=== PATIENT | male | born 1940 | race Caucasian/White ===

== ENCOUNTER → 2019-10-05 11:25 | Outpatient (BNVA) | payer MEDICARE, OTHER, SELFPAY | PROVIDERS: Family Provider Nurse Practitioner; PCP Nurse Practitioner; Visit Provider Internal Medicine Cardiovascular Disease | DX: I10 Essential (primary) hypertension (principal); R07.89 Other chest pain; E78.2 Mixed hyperlipidemia; I25.118 Atherosclerotic heart disease of native coronary artery with other forms of angina pectoris; Z95.0 Presence of cardiac pacemaker; I42.9 Cardiomyopathy, unspecified | CPT/HCPCS: 80061; 80076 ==

== ENCOUNTER 2019-10-25 08:17 | Outpatient (CLI) | payer MEDICARE, OTHER, SELFPAY ==
--- NOTE | 2019-10-25 08:20 | ECG_ITS ---
NAME OF STUDY: LEXISCAN SESTAMIBI STRESS TEST INDICATION: Atypical Chest Pain PROCEDURE: At the baseline, the EKG revealed mostly a sensed, V paced rhythm with occasional supraventricular beats. The baseline blood pressure was 120/95 mm Hg with a heart rate of 111 beats/min. Lexiscan was infused over a period of 20 seconds. A total of 0.4 milligrams of Lexiscan was infused. The stress phase was continued for a total of 5 minutes. Heart rate at the end of the stress phase was 117 with a blood pressure 150/78. The EKG at the peak infusion revealed 100% A sensed V paced rhythm. Sestamibi was injected 20 seconds after the Lexiscan infusion. Blood pressure at the end of the recovery phase was 141/75 with a heart rate of 106 per minute. CONCLUSION: 1. EKG response to Lexiscan infusion is uninterpretable due to baseline pacing artifact 2. No LexiScan induced chest pain or cardiac arrhythmia 3. Normal blood pressure and heart rate response 4. Sestamibi/sestamibi perfusion scan pending; see separate report. Electronically Signed On 10-26-2019 20:05:43 CATTLE DEHORNER by Christi Chen M.D. [email or web address]
--- NOTE | 2019-10-25 08:21 | NMCV_ITS ---
NM naa perf SPECT r/s* [id number] Jordi Esposito Age: 79 Gender: M : 1940 Exam Date: 10/25/2019 09:32 Ordering Phys: Christi Chen MD ([email or web address]) Technologist: STACY Payne Exam Location: [facility] Indications: ATYPICAL CHEST PAIN STRESS TEST Please see separate stress test report in [facility] for full findings IMAGE PROTOCOL Rest/Stress 1 Lexiscan Day Radiopharmaceutical Dose (mCi) Administration Site Administered by Rest: Tc-99m 10.8 IV STACY Cervantes Sestamibi Stress:Tc-99m 32.7 IV STACY Cervantes Sestamibi Rest: 25-Oct-2019 60 Discovery 630 Stress: 25-Oct-2019 30 Discovery 630 0.4mg Lexiscan. Images obtained in supine and prone position. SPECT RESULTS Technical Quality: Excellent Raw Data Analysis: Normal Image Corrections: Patient motion artifact - motion correction applied to stress images. Summed Stress Score: 5 Summed Rest Score: 14 Summed Difference Score: 0 PERFUSION FINDINGS Moderately decreasesed uptake in the basal, mid and apical inferior wall and some apical segments.. No significant reversibility was noted in these regions. FUNCTIONAL RESULTS (calculated via Gated SPECT) Stress Image LV EF (%): 57 Stress EDV (mL):119 TID: 0.95 Stress ESV (mL):51 FUNCTIONAL FINDINGS: Segmental wall motion analysis revealed mild diffuse hypokinesia of the LV apex IMPRESSIONS 1. Myocardial region may revealing a moderate area of persistent decreases uptake in the inferior wall and apical regions, suggestive of myocardial scarring versus attenuation artifact. 2. Normal LV ejection fraction 57%. 3. LV wall motion analysis revealing mild diffuse hypokinesia of the LV apex. 4. Slightly elevated LV cavity with an end-systolic volume of 51 ml. No significant coronary ischemia, based on the above findings Dr Christi Chen MD FACC (Electronically Signed) Final Date: 25 October 2019 17:57 S
[2019-10-25 09:04] VITALS: BMI 30.4
[2019-10-25] MEDS: regadenoson 0.4 Mg/5 ml Syringe IVP (10:12)
[2019-10-25 10:26] VITALS: BP 142/78; PULSE 71
== END 2019-10-25 08:18 | disposition home or self-care (01) ==
LOC: CDL 08:18
PROVIDERS: Family Provider Nurse Practitioner; PCP Nurse Practitioner; Visit Provider Internal Medicine Cardiovascular Disease
DX: R07.89 Other chest pain (principal)
CPT/HCPCS: 78452; 93017; A9500; J2785

== ENCOUNTER → 2019-11-09 12:40 | Outpatient (BNVA) | payer MEDICARE, OTHER, SELFPAY | PROVIDERS: Family Provider Nurse Practitioner; PCP Nurse Practitioner; Visit Provider Social Worker | DX: F33.2 Major depressive disorder, recurrent severe without psychotic features (principal) | CPT/HCPCS: 90834 ==

== ENCOUNTER → 2019-12-21 15:58 | Outpatient (BNVA) | payer MEDICARE, OTHER, SELFPAY | PROVIDERS: Family Provider Nurse Practitioner; PCP Nurse Practitioner; Visit Provider Social Worker | DX: F33.2 Major depressive disorder, recurrent severe without psychotic features (principal) | CPT/HCPCS: 90834 ==

== ENCOUNTER → 2020-01-02 12:00 | Outpatient (BNVA) | payer MEDICARE, OTHER, SELFPAY | PROVIDERS: Family Provider Nurse Practitioner; PCP Nurse Practitioner; Visit Provider Internal Medicine Cardiovascular Disease | DX: E78.5 Hyperlipidemia, unspecified (principal); E78.2 Mixed hyperlipidemia | CPT/HCPCS: 80048; 80061 ==

== ENCOUNTER → 2020-01-06 17:20 | Outpatient (BNVA) | payer MEDICARE, OTHER, SELFPAY | PROVIDERS: Family Provider Nurse Practitioner; PCP Nurse Practitioner; Visit Provider Nurse Practitioner Family | DX: M79.641 Pain in right hand (principal) | CPT/HCPCS: 73130 ==

== ENCOUNTER 2020-01-20 13:59 | Emergency (ER) | payer MEDICARE, OTHER, SELFPAY ==
[2020-01-20] VITALS (7 sets, daily range): BP systolic 116–205; BP diastolic 72–99; PULSE 65–83; RESP 15–24; TEMP 37.1; O2SAT 83–100; BMI 30.3
--- NOTE | 2020-01-20 | XRR_ITS ---
PROCEDURE INFORMATION: Exam: XR Left Ankle Exam date and time: 01/20/2020 5:06 PM Age: 79 years old Clinical indication: Abnormal findings; Abnormal imaging study; Left ankle; Additional info: Post reduction TECHNIQUE: Imaging protocol: XR Left ankle. Views: 1 or 2 views. COMPARISON: CR XR ankle LT min 3V* [id number] 01/20/2020 3:14 PM FINDINGS: Bones/joints: Status post reduction of a bimalleolar fracture of the left ankle with near anatomic alignment and positioning achieved. Soft tissues: Normal. XR/XR ankle LT 2V [id number] IMPRESSION: Status post reduction of a bimalleolar fracture of the left ankle with near anatomic alignment and positioning achieved.
--- NOTE | 2020-01-20 14:21 | XRR_ITS ---
PROCEDURE INFORMATION: Exam: XR Left Ankle Exam date and time: 01/20/2020 3:32 PM Age: 79 years old Clinical indication: Pain and injury or trauma; Injury history: Twisting injury; Initial encounter; Sprain or strain; Patella or knee and lower leg and ankle; Left; Ankle and knee and lower leg; Injury date: 01/20/20 TECHNIQUE: Imaging protocol: XR Left ankle. Views: 3 or more views. COMPARISON: No relevant prior studies available. FINDINGS: Bones/joints: There is a comminuted fracture of the distal tibia. There is a transverse fracture across the base of the medial malleolus. The posterior distal tibia, the posterior malleolus, is fractured. This posterior fragment is displaced posteriorly and laterally relative to the tibia. There is dislocation at the tibiotalar joint with lateral and posterior dislocation of the talus relative to the tibial plafond. Soft tissues: Soft tissue swelling. XR/XR ankle LT min 3V* 00101 IMPRESSION: 1. Comminuted fracture of the distal tibia with fractures of the medial and posterior malleoli. 2. There is dislocation at the tibiotalar joint. The talus is dislocated posteriorly and laterally relative to the tibial plafond.
--- NOTE | 2020-01-20 14:40 | ED_ITS ---
Documented by User: SELINA Mariano 01/21/20 17:16 HPI - Extremity Injury (Lower) General: Chief Complaint: Extremity Injury, Lower Stated Complaint: ankle pain Time Seen by Provider: 01/20/20 14:32 Source: patient Mode of arrival: wheelchair Limitations: no limitations History of Present Illness: HPI Narrative: Patient is a nice 79-year-old male who presents to ED today with a complaint of a left ankle injury. Patient tells me he was walking down to a pond to release a turtle that he had found when he accidentally slipped on some mud and immediately felt his ankle twist. Patient states he has not been able to place any weight on the extremity since the fall. Patient was able to crawl back to his home to call for help. MD complaint: ankle injury Onset (ago): hour(s) Injury: Left: ankle Type of Injury: inversion Place: home Severity: severe Relieving factors: nothing Exacerbating factors: weight bearing, movement and palpation Context: fall Associated symptoms: Reports inability to bear weight Other symptoms: none Review of Systems Card: Denies: chest pain Resp: Denies: dyspnea GI: Denies: abdominal pain Musc: Reports: joint pain and joint swelling; Denies: neck pain or back pain Neuro: Denies: headache(s), numbness in extremities, weakness in extremities or sensory changes [facility] ED PFSH: Medical History (Updated 01/20/20 @ 16:20 by SELINA Mariano) Atypical chest pain Cardiomyopathy Emphysema lung Hyperlipidemia Hypertension Obstructive sleep apnea (adult) (pediatric) Pacemaker Sick sinus syndrome Surgical History History of arthroplasty of left shoulder Family History Other CAD (coronary artery disease) Cancer Social History Smoking and tobacco status: former smoker Alcohol intake: never Physical Exam Const: COMMON NORMALS: average body habitus, patient oriented x3, no limitations, healthy appearing, alert and well nourished GENERAL APPEARANCE: in distress (in pain) ORIENTATION/CONSCIOUSNESS: Yes oriented to person, Yes oriented to place and Yes oriented to time HENMT: COMMON NORMALS: normocephalic and atraumatic HEAD & SCALP: normocephalic and atraumatic Neck/C-Spine: CERVICAL SPINE: Yes cervical ROM normal and No Cervical spine tenderness Chest: COMMONS NORMALS: normal inspection of the chest and normal palpation of entire chest wall Resp: COMMON NORMALS: normal respiratory effort and clear to auscultation bilaterally AUSCULTATION: clear to auscultation bilaterally Cardio: COMMON NORMALS: regular rate and regular rhythm RATE: regular rate RHYTHM: regular rhythm Back/Pelvis: COMMON NORMALS: thoracic and lumbar spine normal to inspection, no thoracic nor lumbar tenderness and thoraco-lumbar ROM normal Extremity: GENERAL: Yes normal exam except as noted OTHER: severe tenderness, swelling, and deformity noted to distal left lower extremity mainly around the ankle consistent with fractures and possible dislocation; NV intact; ecchymosis starting Neuro: COMMON NORMALS: patient oriented x3 and no sensory deficits noted SENSORIUM/ORIENTATION: Yes alert, Yes oriented to person, Yes oriented to place and Yes oriented to time Course Consultations: Consultation #1: Dr. Fisher-will come to ED and reduce ankle and speak to patient about OR schedule Vital Signs: Vital signs: Vital Signs Temperature 98.7 F 01/20/20 14:08 Pulse Rate 65 01/20/20 18:12 Respiratory Rate 24 H 01/20/20 18:12 Blood Pressure 146/75 01/20/20 18:12 Pulse Oximetry 99 01/20/20 18:12 MDM - Extremity Injury (Lower) MDM Narrative: Medical decision making narrative: Dr. Fisher performed reduction of ankle dislocation. Dr. Patton was alongside to provide conscious sedation. Post reduction films obtained. Patient was splinted and I spoke to Dr. Fisher who will see in office next week for re-evaluation. Lab Data: Labs: Lab Results 01/20/20 01/20/20 Range/Units 14:50 14:50 WBC 13.8 H (4.0-10.0) 10^3/ uL RBC 4.26 (4.1-5.3) 10^6/u L Hgb 13.3 (11.7-16.6) g/dL Hct 40.5 L (42.0-52.0) % MCV 95.1 H (80-94) fL MCH 31.2 (28.0-34.0) pg MCHC 32.8 (30.0-36.0) g/dL RDW 13.3 (12.1-15.1) % Plt Count 189 (130-400) 10^3/c mm MPV 10.8 H (7.4-10.4) fL Neut % (Auto) 78.4 % Lymph % (Auto) 13.5 % Randolph % (Auto) 6.1 % Eos % (Auto) 1.4 % Baso % (Auto) 0.2 % Neut # (Auto) 10.8 H (1.8-7.7) 10^3/u L Lymph # (Auto) 1.9 (0.8-4.8) 10^3/u L Randolph # (Auto) 0.8 (0.2-0.9) 10^3/u L Eos # (Auto) 0.2 (0.0-0.8) 10^3/u L Baso # (Auto) 0.0 (0.0-0.1) 10^3/u L Nucleated RBC % (a uto) 0 % Nucleated RBCs # 0.0 /100WBC Sodium 140 (136-145) mmol/L Potassium 4.3 (3.5-5.1) mmol/L Chloride 102 (98-107) mmol/L Carbon Dioxide 26 (22-29) mmol/L Anion Gap 16.3 (5-19) BUN 21 (8-23) mg/dL Creatinine 1.3 H (0.7-1.2) mg/dL Glucose 119 H (65-115) mg/dL Calculated Osmolal ity 288 (285-295) mOsm/k g Calcium 10.2 (8.5-10.5) mg/dL Total Bilirubin 0.7 (0.15-1.2) mg/dL AST 23 (0-40) U/L ALT 17 (0-41) U/L Alkaline Phosphata se 115 (40-130) IU/L Total Protein 7.6 (6.6-8.7) g/dL Albumin 4.5 (3.5-5.2) g/dL Globulin 3.1 (1.3-4.6) g/dL Imaging Data^: L tib/fib XR: Radiologist's impression: [address] [address] XRay Report Signed Patient: Jordi Esposito Unit #: [id number] : 1940 Age/Sex: 79 / M ADM Date: 01/20/20 Loc: ER Room/Bed: Attending Dr: Ordering Provider/Ordering MD: Jeanne Avila Date of Service: 01/20/20 Procedure(s): XR tibia fibula LT 2V 01972 Accession Number(s): [id number] Report Number: [id number] PROCEDURE INFORMATION: Exam: XR Left Tibia and Fibula Exam date and time: 01/20/2020 2:40 PM Age: 79 years old Clinical indication: Pain and injury or trauma; Injury history: Twisting injury; Initial encounter; Sprain or strain; Patella or knee and lower leg and ankle; Left; Ankle and knee and lower leg; Injury date: 01/20/20 TECHNIQUE: Imaging protocol: XR Left tibia and fibula. Views: 2 views. COMPARISON: No relevant prior studies available. FINDINGS: Bones/joints: There is no fracture of the proximal or mid tibia or fibula. There is a distal tibial fracture as reported on ankle x-ray. Soft tissues: Normal. XR/XR tibia fibula LT 2V 08798 IMPRESSION: 1. No fracture of the proximal to mid tibia or fibula. 2. Distal tibial fracture as discussed on ankle x-ray. Dictated By: aJd Seals MD Signed By: Jad Seals MD Signed Date/Time: 01/20/20 1555 DD/ 1554 L foot XR: Radiologist's impression: [address] [address] XRay Report Signed Patient: Jordi Esposito Unit #: [id number] : 1940 Age/Sex: 79 / M ADM Date: 01/20/20 Loc: ER Room/Bed: Attending Dr: Ordering Provider/Ordering MD: Jeanne Avila Date of Service: 01/20/20 Procedure(s): XR foot LT min 3V* 99145 Accession Number(s): [id number] Report Number: [id number] PROCEDURE INFORMATION: Exam: XR Left Foot Complete Exam date and time: 01/20/2020 3:22 PM Age: 79 years old Clinical indication: Pain and injury or trauma; Injury history: Twisting injury; Initial encounter; Sprain or strain; Lower leg and ankle and foot; Left; Ankle and foot and lower leg; Injury date: 01/20/20 TECHNIQUE: Imaging protocol: XR Left foot. Views: 3 or more views. COMPARISON: No relevant prior studies available. FINDINGS: Bones/joints: There is no fracture of the phalanges, metatarsals or tarsals. Fracture and dislocation of the tibia as described on ankle x-ray. Soft tissues: Normal. XR/XR foot LT min 3V* [id number] IMPRESSION: 1. No fracture of the left foot. 2. Fracture and dislocation of the ankle as described on ankle x-ray. Dictated By: Jad Seals MD Signed By: Jad Seals MD Signed Date/Time: 01/20/206 DD/ 1555 L ankle XR: Radiologist's impression: [address] [address] XRay Report Signed Patient: Jordi Esposito Unit #: [id number] : 1940 Age/Sex: 79 / M ADM Date: 01/20/20 Loc: ER Room/Bed: Attending Dr: Ordering Provider/Ordering MD: Jeanne Avila Date of Service: 01/20/20 Procedure(s): XR ankle LT min 3V* 46425 Accession Number(s): [id number] Report Number: [id number] PROCEDURE INFORMATION: Exam: XR Left Ankle Exam date and time: 01/20/2020 3:32 PM Age: 79 years old Clinical indication: Pain and injury or trauma; Injury history: Twisting injury; Initial encounter; Sprain or strain; Patella or knee and lower leg and ankle; Left; Ankle and knee and lower leg; Injury date: 01/20/20 TECHNIQUE: Imaging protocol: XR Left ankle. Views: 3 or more views. COMPARISON: No relevant prior studies available. FINDINGS: Bones/joints: There is a comminuted fracture of the distal tibia. There is a transverse fracture across the base of the medial malleolus. The posterior distal tibia, the posterior malleolus, is fractured. This posterior fragment is displaced posteriorly and laterally relative to the tibia. There is dislocation at the tibiotalar joint with lateral and posterior dislocation of the talus relative to the tibial plafond. Soft tissues: Soft tissue swelling. XR/XR ankle LT min 3V* 66574 IMPRESSION: 1. Comminuted fracture of the distal tibia with fractures of the medial and posterior malleoli. 2. There is dislocation at the tibiotalar joint. The talus is dislocated posteriorly and laterally relative to the tibial plafond. Dictated By: Jad Seals MD Signed By: Jad Seals MD Signed Date/Time: 01/20/201558 DD/ 57 POST REDUCTION ANKLE XR: Radiologist's impression: [place] [address] XRay Report Signed Patient: Jordi Esposito Unit #: [id number] : 1940 Age/Sex: 79 / M ADM Date: 01/20/20 Loc: ER Room/Bed: Attending Dr: Ordering Provider/Ordering MD: Yuan Patton DO Date of Service: 01/20/20 Procedure(s): XR ankle LT 2V 44432 Accession Number(s): [id number] Report Number: [id number] PROCEDURE INFORMATION: Exam: XR Left Ankle Exam date and time: 01/20/2020 5:06 PM Age: 79 years old Clinical indication: Abnormal findings; Abnormal imaging study; Left ankle; Additional info: Post reduction TECHNIQUE: Imaging protocol: XR Left ankle. Views: 1 or 2 views. COMPARISON: CR XR ankle LT min 3V* 87095 01/20/2020 3:14 PM FINDINGS: Bones/joints: Status post reduction of a bimalleolar fracture of the left ankle with near anatomic alignment and positioning achieved. Soft tissues: Normal. XR/XR ankle LT 2V 45427 IMPRESSION: Status post reduction of a bimalleolar fracture of the left ankle with near anatomic alignment and positioning achieved. Dictated By: Tam Christensen MD Signed By: Tam Christensen MD Signed Date/Time: 01/21/20510 DD/ 9 Discharge Plan Discharge Patient Disposition: Home, Self-Care Clinical Impression: Closed trimalleolar fracture Qualifiers: Encounter type: initial encounter Laterality: left Qualified Code(s): S82.852A - Displaced trimalleolar fracture of left lower leg, initial encounter for closed fracture Closed dislocation of left ankle Qualifiers: Encounter type: initial encounter Qualified Code(s): S93.05XA - Dislocation of left ankle joint, initial encounter Condition: Stable Prescriptions: New hydrocodone-acetaminophen 7.5-325 mg tablet 1 tab PO Q4H PRN (Reason: pain) Qty: 20 RF: 0 No Action futsbtcyyjiu-zqqdabfg-oqxclt Tablet 1 tab PO QDAY RF: 0 aspirin [Adult Low Dose Aspirin] 81 mg tablet,delayed release (DR/EC) 81 mg PO QDAY RF: 0 nitroglycerin [Nitrostat] 0.4 mg tablet, sublingual 0.4 mg SUBLINGUAL Q5M PRNRF: 0 isosorbide mononitrate 30 mg tablet extended release 24 hr 30 mg PO QAM RF: 0 atorvastatin 40 mg tablet 40 mg PO DAILY Qty: 90 RF: 2 carvedilol 3.125 mg tablet 3.125 mg PO BID Qty: 180 RF: 3 irbesartan-hydrochlorothiazide [Avalide] 150-12.5 mg tablet 1 tab PO QDAY Qty: 90 RF: 3 Discharge Orders: Discharge Order (Routine); Ordered 01/20/20 Ordered By: Jeanne Avila Referrals: Alley Saucedo FNP [Primary Care Provider] - Activity Restrictions/Additional Instructions: No weightbearing on extremity. You need to have ice on the extremity and elevate as much as possible until you see Dr. Fisher next week. He then will assess the swelling and go over surgical schedule. You may take pain medications as directed as needed for pain. Discharge Date/Time: 01/20/20 18:12 Coding Level of Care Code ED [employer] for [employer]g Fwd Exam Comprehensive Documented by User: Yuan Patton DO 01/20/20 16:55 HPI - Extremity Injury (Lower) General: Chief Complaint: Extremity Injury, Lower Stated Complaint: ankle pain Time Seen by Provider: 01/20/20 14:32 History of Present Illness: HPI Narrative: Patient initially seen by SELINA Marinao. She consulted Dr. Fisher for the trimalleolar fracture. Dr. Fisher is in the department plans to reduce the fracture splinted and to do a staged procedure to fixate the fracture. I was asked to do conscious sedation on the patient for fracture reduction. [facility] ED PFSH: Medical History (Updated 01/20/20 @ 16:20 by SELINA Mariano) Atypical chest pain Cardiomyopathy Emphysema lung Hyperlipidemia Hypertension Obstructive sleep apnea (adult) (pediatric) Pacemaker Sick sinus syndrome Surgical History History of arthroplasty of left shoulder Family History Other CAD (coronary artery disease) Cancer Social History Smoking and tobacco status: former smoker Alcohol intake: never Procedures Procedural Sedation Indication: fracture/dislocation reduction Preparation: environmental monitoring specialist applied, pulse oximeter, supplemental O2 applied and suction/airway equipment at bedside IV Etomidate dose (mg): 10 Complications: hypoventilation Interventions: oxygen applied, airway repositioned and assist by BVM Additional Comments: Patient desatted briefly into the upper 80s. His initially given some respiratory systems with [id number]-[id number] along with repositioning of the airway and a jaw thrust maneuver. This was this provided adequate recovery and patient increased his sat to 100% recovered from with no further complications. Discharge per SELINA note and Dr. Fisher's instructions. Course Vital Signs: Vital signs: Vital Signs Temperature 98.7 F 01/20/20 14:08 Pulse Rate 65 01/20/20 18:12 Respiratory Rate 24 H 01/20/20 18:12 Blood Pressure 146/75 01/20/20 18:12 Pulse Oximetry 99 01/20/20 18:12 MDM - Extremity Injury (Lower) Lab Data: Labs: Lab Results 01/20/20 01/20/20 Range/Units 14:50 14:50 WBC 13.8 H (4.0-10.0) 10^3/ uL RBC 4.26 (4.1-5.3) 10^6/u L Hgb 13.3 (11.7-16.6) g/dL Hct 40.5 L (42.0-52.0) % MCV 95.1 H (80-94) fL MCH 31.2 (28.0-34.0) pg MCHC 32.8 (30.0-36.0) g/dL RDW 13.3 (12.1-15.1) % Plt Count 189 (130-400) 10^3/c mm MPV 10.8 H (7.4-10.4) fL Neut % (Auto) 78.4 % Lymph % (Auto) 13.5 % Randolph % (Auto) 6.1 % Eos % (Auto) 1.4 % Baso % (Auto) 0.2 % Neut # (Auto) 10.8 H (1.8-7.7) 10^3/u L Lymph # (Auto) 1.9 (0.8-4.8) 10^3/u L Randolph # (Auto) 0.8 (0.2-0.9) 10^3/u L Eos # (Auto) 0.2 (0.0-0.8) 10^3/u L Baso # (Auto) 0.0 (0.0-0.1) 10^3/u L Nucleated RBC % (a uto) 0 % Nucleated RBCs # 0.0 /100WBC Sodium 140 (136-145) mmol/L Potassium 4.3 (3.5-5.1) mmol/L Chloride 102 (98-107) mmol/L Carbon Dioxide 26 (22-29) mmol/L Anion Gap 16.3 (5-19) BUN 21 (8-23) mg/dL Creatinine 1.3 H (0.7-1.2) mg/dL Glucose 119 H (65-115) mg/dL Calculated Osmolal ity 288 (285-295) mOsm/k g Calcium 10.2 (8.5-10.5) mg/dL Total Bilirubin 0.7 (0.15-1.2) mg/dL AST 23 (0-40) U/L ALT 17 (0-41) U/L Alkaline Phosphata se 115 (40-130) IU/L Total Protein 7.6 (6.6-8.7) g/dL Albumin 4.5 (3.5-5.2) g/dL Globulin 3.1 (1.3-4.6) g/dL Discharge Plan Discharge Patient Disposition: Home, Self-Care Clinical Impression: Closed trimalleolar fracture Qualifiers: Encounter type: initial encounter Laterality: left Qualified Code(s): S82.852A - Displaced trimalleolar fracture of left lower leg, initial encounter for closed fracture Closed dislocation of left ankle Qualifiers: Encounter type: initial encounter Qualified Code(s): S93.05XA - Dislocation of left ankle joint, initial encounter Condition: Stable Prescriptions: New hydrocodone-acetaminophen 7.5-325 mg tablet 1 tab PO Q4H PRN (Reason: pain) Qty: 20 RF: 0 No Action fgqwduqwfjze-gydjvsro-utwosv Tablet 1 tab PO QDAY RF: 0 aspirin [Adult Low Dose Aspirin] 81 mg tablet,delayed release (DR/EC) 81 mg PO QDAY RF: 0 nitroglycerin [Nitrostat] 0.4 mg tablet, sublingual 0.4 mg SUBLINGUAL Q5M PRNRF: 0 isosorbide mononitrate 30 mg tablet extended release 24 hr 30 mg PO QAM RF: 0 atorvastatin 40 mg tablet 40 mg PO DAILY Qty: 90 RF: 2 carvedilol 3.125 mg tablet 3.125 mg PO BID Qty: 180 RF: 3 irbesartan-hydrochlorothiazide [Avalide] 150-12.5 mg tablet 1 tab PO QDAY Qty: 90 RF: 3 Discharge Orders: Discharge Order (Routine); Ordered 01/20/20 Ordered By: Jeanne Avila Referrals: Alley Saucedo FNP [Primary Care Provider] - Activity Restrictions/Additional Instructions: No weightbearing on extremity. You need to have ice on the extremity and elevate as much as possible until you see Dr. Fisher next week. He then will assess the swelling and go over surgical schedule. You may take pain medications as directed as needed for pain. Discharge Date/Time: 01/20/20 18:12 Coding Level of Care Code ED [employer] for [employer]g Fwd Exam Comprehensive
[2020-01-20] MEDS: fentaNYL 50 mcg/mL INJ 2mL IVP (14:57)
[2020-01-20] MEDS: ondansetron 2 mg/ML SDV 2 mL 4 MG IVP (14:57)
[2020-01-20 15:03] LABS: Basophils % 0.2 %; Eosinophils # 0.2 10^3/uL (0.0-0.8); Eosinophils % 1.4 %; Hematocrit 40.5 % (42.0-52.0); Hemoglobin 13.3 g/dL (11.7-16.6); Lymphocytes # 1.9 10^3/uL (0.8-4.8); Lymphocytes % 13.5 %; Mean Corpuscular HGB Conc 32.8 g/dL (30.0-36.0); Mean Corpuscular Hemoglobin 31.2 pg (28.0-34.0); Mean Corpuscular Volume 95.1 fL (80-94); Mean Platelet Volume 10.8 fL (7.4-10.4); Monocytes # 0.8 10^3/uL (0.2-0.9); Monocytes % 6.1 %; Neutrophils # 10.8 10^3/uL (1.8-7.7); Neutrophils % 78.4 %; Nucleated Red Blood Cells % 0 %; Platelet Count 189 10^3/cmm (130-400); Red Blood Count 4.26 10^6/uL (4.1-5.3); Red Cell Distribution Width 13.3 % (12.1-15.1); White Blood Count 13.8 10^3/uL (4.0-10.0)
--- NOTE | 2020-01-20 15:03 | PC.NURSE ---
portable xray at bedside
[2020-01-20 15:25] LABS: Alanine Aminotransferase 17 U/L (0-41); Albumin Level 4.5 g/dL (3.5-5.2); Alkaline Phosphatase 115 IU/L (40-130); Anion Gap 16.3 (5-19); Aspartate Amino Transferase 23 U/L (0-40); Blood Urea Nitrogen 21 mg/dL (8-23); Calcium 10.2 mg/dL (8.5-10.5); Carbon Dioxide 26 mmol/L (22-29); Chloride 102 mmol/L (98-107); Globulin 3.1 g/dL (1.3-4.6); Glucose 119 mg/dL (65-115); Osmolality Calculated 288 mOsm/kg (285-295); Potassium 4.3 mmol/L (3.5-5.1); Sodium 140 mmol/L (136-145); Total Bilirubin 0.7 mg/dL (0.15-1.2); Total Protein 7.6 g/dL (6.6-8.7)
[2020-01-20] MEDS: etomidate 10 ML 999 MG (16:40)
[2020-01-20] MEDS: fentaNYL 50 mcg/mL INJ 2mL 25 MCG IVP ×2 (16:48→17:36)
--- NOTE | 2020-01-20 17:46 | P.CONIM_ITS ---
Providers/Reason For Consult Consulting Physican/Specialty*: Tremaine Fisher D.P.M. Reason for Consult*: Left ankle fracture Requesting Physcian: Jeanne Avila NP Primary Care Provider: AIDAN Tolliver History of Present Illness History of Present Illness Jordi Esposito is a 79 year old male who sustained a left ankle fracture with dislocation. Date of injury 01/20/2020 occurred in the afternoon patient saw a snapping turtle and decided to place it near a pond on [place] property he was approximately 300 yards [place] he [place] and sustained a inversion plantarflexion type injury to his left ankle he felt a pop with immediate pain. He had to crawl back to his house to call for help. His daughter and son-in-law live next door. They are a point of contact for him and he will be staying with him when he goes home from the emergency department. His daughter's name is Ekaterina her landline number is [phone]. Patient denies any other concomitant injuries, denies loss of consciousness. Denies any other pedal complaints at this time. Review of Systems General: Reports: 10 or more systems reviewed and unremarkable except in HPI and below Const: Denies: fever(s) or chills Eyes: Denies: change in vision Card: Denies: chest pain or palpitations Resp: Denies: dyspnea or productive cough GI: Denies: abdominal pain, nausea or vomiting : Denies: flank pain Musc: Reports: extremity pain (Left ankle), extremity swelling, joint pain, limited range of motion and deformity (Left ankle); Denies: joint redness or joint warmth Skin/Breast: Denies: rash Neuro: Denies: numbness in extremities, sensory changes or frequent falls Psych: Denies: suicidal ideation Mundo/Lymph: Denies: easy bruising Meds/Allergies Home Medications and Allergies Home Medications Medication Instructions Recorded Confirmed Last Taken Type aspirin 81 mg tablet,delayed 81 mg PO QDAY 10/04/19 01/06/20 Unknown History release isosorbide mononitrate 30 mg 30 mg PO QAM 10/04/19 01/06/20 Unknown History tablet,extended release 24 hr wtunoytcbrvm-vaqkqfbz-wgatqe 1 tab PO QDAY 10/04/19 01/06/20 Unknown History nitroglycerin 0.4 mg sublingual 0.4 mg SUBLINGUAL Q5M PRN 10/04/19 01/06/20 Unknown History tablet atorvastatin 40 mg tablet 40 mg PO DAILY #90 tab 11/22/19 01/06/20 Unknown Rx carvedilol 3.125 mg tablet 3.125 mg PO BID #180 tab 12/20/19 01/06/20 Unknown Rx irbesartan 150 1 tab PO QDAY #90 tab 01/09/20 Unknown Rx mg-hydrochlorothiazide 12.5 mg tablet hydrocodone-acetaminophen 1 tab PO Q4H PRN #20 tab 01/20/20 Unknown Rx Allergies Allergy/AdvReac Type Severity Reaction Status Date / Time morphine Allergy Intermediate nausea and Verified 01/20/20 14:11 vomiting PFSH Acute PFSH: Medical History (Updated 01/20/20 @ 16:20 by SELINA Mariano) Atypical chest pain Cardiomyopathy Emphysema lung Hyperlipidemia Hypertension Obstructive sleep apnea (adult) (pediatric) Pacemaker Sick sinus syndrome Surgical History History of arthroplasty of left shoulder Family History Other CAD (coronary artery disease) Cancer Social History Smoking and tobacco status: former smoker Alcohol intake: never Vitals/I&O/Wt Last Vital Signs Temp 98.7 F 01/20/20 14:08 Pulse 71 01/20/20 17:38 Resp 18 01/20/20 17:38 BP 147/72 01/20/20 17:38 Pulse Ox 99 01/20/20 17:38 Weight last 48 hrs Weight 230 lb Physical Exam Const: COMMON NORMALS: patient oriented x3 and alert GENERAL APPEARANCE: well kempt and in distress ORIENTATION/CONSCIOUSNESS: Yes awake, Yes oriented to person, Yes oriented to place and Yes oriented to time HENMT: COMMON NORMALS: normocephalic HEAD & SCALP: normocephalic Eye: COMMON NORMALS: Equal, round and reactive pupils present PUPIL: Yes Equal, round and reactive pupils present Chest: CHEST: Yes Symmetrical chest wall rise Resp: COMMON NORMALS: normal respiratory effort Cardio: COMMON NORMALS: Peripheral pulses 2+ throughout PERIPHERAL PULSES: Peripheral pulses 2+ throughout Extremity: LEFT LOWER EXTREMITY: Yes ankle joint (Protective sensation intact to left foot, dorsalis pedis and posterior tibial arteries are palpable left lower extremity. Edema to the left ankle medial and lateral malleolus. No open wounds, no fracture blisters or abrasions. Ecchymosis at the medial malleolus. Gross deformity appreciated with the medial malleolus tenting the skin and talus shifted laterally. Capillary refill less than 3 seconds to the left hallux.) Neuro: COMMON NORMALS: patient oriented x3 and no sensory deficits noted SENSORIUM/ORIENTATION: Yes alert, Yes oriented to person, Yes oriented to place and Yes oriented to time Psych: COMMON NORMALS: cooperative APPEARANCE: Yes well kempt Skin: COMMON NORMALS: no wounds GENERAL SKIN EXAM: ecchymosis and no erythema A&P Assessment and plan (1) Closed dislocation of left ankle: Status: Acute Qualifiers: Encounter type: initial encounter Qualified Code(s): S93.05XA - Dislocation of left ankle joint, initial encounter (2) Closed trimalleolar fracture: Status: Acute Qualifiers: Encounter type: initial encounter Laterality: left Qualified Code(s): S82.852A - Displaced trimalleolar fracture of left lower leg, initial encounter for closed fracture Patient examined and evaluated, findings and treatment options were discussed with patient at length. Recommended a closed reduction of the left ankle. Patient is agreeable written and verbal consent obtained. Conscious sedation provided by Dr. Patton greatly appreciated. Closed reduction of left ankle dislocation was performed by exaggerating the mechanism of injury followed by reduction of reverse mechanism of injury reduction noted to be satisfactory with congruent ankle mortise postreduction confirmed utilizing x-ray on AP and lateral views. On original x-ray patient has a transverse medial malleolus fracture, Christiano Ramirez B fibular fracture that is shortened, posteriorly dislocated and angled laterally the talus is shifted laterally 50% out of the ankle mortise. Upon successful reduction of ankle fracture dislocation a multilayer compressive posterior splint was applied to the left lower extremity consisting of 4 inch cast padding x2, 6 inch cast padding x2, 4 inch Loco wrap x2, 6 inch Loco wrap x2, 4 inch x 40 inch Ortho-Glass posterior splint and 3 inch x 30 inch sugar tong. Patient tolerated sedation and reduction well. I instructed him to remain strict nonweightbearing to the left lower extremity and elevate his left lower extremity at all times while at rest. He will follow-up in clinic next week for preoperative evaluation and soft tissue envelope inspe ction. Plans for left ankle ORIF approximately the neck 7 days. This can be performed outpatient. Patient will be staying at his daughter's house who has wheelchair and handicap is accessible home, his son-in-law his on disability and utilizes a wheelchair. Patient will be contacted Thursday morning by my office for follow-up appointment in podiatry clinic. Additional phone number is his daughter Ekaterina [phone]. He is to return to the emergency department with any complaints of pain out of proportion, loss of sensation, chest pain, posterior calf pain and shortness of breath. Coding Level of Care Code Acute Insurance Healthcare Representative for Guido Reed Exam Comprehensive Diagnoses Closed dislocation of left ankle S93.05XA Encounter type: initial encounter Closed trimalleolar fracture S82.852A Encounter type: initial encounter Laterality: left
--- NOTE | 2020-01-23 09:05 | DCPLANNER ---
manager of allied health services had message to schedule a follow up appointment for patient with ortho. manager of allied health services called the ortho clinic, spoke with Kenisha, gave clinic patients information. manager of allied health services was told that patients information would be printed and reviewed. Clinic will call case liner and patient with appointment information.
--- NOTE | 2020-01-24 14:38 | DCPLANNER ---
Patient has a follow up appointment scheduled for , January 26, [address] at 4:[address] Fisher. Clinic will call patient with appointment information.
--- NOTE | 2020-02-23 14:13 | DCPLANNER ---
Patient did attend the appointment scheduled for 01.26.20 with ortho.
== END 2020-01-20 18:12 | disposition home or self-care (01) ==
PROVIDERS: Physician Assistant; Emergency Provider Family Medicine; Family Provider Nurse Practitioner; PCP Nurse Practitioner
DX: S82.852A Displaced trimalleolar fracture of left lower leg, initial encounter for closed fracture (principal); S93.05XA Dislocation of left ankle joint, initial encounter; W01.0XXA Fall on same level from slipping, tripping and stumbling without subsequent striking against object, initial encounter; Z79.82 Long term (current) use of aspirin; E78.5 Hyperlipidemia, unspecified; J43.9 Emphysema, unspecified; I10 Essential (primary) hypertension; Z95.0 Presence of cardiac pacemaker; Z87.891 Personal history of nicotine dependence
CPT/HCPCS: 12345; 27818; 73590; 73600; 73610; 73630; 80053; 85025; 96374; 96375; 96376; 99283; E0114; J2405; J3010; J3490

== ENCOUNTER → 2020-01-26 17:02 | Outpatient (BNVA) | payer MEDICARE, OTHER, SELFPAY | PROVIDERS: Family Provider Nurse Practitioner; PCP Nurse Practitioner; Visit Provider Podiatrist Foot & Ankle Surgery | DX: S82.852A Displaced trimalleolar fracture of left lower leg, initial encounter for closed fracture (principal); M79.605 Pain in left leg; X58.XXXA Exposure to other specified factors, initial encounter | CPT/HCPCS: 73590; 73600; 73610 ==

== ENCOUNTER 2020-01-26 18:39 | Inpatient (IN) | payer MEDICARE, OTHER, SELFPAY ==
[2020-01-26 18:52] VITALS: BP 151/70; PULSE 73; RESP 18; TEMP 36.9; O2SAT 95; BMI 30.3
--- NOTE | 2020-01-26 19:09 | XR_ITS ---
WS: [id number] CHEST XRAY TECHNIQUE: Portable chest. CLINICAL INFORMATION: pre op COMPARISON: April 01, 2019 FINDINGS: Cardiac pacer. Heart: Normal cardiac silhouette. Lungs: Mild chronic emphysematous changes. No acute pulmonary infiltrates. Bones: Normal visualized bony structures. XR/XR chest 1V portable [id number] IMPRESSION: No acute chest findings
--- NOTE | 2020-01-26 19:09 | ECG_ITS ---
Measurements Intervals [place] Rate: 78 P: 61 VT: 191 QRS: -77 QRSD: 214 T: 93 QT: 454 QTc: 519 A sense V paced rhythm Compared to ECG 07/27/2019 09:23:22 No significant changes Electronically Signed On 01-27-2020 18:06:22 CDT by Rocio Dolan M.D. [id number]
--- NOTE | 2020-01-26 19:12 | ED_ITS ---
HPI - Extremity Problem General: Chief complaint: Extremity Problem,Nontraumatic Stated complaint: left ankle problems Time Seen by Provider: 01/26/20 19:00 History of Present Illness: HPI Narrative: Patient is a 79 year old male presenting with a known trimalleolar fracture of the left ankle. He was treated over the weekend in the ED by Dr. Fisher. He followed up in Dr. Fisher's office today and will require surgery tomorrow with placement of pins or other stabilization. Dr. Fisher sent him to the ER requesting that he be admitted to the hospitalist overnight pending his procedure tomorrow. The patient has no complaints other than pain in his ankle. He does also have some problems with his right hand that is being worked up as an outpatient. Associated symptoms: Deny chest pain, fever(s) or rash Review of Systems General: Reports: 10 or more systems reviewed and unremarkable except in HPI and below Const: Denies: fever(s), chills, fatigue or malaise Eyes: Denies: change in vision ENMT: Denies: odynophagia Card: Denies: chest pain or swelling of feet/ankles Resp: Denies: dyspnea, productive cough or non-productive cough GI: Denies: abdominal pain, nausea or vomiting : Denies: flank pain Musc: Reports: other (Trimalleolar fracture of the left ankle. 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.); Denies: neck pain or back pain Skin/Breast: Denies: rash Neuro: Denies: headache(s), numbness in extremities or weakness in extremities Mundo/Lymph: Denies: easy bruising or easy bleeding [facility] ED PFSH: Medical History Atypical chest pain Cardiomyopathy Emphysema lung Hyperlipidemia Hypertension Obstructive sleep apnea (adult) (pediatric) Pacemaker Sick sinus syndrome Surgical History History of arthroplasty of left shoulder Family History Other CAD (coronary artery disease) Cancer Social History Smoking and tobacco status: former smoker Alcohol intake: never Physical Exam Const: COMMON NORMALS: no acute distress, patient oriented x3, no limitations and alert GENERAL APPEARANCE: cooperative and comfortable HENMT: HEAD & SCALP: normal to inspection FACE & SINUS: normal facial exam Eye: GENERAL EYE: appearance normal, both eyes and all related structures Neck/C-Spine: COMMON NORMALS: supple, no meningeal signs and no JVD Chest: COMMONS NORMALS: normal inspection of the chest Resp: COMMON NORMALS: normal respiratory effort, No use of accessory muscles and clear to auscultation bilaterally AUSCULTATION: clear to auscultation bilaterally Cardio: COMMON NORMALS: no JVD, regular rate, regular rhythm and No murmurs present (Cardio) RATE: regular rate RHYTHM: regular rhythm GI: COMMON NORMALS: Normal to inspection, nondistended, normoactive bowel sounds present, Soft to palpation and non-tender INSPECTION: Yes normal to inspection AUSCULTATION: Yes normoactive bowel sounds PALPATION: Yes Soft to palpation Back/Pelvis: COMMON NORMALS: thoracic and lumbar spine normal to inspection Extremity: COMMON NORMALS: normal to inspection RIGHT UPPER EXTREMITY: Yes hand & digits (Tender with limited range of motion of the long finger.) LEFT LOWER EXTREMITY: Yes ankle joint (Splinted at Dr. Fisher's office prior to coming) Neuro: COMMON NORMALS: patient oriented x3, moves all extremities, no focal motor deficits and no sensory deficits noted SENSORIUM/ORIENTATION: Yes alert MENINGEAL SIGNS: Yes no meningeal signs Psych: COMMON NORMALS: mental status grossly normal, cooperative and normal affect Skin: COMMON NORMALS: no rashes or lesions noted and turgor normal GENERAL SKIN EXAM: no rashes or lesions noted and turgor normal Course ED course: Very pleasant gentleman with a trimalleolar fracture requiring surgical intervention. He will be admitted by the hospitalist eleni and preop labs, EKG, x-ray have been done in the ED. Vital Signs: Vital signs: Vital Signs Temperature 98.5 F 01/26/20 18:52 Pulse Rate 73 01/26/20 18:52 Respiratory Rate 18 01/26/20 18:52 Blood Pressure 151/70 01/26/20 18:52 Pulse Oximetry 95 01/26/20 18:52 MDM - Extremity (Nontraumatic) Lab Data: Labs: Lab Results 01/26/20 01/26/20 01/26/20 Range/Units 19:15 19:15 19:15 WBC 9.6 (4.0-10.0) 10^3/ uL RBC 3.83 L (4.1-5.3) 10^6/u L Hgb 11.9 (11.7-16.6) g/dL Hct 36.2 L (42.0-52.0) % MCV 94.5 H (80-94) fL MCH 31.1 (28.0-34.0) pg MCHC 32.9 (30.0-36.0) g/dL RDW 13.1 (12.1-15.1) % Plt Count 212 (130-400) 10^3/c mm MPV 10.7 H (7.4-10.4) fL Neut % (Auto) 71.6 % Lymph % (Auto) 16.7 % Lyon % (Auto) 9.3 % Eos % (Auto) 1.9 % Baso % (Auto) 0.2 % Neut # (Auto) 6.9 (1.8-7.7) 10^3/u L Lymph # (Auto) 1.6 (0.8-4.8) 10^3/u L Lyon # (Auto) 0.9 (0.2-0.9) 10^3/u L Eos # (Auto) 0.2 (0.0-0.8) 10^3/u L Baso # (Auto) 0.0 (0.0-0.1) 10^3/u L Nucleated RBC % (a uto) 0 % Nucleated RBCs # 0.0 /100WBC PT 12.70 (10.5-13.3) SECO NDS INR 0.93 (0.8-1.2) Sodium 138 (136-145) mmol/L Potassium 4.3 (3.5-5.1) mmol/L Chloride 98 (98-107) mmol/L Carbon Dioxide 27 (22-29) mmol/L Anion Gap 17.3 (5-19) BUN 28 H (8-23) mg/dL Creatinine 1.2 (0.7-1.2) mg/dL Glucose 107 (65-115) mg/dL Calculated Osmolal ity 283 L (285-295) mOsm/k g Calcium 9.1 (8.5-10.5) mg/dL Total Bilirubin 1.0 (0.15-1.2) mg/dL AST 52 H (0-40) U/L ALT 47 H (0-41) U/L Alkaline Phosphata se 136 H (40-130) IU/L Total Protein 7.3 (6.6-8.7) g/dL Albumin 4.3 (3.5-5.2) g/dL Globulin 3.0 (1.3-4.6) g/dL Blood Type Rho(D) Type Antibody Screen 01/26/20 Range/Units 19:15 WBC (4.0-10.0) 10^3/ uL RBC (4.1-5.3) 10^6/u L Hgb (11.7-16.6) g/dL Hct (42.0-52.0) % MCV (80-94) fL MCH (28.0-34.0) pg MCHC (30.0-36.0) g/dL RDW (12.1-15.1) % Plt Count (130-400) 10^3/c mm MPV (7.4-10.4) fL Neut % (Auto) % Lymph % (Auto) % Lyon % (Auto) % Eos % (Auto) % Baso % (Auto) % Neut # (Auto) (1.8-7.7) 10^3/u L Lymph # (Auto) (0.8-4.8) 10^3/u L Lyon # (Auto) (0.2-0.9) 10^3/u L Eos # (Auto) (0.0-0.8) 10^3/u L Baso # (Auto) (0.0-0.1) 10^3/u L Nucleated RBC % (a uto) % Nucleated RBCs # /100WBC PT (10.5-13.3) SECO NDS INR (0.8-1.2) Sodium (136-145) mmol/L Potassium (3.5-5.1) mmol/L Chloride (98-107) mmol/L Carbon Dioxide (22-29) mmol/L Anion Gap (5-19) BUN (8-23) mg/dL Creatinine (0.7-1.2) mg/dL Glucose (65-115) mg/dL Calculated Osmolal ity (285-295) mOsm/k g Calcium (8.5-10.5) mg/dL Total Bilirubin (0.15-1.2) mg/dL AST (0-40) U/L ALT (0-41) U/L Alkaline Phosphata se (40-130) IU/L Total Protein (6.6-8.7) g/dL Albumin (3.5-5.2) g/dL Globulin (1.3-4.6) g/dL Blood Type AB Positive Rho(D) Type Positive Antibody Screen Negative EKG Data^: EKG 1: EKG interpretation date: 01/26/20 EKG interpretation time: 19:42 Pacemaker function: normal pacer function Other EKG comments: Paced rhythm at 78 Discharge Plan Discharge Prescriptions: No Action [id number]-dysrquxf-texwjz Tablet 1 tab PO QDAY RF: 0 aspirin [Adult Low Dose Aspirin] 81 mg tablet,delayed release (DR/EC) 81 mg PO QDAY RF: 0 nitroglycerin [Nitrostat] 0.4 mg tablet, sublingual 0.4 mg SUBLINGUAL Q5M PRN (Reason: Chest Pain) RF: 0 isosorbide mononitrate 30 mg tablet extended release 24 hr 30 mg PO QAM RF: 0 atorvastatin 40 mg tablet 40 mg PO DAILY Qty: 90 RF: 2 carvedilol 3.125 mg tablet 3.125 mg PO BID Qty: 180 RF: 3 irbesartan-hydrochlorothiazide [Avalide] 150-12.5 mg tablet 1 tab PO QDAY Qty: 90 RF: 3 hydrocodone-acetaminophen 7.5-325 mg tablet 1 tab PO Q4H PRN (Reason: pain) Qty: 20 RF: 0 clopidogrel 75 mg Tablet 75 mg PO DAILY RF: 0 Coding Level of Care Code ED Intern Architect for Guido Reed
[2020-01-26 19:28] LABS: Basophils % 0.2 %; Eosinophils # 0.2 10^3/uL (0.0-0.8); Eosinophils % 1.9 %; Hematocrit 36.2 % (42.0-52.0); Hemoglobin 11.9 g/dL (11.7-16.6); Lymphocytes # 1.6 10^3/uL (0.8-4.8); Lymphocytes % 16.7 %; Mean Corpuscular HGB Conc 32.9 g/dL (30.0-36.0); Mean Corpuscular Hemoglobin 31.1 pg (28.0-34.0); Mean Corpuscular Volume 94.5 fL (80-94); Mean Platelet Volume 10.7 fL (7.4-10.4); Monocytes # 0.9 10^3/uL (0.2-0.9); Monocytes % 9.3 %; Neutrophils # 6.9 10^3/uL (1.8-7.7); Neutrophils % 71.6 %; Nucleated Red Blood Cells % 0 %; Platelet Count 212 10^3/cmm (130-400); Red Blood Count 3.83 10^6/uL (4.1-5.3); Red Cell Distribution Width 13.1 % (12.1-15.1); White Blood Count 9.6 10^3/uL (4.0-10.0)
[2020-01-26 19:42] LABS: Alanine Aminotransferase 47 U/L (0-41); Albumin Level 4.3 g/dL (3.5-5.2); Alkaline Phosphatase 136 IU/L (40-130); Anion Gap 17.3 (5-19); Aspartate Amino Transferase 52 U/L (0-40); Blood Urea Nitrogen 28 mg/dL (8-23); Calcium 9.1 mg/dL (8.5-10.5); Carbon Dioxide 27 mmol/L (22-29); Chloride 98 mmol/L (98-107); Glucose 107 mg/dL (65-115); Osmolality Calculated 283 mOsm/kg (285-295); Potassium 4.3 mmol/L (3.5-5.1); Sodium 138 mmol/L (136-145); Total Protein 7.3 g/dL (6.6-8.7)
[2020-01-26 19:45] LABS: INR 0.93 (0.8-1.2)
--- NOTE | 2020-01-26 21:42 | P.HP_ITS ---
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 He recently presented to ER on 01/19 with left ankle fracture with dislocation after sustaining a mechanical fall at home. Closed reduction was performed on this day. he followed up with Dr. Fisher today in the office and was noted to have increased edema both medially and laterally at the left ankle, repeat x- rays taken showed displaced ankle compared to postreduction films in the emergency department. He has now been referred to the hospital for surgical correction tomorrow morning with plan for closed reduction with application of external fixator to the left lower extremity to provide stabilization while soft tissue envelope improves. Currently denies any c/o chest pain, dyspnea,palpitations, syncope, cough, fever. Review of Systems General: Reports: 10 or more systems reviewed and unremarkable except in HPI and below Const: Denies: fever(s), chills or body aches Eyes: Denies: change in vision, blurry vision or photophobia ENMT: Denies: throat pain, enlarged tonsils, odynophagia, hoarseness or nasal congestion Card: Denies: chest pain, palpitations, irregular heart rhythm, edema, swelling of feet/ankles, lightheadedness, pre-syncope, dyspnea on exertion or orthopnea Resp: Denies: dyspnea, productive cough, non-productive cough, wheezing, stridor, pain on inspiration, change in phlegm color, hemoptysis or chest congestion GI: Denies: abdominal pain, nausea, vomiting, hematemesis, coffee ground emesis, dysphagia, heartburn, diarrhea, constipation, GI cramping, change in stool character, hematochezia or melena : Denies: flank pain, dysuria, urinary frequency, urinary urgency, urinary hesitancy or hematuria Musc: Denies: neck pain, back pain, extremity pain, joint swelling, joint warmth or deformity Neuro: Denies: headache(s), numbness in extremities, weakness in extremities, sensory changes, difficulty walking, frequent falls, dizziness, vertigo, behavioral changes, Slurred speech present or seizure-like activity Psych: Denies: anxiety, depression, suicidal ideation or homicidal ideation Endo: Denies: polyuria, polydipsia, tired all the time, cold intolerance or hot flashes Mundo/Lymph: Denies: easy bruising or easy bleeding Medications/Allergies Home Medications Medication Instructions Recorded Confirmed Last Taken Type aspirin 81 mg tablet,delayed 81 mg PO QDAY 10/04/19 01/26/20 01/25/20 History release isosorbide mononitrate 30 mg 30 mg PO QAM 10/04/19 01/26/20 Unknown History tablet,extended release 24 hr rteidzracvhu-rvthkktj-egsvwp 1 tab PO QDAY 10/04/19 01/26/20 Unknown History nitroglycerin 0.4 mg sublingual 0.4 mg SUBLINGUAL Q5M PRN 10/04/19 01/26/20 Unknown History tablet atorvastatin 40 mg tablet 40 mg PO DAILY #90 tab 11/22/19 01/26/20 Unknown Rx carvedilol 3.125 mg tablet 3.125 mg PO BID #180 tab 12/20/19 01/26/20 Unknown Rx irbesartan 150 1 tab PO QDAY #90 tab 01/09/20 01/26/20 Unknown Rx mg-hydrochlorothiazide 12.5 mg tablet hydrocodone-acetaminophen 1 tab PO Q4H PRN #20 tab 01/20/20 01/26/20 Unknown Rx clopidogrel 75 mg PO DAILY 01/26/20 01/26/20 01/24/20 History Allergies Allergy/AdvReac Type Severity Reaction Status Date / Time morphine Allergy Intermediate nausea and Verified 01/26/20 16:19 vomiting PFSH Acute PFSH: Medical History Atypical chest pain Cardiomyopathy Emphysema lung Hyperlipidemia Hypertension Obstructive sleep apnea (adult) (pediatric) Pacemaker Sick sinus syndrome Surgical History History of arthroplasty of left shoulder Family History Other CAD (coronary artery disease) Cancer Social History Smoking and tobacco status: former smoker Alcohol intake: never Vitals/I&O/Wt Last Vital Signs Temp 98.5 F 01/26/20 18:52 Pulse 73 01/26/20 18:52 Resp 18 01/26/20 18:52 BP 151/70 01/26/20 18:52 Pulse Ox 95 01/26/20 18:52 Weight last 48 hrs Weight 104.326 kg Physical Exam Narrative: EXAM NARRATIVE: GEN: Awake, alert and oriented, no acute distress CVS: S1S2 N RS: CTA B/L Abd: Soft, nt/nd , bs+ CAFETERIA OR LUNCHROOM CHECKER: no focal neuro deficits EXT: left foot with case in place Data : 01/26/20 19:15 01/26/20 19:15 A&P Assessment and plan (1) Closed dislocation of left ankle: Status: Acute Qualifiers: Encounter type: initial encounter Qualified Code(s): S93.05XA - Dislocation of left ankle joint, initial encounter (2) Closed trimalleolar fracture: Status: Acute Qualifiers: Encounter type: initial encounter Laterality: left Qualified Code(s): S82.852A - Displaced trimalleolar fracture of left lower leg, initial encounter for closed fracture (3) Obstructive sleep apnea (adult) (pediatric): Status: Acute (4) Atherosclerotic heart disease of [place] coronary artery with other forms of angina pectoris: Status: Acute (5) Atypical chest pain: Status: Acute (6) Pacemaker: Status: Acute (7) Cardiomyopathy: Status: Acute Qualifiers: Cardiomyopathy type: unspecified Qualified Code(s): I42.9 - Cardiomyopathy, unspecified (8) Hypertension: Status: Acute Qualifiers: Hypertension type: essential hypertension Qualified Code(s): I10 - Essential (primary) hypertension (9) Hyperlipidemia: Status: Acute Qualifiers: Hyperlipidemia type: mixed hyperlipidemia Qualified Code(s): E78.2 - Mixed hyperlipidemia Additional A&P Information Admit to med/surg for planned surgery in morning 1. Dislocated ankle fracture - management per podiatry team - planned for surgical intervention in [facility] with external fixator for now 2. H/o CAD s/p PCI w/stenting to LCX 07/2019 Continue ASA. Patient is also on DAPT with plavix, which has been on hold for past 3 days in anticipation of surgical procedure with plan to resume 24-48 hrs post procedure. No current chest pain Currently EKG with paced rhythm Continue carvedilol, ARB and Imdur 3. h/o Ischemic cardiomyopathy : Last echo 04/2018 with EF 55%, gr 1 diastolic syfunction. From recent lexiscan 10/2019. LVEF 57%, mild diffuse hypokinesia of LV apex. 4. Sleep apnea, was scheduled to have CPAP titration study, unable to find results in system Full code DVT ppx: heparin, to start after surgery NPO except meds Attestations Medical Necessity Statement*: anticipate >2midnight admission for surgical correction of displaced ankle fracture Coding Level of Care Code Acute Field Operator for [facility] Fwd Diagnoses Closed dislocation of left ankle S93.05XA Encounter type: initial encounter Closed trimalleolar fracture S82.852A Encounter type: initial encounter Laterality: left Obstructive sleep apnea (adult) (pediatric) G47.33 Atherosclerotic heart disease of [place] coronary artery with other forms of angina pectoris I25.118 Atypical chest pain R07.89 Pacemaker Z95.0 Cardiomyopathy I42.9 Cardiomyopathy type: unspecified Hypertension I10 Hypertension type: essential hypertension Hyperlipidemia E78.2 Hyperlipidemia type: mixed hyperlipidemia
[2020-01-26 21:51] LABS: Add Urine Microscopic? NO
[2020-01-26 22:00] LABS: Bilirubin Urine Neg (NEGATIVE); Blood Urine Neg (Negative); Glucose Urine UA Norm (Normal); Ketones Urine Negative (Negative); Leukocyte Esterase Urine Negative (Negative); Nitrate Urine Negative (Negative); Protein Urine Neg (Negative); Urine Appearance Clear (CLEAR); Urine Color Yellow (Yellow); Urobilinogen Urine 1 mg/dL (Negative); pH Urine 5 (5-7)
[2020-01-26 23:50] VITALS: BP 141/82; PULSE 94; RESP 19; TEMP 37.2; O2SAT 99
[2020-01-27] VITALS (21 sets, daily range): BP systolic 111–160; BP diastolic 55–82; PULSE 64–91; RESP 12–20; TEMP 36.1–37.1; O2SAT 89–100
--- NOTE | 2020-01-27 | SCC_ITS ---
Procedure Done: Closed reduction with application of external fixator left lower extremity. 14 seconds of fluoroscopic guidance, for a cumulative dose of 0.421 mGy, was provided to Dr. Fisher by the radiology department. C-arm images of the LEFT ankle were saved for the patient's permanent record. [facility]
--- NOTE | 2020-01-27 | XR_ITS ---
WS: [id number] C-ARM RADIOGRAPHS LEFT ANKLE; 2 IMAGES HISTORY: Closed reduction with application of external fixator COMPARISON: 01/26/2020 Intraoperative reduction of the tibiotalar displacement. Fractures are good position alignment. Trima lleolar fracture. XR/XR ankle LT 2V [id number] IMPRESSION: Intraoperative reduction of a trimalleolar fracture.
[2020-01-27] MEDS: dextrose 5%-sod chloride 0.9% 1,000 ML 50 ML IV (00:45)
[2020-01-27] MEDS: morphine 4 mg/mL SDV 1 mL 2 MG IVP (00:48)
[2020-01-27] MEDS: ondansetron 2 mg/ML SDV 2 mL 4 MG IVP ×2 (00:48→17:36)
--- NOTE | 2020-01-27 03:47 | PC.NURSE ---
Pt complains of pain in left leg, messaged doctor, still waiting on response back.
[2020-01-27] MEDS: HYDROcodone-acetaminophen 7.5-325 mg Tablet 1 TAB PO ×2 (04:39→20:29)
[2020-01-27] MEDS: isosorbide mononitrate ER 30 mg Tablet PO (06:06)
--- NOTE | 2020-01-27 06:40 | P.CONIM_ITS ---
Providers/Reason For Consult Consulting Physican/Specialty*: Tremaine Fisher D.P.M. Reason for Consult*: Trimalleolar ankle fracture unstable, left lower extremity Attending Physician: Debra Paz MD Primary Care Provider: AIDAN Tolliver History of Present Illness History of Present Illness Jordi Esposito is a 79 year old male admitted for the hospital for surgical intervention. He has an unstable trimalleolar ankle fracture left. He has been n.p.o. after midnight. Pain has been controlled with pain medication. Patient is in good spirits. Planning for closed reduction with external fixator application left lower extremity. Review of Systems General: Reports: 10 or more systems reviewed and unremarkable except in HPI and below Const: Denies: fever(s) or chills Eyes: Denies: change in vision Card: Denies: chest pain or palpitations Resp: Denies: dyspnea or productive cough GI: Denies: abdominal pain, nausea or vomiting : Denies: flank pain Musc: Reports: extremity pain, extremity swelling, joint pain and joint stiffness; Denies: joint redness or joint warmth Skin/Breast: Denies: rash Neuro: Denies: numbness in extremities, sensory changes or frequent falls Psych: Denies: suicidal ideation Mundo/Lymph: Denies: easy bruising Meds/Allergies Home Medications and Allergies Home Medications Medication Instructions Recorded Confirmed Last Taken Type aspirin 81 mg tablet,delayed 81 mg PO QDAY 10/04/19 01/26/20 01/25/20 History release isosorbide mononitrate 30 mg 30 mg PO QAM 10/04/19 01/26/20 Unknown History tablet,extended release 24 hr clwplyjuyixm-jvzdinci-limpnm 1 tab PO QDAY 10/04/19 01/26/20 Unknown History nitroglycerin 0.4 mg sublingual 0.4 mg SUBLINGUAL Q5M PRN 10/04/19 01/26/20 Unknown History tablet atorvastatin 40 mg tablet 40 mg PO DAILY #90 tab 11/22/19 01/26/20 Unknown Rx carvedilol 3.125 mg tablet 3.125 mg PO BID #180 tab 12/20/19 01/26/20 Unknown Rx irbesartan 150 1 tab PO QDAY #90 tab 01/09/20 01/26/20 Unknown Rx mg-hydrochlorothiazide 12.5 mg tablet hydrocodone-acetaminophen 1 tab PO Q4H PRN #20 tab 01/20/20 01/26/20 Unknown Rx clopidogrel 75 mg PO DAILY 01/26/20 01/26/20 01/24/20 History Allergies Allergy/AdvReac Type Severity Reaction Status Date / Time morphine Allergy Intermediate nausea and Verified 01/26/20 16:19 vomiting Current Medications Current Medications Generic Name Dose Route Start Last Admin Trade Name Freq PRN Reason Stop Dose Admin Dextrose/Sodium Chloride 1,000 mls @ 50 mls/hr 01/26/20 22:30 01/27/20 00:45 Dextrose 5%-Sod Chloride 0.9% IV 50 mls/hr .Q20H MABEL Administration Isosorbide Mononitrate 30 mg 01/27/20 06:00 01/27/20 06:06 Imdur PO 30 mg QAM MABEL Administration Morphine Sulfate 2 mg 01/26/20 22:21 01/27/20 00:48 Morphine IVP 2 mg Q6H PRN Administration SEVERE PAIN Ondansetron HCl 4 mg 01/26/20 22:21 01/27/20 00:48 Zofran IVP 4 mg Q8H PRN Administration vomiting, or N/V if npo PFSH Acute PFSH: Medical History Atypical chest pain Cardiomyopathy Emphysema lung Hyperlipidemia Hypertension Obstructive sleep apnea (adult) (pediatric) Pacemaker Sick sinus syndrome Surgical History History of arthroplasty of left shoulder Family History Other CAD (coronary artery disease) Cancer Social History Smoking and tobacco status: former smoker Alcohol intake: never Vitals/I&O/Wt Last Vital Signs Temp 97.6 F 01/27/20 04:00 Pulse 83 01/27/20 04:00 Resp 18 01/27/20 04:00 BP 122/55 01/27/20 04:00 Pulse Ox 95 01/27/20 04:00 01/26/20 01/26/20 01/27/20 14:59 22:59 06:59 Output Total 775 / 775 Balance -775 / -775 Weight last 48 hrs Weight 230 lb Physical Exam Const: COMMON NORMALS: patient oriented x3 and alert GENERAL APPEARANCE: well kempt and in distress ORIENTATION/CONSCIOUSNESS: Yes awake, Yes oriented to person, Yes oriented to place and Yes oriented to time HENMT: COMMON NORMALS: normocephalic HEAD & SCALP: normocephalic Eye: COMMON NORMALS: Equal, round and reactive pupils present PUPIL: Yes Equal, round and reactive pupils present Chest: CHEST: Yes Symmetrical chest wall rise Resp: COMMON NORMALS: normal respiratory effort Cardio: COMMON NORMALS: Peripheral pulses 2+ throughout PERIPHERAL PULSES: Peripheral pulses 2+ throughout Extremity: LEFT LOWER EXTREMITY: Yes ankle joint (Protective sensation intact to left foot, dorsalis pedis and posterior tibial arteries are palpable left lower extremity. Edema to the left ankle medial and lateral malleolus. No open wounds, no fracture blisters or abrasions. Ecchymosis at the medial malleolus. Gross deformity appreciated with the medial malleolus tenting the skin and talus shifted laterally. Capillary refill less than 3 seconds to the left hallux.) Neuro: COMMON NORMALS: patient oriented x3 SENSORIUM/ORIENTATION: Yes alert, Yes oriented to person, Yes oriented to place and Yes oriented to time Psych: COMMON NORMALS: cooperative APPEARANCE: Yes well kempt Skin: COMMON NORMALS: no wounds GENERAL SKIN EXAM: ecchymosis and no erythema A&P Assessment and plan (1) Closed trimalleolar fracture: Status: Acute Qualifiers: Encounter type: initial encounter Laterality: left Qualified Code(s): S82.852A - Displaced trimalleolar fracture of left lower leg, initial encounter for closed fracture (2) Closed dislocation of left ankle: Status: Acute Qualifiers: Encounter type: initial encounter Qualified Code(s): S93.05XA - Dislocation of left ankle joint, initial encounter Patient examined and evaluated, findings and treatment options discussed with patient at length. He has been n.p.o. since midnight in preparation for surgery today. Patient has extensive swelling and compromise soft tissue envelope delaying the ORIF previously scheduled. Left ankle is also unstable and has lost reduction of the deformity. Recommending closed reduction and application of external fixator today approximately at noon. Patient will remain strict nonweightbearing and elevate his left foot while at rest. Planning for discharge from hospital today if cleared by medicine team. He will continue aspirin daily, will resume clopidogrel 1 day postoperatively. Coding Level of Care Code Acute University Controller for [facility] Diagnoses Closed trimalleolar fracture S82.852A Encounter type: initial encounter Laterality: left Closed dislocation of left ankle S93.05XA Encounter type: initial encounter
[2020-01-27] MEDS: aspirin 81 mg EC Tablet PO (08:20)
[2020-01-27] MEDS: carvedilol 3.125 mg Tablet PO ×2 (08:20→17:37)
[2020-01-27] MEDS: losartan 50 mg Tablet PO (08:20)
[2020-01-27] MEDS: hydroCHLOROthiazide 25 mg Tablet 12.5 MG PO (08:21)
--- NOTE | 2020-01-27 10:13 | PC.CHAP ---
Pastoral Care Encounter/Spiritual Assessment Type of Contact [] Declined weaver hand visit [] Patient/Family/Request visit [] Outpatient visit [] Follow-up visit [] Physician referral [] Code/Alert [x] Routine visit [] Staff referral [] Actively dying [] Patient sleeping [] Family support [] [] Out of room [] Palliative care [] [] Receiving care in room [] Pre-surgical visit [] Trauma [] Long length of stay [] ICU visit [] Other: Relational/Emotional Strength [] Patient feels connected with others/family/visitors/staff [] Distress [] Loneliness/isolation [] Abandonment Spirituality of Patient [] Person of Nicol [] Attends Taoist of their Nicol [] Believes in Prayer [] Reads Bible or Orthodox materials [] There are Spiritual issues to be addressed Academic Coordinator Interventions [x] Prayer [] Active listening [] Non-anxious presence [] Spiritual/emotional support [] Crisis/trauma care [] Spiritual counseling [] Bereavement support [] Provided bereavement packet [] Provided Bible/devotional materials [] Provided toy/stuffed animal, coloring book to patient or family member [] Provided Communion [] Anointing/[place] [] Salvation [x] Completed spiritual assessment [] Other: Impact on Illness or Injury [] Angry [] Fearful [] Anxious [] Often cries [] Exhaustion [] Unable to work [] Unable to attend restorationist [] Unable to walk/stand [] Unable to read [] Unable to drive [] Unable to eat/drink [] Unable to sleep [] Unable to be with family [] Patient intubated [] Other: Summary Patient had injury set- when bones moved and now is scheduled for surgery today. Patient feeling confident all will be good. Time spent with patient 20 min
--- NOTE | 2020-01-27 10:14 | PC.CHAP ---
Pastoral Care Encounter/Spiritual Assessment Type of Contact [] Declined commercial manager visit [] Patient/Family/Request visit [] Outpatient visit [] Follow-up visit [] Physician referral [] Code/Alert [] Routine visit [] Staff referral [] Actively dying [] Patient sleeping [] Family support [] [] Out of room [] Palliative care [] [] Receiving care in room [] Pre-surgical visit [] Trauma [] Long length of stay [] ICU visit [] Other: Relational/Emotional Strength [] Patient feels connected with others/family/visitors/staff [] Distress [] Loneliness/isolation [] Abandonment Spirituality of Patient [] Person of Nicol [] Attends Anabaptist of their Nicol [] Believes in Prayer [] Reads Bible or Spiritism materials [] There are Spiritual issues to be addressed Liner Inserter Interventions [] Prayer [] Active listening [] Non-anxious presence [] Spiritual/emotional support [] Crisis/trauma care [] Spiritual counseling [] Bereavement support [] Provided bereavement packet [] Provided Bible/devotional materials [] Provided toy/stuffed animal, coloring book to patient or family member [] Provided Communion [] Anointing/[place] [] Salvation [] Completed spiritual assessment [] Other: Impact on Illness or Injury [] Angry [] Fearful [] Anxious [] Often cries [] Exhaustion [] Unable to work [] Unable to attend oriental orthodox [] Unable to walk/stand [] Unable to read [] Unable to drive [] Unable to eat/drink [] Unable to sleep [] Unable to be with family [] Patient intubated [] Other: Summary Time spent with patient
--- NOTE | 2020-01-27 14:56 | PM.PN ---
Subjective Subjective: Interval history: Patient could not be seen today as during rounds was away in the OR. H&P and labs noted. Overnight no acute events reported as per the nurse. As per the nurse patient did not have any nausea, vomiting and vitals have remained stable. On review of the chart patient has not required much pain medications. Vitals/I&O/Wt Last Vital Signs Temp 98.4 F 01/27/20 12:47 Pulse 68 01/27/20 12:47 Resp 18 01/27/20 12:47 BP 111/60 01/27/20 12:47 Pulse Ox 93 01/27/20 12:47 01/26/20 01/27/20 01/27/20 22:59 06:59 14:59 Intake Total 50 / 50 Output Total 775 / 775 Balance -775 / -775 50 / 50 Weight last 48 hrs Weight 104.326 kg Physical Exam Narrative: EXAM NARRATIVE: Patient went to the OR prior to be seen. Data : 01/26/20 19:15 01/26/20 19:15 A&P Assessment and plan (1) Closed dislocation of left ankle: Status: Acute Qualifiers: Encounter type: initial encounter Qualified Code(s): S93.05XA - Dislocation of left ankle joint, initial encounter (2) Closed trimalleolar fracture: Status: Acute Qualifiers: Encounter type: initial encounter Laterality: left Qualified Code(s): S82.852A - Displaced trimalleolar fracture of left lower leg, initial encounter for closed fracture (3) Obstructive sleep apnea (adult) (pediatric): Status: Acute (4) Atherosclerotic heart disease of [place] coronary artery with other forms of angina pectoris: Status: Acute (5) Atypical chest pain: Status: Acute (6) Pacemaker: Status: Acute (7) Cardiomyopathy: Status: Acute Qualifiers: Cardiomyopathy type: unspecified Qualified Code(s): I42.9 - Cardiomyopathy, unspecified (8) Hypertension: Status: Acute Qualifiers: Hypertension type: essential hypertension Qualified Code(s): I10 - Essential (primary) hypertension (9) Hyperlipidemia: Status: Acute Qualifiers: Hyperlipidemia type: mixed hyperlipidemia Qualified Code(s): E78.2 - Mixed hyperlipidemia Additional A&P Information Dislocated ankle fracture : - management per podiatry team - planned for surgical intervention today with external fixator for now. - PT, per-operative ABx as per podiatry. H/o CAD s/p PCI w/stenting to LCX 07/2019: On DAPT. Plavix stopped for [address] Fisher after confirming with Dr. Chen. Continue ASA. Plan to start Plavix tomorrow post procedure. No current reported chest pain Currently EKG with paced rhythm Continue carvedilol, ARB and Imdur H/o Ischemic cardiomyopathy : Last echo 04/2018 with EF 55%, gr 1 diastolic syfunction. From recent lexiscan 10/2019. LVEF 57%, mild diffuse hypokinesia of LV apex. euvoluemic for now Sleep apnea, was scheduled to have CPAP titration study, unable to find results in system Auto PAP overnight. Full code DVT ppx: heparin, to start after surgery NPO except meds. Cardiac diet after surgery Attestations Medical Necessity Statement*: ankle fracture fro OR Time Spent in Patient Care: 16 - 35 minutes Coding Level of Care Code Acute Product Marketing Programs Manager for [facility] Fwd Diagnoses Closed dislocation of left ankle S93.05XA Encounter type: initial encounter Closed trimalleolar fracture S82.852A Encounter type: initial encounter Laterality: left Obstructive sleep apnea (adult) (pediatric) G47.33 Atherosclerotic heart disease of [place] coronary artery with other forms of angina pectoris I25.118 Atypical chest pain R07.89 Pacemaker Z95.0 Cardiomyopathy I42.9 Cardiomyopathy type: unspecified Hypertension I10 Hypertension type: essential hypertension Hyperlipidemia E78.2 Hyperlipidemia type: mixed hyperlipidemia
[2020-01-27] MEDS: fentaNYL 50 mcg/mL INJ 2mL IVP ×2 (15:53→15:58)
--- NOTE | 2020-01-27 17:20 | P.OP_ITS ---
Operative Report Date of procedure: January 27, 2020 Pre-op Diagnosis: LEFT trimalleolar christin fracture, unstable Post-op diagnosis: same Post-op Findings: Well reduced left ankle trimalleolar sugar Procedure Done: Closed reduction with application of external fixator left lower extremity. Implants: Correa 3 external fixator Bicortical self drilling self-tapping pin x2 Transaxial calcaneal pin x1 Self drilling self-tapping first metatarsal pin x1 Carbon connecting rods and snap fit connections Specimens removed/disposition: None Pathology: none sent Surgeon: Goodman Palmer Supervisor Waterproofing: Taylor Anesthesia: General Estimated blood loss: 2 mL Urine output: None Complications: None Findings: Unstable trimalleolar ankle fracture left lower extremity, easily displaces tibia anterior and lateral. Condition: stable Disposition: floor Brief History: Patient is a pleasant 79-year-old male who sustained a unstable trimalleolar ankle fracture was unable to maintain correction utilizing a splint with stirrup. Compromise soft tissue envelope with excessive swelling concern for formation of fracture blister. Recommended closed reduction with application of external fixator for stabilization of the left trimalleolar ankle joint as a staged procedure for more definitive open reduction internal fixation once soft tissue envelope is of minimal. Patient is agreeable wishes to proceed. Risks include pain, bleeding, numbness, infection, failure to reduce deformity and need for further surgical intervention. Also risks associate with anesthesia. Also risks inherently due to being nonweightbearing include DVT, PE heart attack and stroke, . Procedure: Under mild sedation the patient was brought to the operating room and placed on the operating table in supine position. A timeout was performed. General anesthesia was administered by the anesthesia service. Well-padded pneumatic tourniquet was applied to the left thigh. Left lower extremity was scrubbed, prepped and draped utilizing normal aseptic technique. Left leg and ankle were examined had a weighted with an Esmarch bandage and the tourniquet was inflated to 250 mmHg. Attention was directed to the left lower extremity, anterior tibial crest was palpated and marked mid tibial shaft, just medial to the anterior tibial crest and parallel to the medial tibial surface stab incision was made with a #15 blade down to bone pin was inserted and started once cortex was pierced and was rotated with pin and parallel with knee And second metatarsal and 90 degrees to the longitudinal axis of the tibia this was inserted in bicortical fashion on low speed to avoid thermal injury. Utilizing a guide the second pin was also inserted distal to this in like fashion these were hyper pins and served as our anchor point for the fixed 30 degree post with a factor going anterior to posterior. Transaxial calcaneal pin was inserted from lateral to medial at the posterior calcaneal tubercle perpendicular to the lateral surface of the calc aneus and 90 degrees from the longitudinal axis of the tibia pin caps were applied at both sides. Connecting rods and delta couplings utilized to externally fixate tibial pins to calcaneal pin these were hand tightened. Placement of tibial and calcaneal pins confirmed with intraoperative fluoroscopy noted to be bicortical and in appropriate position and and safe neurovascular zones. Left ankle was distracted and reduced to a congruent ankle mortise with improved position of transverse medial malleolar fracture and Christiano Ramirez B fibular fracture. Near anatomical reduction was appreciated in the AP mortise and lateral views utilizing intraoperative fluoroscopy. Next the apex pin was inserted from medial to lateral at the first metatarsal and fixated to the calcaneal pin utilizing connecting frank to pin and delta coupling. Kickstand was also applied perpendicular to the longitudinal axis of the external fixator vector. Fixation was noted to be secure and reduced left ankle stabilized. Pin sites were dressed with Xeroform, sterile 4 x 4, Eduardo and tape. Tourniquet was deflated and a prompt hyperemic response was noted to the distal digits of the left foot. Patient tolerated anesthesia and procedure well and was transferred to the PACU with vital signs stable advised status intact. Following a period of postoperative monitoring he will be transferred back to the floor. Greatly appreciate hospitalist for admission and medical management patient will remain inpatient overnight for pain management and observation. Will plan to resume his current regimen of anticoagulants tomorrow. This will include clopidogrel and aspirin. Patient to elevate his left lower extremity at all times while at rest. He is to remain strict nonweightbearing at all times to the left lower extremity. May NOT heel touch for transfers. Recommend PT consultation help patient trained on appropriate technique on transfers such as bed to wheelchair and to commode.
[2020-01-27] MEDS: atorvastatin 40 mg Tablet PO (20:29)
--- NOTE | 2020-01-27 22:30 | PM.EVENT ---
Event Note Event Note: Seen for post op check POD #0 from placement of extrenal fixator for closed reduction of ankle fracture Currently feels well, pain is well controlled In good spirits otherwise, but mildly anxious about returning home and managing ADLs with fixator in place Gen: Awake, alert and oriented x 3 HEENT: Nc/At, PERRLA CVS: [id number] RS: clear to auscultation B/L SALES REPRESENTATIVE PUBLICATIONS: no focal deficits Abd: soft, NT/ND Ext: ext fixator in place left ankle Event Notes Attestations Time Spent in Patient Care: less than 15 minutes
[2020-01-28] VITALS (7 sets, daily range): BP systolic 122–145; BP diastolic 63–74; PULSE 68–79; RESP 18–20; TEMP 36.9–37.1; O2SAT 91–95
[2020-01-28] MEDS: heparin 5,000 unit/mL INJ 1 mL 5000 UNIT SUBCUT ×2 (02:56→08:49)
[2020-01-28 06:31] LABS: Basophils % 0.3 %; Eosinophils # 0.2 10^3/uL (0.0-0.8); Hematocrit 35.1 % (42.0-52.0); Hemoglobin 11.4 g/dL (11.7-16.6); Lymphocytes # 1.6 10^3/uL (0.8-4.8); Lymphocytes % 16.4 %; Mean Corpuscular HGB Conc 32.5 g/dL (30.0-36.0); Mean Corpuscular Hemoglobin 31.4 pg (28.0-34.0); Mean Corpuscular Volume 96.7 fL (80-94); Mean Platelet Volume 10.7 fL (7.4-10.4); Monocytes # 0.8 10^3/uL (0.2-0.9); Monocytes % 8.1 %; Neutrophils % 72.9 %; Nucleated Red Blood Cells % 0 %; Platelet Count 191 10^3/cmm (130-400); Red Blood Count 3.63 10^6/uL (4.1-5.3); Red Cell Distribution Width 12.9 % (12.1-15.1); White Blood Count 9.6 10^3/uL (4.0-10.0)
[2020-01-28 06:49] LABS: Alanine Aminotransferase 34 U/L (0-41); Albumin Level 3.5 g/dL (3.5-5.2); Alkaline Phosphatase 121 IU/L (40-130); Anion Gap 14.2 (5-19); Aspartate Amino Transferase 31 U/L (0-40); Blood Urea Nitrogen 21 mg/dL (8-23); Calcium 9.7 mg/dL (8.5-10.5); Carbon Dioxide 28 mmol/L (22-29); Chloride 98 mmol/L (98-107); Globulin 3.6 g/dL (1.3-4.6); Glucose 116 mg/dL (65-115); Osmolality Calculated 280 mOsm/kg (285-295); Potassium 4.2 mmol/L (3.5-5.1); Sodium 136 mmol/L (136-145); Total Protein 7.1 g/dL (6.6-8.7)
[2020-01-28] MEDS: aspirin 81 mg EC Tablet PO (08:46)
[2020-01-28] MEDS: clopidogrel 75 mg Tablet PO (08:46)
[2020-01-28] MEDS: losartan 50 mg Tablet PO (08:46)
[2020-01-28] MEDS: isosorbide mononitrate ER 30 mg Tablet PO (08:46)
[2020-01-28] MEDS: hydroCHLOROthiazide 25 mg Tablet 12.5 MG PO (08:47)
[2020-01-28] MEDS: carvedilol 3.125 mg Tablet PO (08:48)
--- NOTE | 2020-01-28 11:00 | PM.PN ---
Subjective Subjective: Interval history: Patient is 1 day status post closed reduction and application of external fixator left lower extremity secondary to unstable trimalleolar ankle fracture. Patient's pain is been controlled with pain medication. He expressed concerns today on being discharged home. His concern is that he will have a difficult time navigating transfers and keeping his left leg elevated further delaying ORIF. He is requesting to stay hospitalized until next week or potentially be transferred to a penitentiary. He is hopeful that he can undergo ORIF next week I am uncertain on this this is highly variable and had to inform him that this could take 1 to 2 weeks for soft tissue envelope to be appropriate for surgical intervention. Vitals/I&O/Wt Last Vital Signs Temp 98.7 F 01/28/20 07:40 Pulse 71 01/28/20 07:40 Resp 18 01/28/20 07:40 BP 144/66 01/28/20 08:46 Pulse Ox 93 01/28/20 07:40 01/27/20 01/28/20 01/28/20 22:59 06:59 14:59 Intake Total 580 / 630 240 / 240 Output Total 355 / 355 1080 / 1435 Balance 225 / 275 -1080 / -805 240 / 240 Weight last 48 hrs Weight 230 lb Physical Exam Narrative: EXAM NARRATIVE: GENERAL: Patient is alert and oriented ?3 and in no acute distress. The following is a focused right lower extremity exam. VASCULAR: Dorsalis pedis and posterior tibial arteries palpable. Capillary refill time less than 3 seconds to the distal hallux bilaterally. Calf is supple and nontender proximally and distally. Pedal hair growth present. Edema to the right ankle medially and laterally. NEUROLOGICAL: Protective sensation intact to light touch. DERMATOLOGICAL: Ecchymosis to the left anterior lower leg and medial/lateral malleolus. No active bleeding. Pin sites are without irritation no drainage or erythema. No fracture blisters at this time. MUSCULOSKELETAL: External fixator is stable and ankle joint has no gross deformity at this time remains at 90 degrees. Patient able to wiggle toes on command. No pain with posterior calf squeeze. Data : 01/28/20 06:24 01/28/20 06:24 A&P Assessment and plan (1) Recurrent dislocation, left ankle: Status: Acute (2) Left trimalleolar fracture: Status: Acute 1 day status post closed reduction with application of external fixator, no active bleeding, pain being controlled, ankles stabilized at this time. Will need to await improved edema and soft tissue consolidation in preparation for ORIF this could potentially take 1 to 2 weeks will continue to monitor closely. Patient will be evaluated by physical therapy today. He is to be strict nonweightbearing to the left lower extremity. He is to elevate his left foot at all times above the hip while at rest. Podiatry will follow. Attestations Medical Necessity Statement*: Unstable left trimalleolar ankle fracture. Coding Level of Care Code Acute Speech And Language Tutor for Guido Reed Diagnoses Recurrent dislocation, left ankle M24.472 Left trimalleolar fracture S82.852A
--- NOTE | 2020-01-28 11:07 | XRR_ITS ---
PROCEDURE INFORMATION: Exam: XR Left Ankle Exam date and time: 01/28/2020 11:08 AM Age: 79 years old Clinical indication: Pain; Ankle; Right; Prior surgery; Additional info: Post op TECHNIQUE: Imaging protocol: XR Left ankle. Views: 3 or more views. COMPARISON: CR XR ankle LT 2V [id number] 01/20/2020 4:40 PM FINDINGS: Bones/joints: Continued oblique fracture through the lateral malleolus. Continued fracture through the medial malleolus. Probable placement of metallic pin through the calcaneus and possibly through a proximal metatarsus. Possible distraction hardware. Soft tissues: Normal. XR/XR ankle LT min 3V* [id number] IMPRESSION: 1. Continued oblique fracture through the lateral malleolus. 2. Continued fracture through the medial malleolus. 3. Probable placement of metallic pin through the calcaneus and possibly through a proximal metatarsus. Possible distraction hardware.
[2020-01-28] MEDS: HYDROcodone-acetaminophen 7.5-325 mg Tablet 1 TAB PO (11:38)
--- NOTE | 2020-01-28 14:20 | PM.DCS ---
Discharge Providers Date of Admission: 01/26/20 20:16 Date of Discharge: January 28, 2020 Attending Provider at Admission: Debra Paz MD Attending Provider at Discharge: Anam Bocanegra MD Primary Care Provider: AIDAN Tolliver Diagnoses at Discharge Discharge Diagnosis (1) Recurrent dislocation, left ankle: Status: Acute (2) Left trimalleolar fracture: Status: Acute Reason for Visit Reason for Visit: Reason For Visit: left ankle problems Hospital Course Discharge Summary: Jordi Esposito is a 79 year old male with PMH Major Depressive Disorder, CAD s/p PCI with stenting to LCX 07/2019 , h/o high degree heart block s/p PPM 2008, ongoing anginal symptoms s/p stress test 10/2019 without any evidence of ischemia, HLD and POLINA. He recently presented to ER on 01/19 with left ankle fracture with dislocation after sustaining a mechanical fall at home. Closed reduction was performed on this day. he followed up with Dr. Fisher today in the office and was noted to have increased edema both medially and laterally at the left ankle, repeat x-rays taken showed displaced ankle compared to postreduction films in the emergency department. He has now been referred to the hospital for surgical correction tomorrow morning with plan for closed reduction with application of external fixator to the left lower extremity to provide stabilization while soft tissue envelope improves. He was admitted to the hospital on January 25. He underwent external fixation on January 26. He tolerated the procedure well. Procedure time was complicated by extensive pain. Patient was kept in for 1 more day for better pain control and some physical therapy. Dual antiplatelets were restarted. Patient is planned for repeat surgery and ORIF later next week after considerable decrease in his swelling. He is advised to be nonweightbearing on his foot. Given extensive pain patient was given an option of discharge to SNF which he declined. He is been discharged in hemodynamically stable condition to go home with advised to follow-up with Dr. Fisher on Thursday. Patient is to take aspirin and Plavix for now which will be stopped by Dr. Fisher around 5 days prior to surgery. 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: no focal deficits Abd: soft, NT/ND Ext: ext fixator in place left ankle Discharge Data Data Completed and Pending: Completed Studies During Hospitalization Category Date Time Status XR chest 1V cory ble [id number] Stat Exams 01/26/20 19:09 Completed Pending at discharge Category Date Time Status C-arm Mini [id number] Routine Exams 01/27/20 13:31 Taken XR ankle LT min 3 V* [id number] Routine Exams 01/28/20 11:07 Taken Labs from last 24 hours 01/28/20 01/28/20 06:24 06:24 WBC 9.6 RBC 3.63 L Hgb 11.4 L Hct 35.1 L MCV 96.7 H MCH 31.4 MCHC 32.5 RDW 12.9 Plt Count 191 MPV 10.7 H Neut % (Auto) 72.9 Lymph % (Auto) 16.4 [place] % (Auto) 8.1 Eos % (Auto) 2.0 Baso % (Auto) 0.3 Neut # (Auto) 7.0 Lymph # (Auto) 1.6 [place] # (Auto) 0.8 Eos # (Auto) 0.2 Baso # (Auto) 0.0 Nucleated RBC % (a uto) 0 Nucleated RBCs # 0.0 Sodium 136 Potassium 4.2 Chloride 98 Carbon Dioxide 28 Anion Gap 14.2 BUN 21 Creatinine 1.1 Glucose 116 H Calculated Osmolal ity 280 L Calcium 9.7 Total Bilirubin 1.0 AST 31 ALT 34 Alkaline Phosphata se 121 Total Protein 7.1 Albumin 3.5 Globulin 3.6 Vitals: Last Vital Signs Temp 98.7 F 01/28/20 12:27 Pulse 73 01/28/20 12:27 Resp 18 01/28/20 12:27 BP 122/63 01/28/20 12:27 Pulse Ox 91 01/28/20 12:27 Discharge Plan Discharge Patient Disposition: Home, Self-Care Condition: Stable Prescriptions: [place] 5-325 mg tablet 1 tab PO Q4H PRN (Reason: pain) 7 Days Qty: 30 RF: 0 Continued [id number] Tablet 1 tab PO QDAY RF: 0 aspirin [Adult Low Dose Aspirin] 81 mg tablet,delayed release (DR/EC) 81 mg PO QDAY RF: 0 nitroglycerin [Nitrostat] 0.4 mg tablet, sublingual 0.4 mg SUBLINGUAL Q5M PRN (Reason: Chest Pain) RF: 0 isosorbide mononitrate 30 mg tablet extended release 24 hr 30 mg PO QAM RF: 0 atorvastatin 40 mg tablet 40 mg PO DAILY Qty: 90 RF: 2 carvedilol 3.125 mg tablet 3.125 mg PO BID Qty: 180 RF: 3 irbesartan-hydrochlorothiazide [Avalide] 150-12.5 mg tablet 1 tab PO QDAY Qty: 90 RF: 3 hydrocodone-acetaminophen 7.5-325 mg tablet 1 tab PO Q4H PRN (Reason: pain) Qty: 20 RF: 0 clopidogrel 75 mg Tablet 75 mg PO DAILY RF: 0 Discharge Orders: Discharge Order (Routine); Ordered 01/28/20 Ordered By: Anam Bocanegra Referrals: Tremaine Fisher DPM [Physician] - 4-7 days (Please call Thursday to set up a follow up appointment.) Discharge Diet: Cardiac Discharge Activity: Limit activity as instructed Patient Instructions: Hydrocodone/Acetaminophen (By mouth), Ankle Fracture (GEN), External Fixation of an Ankle Fracture (GEN) Activity Restrictions/Additional Instructions: Please follow-up with Dr. Fisher on Thursday. He would stop the Plavix 5 days prior to the surgery. Please try to avoid putting weight on your foot to decrease the edema. Discharge Attestations Time Spent in Discharge Care*: greater than 30 min Specific Discharge Activities: Specific discharge activities: educating patient, discussing with pcp/other providers, discussing with machine adjuster leader case trim/social workers/dc planners, documenting/other paperwork and evaluating patient/reviewing data Status at Discharge: Cognitive status at discharge: cognitively intact, Behavioral status at discharge: cooperative, Functional status at discharge: other assisted ambulation Overall status at discharge: patient is progressing back to baseline Quality Metrics Clinical Quality Measures During this hospital stay, did patient experience: None Coding Level of Care Code Acute Naval Designer for g Fwd Diagnoses Recurrent dislocation, left ankle M24.472 Left trimalleolar fracture S82.789Y
== END 2020-01-28 15:27 | disposition home or self-care (01) | DRG 493 ==
LOC: ER 19:43 → MEDSURG 01-27 07:23
PROVIDERS: Emergency Medicine; Podiatrist Foot & Ankle Surgery; Admitting Provider Student in an Organized Health Care Education/Training Program; PCP Nurse Practitioner; Visit Provider Student in an Organized Health Care Education/Training Program
PROC: 0QSH35Z Reposition Left Tibia with External Fixation Device, Percutaneous Approach (ICD-10-PCS; principal; 2020-01-27 11:25)
DX: S82.852A Displaced trimalleolar fracture of left lower leg, initial encounter for closed fracture (principal); I42.9 Cardiomyopathy, unspecified; W19.XXXA Unspecified fall, initial encounter; F32.9 Major depressive disorder, single episode, unspecified; Z95.5 Presence of coronary angioplasty implant and graft; E78.2 Mixed hyperlipidemia; G47.33 Obstructive sleep apnea (adult) (pediatric); J43.9 Emphysema, unspecified; Z79.891 Long term (current) use of opiate analgesic; I10 Essential (primary) hypertension; Z95.0 Presence of cardiac pacemaker; Z96.612 Presence of left artificial shoulder joint; Z87.891 Personal history of nicotine dependence; Z79.82 Long term (current) use of aspirin; Z79.02 Long term (current) use of antithrombotics/antiplatelets; I25.118 Atherosclerotic heart disease of native coronary artery with other forms of angina pectoris
CPT/HCPCS: 12345; 36415; 71045; 73590; 73600; 73610; 76000; 80053; 81003; 85025; 85610; 86850; 86900; 93005; 96372; 96375; 97161; 99283; A9270; C1713; J0690; J1644; J2270; J2370; J2405; J2704; J3010

== ENCOUNTER 2020-01-27 08:00 | Day surgery (SDC) | payer MEDICARE, OTHER, SELFPAY ==
--- NOTE | 2020-01-27 13:05 | ANES.PREANE2 ---
Pre-Anesthetic Assessment Pre-Anesthetic Assessment: Height/Weight: Height 1.85 m Weight 104.326 kg Preop Diagnosis: L trimalleolar christin fracture Proposed Procedure: Operation Date: 01/27/20 11:25 Proposed Procedures p ORIF Left Trimalleolar fracture 75211 282.852A(Left) - Tremaine Fisher DPM Familial anesthetic complications: None Was Beta Edu taken within 24 hours: Yes Last intake: Npo > 8 HRS Social: Social History: No alcohol and No tobacco Exam: Pre-Anes Outpt Exam: alert, oriented x 3, clear to auscultation bilaterally and regular rate & rhythm Airway: Cervical ROM: WNL MP: 4 Dentition: Chipped Pulmonary: Pulmonary: Sleep apnea (CPAP) Comments: scarred lungs from [place] CV/HEM: CV/HEM: Angina (Stable), CAD, CHF (cardiomyopathy) and HTN Comments: PACEMAKER (BRADYCARDIA) : : None reported Hepatic: Hepatic: None reported GI: GI: None reported Metabolic: Metabolic: Hyperlipidemia Musc/skel: Comments: L ankel fracture\ Neuropsych: Neuropsych: None reported Anesthetic Plan: Anesthesia: General Risk of > 500 ml blood loss (7ml/kg in children): No PFSH Anesthesia PFSH: Medical History Atypical chest pain Cardiomyopathy Emphysema lung Hyperlipidemia Hypertension Obstructive sleep apnea (adult) (pediatric) Pacemaker Sick sinus syndrome Surgical History History of arthroplasty of left shoulder Family History Other CAD (coronary artery disease) Cancer Social History Smoking and tobacco status: former smoker Alcohol intake: never Data Anesthesia Cardiac Studies: No Data to Display
== END 2020-01-27 09:00 | disposition home or self-care (01) ==
LOC: OR 04-26 14:55
PROVIDERS: PCP Nurse Practitioner; Visit Provider Podiatrist Foot & Ankle Surgery
DX: S82.852A Displaced trimalleolar fracture of left lower leg, initial encounter for closed fracture (principal); X58.XXXA Exposure to other specified factors, initial encounter
CPT/HCPCS: J2001; J2270; J2370; J2405; J2704; J3010

== ENCOUNTER 2020-02-03 17:55 | Inpatient (IN) | payer MEDICARE, OTHER, SELFPAY ==
[2020-02-02 17:10] VITALS: BMI 30.3
[2020-02-03] VITALS (27 sets, daily range): BP systolic 104–189; BP diastolic 68–111; PULSE 65–97; RESP 12–26; TEMP 36.1–36.7; O2SAT 89–100
--- NOTE | 2020-02-03 | SCC_ITS ---
Procedure Done: Open reduction with internal fixation left trimalleolar ankle fracture 7 seconds of fluoroscopic guidance, for a cumulative dose of 0.2 mGy, was provided to Dr. Fisher by the radiology department. C-arm images of the LEFT ankle were saved for the patient's permanent record. ELDON
[2020-02-03] MEDS: sodium chloride 0.9% 1,000 ML 30 ML IV (09:36)
--- NOTE | 2020-02-03 10:47 | ANES.PREANE2 ---
Pre-Anesthetic Assessment Pre-Anesthetic Assessment: Height/Weight: Height 1.85 m Weight 104.326 kg Temp Pulse Resp BP Pulse Ox 98.0 F 77 18 104/70 97 02/03/20 09:02 02/03/20 09:02 02/03/20 09:02 02/03/20 09:02 02/03/20 09:02 Preop Diagnosis: Left trimalleolar ankle fracture Proposed Procedure: Operation Date: 02/03/20 11:05 Proposed Procedures s Removal of external fixator [id number] S82.852A(Left) - Tremaine Fisher DPM p ORIF left Trimalleolar Ankle(Left) - Tremaine Fisher DPM Last intake: Intake Last Liquid Date 02/03/20 Last Liquid Time 23:30 Last Solid Date 02/02/20 Last Solid Time 20:00 Social: Social History: Tobacco (quit >20yr ago) and No alcohol Exam: Pre-Anes Outpt Exam: alert, oriented x 3, clear to auscultation bilaterally and regular rate & rhythm Airway: Submandibular: WNL Cervical ROM: WNL MP: 2 Dentition: Other (very poor) History/ROS: No significant history except as noted Pulmonary: Pulmonary: DEAN and Sleep apnea CV/HEM: CV/HEM: CAD and HTN : : None reported Hepatic: Hepatic: None reported GI: GI: None reported Metabolic: Metabolic: Hyperlipidemia Neuropsych: Neuropsych: None reported Anesthetic Plan: ASA status: 4 Anesthesia: Anesthesia Evaluation and General Risk of > 500 ml blood loss (7ml/kg in children): No Meds/Allergies Current Medications: Current Medications Generic Name Dose Route Start Last Admin Trade Name Freq PRN Reason Stop Dose Admin Sodium Chloride 1,000 mls @ 30 ml s/hr 02/03/20 09:00 02/03/20 09:36 Sodium Chloride 0.9% IV 02/04/20 08:59 30 mls/hr .Q24H MABEL Administration PFSH Anesthesia PFSH: Medical History Atypical chest pain Cardiomyopathy Emphysema lung Hyperlipidemia Hypertension Obstructive sleep apnea (adult) (pediatric) Pacemaker Sick sinus syndrome Surgical History History of arthroplasty of left shoulder Family History Other CAD (coronary artery disease) Cancer Social History Smoking and tobacco status: former smoker Alcohol intake: never Data Anesthesia Cardiac Studies: No Data to Display
--- NOTE | 2020-02-03 14:20 | W.PM.OPSUD ---
Surgery/Procedure H&P Update DATE OF PROCEDURE: February 03, 2020 DATE H&P PERFORMED: 02/02/20 H&P UPDATE INFORMATION: I have reviewed H&P completed within last 30 days, I have examined patient prior to procedure, No changes to prior documentation and H&P is in [facility] EMR on date indicated PREOP DIAGNOSIS: Left trimalleolar ankle fracture PLANNED PROCEDURE: Operation Date: 02/03/20 11:05 Proposed Procedures s Removal of external fixator [id number] S82.852A(Left) - Tremaine Fisher DPM p ORIF left Trimalleolar Ankle(Left) - Tremaine Fisher DPM
--- NOTE | 2020-02-03 16:51 | SUR.PHASEI ---
[id number] PATIENT TO OPS AT THIS TIME FROM OR. ORAL AIRWAY REMOVED ON ARRIVAL TO PACU. SPO2 98% ON SIMPLE MASK AT 8L. DRESSING TO LEFT FOOT, CDI WITH WALKING BOOT IN PLACE.
--- NOTE | 2020-02-03 16:56 | XRR_ITS ---
PROCEDURE INFORMATION: Exam: XR Left Ankle Exam date and time: 02/03/2020 5:37 PM Age: 79 years old Clinical indication: Device placement; Joint fixation hardware; Patient HX: Post op orif L ankle FX TECHNIQUE: Imaging protocol: XR Left ankle. Views: 3 or more views. COMPARISON: CR (LOW EXM, ) 01/28/2020 1:25 PM FINDINGS: Bones/joints: Status post open reduction and internal fixation with compression plate and screw fixation lateral malleolus fracture and screw arthrodesis medial malleolus fracture with satisfactory anatomic alignment and apposition for healing. Ankle mortise intact. Soft tissues: Unremarkable as imaged. Other findings: Examination taken through Loco wrap. XR/XR ankle LT min 3V* [id number] IMPRESSION: ORIF bimalleolar fracture
[2020-02-03] MEDS: fentaNYL 50 mcg/mL INJ 2mL IVP ×2 (17:03→17:08)
[2020-02-03] MEDS: HYDROmorphone 1 mg/mL INJ 1 mL 0.5 MG IVP (17:12)
--- NOTE | 2020-02-03 17:17 | ANE.PACU2 ---
Inpatient post-anesthesia follow up: Airway intact: Yes Vital signs: Temperature 97.0 F Pulse Rate 79 Respiratory Rate 17 Blood Pressure 170/92 Pulse Oximetry 96 Oxygen Delivery Me thod Nasal Cannula Oxygen Flow Rate 3 Fraction of Inspir ed Oxygen Hydration adequate: Yes Nausea and vomiting: No Pain level: 6 Pain level: pain meds administed and Dr. Fisher discussin Observation for pain control Mental status: Baseline
--- NOTE | 2020-02-03 17:19 | PM.OP ---
Operative Report Date of procedure: February 03, 2020 Pre-op Diagnosis: Left trimalleolar ankle fracture
--- NOTE | 2020-02-03 17:19 | PM.OP ---
Operative Report Date of procedure: February 03, 2020 Pre-op Diagnosis: Left trimalleolar ankle fracture Post-op diagnosis: same Procedure Done: Open reduction with internal fixation left trimalleolar ankle fracture Implants: [place] one third tubular plate with 3.5 millimeter screws locking and nonlocking. Nhung 4.0 mm headless screws Pathology: none sent Surgeon: Tremaine Fisher D.P.M. Field Marketing Representative: Kulwinder Fink Anesthesia: General Estimated blood loss: 30 mL IV fluids: None Urine output: None Complications: None Findings: Displaced medial malleolar and lateral malleolar fracture. Condition: stable Disposition: floor Brief History: Patient sustained a left unstable trimalleolar ankle fracture 01/10/2020. Applied external fixator January 27, 2020 due to instability at the ankle fracture. Patient to undergo open reduction internal fixation at today's visit risks include pain, bleeding, numbness, infection, failure to correct deformity, painful hardware, hardware failure, delayed union, malunion, high likelihood of posttraumatic arthritis. Need for further surgical intervention. Patient is agreeable wishes to proceed. Procedure: Under mild sedation the patient was brought to the operating room and placed on the operating table in supine position. Timeout was performed. Anesthesia was then administered by the anesthesia service. Once anesthesia had been induced attention was directed to the left lower extremity where the external fixator delta couplings were loosened utilizing a T-handle. Tibial and first metatarsal pins were removed by hand without incident. Calcaneal transaxial pain was scrubbed with chlorhexidine prep laterally trimmed with a pin cutter and then removed from lateral to medial. The pin sites were healthy-appearing without irritation or erythema or purulent drainage. The left lower extremity was then scrubbed, prepped and draped utilizing normal aseptic technique. The left lower extremity was examined a weighted with an Esmarch bandage and a well-padded left thigh tourniquet was inflated to 250 mmHg. Attention was directed to the left lateral ankle where the distal fibula is palpated. A linear longitudinal incision was made directly over the distal fibula utilizing a #15 blade approximately 15 cm in length. Dissection was carried down through skin and subcutaneous tissue utilizing accommodation of blunt and sharp technique. Care was taken to retract and preserve neurovascular and tendinous structures. All bleeders were ligated and cauterized as necessary. Peroneal tendons were identified and retracted posteriorly. Periosteal incision was made an oblique fracture was appreciated the fibula with distal fragment shortened, this was distracted and hematoma curetted flushed with saline solution and reduced utilizing distal traction and temporally fixated with [id number]-xe-whbzo bone reduction clamp. Next utilizing standard AO technique a 7 hole one third tubular plate was applied to the lateral fibula and fixated utilizing a combination of locking and nonlocking 3.5 millimeter screws with excellent bony apposition and compression noted, screw depth was noted to not violate the ankle mortise. Intraoperative fluoroscopy utilized to confirm screw placement and reduction of fibular fracture. Cotton hook test performed no obvious diastases of syndesmosis was appreciated. Incision site was flushed with copious amounts of sterile saline solution periosteum was reapproximated utilizing 2-0 Vicryl. Subcutaneous tissue reapproximated utilizing 4-0 Vicryl and skin closed with abhi. Attention was directed to the medial ankle where the medial malleolus is palpated a curvilinear incision was made at the distal colliculus coursing proximally with a #15 blade approximately 7 cm in length. Dissection was carried down through skin and subcutaneous tissue utilizing a combination of blunt sharp technique. Care was taken to retract and preserve neurovascular and tendinous structures. Bleeders were ligated and cauterized as necessary. Periosteal incision was made and a medial malleolus fracture was identified, hematoma was evacuated and flushed with saline solution. Reduced with zbyrh-tq-ukama tenaculum and fixated utilizing 2 headless 4.0 millimeter screw screws. Medial incision was flushed with saline solution. Periosteum was closed with 2-0 Vicryl. Subcutaneous tissue closed with 4-0 Vicryl skin closed with abhi. Attention was then directed to the Anterior tibia where previous pin sites were closed with 4-0 nylon. Calcaneal pin sites closed with 4-0 nylon and first metatarsal pin site closed with 4-0 nylon. 20 cc of Marcaine utilized to perform postoperative block 10 cc at the ankle joint for hematoma block and 10 cc at lateral fibula. Incision site was dressed with Adaptic, Unna boot, 4 x 4, Kerlix, Coban and stockinette followed by application of cam boot with ankle at 90 degrees. Tourniquet was deflated and a prompt hyperemic response was noted to the distal digits of the left lower extremity. Patient tolerated the procedure well and was transferred to the PACU with vital signs stable and vascular status intact. Patient experiencing significant postoperative pain would like to admit for observation overnight for pain management.
[2020-02-03] MEDS: morphine 4 mg/mL SDV 1 mL 2 MG IVP ×2 (17:29→17:38)
--- NOTE | 2020-02-03 18:23 | P.CONIM_ITS ---
Providers/Reason For Consult Consulting Physican/Specialty*: General medical service Reason for Consult*: Pain control, nausea control, IV hydration Attending Physician: Tremaine Fisher DPM Primary Care Provider: AIDAN Tolliver History of Present Illness History of Present Illness Jordi Esposito is a 79 year old male with a past medical history of major depressive disorder, CAD status post PCI with stenting to left circumflex 07/27/2019, history of high degree heart block status post pacemaker placement 2008, history of hyperlipidemia, obstructive sleep apnea who presents [facility] status post open reduction with internal fixation of left trimalleolar ankle fracture. Patient is being admitted overnight for pain control, hydration, hospitalist team was consulted for medical management. Currently patient is fairly nauseous, denies abdominal pain, states that his pain is controlled with the Dilaudid and fentanyl he got down in the postop area. Review of Systems Const: Denies: fever(s), chills, fatigue or malaise Eyes: Denies: change in vision or blurry vision ENMT: Denies: nasal congestion Resp: Denies: dyspnea, productive cough, non-productive cough or wheezing GI: Denies: abdominal pain, nausea, vomiting, hematemesis, diarrhea, constipation, hematochezia or melena : Denies: flank pain, difficulty urinating, dysuria or urinary frequency Musc: Denies: neck pain or back pain Skin/Breast: Denies: rash Neuro: Denies: headache(s), dizziness or vertigo Psych: Denies: anxiety or depression Endo: Denies: polyuria or polydipsia Meds/Allergies Home Medications and Allergies Home Medications Medication Instructions Recorded Confirmed Last Taken Type aspirin 81 mg tablet,delayed 81 mg PO QDAY 10/04/19 02/02/20 02/02/20 History release isosorbide mononitrate 30 mg 30 mg PO QAM 10/04/19 02/02/20 02/02/20 History tablet,extended release 24 hr rlazbyqiqpnf-gsmsmclw-nyfelt 1 tab PO QDAY 10/04/19 02/03/20 02/02/20 19:00 History nitroglycerin 0.4 mg sublingual 0.4 mg SUBLINGUAL Q5M PRN 10/04/19 02/03/20 01/26/20 08:00 History tablet atorvastatin 40 mg tablet 40 mg PO DAILY #90 tab 11/22/19 02/02/20 02/02/20 Rx carvedilol 3.125 mg tablet 3.125 mg PO BID #180 tab 12/20/19 02/02/20 02/02/20 Rx irbesartan 150 1 tab PO QDAY #90 tab 01/09/20 02/02/20 02/02/20 Rx mg-hydrochlorothiazide 12.5 mg tablet hydrocodone-acetaminophen 1 tab PO Q4H PRN #20 tab 01/20/20 02/02/20 01/26/20 08:00 Rx clopidogrel 75 mg PO DAILY 01/26/20 02/02/20 01/26/20 08:00 History oxycodone-acetaminophen [Percocet] 1 tab PO Q4H PRN 7 Days #42 tab 02/03/20 Unknown Rx Allergies Allergy/AdvReac Type Severity Reaction Status Date / Time No Known Allergies Allergy Verified 02/02/20 10:23 Current Medications Current Medications Generic Name Dose Route Start Last Admin Trade Name Freq PRN Reason Stop Dose Admin Sodium Chloride 1,000 mls @ 30 mls/hr 02/03/20 09:00 02/03/20 15:53 Sodium Chloride 0.9% IV 02/04/20 08:59 Infused .Q24H MABEL Infusion PFSH Acute PFSH: Medical History Atypical chest pain Cardiomyopathy Emphysema lung Hyperlipidemia Hypertension Obstructive sleep apnea (adult) (pediatric) Pacemaker Sick sinus syndrome Surgical History History of arthroplasty of left shoulder Family History Other CAD (coronary artery disease) Cancer Social History Smoking and tobacco status: former smoker Alcohol intake: never Vitals/I&O/Wt Last Vital Signs Temp 97.0 F L 02/03/20 18:00 Pulse 74 02/03/20 18:00 Resp 12 02/03/20 18:00 BP 173/74 02/03/20 18:00 Pulse Ox 97 02/03/20 18:00 05/29/20 05/29/20 05/29/20 06:59 14:59 22:59 Intake Total 50 / 50 1000 / 1050 Output Total 225 / 225 Balance 50 / 50 775 / 825 Weight last 48 hrs Weight 104.326 kg Physical Exam Const: COMMON NORMALS: no acute distress and patient oriented x3 HENMT: COMMON NORMALS: normocephalic HEAD & SCALP: normocephalic Neck/C-Spine: COMMON NORMALS: no JVD Resp: COMMON NORMALS: normal respiratory effort, No retractions, No use of accessory muscles and clear to auscultation bilaterally AUSCULTATION: clear to auscultation bilaterally Cardio: COMMON NORMALS: no JVD, regular rate, regular rhythm, S1 normal heart sound present and S2 normal heart sound present RATE: regular rate RHYTHM: regular rhythm HEART SOUNDS: S1 normal heart sound present and S2 normal heart sound present GI: COMMON NORMALS: Normal to inspection, nondistended, normoactive bowel sounds present, Soft to palpation, non-tender, No hepatosplenomegaly present, no masses and no bruits PALPATION: Yes Soft to palpation and Yes No hepatosplenomegaly present Extremity: NARRATIVE EXTREMITY EXAM: Left lower extremity in a binder Neuro: COMMON NORMALS: patient oriented x3 Psych: COMMON NORMALS: mental status grossly normal A&P Assessment and plan (1) Left trimalleolar fracture: Postop day 0 status post an open reduction with internal fixation left trimalleolar ankle fracture by Dr. Fisher Admit to general medical floors for pain control, nausea control, hydration Morphine for pain, Zofran for nausea, continue IV hydration Monitor for fevers Heparin for DVT prophylaxis Dr. Fisher is okay with resuming aspirin and Plavix tomorrow Hopefully discharge in the next 24 hours Physical therapy Status: Acute (2) Obstructive sleep apnea (adult) (pediatric): Status: Acute (3) Atherosclerotic heart disease of [place] coronary artery with other forms of angina pectoris: Status: Acute (4) Pacemaker: Status: Acute (5) Cardiomyopathy: No chest pain, resume home medications Status: Acute Qualifiers: Cardiomyopathy type: unspecified Qualified Code(s): I42.9 - Cardiomyopathy, unspecified (6) Hypertension: Monitor blood pressures, resume home medications Status: Acute Qualifiers: Hypertension type: essential hypertension Qualified Code(s): I10 - Essential (primary) hypertension (7) Hyperlipidemia: Status: Acute Qualifiers: Hyperlipidemia type: mixed hyperlipidemia Qualified Code(s): E78.2 - Mixed hyperlipidemia Coding Level of Care Code Acute Bowstring Maker for Chg Fwd Diagnoses Left trimalleolar fracture S82.852A Obstructive sleep apnea (adult) (pediatric) G47.33 Atherosclerotic heart disease of [place] coronary artery with other forms of angina pectoris I25.118 Pacemaker Z95.0 Cardiomyopathy I42.9 Cardiomyopathy type: unspecified Hypertension I10 Hypertension type: essential hypertension Hyperlipidemia E78.2 Hyperlipidemia type: mixed hyperlipidemia
[2020-02-03] MEDS: ondansetron 2 mg/ML SDV 2 mL 4 MG IVP ×2 (18:26→21:37)
[2020-02-03] MEDS: sodium chloride 0.9% 1,000 ML 100 ML IV (18:29)
--- NOTE | 2020-02-03 19:38 | PC.NURSE ---
Patient assessment completed. Denies pain at present. Previously given Zofran for dry heaves. Denies nausea at present. Patient with bulky shawn and boot to LLE elevated on two pillows. Dressing CDI. Neurochecks to LLE WNL. Report given to director of officiating.
[2020-02-03] MEDS: heparin 5,000 unit/mL INJ 1 mL 5000 UNIT SUBCUT (21:18)
[2020-02-03] MEDS: hydroCHLOROthiazide 25 mg Tablet 12.5 MG PO (21:50)
[2020-02-03] MEDS: losartan 50 mg Tablet PO (21:52)
[2020-02-04] VITALS (13 sets, daily range): BP systolic 108–149; BP diastolic 63–74; PULSE 68–91; RESP 16–20; TEMP 36.5–37.1; O2SAT 94–99
[2020-02-04 02:52] LABS: Basophils % 0.2 %; Hematocrit 37.6 % (42.0-52.0); Lymphocytes # 0.9 10^3/uL (0.8-4.8); Lymphocytes % 7.2 %; Mean Corpuscular HGB Conc 31.9 g/dL (30.0-36.0); Mean Corpuscular Hemoglobin 30.7 pg (28.0-34.0); Mean Corpuscular Volume 96.2 fL (80-94); Mean Platelet Volume 10.4 fL (7.4-10.4); Monocytes # 0.6 10^3/uL (0.2-0.9); Monocytes % 4.4 %; Neutrophils % 87.9 %; Nucleated Red Blood Cells % 0 %; Platelet Count 289 10^3/cmm (130-400); Red Blood Count 3.91 10^6/uL (4.1-5.3); Red Cell Distribution Width 12.7 % (12.1-15.1); White Blood Count 12.6 10^3/uL (4.0-10.0)
[2020-02-04 03:06] LABS: Alanine Aminotransferase 19 U/L (0-41); Alkaline Phosphatase 156 IU/L (40-130); Anion Gap 17.5 (5-19); Aspartate Amino Transferase 23 U/L (0-40); Blood Urea Nitrogen 28 mg/dL (8-23); Calcium 9.5 mg/dL (8.5-10.5); Carbon Dioxide 25 mmol/L (22-29); Chloride 102 mmol/L (98-107); Globulin 3.3 g/dL (1.3-4.6); Glucose 142 mg/dL (65-115); Magnesium 2.2 mg/dL (1.7-2.3); Osmolality Calculated 287 mOsm/kg (285-295); Phosphorus 4.3 mg/dL (2.5-4.5); Potassium 5.5 mmol/L (3.5-5.1); Sodium 139 mmol/L (136-145); Total Bilirubin 0.7 mg/dL (0.15-1.2); Total Protein 7.3 g/dL (6.6-8.7)
[2020-02-04] MEDS: morphine 4 mg/mL SDV 1 mL 2 MG IVP ×2 (03:45→12:55)
[2020-02-04] MEDS: isosorbide mononitrate ER 30 mg Tablet PO (05:13)
[2020-02-04] MEDS: heparin 5,000 unit/mL INJ 1 mL 5000 UNIT SUBCUT ×2 (08:06→21:02)
[2020-02-04] MEDS: aspirin 81 mg EC Tablet PO (08:08)
[2020-02-04] MEDS: multivitamin therapeutic Tablet 1 TAB PO (08:08)
[2020-02-04] MEDS: clopidogrel 75 mg Tablet PO (08:08)
[2020-02-04] MEDS: hydroCHLOROthiazide 25 mg Tablet 12.5 MG PO (08:08)
[2020-02-04] MEDS: atorvastatin 40 mg Tablet PO (08:08)
[2020-02-04] MEDS: carvedilol 3.125 mg Tablet PO ×2 (08:08→21:02)
[2020-02-04] MEDS: losartan 50 mg Tablet PO (08:09)
[2020-02-04] MEDS: oxyCODONE-APAP 10-325 mg Tablet 1 TAB PO ×3 (09:53→23:58)
--- NOTE | 2020-02-04 10:57 | PC.CHAP ---
Pastoral Care Encounter/Spiritual Assessment Type of Contact [] Declined investment representative visit [] Patient/Family/Request visit [] Outpatient visit [] Follow-up visit [] Physician referral [] Code/Alert [X] Routine visit [] Staff referral [] Actively dying [] Patient sleeping [] Family support [] [] Out of room [] Palliative care [] [] Receiving care in room [] Pre-surgical visit [] Trauma [] Long length of stay [] ICU visit [] Other: Relational/Emotional Strength [] Patient feels connected with others/family/visitors/staff [] Distress [] Loneliness/isolation [] Abandonment Spirituality of Patient [] Person of Nicol [] Attends Jew of their Nicol [] Believes in Prayer [] Reads Bible or Buddhism materials [] There are Spiritual issues to be addressed [place] Interventions [] Prayer [X] Active listening [] Non-anxious presence [] Spiritual/emotional support [] Crisis/trauma care [] Spiritual counseling [] Bereavement support [] Provided bereavement packet [] Provided Bible/devotional materials [] Provided toy/stuffed animal, coloring book to patient or family member [] Provided Communion [] Anointing/[place] [] Salvation [] Completed spiritual assessment [] Other: Impact on Illness or Injury [] Angry [] Fearful [] Anxious [] Often cries [] Exhaustion [] Unable to work [] Unable to attend denominational [] Unable to walk/stand [] Unable to read [] Unable to drive [] Unable to eat/drink [] Unable to sleep [] Unable to be with family [] Patient intubated [] Other: Summary Visit interrupted for physical therapy. PT gave permission for me to return tomorrow. Time spent with patient
--- NOTE | 2020-02-04 11:48 | P.PN_ITS ---
Subjective Subjective: Interval history: Patient seen bedside this morning. Using good spirits. Pain being controlled with medication. Denies any acute events overnight. He expressed concerns on going home, plan was for outpatient surgery with discharge postoperatively however due to increased pain he was admitted overnight for pain control greatly appreciate medical management from hospita list. This morning patient asked if he could be transferred to a nursing stepdown facility, states that he was hesitant to go home. Vitals/I&O/Wt Last Vital Signs Temp 98.8 F 02/04/20 11:34 Pulse 84 02/04/20 11:34 Resp 18 02/04/20 11:34 BP 108/63 02/04/20 11:34 Pulse Ox 95 02/04/20 11:34 02/03/20 02/04/20 02/04/20 22:59 06:59 14:59 Intake Total 1000 / 1050 1000 / 2050 240 / 240 Output Total 225 / 225 300 / 525 Balance 775 / 825 700 / 1525 240 / 240 Weight last 48 hrs Weight 230 lb Physical Exam Narrative: EXAM NARRATIVE: GENERAL: Patient is alert and oriented ?3 and in no acute distress. The following is a focused left lower extremity exam. VASCULAR: Dorsalis pedis artery palpable +2, femoral artery palpable +22 left lower extremity. Capillary refill time less than 3 seconds to the distal hallux. Calf is supple and nontender proximally and distally. NEUROLOGICAL: Protective sensation intact to light touch at the left toes. DERMATOLOGICAL: No strikethrough bleeding, no erythema or proximal streaking from proximal leg appreciated. Dressings are clean and dry. MUSCULOSKELETAL: Able to wiggle toes on command. No pain with posterior calf squeeze. Further musculoskeletal exam deferred due to postoperative state. Data : 02/04/20 02:37 02/04/20 02:37 A&P Assessment and plan (1) Left trimalleolar fracture: Status: Acute Qualifiers: Encounter type: subsequent encounter Fracture type: closed Fracture healing: with routine healing Qualified Code(s): S82.852D - Displaced trimalleolar fracture of left lower leg, subsequent encounter for closed fracture with routine healing Patient stable for discharge from podiatry standpoint. He will follow-up in podiatry clinic next week Thursday for dressing change and nursing visit. I prescribed him Percocet 10/325 mg be taken every 4 hours as needed for pain his son-in-law has already picked this up. Patient expressed interest in being transferred to a nursing facility, I will leave this to social work if they could get him placement and if medicine team deems necessary. Appreciate medical management by hospitalist while inpatient. Attestations Medical Necessity Statement*: Left ankle fracture Coding Level of Care Code Acute Plate [place] Mill Hand for [facility] Diagnoses Left trimalleolar fracture S82.856S Encounter type: subsequent encounter Fracture type: closed Fracture healing: with routine healing
[2020-02-04] MEDS: ondansetron 2 mg/ML SDV 2 mL 4 MG IVP ×2 (12:55→18:19)
--- NOTE | 2020-02-04 14:00 | PM.PN ---
Subjective Subjective: Interval history: This morning patient has no significant complaints, pain is well controlled, no nausea, no vomiting, no lightheadedness, no dizziness, states that he wants to go to a half-way for short-term rehab Vitals/I&O/Wt Last Vital Signs Temp 98.8 F 02/04/20 11:34 Pulse 84 02/04/20 11:34 Resp 16 02/04/20 12:55 BP 108/63 02/04/20 11:34 Pulse Ox 95 02/04/20 11:34 02/03/20 02/04/20 02/04/20 22:59 06:59 14:59 Intake Total 1000 / 1050 1000 / 2050 720 / 720 Output Total 225 / 225 300 / 525 250 / 250 Balance 775 / 825 700 / 1525 470 / 470 Weight last 48 hrs Weight 104.326 kg Physical Exam Const: COMMON NORMALS: no acute distress and patient oriented x3 HENMT: COMMON NORMALS: normocephalic HEAD & SCALP: normocephalic Neck/C-Spine: COMMON NORMALS: no JVD Resp: COMMON NORMALS: normal respiratory effort, No retractions, No use of accessory muscles and clear to auscultation bilaterally AUSCULTATION: clear to auscultation bilaterally Cardio: COMMON NORMALS: no JVD, regular rate, regular rhythm, S1 normal heart sound present and S2 normal heart sound present RATE: regular rate RHYTHM: regular rhythm HEART SOUNDS: S1 normal heart sound present and S2 normal heart sound present GI: COMMON NORMALS: Normal to inspection, nondistended, normoactive bowel sounds present, Soft to palpation, non-tender, No hepatosplenomegaly present, no masses and no bruits PALPATION: Yes Soft to palpation and Yes No hepatosplenomegaly present Extremity: NARRATIVE EXTREMITY EXAM: Left lower extremity in a binder Neuro: COMMON NORMALS: patient oriented x3 Psych: COMMON NORMALS: mental status grossly normal Data : 02/04/20 02:37 02/04/20 02:37 A&P Assessment and plan (1) Left trimalleolar fracture: Postop day 1 status post an open reduction with internal fixation left trimalleolar ankle fracture by Dr. Fisher Admit to general medical floors for pain control, nausea control, hydration Morphine for pain, Zofran for nausea, continue IV hydration Monitor for fevers Heparin for DVT prophylaxis Dr. Fisher is okay with resuming aspirin and Plavix today Working on half-way placement Physical therapy Status: Acute Qualifiers: Encounter type: subsequent encounter Fracture type: closed Fracture healing: with routine healing Qualified Code(s): S82.852D - Displaced trimalleolar fracture of left lower leg, subsequent encounter for closed fracture with routine healing (2) Obstructive sleep apnea (adult) (pediatric): Status: Acute (3) Atherosclerotic heart disease of [place] coronary artery with other forms of angina pectoris: Status: Acute (4) Pacemaker: Status: Acute (5) Cardiomyopathy: No chest pain, resume home medications Status: Acute Qualifiers: Cardiomyopathy type: unspecified Qualified Code(s): I42.9 - Cardiomyopathy, unspecified (6) Hypertension: Monitor blood pressures, resume home medications Status: Acute Qualifiers: Hypertension type: essential hypertension Qualified Code(s): I10 - Essential (primary) hypertension (7) Hyperlipidemia: Status: Acute Qualifiers: Hyperlipidemia type: mixed hyperlipidemia Qualified Code(s): E78.2 - Mixed hyperlipidemia Attestations Medical Necessity Statement*: Patient requires continued hospitalization for left trimalleolar fracture, working on half-way placement Coding Level of Care Code Acute Soaking Room Operator for [facility] Diagnoses Left trimalleolar fracture S82.852D Encounter type: subsequent encounter Fracture type: closed Fracture healing: with routine healing Obstructive sleep apnea (adult) (pediatric) G47.33 Atherosclerotic heart disease of [place] coronary artery with other forms of angina pectoris I25.118 Pacemaker Z95.0 Cardiomyopathy I42.9 Cardiomyopathy type: unspecified Hypertension I10 Hypertension type: essential hypertension Hyperlipidemia E78.2 Hyperlipidemia type: mixed hyperlipidemia
--- NOTE | 2020-02-04 18:10 | NUR.SHIFT ---
SHIFT SUMMARY PATIENT'S PAIN HAS BEEN UP AND DOWN. PATIENT HAS ONLY REQUIRED ONE DOSE OF IV PAIN MEDICATION BETWEEN THE ORAL DOSES. PATIENT FEELS THAT HIS SURGICAL DRESSING IS TOO TIGHT . NEUROVASCULAR CHECKS ARE GOOD. FOOT ELEVATED ON PILLOW. GOOD URINE OUTPUT. CURRENTLY RESTING IN BED AT THIS TIME.
--- NOTE | 2020-02-04 18:22 | PC.NURSE ---
VOMIT PATIENT HAS THROWN UP TWICE NOW. MINIMAL AMOUNTS. THIS NURSE ADMINISTERED ZOFRAN.
[2020-02-05] VITALS (10 sets, daily range): BP systolic 118–138; BP diastolic 55–69; PULSE 71–83; RESP 14–20; TEMP 36.8–37.2; O2SAT 94–96
[2020-02-05] MEDS: isosorbide mononitrate ER 30 mg Tablet PO (05:31)
[2020-02-05 06:15] LABS: Basophils % 0.2 %; Eosinophils # 0.1 10^3/uL (0.0-0.8); Hematocrit 33.9 % (42.0-52.0); Hemoglobin 10.7 g/dL (11.7-16.6); Lymphocytes # 1.9 10^3/uL (0.8-4.8); Lymphocytes % 21.1 %; Mean Corpuscular HGB Conc 31.6 g/dL (30.0-36.0); Mean Corpuscular Hemoglobin 29.9 pg (28.0-34.0); Mean Corpuscular Volume 94.7 fL (80-94); Mean Platelet Volume 10.6 fL (7.4-10.4); Monocytes # 0.7 10^3/uL (0.2-0.9); Monocytes % 7.3 %; Neutrophils # 6.4 10^3/uL (1.8-7.7); Neutrophils % 70.2 %; Nucleated Red Blood Cells % 0 %; Platelet Count 260 10^3/cmm (130-400); Red Blood Count 3.58 10^6/uL (4.1-5.3); Red Cell Distribution Width 12.9 % (12.1-15.1); White Blood Count 9.1 10^3/uL (4.0-10.0)
[2020-02-05 06:33] LABS: Alanine Aminotransferase 14 U/L (0-41); Albumin Level 3.6 g/dL (3.5-5.2); Alkaline Phosphatase 132 IU/L (40-130); Aspartate Amino Transferase 20 U/L (0-40); Blood Urea Nitrogen 20 mg/dL (8-23); Calcium 9.5 mg/dL (8.5-10.5); Carbon Dioxide 28 mmol/L (22-29); Chloride 101 mmol/L (98-107); Globulin 3.1 g/dL (1.3-4.6); Glucose 107 mg/dL (65-115); Magnesium 2.1 mg/dL (1.7-2.3); Osmolality Calculated 285 mOsm/kg (285-295); Phosphorus 2.7 mg/dL (2.5-4.5); Sodium 139 mmol/L (136-145); Total Bilirubin 0.5 mg/dL (0.15-1.2); Total Protein 6.7 g/dL (6.6-8.7)
--- NOTE | 2020-02-05 06:42 | PC.NURSE ---
Shift Summary pt did well last night with only one complaint of pain which was relieved with oral pain medicine. pt's neurovascular checks were WNL. pt had good urine output and slept well throughout the night.
[2020-02-05] MEDS: aspirin 81 mg EC Tablet PO (08:27)
[2020-02-05] MEDS: losartan 50 mg Tablet PO (08:27)
[2020-02-05] MEDS: ondansetron 2 mg/ML SDV 2 mL 4 MG IVP (08:27)
[2020-02-05] MEDS: hydroCHLOROthiazide 25 mg Tablet 12.5 MG PO (08:27)
[2020-02-05] MEDS: carvedilol 3.125 mg Tablet PO ×2 (08:27→20:31)
[2020-02-05] MEDS: oxyCODONE-APAP 10-325 mg Tablet 1 TAB PO ×3 (08:27→22:17)
[2020-02-05] MEDS: heparin 5,000 unit/mL INJ 1 mL 5000 UNIT SUBCUT ×2 (08:27→20:31)
[2020-02-05] MEDS: atorvastatin 40 mg Tablet PO (08:28)
[2020-02-05] MEDS: multivitamin therapeutic Tablet 1 TAB PO (08:28)
[2020-02-05] MEDS: clopidogrel 75 mg Tablet PO (08:28)
--- NOTE | 2020-02-05 11:56 | P.PN_ITS ---
Subjective Subjective: Interval history: This morning patient had some pain complaints overnight, but well controlled, no fevers, no chills, no nausea, no vomiting, no lightheaded, no dizziness, awaiting longterm placement Vitals/I&O/Wt Last Vital Signs Temp 99.0 F 02/05/20 11:34 Pulse 83 02/05/20 11:34 Resp 18 02/05/20 11:34 BP 122/55 02/05/20 11:34 Pulse Ox 94 02/05/20 11:34 02/04/20 02/05/20 02/05/20 22:59 06:59 14:59 Intake Total 120 / 840 600 / 1440 220 / 220 Output Total 1450 / 1700 280 / 1980 1100 / 1100 Balance -1330 / -860 320 / -540 -880 / -880 Physical Exam Const: COMMON NORMALS: no acute distress and patient oriented x3 HENMT: COMMON NORMALS: normocephalic HEAD & SCALP: normocephalic Neck/C-Spine: COMMON NORMALS: no JVD Resp: COMMON NORMALS: normal respiratory effort, No retractions, No use of accessory muscles and clear to auscultation bilaterally AUSCULTATION: clear to auscultation bilaterally Cardio: COMMON NORMALS: no JVD, regular rate, regular rhythm, S1 normal heart sound present and S2 normal heart sound present RATE: regular rate RHYTHM: regular rhythm HEART SOUNDS: S1 normal heart sound present and S2 normal heart sound present GI: COMMON NORMALS: Normal to inspection, nondistended, normoactive bowel sounds present, Soft to palpation, non-tender, No hepatosplenomegaly present, no masses and no bruits PALPATION: Yes Soft to palpation and Yes No hepatosplenomegaly present Extremity: NARRATIVE EXTREMITY EXAM: Left lower extremity in a binder Neuro: COMMON NORMALS: patient oriented x3 Psych: COMMON NORMALS: mental status grossly normal Data : 02/05/20 05:47 02/05/20 05:47 A&P Assessment and plan (1) Left trimalleolar fracture: Postop day 2 status post an open reduction with internal fixation left trimalleolar ankle fracture by Dr. Fisher Admit to general medical floors for pain control, nausea control, currently doing well Morphine for pain, Zofran for nausea Monitor for fevers Heparin for DVT prophylaxis Dr. Fisher is okay with resuming aspirin and Plavix Working on longterm placement Physical therapy Status: Acute Qualifiers: Encounter type: subsequent encounter Fracture type: closed Fracture healing: with routine healing Qualified Code(s): S82.852D - Displaced trimalleolar fracture of left lower leg, subsequent encounter for closed fracture with routine healing (2) Obstructive sleep apnea (adult) (pediatric): Status: Acute (3) Atherosclerotic heart disease of [place] coronary artery with other forms of angina pectoris: Status: Acute (4) Pacemaker: Status: Acute (5) Cardiomyopathy: No chest pain, resume home medications Status: Acute Qualifiers: Cardiomyopathy type: unspecified Qualified Code(s): I42.9 - Cardiomyopathy, unspecified (6) Hypertension: Monitor blood pressures, resume home medications Status: Acute Qualifiers: Hypertension type: essential hypertension Qualified Code(s): I10 - Essential (primary) hypertension (7) Hyperlipidemia: Status: Acute Qualifiers: Hyperlipidemia type: mixed hyperlipidemia Qualified Code(s): E78.2 - Mixed hyperlipidemia Attestations Medical Necessity Statement*: Regards continue hospitalization for left trimalleolar fracture status post repair, awaiting longterm placement Coding Level of Care Code Acute Fertilizer Mixer for [facility] Fwd Diagnoses Left trimalleolar fracture S82.852D Encounter type: subsequent encounter Fracture type: closed Fracture healing: with routine healing Obstructive sleep apnea (adult) (pediatric) G47.33 Atherosclerotic heart disease of [place] coronary artery with other forms of angina pectoris I25.118 Pacemaker Z95.0 Cardiomyopathy I42.9 Cardiomyopathy type: unspecified Hypertension I10 Hypertension type: essential hypertension Hyperlipidemia E78.2 Hyperlipidemia type: mixed hyperlipidemia
--- NOTE | 2020-02-05 12:10 | PC.CHAP ---
Pastoral Care Encounter/Spiritual Assessment Type of Contact [] Declined deputy city clerk visit [] Patient/Family/Request visit [] Outpatient visit [X] Follow-up visit [] Physician referral [] Code/Alert [X] Routine visit [] Staff referral [] Actively dying [] Patient sleeping [] Family support [] [] Out of room [] Palliative care [] [] Receiving care in room [] Pre-surgical visit [] Trauma [] Long length of stay [] ICU visit [] Other: Relational/Emotional Strength [] Patient feels connected with others/family/visitors/staff [] Distress [X] Loneliness/isolation [] Abandonment Spirituality of Patient [] Person of Nicol [] Attends Presybeterian of their Nicol [X] Believes in Prayer [] Reads Bible or Shinto materials [] There are Spiritual issues to be addressed [employer] Interventions [] Prayer [X] Active listening [X] Non-anxious presence [X] Spiritual/emotional support [] Crisis/trauma care [] Spiritual counseling [] Bereavement support [] Provided bereavement packet [] Provided Bible/devotional materials [] Provided toy/stuffed animal, coloring book to patient or family member [] Provided Communion [] Anointing/[place] [] Salvation [X] Completed spiritual assessment [] Other: Impact on Illness or Injury [] Angry [] Fearful [] Anxious [] Often cries [] Exhaustion [] Unable to work [] Unable to attend samaritan [] Unable to walk/stand [] Unable to read [] Unable to drive [] Unable to eat/drink [] Unable to sleep [] Unable to be with family [] Patient intubated [] Other: Summary: PT has a lot of big, spiritual questions but also has difficulty accepting organized shinto (he was raised [facility]). He is open to another deputy city clerk visit, however. Of note: his is in a intermediate with dementia. He has sought psychological support to deal with his grief and depression. While he is healing, he will be living with his daughter and her children. Time spent with patient: 30 mins
--- NOTE | 2020-02-05 15:44 | NUR.SHIFT ---
SHIFT SUMMARY PATIENT HAS DONE WELL TODAY. PAIN MUCH MORE CONTROLLED TODAY THAN YESTERDAY. DR. FUNK PLACED A MIDDLE SCHOOL COMBINATION TEACHER BOOT TODAY. PATIENT TOLERATING WELL. NO NAUSEA. GOOD APPETITE. GOOD URINE OUTPUT.
--- NOTE | 2020-02-05 19:13 | P.PN_ITS ---
Subjective Subjective: Interval history: Today status post removal of external fixator and ORIF left ankle. Pain in is being managed while inpatient. Patient denies any acute events overnight. No strikethrough bleeding of dressing. Patient denies any subjective nausea, vomiting, fever, chills, shortness of breath or chest pain. Vitals/I&O/Wt Last Vital Signs Temp 98.6 F 02/05/20 15:28 Pulse 71 02/05/20 15:28 Resp 19 H 02/05/20 15:28 BP 118/67 02/05/20 15:28 Pulse Ox 95 02/05/20 15:28 02/05/20 02/05/20 02/05/20 06:59 14:59 22:59 Intake Total 600 / 1440 460 / 460 220 / 680 Output Total 280 / 1980 1300 / 1300 450 / 1750 Balance 320 / -540 -840 / -840 -230 / -1070 Physical Exam Narrative: EXAM NARRATIVE: GENERAL: Patient is alert and oriented ?3 and in no acute distress. The following is a focused left lower extremity exam. VASCULAR: Dorsalis pedis artery palpable +2, femoral artery palpable +22 left lower extremity. Capillary refill time less than 3 seconds to the distal hallux. Calf is supple and nontender proximally and distally. NEUROLOGICAL: Protective sensation intact to light touch at the left toes. DERMATOLOGICAL: No strikethrough bleeding, no erythema or proximal streaking from proximal leg appreciated. Dressings are clean and dry. MUSCULOSKELETAL: Able to wiggle toes on command. No pain with posterior calf squeeze. Further musculoskeletal exam deferred due to postoperative state. Data : 02/05/20 05:47 02/05/20 05:47 A&P Assessment and plan (1) Left trimalleolar fracture: Status: Acute Qualifiers: Encounter type: subsequent encounter Fracture type: closed Fracture healing: with routine healing Qualified Code(s): S82.852D - Displaced trimalleolar fracture of left lower leg, subsequent encounter for closed fractu re with routine healing Patient awaiting senior living placement. He is stable for transfer from podiatry standpoint. He will follow-up in podiatry clinic next week [place] for dressing change and nursing visit. I prescribed him Percocet 10/325 mg be taken every 4 hours as needed for pain his son-in-law has already picked this up. New cam boot applied to left lower extremity, offered additional relief the patient. He is to be strict nonweightbearing to the left lower extremity for the next 6 weeks minimum. He has resumed clopidogrel and aspirin. Greatly appreciate medical management by hospitalist while inpatient and assistance with transfer to senior living. Attestations Medical Necessity Statement*: Unstable left trimalleolar ankle fracture Coding Level of Care Code Acute Food Tester for [facility] Diagnoses Left trimalleolar fracture S82.852D Encounter type: subsequent encounter Fracture type: closed Fracture healing: with routine healing
[2020-02-06] VITALS (9 sets, daily range): BP systolic 122–167; BP diastolic 52–80; PULSE 62–76; RESP 18; TEMP 36.6–37.1; O2SAT 95–98
[2020-02-06] MEDS: ondansetron 2 mg/ML SDV 2 mL 4 MG IVP (04:44)
--- NOTE | 2020-02-06 04:52 | ECG_ITS ---
Measurements Intervals [place] Rate: 74 P: 64 MN: 180 QRS: -72 QRSD: 222 T: 98 QT: 466 QTc: 518 ELECTRONIC VENTRICULAR PACEMAKER ABNORMAL RHYTHM ECG Compared to ECG 01/26/2020 19:31:03 No significant changes Electronically Signed On 02-06-2020 17:03:46 CDT by Turner Steele M.D. [email or web address]
[2020-02-06 05:16] LABS: Basophils % 0.4 %; Eosinophils # 0.2 10^3/uL (0.0-0.8); Eosinophils % 2.1 %; Hematocrit 34.6 % (42.0-52.0); Hemoglobin 11.1 g/dL (11.7-16.6); Lymphocytes % 28.3 %; Mean Corpuscular HGB Conc 32.1 g/dL (30.0-36.0); Mean Corpuscular Hemoglobin 30.5 pg (28.0-34.0); Mean Corpuscular Volume 95.1 fL (80-94); Mean Platelet Volume 10.7 fL (7.4-10.4); Monocytes # 0.6 10^3/uL (0.2-0.9); Monocytes % 8.6 %; Neutrophils # 4.3 10^3/uL (1.8-7.7); Neutrophils % 60.3 %; Nucleated Red Blood Cells % 0 %; Platelet Count 269 10^3/cmm (130-400); Red Blood Count 3.64 10^6/uL (4.1-5.3); Red Cell Distribution Width 12.9 % (12.1-15.1); White Blood Count 7.2 10^3/uL (4.0-10.0)
[2020-02-06] MEDS: morphine 4 mg/mL SDV 1 mL 2 MG IVP (05:21)
[2020-02-06] MEDS: isosorbide mononitrate ER 30 mg Tablet PO (05:25)
[2020-02-06 05:30] LABS: Alanine Aminotransferase 15 U/L (0-41); Albumin Level 3.6 g/dL (3.5-5.2); Alkaline Phosphatase 135 IU/L (40-130); Anion Gap 14.7 (5-19); Aspartate Amino Transferase 20 U/L (0-40); Blood Urea Nitrogen 16 mg/dL (8-23); Calcium 9.8 mg/dL (8.5-10.5); Carbon Dioxide 29 mmol/L (22-29); Chloride 100 mmol/L (98-107); Globulin 3.3 g/dL (1.3-4.6); Glucose 101 mg/dL (65-115); Osmolality Calculated 286 mOsm/kg (285-295); Phosphorus 3.2 mg/dL (2.5-4.5); Potassium 3.7 mmol/L (3.5-5.1); Sodium 140 mmol/L (136-145); Total Bilirubin 0.5 mg/dL (0.15-1.2); Total Protein 6.9 g/dL (6.6-8.7)
[2020-02-06 05:37] LABS: Troponin T (5th) Once 18 ng/mL (0-15)
[2020-02-06 08:06] LABS: Troponin 5 2HR 19.76 ng/mL (0-15)
[2020-02-06] MEDS: losartan 50 mg Tablet PO (08:08)
[2020-02-06] MEDS: carvedilol 3.125 mg Tablet PO ×2 (08:08→17:03)
[2020-02-06] MEDS: hydroCHLOROthiazide 25 mg Tablet 12.5 MG PO (08:08)
[2020-02-06] MEDS: atorvastatin 40 mg Tablet PO (08:08)
[2020-02-06] MEDS: multivitamin therapeutic Tablet 1 TAB PO (08:09)
[2020-02-06] MEDS: clopidogrel 75 mg Tablet PO (08:09)
[2020-02-06] MEDS: aspirin 81 mg EC Tablet PO (08:09)
[2020-02-06] MEDS: heparin 5,000 unit/mL INJ 1 mL 5000 UNIT SUBCUT ×2 (08:09→19:22)
[2020-02-06 08:25] LABS: Troponin 5 2HR Delta 1.76 ABS# (0-10)
[2020-02-06 12:24] LABS: Troponin 5 6HR 19.05 ng/mL (0-15)
[2020-02-06 12:37] LABS: Troponin 5 6HR Delta 1.05 ng/L (0-12)
--- NOTE | 2020-02-06 15:14 | P.PN_ITS ---
Subjective Subjective: Interval history: No acute events overnight. On looking for the morning patient had mild burning sensation in his chest and nausea but no vomiting. Denies of having any abdominal pain, dizziness, chest pain but did complain of mild chest heaviness so troponin cycle was started and EKG was done. Labs, vitals, EKG reviewed. Denies of having any fever, chills, headache, d izziness, palpitations. Vitals/I&O/Wt Last Vital Signs Temp 98.6 F 02/06/20 11:42 Pulse 69 02/06/20 11:42 Resp 18 02/06/20 11:42 BP 139/52 02/06/20 11:42 Pulse Ox 95 02/06/20 11:42 02/06/20 02/06/20 02/06/20 06:59 14:59 22:59 Intake Total 360 / 360 Output Total 900 / 2950 250 / 250 Balance -900 / -2270 110 / 110 Physical Exam Const: COMMON NORMALS: no acute distress and patient oriented x3 HENMT: COMMON NORMALS: normocephalic HEAD & SCALP: normocephalic Neck/C-Spine: COMMON NORMALS: no JVD Resp: COMMON NORMALS: normal respiratory effort, No retractions, No use of accessory muscles and clear to auscultation bilaterally AUSCULTATION: clear to auscultation bilaterally Cardio: COMMON NORMALS: no JVD, regular rate, regular rhythm, S1 normal heart sound present and S2 normal heart sound present RATE: regular rate RHYTHM: regular rhythm HEART SOUNDS: S1 normal heart sound present and S2 normal heart sound present GI: COMMON NORMALS: Normal to inspection, nondistended, normoactive bowel sounds present, Soft to palpation, non-tender, No hepatosplenomegaly present, no masses and no bruits PALPATION: Yes Soft to palpation and Yes No hepatosplenomegaly present Extremity: NARRATIVE EXTREMITY EXAM: Left lower extremity in a binder Neuro: COMMON NORMALS: patient oriented x3 Psych: COMMON NORMALS: mental status grossly normal Data : 02/06/20 04:55 02/06/20 04:55 A&P Assessment and plan (1) Left trimalleolar fracture: Postop day 3 status post an open reduction with internal fixation left trimalleolar ankle fracture by Dr. Fisher Morphine for pain, Zofran for nausea Physical therapy, anticoagulation, perioperative antibiotics as per Dr. Fisher. Monitor for fevers, hemoglobin levels. Status: Acute Qualifiers: Encounter type: subsequent encounter Fracture healing: with routine healing Fracture type: closed Qualified Code(s): S82.852D - Displaced trimalleolar fracture of left lower leg, subsequent encounter for closed fracture with routine healing (2) Atherosclerotic heart disease of [place] coronary artery with other forms of angina pectoris: Status: Acute (3) Obstructive sleep apnea (adult) (pediatric): Status: Acute (4) Pacemaker: Status: Acute (5) Cardiomyopathy: Status: Acute Qualifiers: Cardiomyopathy type: unspecified Qualified Code(s): I42.9 - Cardiomyopathy, unspecified (6) Hypertension: Monitor blood pressures, resume home medications Status: Acute Qualifiers: Hypertension type: essential hypertension Qualified Code(s): I10 - Essential (primary) hypertension (7) Hyperlipidemia: Status: Acute Qualifiers: Hyperlipidemia type: mixed hyperlipidemia Qualified Code(s): E78.2 - Mixed hyperlipidemia Additional A&P Information H/o CAD s/p PCI w/stenting to LCX 07/2019: On dual antiplatelet. Continue with aspirin, Plavix Continue carvedilol, ARB and Imdur. Troponin cycle, EKG stable. Last stress from October 2019 negative for any active ischemia. Symptoms today morning most likely from GERD. Start patient on Protonix 40 mg daily oral. Zofran as needed for vomiting H/o Ischemic cardiomyopathy : Last echo 04/2018 with EF 55%, gr 1 diastolic syfunction. From recent lexiscan 10/2019. LVEF 57%, mild diffuse hypokinesia of LV apex. euvoluemic for now. Sleep apnea, was scheduled to have CPAP titration study, unable to find results in system Auto PAP overnight. Full code. Cardiac diet Lovenox. Social service consult: Patient will finish 3 midnight stay for possible placement. Has been accepted at [facility]. Likely discharge tomorrow morning. Attestations Medical Necessity Statement*: As per primary team Time Spent in Patient Care: Greater than 35 minutes Coding Level of Care Code Acute Implementation Consultant for [facility] Diagnoses Left trimalleolar fracture S82.852D Encounter type: subsequent encounter Fracture healing: with routine healing Fracture type: closed Atherosclerotic heart disease of [place] coronary artery with other forms of angina pectoris I25.118 Obstructive sleep apnea (adult) (pediatric) G47.33 Pacemaker Z95.0 Cardiomyopathy I42.9 Cardiomyopathy type: unspecified Hypertension I10 Hypertension type: essential hypertension Hyperlipidemia E78.2 Hyperlipidemia type: mixed hyperlipidemia
[2020-02-06] MEDS: pantoprazole DR 40 mg Tablet PO (17:03)
--- NOTE | 2020-02-06 17:56 | PC.NURSE ---
pt has not required pain medication this shift, when pain was assessed it was rated 3-4/10 to his L foot/ankle. Pain medication was offered throughout shift and before PT session, pt denied. He has done well has had 1100mL urine output this shift.
--- NOTE | 2020-02-06 18:19 | P.PN_ITS ---
Subjective Subjective: Interval history: Patient seen bedside this afternoon he is status post external fixator removal and ORIF of left trimalleolar ankle fracture. Date of operation 02/03/2020. Pain is improving and being well controlled. Is awaiting placement to [facility] states that he was accepted at [facility] planning on transfer tomorrow. Medications: Reviewed: Yes Vitals/I&O/Wt Last Vital Signs Temp 97.8 F 02/06/20 15:48 Pulse 76 02/06/20 15:48 Resp 18 02/06/20 15:48 BP 125/68 02/06/20 15:48 Pulse Ox 97 02/06/20 15:48 02/06/20 02/06/20 02/06/20 06:59 14:59 22:59 Intake Total 360 / 360 480 / 840 Output Total 900 / 2950 250 / 250 900 / 1150 Balance -900 / -2270 110 / 110 -420 / -310 Physical Exam Narrative: EXAM NARRATIVE: GENERAL: Patient is alert and oriented ?3 and in no acute distress. The following is a focused left lower extremity exam. VASCULAR: Dorsalis pedis artery palpable +2, femoral artery palpable +22 left lower extremity. Capillary refill time less than 3 seconds to the distal hallux. Calf is supple and nontender proximally and distally. NEUROLOGICAL: Protective sensation intact to light touch at the left toes. DERMATOLOGICAL: No strikethrough bleeding, no erythema or proximal streaking from proximal leg appreciated. Dressings are clean and dry. MUSCULOSKELETAL: Able to wiggle toes on command. No pain with posterior calf s queeze. Further musculoskeletal exam deferred due to postoperative state. Data : 02/06/20 04:55 02/06/20 04:55 A&P Assessment and plan (1) Left trimalleolar fracture: Status: Acute Qualifiers: Encounter type: subsequent encounter Fracture type: closed Fracture he aling: with routine healing Qualified Code(s): S82.852D - Displaced trimalleolar fracture of left lower leg, subsequent encounter for closed fracture with routine healing Excepted to [facility] will be transferred tomorrow. He is to remain strict nonweightbearing to the left lower extremity and elevate at all times while at rest. He has resumed clopidogrel as well as aspirin. Pain is being well managed while inpatient greatly appreciate medical management by hospitalist. Patient to leave his current postoperative dressing clean, dry and intact until his follow-up visit. He will follow-up in podiatry clinic 02/09/2019 at 11 AM. Patient is aware of date and time. Attestations Medical Necessity Statement*: Unstable left trimalleolar ankle fracture Coding Level of Care Code Acute Thermal Molder for Guido Reed Diagnoses Left trimalleolar fracture S82.852D Encounter type: subsequent encounter Fracture type: closed Fracture healing: with routine healing
[2020-02-07] VITALS: BP 122/69; PULSE 69; RESP 18; TEMP 36.9; O2SAT 96
[2020-02-07 04:00] VITALS: BP 131/68; PULSE 63; RESP 18; TEMP 37.4; O2SAT 96
[2020-02-07] MEDS: isosorbide mononitrate ER 30 mg Tablet PO (06:19)
[2020-02-07 07:26] VITALS: BP 131/76; PULSE 67; RESP 16; TEMP 37.2; O2SAT 96
[2020-02-07 08:47] VITALS: BP 131/76
[2020-02-07] MEDS: carvedilol 3.125 mg Tablet PO (08:47)
[2020-02-07] MEDS: hydroCHLOROthiazide 25 mg Tablet 12.5 MG PO (08:47)
[2020-02-07] MEDS: pantoprazole DR 40 mg Tablet PO (08:47)
[2020-02-07] MEDS: atorvastatin 40 mg Tablet PO (08:47)
[2020-02-07] MEDS: multivitamin therapeutic Tablet 1 TAB PO (08:47)
[2020-02-07] MEDS: heparin 5,000 unit/mL INJ 1 mL 5000 UNIT SUBCUT (08:47)
[2020-02-07] MEDS: losartan 50 mg Tablet PO (08:47)
[2020-02-07] MEDS: clopidogrel 75 mg Tablet PO (08:47)
[2020-02-07] MEDS: aspirin 81 mg EC Tablet PO (08:47)
[2020-02-07 10:15] VITALS: BP 131/76; PULSE 67; RESP 16; TEMP 37.2; O2SAT 96
--- NOTE | 2020-02-07 10:40 | PC.NURSE ---
Report called to Prabhakar ORTIZ at [facility]
--- NOTE | 2020-02-07 10:54 | P.PN_ITS ---
Subjective Subjective: Interval history: No acute events overnight. Denies having any further chest pain, chest discomfort. Denies of having any nausea, vomiting, headache, dizziness, palpitations. Working well with physical therapy. Vitals/I&O/Wt Last Vital Signs Temp 98.9 F 02/07/20 10:15 Pulse 67 02/07/20 10:15 Resp 16 02/07/20 10:15 BP 131/76 02/07/20 10:15 Pulse Ox 96 02/07/20 10:15 02/06/20 02/07/20 02/07/20 22:59 06:59 14:59 Intake Total 480 / 840 240 / 240 Output Total 1225 / 1475 600 / 2075 200 / 200 Balance -745 / -635 -600 / -1235 40 / 40 Physical Exam Const: COMMON NORMALS: no acute distress and patient oriented x3 HENMT: COMMON NORMALS: normocephalic HEAD & SCALP: normocephalic Neck/C-Spine: COMMON NORMALS: no JVD Resp: COMMON NORMALS: normal respiratory effort, No retractions, No use of accessory muscles and clear to auscultation bilaterally AUSCULTATION: clear to auscultation bilaterally Cardio: COMMON NORMALS: no JVD, regular rate, regular rhythm, S1 normal heart sound present and S2 normal heart sound present RATE: regular rate RHYTHM: regular rhythm HEART SOUNDS: S1 normal heart sound present and S2 normal heart sound present GI: COMMON NORMALS: Normal to inspection, nondistended, normoactive bowel sounds present, Soft to palpation, non-tender, No hepatosplenomegaly present, no masses and no bruits PALPATION: Yes Soft to palpation and Yes No hepatosplenomegaly present Extremity: NARRATIVE EXTREMITY EXAM: Left lower extremity in a binder Neuro: COMMON NORMALS: patient oriented x3 Psych: COMMON NORMALS: mental status grossly normal Data : 02/06/20 04:55 02/06/20 04:55 A&P Assessment and plan (1) Left trimalleolar fracture: Postop day 4 status post an open reduction with internal fixation left trimalleolar ankle fracture by Dr. Fisher Morphine for pain, Zofran for nausea Physical therapy, anticoagulation, perioperative antibiotics as per Dr. Fisher. Monitor for fevers, hemoglobin levels. Status: Acute Qualifiers: Encounter type: subsequent encounter Fracture healing: with routine healing Fracture type: closed Qualified Code(s): S82.852D - Displaced trimalleolar fracture of left lower leg, subsequent encounter for closed fracture with routine healing (2) Atherosclerotic heart disease of [place] coronary artery with other forms of angina pectoris: Status: Acute (3) Obstructive sleep apnea (adult) (pediatric): Status: Acute (4) Pacemaker: Status: Acute (5) Cardiomyopathy: Status: Acute Qualifiers: Cardiomyopathy type: unspecified Qualified Code(s): I42.9 - Cardiomyopathy, unspecified (6) Hypertension: Monitor blood pressures, resume home medications Status: Acute Qualifiers: Hypertension type: essential hypertension Qualified Code(s): I10 - Essential (primary) hypertension (7) Hyperlipidemia: Status: Acute Qualifiers: Hyperlipidemia type: mixed hyperlipidemia Qualified Code(s): E78.2 - Mixed hyperlipidemia Additional A&P Information H/o CAD s/p PCI w/stenting to LCX 07/2019: On dual antiplatelet. Continue with aspirin, Plavix Continue carvedilol, ARB and Imdur. Troponin cycle, EKG stable. Last stress from October 2019 negative for any active ischemia. Symptoms today morning most likely from GERD. Start patient on Protonix 40 mg daily oral. Zofran as needed for vomiting H/o Ischemic cardiomyopathy : Last echo 04/2018 with EF 55%, gr 1 diastolic syfunction. From recent lexiscan 10/2019. LVEF 57%, mild diffuse hypokinesia of LV apex. euvoluemic for now. Sleep apnea, was scheduled to have CPAP titration study, unable to find results in system Auto PAP overnight. Full code. Cardiac diet Lovenox. Social service consult: Patient will finish 3 midnight stay for possible placement. Has been accepted at [facility]. Likely discharge tomorrow morning. Patient's hemoglobin has remained stable, has remained hemodynamically stable and afebrile. Patient is stable to be discharged from medical point of view. On discharge continue on aspirin, Plavix, carvedilol, arm, Imdur with advised to follow-up with her primary care physician within 7 to 10 days and cardiology within 1 month. Attestations Medical Necessity Statement*: As per primary team Time Spent in Patient Care: 16 - 35 minutes Coding Level of Care Code Acute Desolderer for alyssia Fwd Exam Detailed Diagnoses Left trimalleolar fracture S82.852D Encounter type: subsequent encounter Fracture healing: with routine healing Fracture type: closed Atherosclerotic heart disease of [place] coronary artery with other forms of angina pectoris I25.118 Obstructive sleep apnea (adult) (pediatric) G47.33 Pacemaker Z95.0 Cardiomyopathy I42.9 Cardiomyopathy type: unspecified Hypertension I10 Hypertension type: essential hypertension Hyperlipidemia E78.2 Hyperlipidemia type: mixed hyperlipidemia
--- NOTE | 2020-02-07 11:12 | PC.SOCIAL ---
IMM Update Pg 2 of IMM given and explained to patient who verbalized understanding. Copy provided to patient.
--- NOTE | 2020-03-06 23:36 | PM.DCS ---
Discharge Providers Date of Admission: 02/04/20 11:09 Date of Discharge: March 06, 2020 Attending Provider at Admission: Jin Ellsworth MD Attending Provider at Discharge: Tremaine Fisher DPM Primary Care Provider: AIDAN Tolliver Diagnoses at Discharge Discharge Diagnosis (1) Left trimalleolar fracture: Status: Acute Qualifiers: Encounter type: subsequent encounter Fracture type: closed Fracture healing: with routine healing Qualified Code(s): S82.852D - Displaced trimalleolar fracture of left lower leg, subsequent encounter for closed fracture with routine healing (2) Atherosclerotic heart disease of [place] coronary artery with other forms of angina pectoris: Status: Acute (3) Obstructive sleep apnea (adult) (pediatric): Status: Acute (4) Pacemaker: Status: Acute (5) Cardiomyopathy: Status: Acute Qualifiers: Cardiomyopathy type: unspecified Qualified Code(s): I42.9 - Cardiomyopathy, unspecified (6) Hypertension: Status: Acute Qualifiers: Hypertension type: essential hypertension Qualified Code(s): I10 - Essential (primary) hypertension (7) Hyperlipidemia: Status: Acute Qualifiers: Hyperlipidemia type: mixed hyperlipidemia Qualified Code(s): E78.2 - Mixed hyperlipidemia Reason for Visit Reason for Visit: left trimalleolar ankle fracture Hospital Course Discharge Summary: Originally admitted under podiatry service and hospitalist service was consulted for persistent nausea along with pain medications. 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 Postprocedure he was having nausea and vomiting which was complicated by pain medications. And was treated conservatively with IV fluids. He was discharged to SNF for further rehabilitation. Physical Exam Narrative: EXAM NARRATIVE: As per my progress note on the day of discharge Discharge Data Data Completed and Pending: Completed Studies During Hospitalization Category Date Time Status XR ankle LT min 3 V* [id number] Routine Exams 02/03/20 16:56 Completed Vitals: Last Vital Signs Temp 98.9 F 02/07/20 10:15 Pulse 67 02/07/20 10:15 Resp 16 02/07/20 10:15 BP 131/76 02/07/20 10:15 Pulse Ox 96 02/07/20 10:15 Discharge Plan Discharge Patient Disposition: Xfer SNF Condition: Stable Prescriptions: Continued lkylhosbmtip-uqsfuopo-cfduyh Tablet 1 tab PO QDAY RF: 0 aspirin [Adult Low Dose Aspirin] 81 mg tablet,delayed release (DR/EC) 81 mg PO QDAY RF: 0 nitroglycerin [Nitrostat] 0.4 mg tablet, sublingual 0.4 mg SUBLINGUAL Q5M PRN (Reason: Chest Pain) RF: 0 isosorbide mononitrate 30 mg tablet extended release 24 hr 30 mg PO QAM RF: 0 atorvastatin 40 mg tablet 40 mg PO DAILY Qty: 90 RF: 2 carvedilol 3.125 mg tablet 3.125 mg PO BID Qty: 180 RF: 3 irbesartan-hydrochlorothiazide [Avalide] 150-12.5 mg tablet 1 tab PO QDAY Qty: 90 RF: 3 hydrocodone-acetaminophen 7.5-325 mg tablet 1 tab PO Q4H PRN (Reason: pain) Qty: 20 RF: 0 clopidogrel 75 mg Tablet 75 mg PO DAILY RF: 0 Discontinued hydrocodone-acetaminophen [[place]] 5-325 mg tablet 1 tab PO Q4H PRN (Reason: pain) 7 Days Qty: 30 RF: 0 Discharge Orders: Discharge Order (Routine); Ordered 02/03/20 Ordered By: Tremaine Fisher Referrals: [facility] [Outside] Tremaine Fisher DPM [Physician] - 02/10/20 11:00 am (Please call office on Thursday to make an appointment for nurse visit for ThursdayFebruary 09. ) Alley Saucedo FNP [Primary Care Provider] - 02/16/20 10:30 am (APPOINTMENT WITH DR FAUSTIN [phone] ON FEBRUARY 15 AT 10:30) Discharge Diet: Advance as tolerated Discharge Activity: Limit activity as instructed and Use walker/crutches as instructed Patient Instructions: Oxycodone/Acetaminophen (By mouth), Open Reduction and Internal Fixation of an Ankle Fracture (DC) Activity Restrictions/Additional Instructions: Strict nonweightbearing to the left lower extremity. Please elevate left foot at all times while at rest. Keep postoperative dressings clean, dry and intact until follow-up visit. Utilize wheelchair. Resume aspirin and clopidogrel. Pain medication Percocet 10/325 mg every 4 as needed for pain to use judiciously. Contact Dr. Fisher with any postoperative questions or concerns. Cell phone number [phone]. Follow-up next week Thursday for nursing visit and dressing change time and date on discharge paperwork. Discharge Date/Time: 02/07/20 11:52 Discharge Attestations Time Spent in Discharge Care*: greater than 30 min Status at Discharge: Cognitive status at discharge: cognitively intact, Behavioral status at discharge: cooperative, Quality Metrics Clinical Quality Measures During this hospital stay, did patient experience: None Coding Level of Care Code Acute Central Office Repairer for Guido Fwd Diagnoses Left trimalleolar fracture S82.852D Encounter type: subsequent encounter Fracture type: closed Fracture healing: with routine healing Atherosclerotic heart disease of [place] coronary artery with other forms of angina pectoris I25.118 Obstructive sleep apnea (adult) (pediatric) G47.33 Pacemaker Z95.0 Cardiomyopathy I42.9 Cardiomyopathy type: unspecified Hypertension I10 Hypertension type: essential hypertension Hyperlipidemia E78.2 Hyperlipidemia type: mixed hyperlipidemia
== END 2020-02-07 11:52 | disposition skilled nursing facility (03) | DRG 494 ==
LOC: MEDSURG 02-04 07:56
PROVIDERS: Internal Medicine; Admitting Provider Family Medicine; PCP Nurse Practitioner; Visit Provider Podiatrist Foot & Ankle Surgery
PROC: 0QSK04Z Reposition Left Fibula with Internal Fixation Device, Open Approach (ICD-10-PCS; principal; 2020-02-03 11:05)
PROC: 0QSK04Z Reposition Left Fibula with Internal Fixation Device, Open Approach (ICD-10-PCS; 2020-02-03 11:05)
DX: S82.852A Displaced trimalleolar fracture of left lower leg, initial encounter for closed fracture (principal); X58.XXXA Exposure to other specified factors, initial encounter; F32.9 Major depressive disorder, single episode, unspecified; I25.10 Atherosclerotic heart disease of native coronary artery without angina pectoris; Z95.5 Presence of coronary angioplasty implant and graft; Z95.0 Presence of cardiac pacemaker; E78.2 Mixed hyperlipidemia; G47.33 Obstructive sleep apnea (adult) (pediatric); I25.5 Ischemic cardiomyopathy; J43.9 Emphysema, unspecified; I10 Essential (primary) hypertension; Z96.612 Presence of left artificial shoulder joint; Z87.891 Personal history of nicotine dependence
CPT/HCPCS: 12345; 29580; 36415; 73610; 76000; 80053; 83735; 84100; 84484; 85025; 93005; 96365; 96372; 96375; 97116; 97161; 97530; C1713; G0378; J0131; J0690; J1100; J1170; J1644; J2270; J2405; J2704; J3010; J3490; J7030

== ENCOUNTER 2020-03-14 09:51 | Outpatient (CLI) | payer MEDICARE, OTHER, SELFPAY ==
--- NOTE | 2020-03-14 09:58 | XRR_ITS ---
PROCEDURE INFORMATION: Exam: XR Left Ankle Exam date and time: 03/14/2020 9:58 AM Age: 79 years old Clinical indication: Condition or disease; Other: Follow up ankle surgery; Prior surgery TECHNIQUE: Imaging protocol: XR Left ankle. Views: 3 or more views. COMPARISON: CR (LOW EXM, ) 02/03/2020 5:23 PM FINDINGS: Bones/joints: Malleable surgical plate and screws stabilizing a distal fibular fracture in near anatomical alignment. Ankle mortise is symmetrical. 2 surgical screws stabilizing the medial malleolus Spur formation at the insertion of the Achilles' tendon and plantar aponeurosis. Soft tissues: Normal. XR/XR ankle LT min 3V* [id number] IMPRESSION: 1. Surgical fixation of the medial and lateral malleoli. Healing versus healed. 2. Spur formation at the insertion of the Achilles' tendon and plantar aponeurosis.
== END 2020-03-14 09:52 | disposition home or self-care (01) ==
LOC: RAD 09:56
PROVIDERS: PCP Nurse Practitioner; Visit Provider Podiatrist Foot & Ankle Surgery
DX: Z48.89 Encounter for other specified surgical aftercare (principal); M76.62 Achilles tendinitis, left leg
CPT/HCPCS: 73610

== ENCOUNTER → 2020-04-04 11:27 | Outpatient (BNVA) | payer MEDICARE, OTHER, SELFPAY | PROVIDERS: PCP Nurse Practitioner; Visit Provider Podiatrist Foot & Ankle Surgery | DX: S82.852D Displaced trimalleolar fracture of left lower leg, subsequent encounter for closed fracture with routine healing (principal); M24.472 Recurrent dislocation, left ankle; Z98.890 Other specified postprocedural states; W01.0XXD Fall on same level from slipping, tripping and stumbling without subsequent striking against object, subsequent encounter | CPT/HCPCS: 73610 ==

== ENCOUNTER 2020-04-04 14:52 | Outpatient (CLI) | payer MEDICARE, OTHER, SELFPAY | END 2020-04-04 14:53 | disposition home or self-care (01) | LOC: SPT 14:53 | PROVIDERS: PCP Nurse Practitioner; Visit Provider Podiatrist Foot & Ankle Surgery | DX: Z46.89 Encounter for fitting and adjustment of other specified devices (principal); S82.852D Displaced trimalleolar fracture of left lower leg, subsequent encounter for closed fracture with routine healing; X58.XXXD Exposure to other specified factors, subsequent encounter; M24.472 Recurrent dislocation, left ankle; W01.0XXD Fall on same level from slipping, tripping and stumbling without subsequent striking against object, subsequent encounter; Z98.890 Other specified postprocedural states | CPT/HCPCS: 73610; 97760; L1902 ==

== ENCOUNTER → 2020-04-25 13:47 | Outpatient (BNVA) | payer MEDICARE, OTHER, SELFPAY | PROVIDERS: PCP Nurse Practitioner; Visit Provider Podiatrist Foot & Ankle Surgery | DX: M24.472 Recurrent dislocation, left ankle (principal); S82.852D Displaced trimalleolar fracture of left lower leg, subsequent encounter for closed fracture with routine healing; X58.XXXD Exposure to other specified factors, subsequent encounter | CPT/HCPCS: 73610 ==

== ENCOUNTER → 2020-06-29 11:15 | Outpatient (BNVA) | payer MEDICARE, OTHER, SELFPAY | PROVIDERS: PCP Nurse Practitioner; Visit Provider Orthopaedic Surgery | DX: Z11.59 Encounter for screening for other viral diseases (principal) | CPT/HCPCS: 87635 ==

== ENCOUNTER 2020-07-05 08:38 | Day surgery (SDC) | payer MEDICARE, OTHER, SELFPAY ==
[2020-07-04 09:21] VITALS: BMI 30.9
[2020-07-05 09:04] VITALS: BP 177/116; PULSE 81; RESP 18; TEMP 36.6; O2SAT 98
[2020-07-05] MEDS: sodium chloride 0.9% 1,000 ML 30 ML IV (09:25)
--- NOTE | 2020-07-05 09:36 | ANES.PREANE2 ---
Pre-Anesthetic Assessment Pre-Anesthetic Assessment: Height/Weight: Height 1.85 m Weight 106.141 kg Temp Pulse Resp BP Pulse Ox 97.8 F 81 18 177/116 98 07/05/20 09:04 07/05/20 09:04 07/05/20 09:04 07/05/20 09:04 07/05/20 09:04 Preop Diagnosis: Right ring finger trigger finger Proposed Procedure: Operation Date: 07/05/20 10:40 Proposed Procedures p Right ring Trigger Finger Release [id number] M65.341(Right) - Rod Lo MD Familial anesthetic complications: Excess sedation/sleepiness afterwards Was Beta Edu taken within 24 hours: Yes Last intake: Intake Last Liquid Date 07/04/20 Last Liquid Time 23:30 Last Solid Date 07/04/20 Last Solid Time 21:00 Social: Comment: former smoker Exam: Pre-Anes Outpt Exam: alert, oriented x 3, clear to auscultation bilaterally and regular rate & rhythm Airway: Cervical ROM: WNL MP: 3 Dentition: Other (poor dentition) Pulmonary: Pulmonary: DEAN and Sleep apnea CV/HEM: CV/HEM: CAD, HTN and PVD Comments: pacemaker Metabolic: Metabolic: Hyperlipidemia Anesthetic Plan: ASA status: 4 Anesthesia: MAC and Regional (specify below) (addison block) Risk of > 500 ml blood loss (7ml/kg in children): No Meds/Allergies Current Medications: Current Medications Generic Name Dose Route Start Last Admin Trade Name Freq PRN Reason Stop Dose Admin Sodium Chloride 1,000 mls @ 30 ml s/hr 07/05/20 09:00 07/05/20 09:25 Sodium Chloride 0.9% IV 07/06/20 08:59 30 mls/hr .Q24H MABEL Administration PFSH Anesthesia PFSH: Medical History Atypical chest pain Cardiomyopathy Emphysema lung Hyperlipidemia Hypertension Obstructive sleep apnea (adult) (pediatric) Pacemaker Sick sinus syndrome Trimalleolar fracture Surgical History History of arthroplasty of left shoulder Family History Other CAD (coronary artery disease) Cancer Social History Smoking and tobacco status: former smoker Alcohol intake: never Data Anesthesia Cardiac Studies: No Data to Display
--- NOTE | 2020-07-05 11:38 | W.PM.OPSUD ---
Surgery/Procedure H&P Update DATE OF PROCEDURE: July 05, 2020 DATE H&P PERFORMED: 06/18/20 PREOP DIAGNOSIS: Right ring finger trigger finger PLANNED PROCEDURE: Operation Date: 07/05/20 10:40 Proposed Procedures p Right ring Trigger Finger Release [id number] M65.341(Right) - Rod Lo MD
[2020-07-05 12:18] VITALS: BP 159/93; PULSE 74; RESP 18; TEMP 36.4; O2SAT 99
--- NOTE | 2020-07-05 12:19 | PM.OP ---
Operative Report Date of procedure: July 05, 2020 Pre-op Diagnosis: Right ring finger trigger finger Post-op Diagnosis: Same Post-op Findings: Same Procedure Done: Right ring finger trigger finger release Pathology: none sent Surgeon: Rod Lo Anesthesia: Nerve Block ([place] block) Estimated blood loss (mL): 2 Tourniquet time (min): 20 Findings: No abnormalities were noted about the A1 lindsay of the right ring finger Condition: stable Disposition: PACU Procedure: The patient's hand was prepped in the usual fashion. A timeout was performed. I transverse incision was made over the level of a 1 lindsay in the palm over a distance of approximately a centimeter and a half. Under loupe magnification blunt dissection was accomplished down to the A1 lindsay. With adequate visualization a scalpel was used to divide the central 8 mm of that structure. Blunt scissors were then used to extend the release approximately 5 mm proximally and 5 mm distally. Tendons were pulled the road and inspected to assure there health. Skin edges were infiltrated with 4 cc of 0.5%n Marcaine. The skin edges were closed with 3-0 Prolene compressive dressings were applied.
[2020-07-05 12:41] VITALS: BP 152/83; PULSE 60; RESP 18; TEMP 36.4; O2SAT 100
--- NOTE | 2020-07-05 13:00 | ANE.PACU2 ---
Inpatient post-anesthesia follow up: Airway intact: Yes Vital signs: Temperature 97.5 F Pulse Rate 60 Respiratory Rate 18 Blood Pressure 152/83 Pulse Oximetry 100 Oxygen Delivery Me thod Room Air Oxygen Flow Rate Fraction of Inspir ed Oxygen Hydration adequate: Yes Nausea and vomiting: No Pain level: 1 Mental status: Baseline
== END 2020-07-05 13:01 | disposition home or self-care (01) ==
PROVIDERS: PCP Internal Medicine; Visit Provider Orthopaedic Surgery
PROC: (CPT 26055; principal; 2020-07-05 10:40)
DX: M65.341 Trigger finger, right ring finger (principal); G47.30 Sleep apnea, unspecified; I25.10 Atherosclerotic heart disease of native coronary artery without angina pectoris; I10 Essential (primary) hypertension; Z95.0 Presence of cardiac pacemaker; E78.5 Hyperlipidemia, unspecified; Z87.891 Personal history of nicotine dependence
CPT/HCPCS: 26055; 12345; 96365; J0690; J2704; J3490; J7030

== ENCOUNTER → 2020-12-04 14:24 | Outpatient (BNVA) | payer MEDICARE, OTHER, SELFPAY | PROVIDERS: PCP Internal Medicine; Visit Provider Podiatrist Foot & Ankle Surgery | DX: M25.579 Pain in unspecified ankle and joints of unspecified foot (principal) | CPT/HCPCS: 73610 ==

== ENCOUNTER 2020-12-14 06:43 | Outpatient (CLI) | payer MEDICARE, OTHER, SELFPAY ==
[2020-12-14 06:48] VITALS: BMI 32.3
--- NOTE | 2020-12-14 06:48 | ECG_ITS ---
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 Interpretive Statements NAME OF STUDY: LEXISCAN SESTAMIBI STRESS TEST INDICATION: Chest Pain Results to Donavan Gupta DO PROCEDURE: At the baseline, the EKG revealed A sensed 100% V paced rhythm. The baseline blood pressure was 127/80 mm Hg with a heart rate of 75 beats/min. Lexiscan was infused over a period of 20 seconds. A total of 0.4 milligrams of Lexiscan was infused. The stress phase was continued for a total of 5 minutes. Heart rate at the end of the stress phase was 143 with a blood pressure 130/63. The EKG at the peak infusion revealed no significant changes. Sestamibi was injected 20 seconds after the Lexiscan infusion. Blood pressure at the end of the recovery phase was 135/63 with a heart rate of 111 per minute. CONCLUSION: 1. No significant EKG changes with the LexiScan infusion 2. No LexiScan induced chest pain or cardiac arrhythmia 3. Normal blood pressure and heart rate response 4. Sestamibi/sestamibi perfusion scan pending; see separate report. Electronically Signed On 12-17-2020 23:37:32 CDT by Christi Chen M.D. [id number]
--- NOTE | 2020-12-14 06:51 | NMCV_ITS ---
NM naa perf SPECT r/s* [id number] Jordi Esposito Age: 80 Gender: M : 1940 Exam Date: 12/14/2020 08:08 Ordering Phys: Christi Chen MD Technologist: STACY Payne Exam Location: [facility] Indications: SOB STRESS TEST [facility] IMAGE PROTOCOL Rest/Stress 1 Lexiscan Day Radiopharmaceutical Dose (mCi) Administration Site Administered by Rest: Tc-99m 10.8 IV STACY Cervantes Sestamibi Stress:Tc-99m 32.4 IV STACY Cervantes Sestamibi Rest: 14-Dec-2020 60 Discovery 630 Stress: 14-Dec-2020 30 Discovery 630 0.4mg Lexiscan. Images obtained in supine and prone position. SPECT RESULTS Technical Quality: Excellent Raw Data Analysis: Normal Image Corrections: No attenuation or motion correction applied Summed Stress Score: 13 Summed Rest Score: 13 Summed Difference Score: 1 PERFUSION FINDINGS Moderate areas of severely decreases uptake in the basal mid and apical inferior, mid inferoseptal, mid inferolateral, apical septal and LV apex. With the supine imaging, there was some reversibility in the inferoseptal region. However with the prone imaging, there is no significant reversibility. FUNCTIONAL RESULTS (calculated via Gated SPECT) Stress Image LV EF (%): 65 Stress EDV (mL):112 TID: 0.83 Stress ESV (mL):39 FUNCTIONAL FINDINGS: Segmental wall motion analysis revealed moderate hypokinesia of the LV apex IMPRESSIONS 1. Myocardial perfusion imaging revealing areas of persistent decreases uptake in the inferior, inferoseptal ,inferolateral, apical septal and LV apex with a subtle area of inconsistent reversibility, suggesting mostly myocardial scarring in distribution of the right coronary artery with possible todd- infarction ischemia. 2. Normal LV ejection fraction 65%. 3. LV wall motion as revealing moderate hypokinesia of the LV apex. 4. Normal LV volume No similar previous studies are available for comparison Dr Christi Chen MD FACC (Electronically Signed) Final Date: 14 December 2020 14:48 S
[2020-12-14] MEDS: regadenoson 0.4 Mg/5 ml Syringe IVP (08:48)
--- NOTE | 2020-12-14 08:48 | SUR.PREOP ---
Patient reports no pain or discomfort prior to the start of the procedure.
[2020-12-14 09:04] VITALS: BP 135/63; PULSE 75
== END 2020-12-14 06:44 | disposition home or self-care (01) ==
LOC: CDL 06:44
PROVIDERS: PCP Internal Medicine; Visit Provider Internal Medicine Cardiovascular Disease
DX: R06.02 Shortness of breath (principal); R07.9 Chest pain, unspecified
CPT/HCPCS: 78452; 93017; A9500; J2785

== ENCOUNTER 2021-05-27 13:53 | Outpatient (CLI) | payer MEDICARE, OTHER, SELFPAY ==
--- NOTE | 2021-05-27 | CT_ITS ---
WS: [id number] CT LUMBAR SPINE, noncontrast. HISTORY: LOW BACK PAIN TECHNIQUE: Contiguous 2.5 mm axial imaging are performed. Sagittal and coronal reformats are submitte d and reviewed. All CT scans at [facility] use at least one of these dose optimization techni ques: automated exposure control; mA and/or kV adjustment per patient size (includes targeted exams w here dose is matched to clinical indication); or iterative reconstruction. IV contrast: None DLP: 2274.45 mGy-cm. COMPARISON: None available. Straightening of the normal lumbar lordosis. There is severe osteopenia. Chronic L4 compression fract ure was also noted on 07/14/2018 radiographic series. There is a large bridging osteophyte extending a nteriorly from L3 to L4. Very minimal retropulsion of posterior superior endplate by 2 less than 2 mm . L4 vertebral compression fracture is severe with a biconcave deformity. L1-2: Mild diffuse disc bulging. No stenosis. L2-3: Diffuse moderate osteophytic ridging and annular disc bulging. Mild encroachment and flattening upon the ventral thecal sac. Mild central and bilateral subarticular recess stenosis. There is also very slight narrowing of the LEFT foramen with the disc contacting the undersurface of the exiting L2 nerve root. L3-4: Diffuse osteophytic ridging and annular disc bulging. Mild facet joint arthritis. Mild RIGHT fo raminal narrowing. L4-5: Diffuse moderate annular disc bulging and osteophytic ridging. Ligamentum flavum hypertrophy an d facet arthritis. Vertebral body osteophytes encroach into the foramen bilaterally with moderate teresa ateral foraminal stenosis. L5-S1: Mild annular disc bulging with a small central disc protrusion contacting the ventral thecal s ac with no high-grade stenosis. Mild bilateral foraminal stenosis, RIGHT greater than LEFT. Scattered calcifications throughout the abdominal aorta. The entire aorta is not visualized. Very mil d degenerative changes in the SI joints. Subchondral cystic change in the S1 segment. CT/CT lumbar spine wo con* [id number] IMPRESSION: 1. Long-term stability of the severe L4 biconcave compression fracture. 2. Moderate bilateral foraminal stenosis at L4-5 predominantly due to vertebra l body osteophytes. 3. Mild bilateral foraminal stenosis at L5-S1, RIGHT greater than LEFT. 4. Mild central, bilateral foraminal stenosis and slight narrowing of the LEFT foramen at L2-3. 5. There is minimal disc contact on the undersurface of the exiting L2 nerve r oot on the LEFT.
== END 2021-05-27 13:54 | disposition home or self-care (01) ==
PROVIDERS: PCP Internal Medicine; Visit Provider Anesthesiology Pain Medicine
DX: M54.16 Radiculopathy, lumbar region (principal); S32.048A Other fracture of fourth lumbar vertebra, initial encounter for closed fracture; X58.XXXA Exposure to other specified factors, initial encounter; M48.07 Spinal stenosis, lumbosacral region
CPT/HCPCS: 72131

== ENCOUNTER 2021-06-06 13:31 | Emergency (ER) | payer MEDICARE, OTHER, SELFPAY ==
[2021-06-06 13:42] VITALS: BP 131/80; PULSE 71; RESP 19; TEMP 36.8; O2SAT 97; BMI 32.9
--- NOTE | 2021-06-06 14:23 | XR_ITS ---
WS: [id number] Exam: XR chest 1V portable [id number] Date/Time of Exam: 06/06/2021 2:36 PM Reason For Exam: dizziness Comparison 01/26/2020. The lungs are clear and hyperinflated. Heart size is normal. The mediastinum is not widened. A perman ent cardiac pacer superimposes the left chest. Regional bony elements are intact. No change. XR/XR chest 1V portable [id number] IMPRESSION: 1. Pulmonary hyperinflation which might be seen with obstructive lung disease. No acute process.
--- NOTE | 2021-06-06 14:23 | CT_ITS ---
WS: [id number] CT HEAD NONCONTRAST HISTORY: dizziness TECHNIQUE: Contiguous axial imaging performed through the brain in 2.5 mm imaging. Bone and soft tiss ue windows. Sagittal and coronal reformats reviewed. All CT scans at [facility] use at least one of these dose optimization techniques: automated exposure control; mA and/or kV adjustment per pa tient size (includes targeted exams where dose is matched to clinical indication); or iterative recon struction. DLP: 957.53 mGy.cm COMPARISON: None available. No acute intracranial hemorrhage, midline shift or mass effect. Mild atrophy. 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 No hemorrhage or acute edema. Ventricles: Normal size with no hydrocephalus. Paranasal sinuses: As visualized are clear. Mastoid air cells: Well pneumatized. Calvarium and scalp: Skull is intact with no soft tissue edema or swelling. CT/CT head wo con* [id number] IMPRESSION: 1. No acute intracranial hemorrhage or edema. 2. Mild atrophy with moderate chronic small vessel ischemic changes and tanika us bilateral lacunae.
[2021-06-06 14:48] VITALS: BP 133/71; PULSE 66; RESP 16; O2SAT 98
--- NOTE | 2021-06-06 15:00 | ED_ITS ---
HPI - Dizziness General: Chief Complaint: Dizziness Stated Complaint: DIZZY, COUGH Time Seen by Provider: 06/06/21 14:23 History of Present Illness: HPI Narrative: Patient is a 80-year-old male with past medical history of COPD sick sinus disease status post pacemaker and hypertension. He is here with complaints of dizziness. States this is a chronic issue for him that he is seen multiple specialist for the last several years. However he is here today because he had has not abated. States that he was up at about 1:30 in the morning texting a friend he got up to go to the bathroom and since then has had a sensation of the room spinning or feeling very wavy whenever he moves his head. He has had difficulty walking has had some mild nausea since then. He also has chronic tinnitus and this has been worse over the last several days as well. Has not had any recent viral infections no hearing loss. Does not have numbness or tingling in his face or extremities no headache no slurred speech or difficulty speaking no altered mental status. Denies fevers chills chest pain nausea vomiting diarrhea altered mental status or syncope. Review of Systems General: Reports: 10 or more systems reviewed and unremarkable except in HPI and below PFSH ED PFSH: Medical History Atypical chest pain Cardiomyopathy Emphysema lung Hyperlipidemia Hypertension Obstructive sleep apnea (adult) (pediatric) Pt had the CPAP machine and was not using to the requirement and was taken away from him. Pacemaker Sick sinus syndrome Trimalleolar fracture Surgical History History of arthroplasty of left shoulder Family History Father CAD (coronary artery disease) Family/Other Cancer Grandmother Diabetes Denies family history of Clotting disorder Dementia Chronic kidney disease (CKD) Suicide Anesthesia complication Bleeding disorder Lung disease Stroke Social History Smoking and tobacco status: former smoker Alcohol intake: never Physical Exam Const: COMMON NORMALS: no acute distress, average body habitus, patient oriented x3 and alert EXAM LIMITATIONS: no altered mental status GENERAL APPEARANCE: cooperative, comfortable and well kempt ORIEN TATION/CONSCIOUSNESS: Yes oriented to person and Yes oriented to place HENMT: COMMON NORMALS: normocephalic, atraumatic, hearing grossly normal bilaterally, external ears normal, Normal external nose present, Normal nasal mucous membranes and turbinates present, moist oral mucous membranes, oropharynx normal, dentition normal and gingiva normal HEAD & SCALP: normocephalic and atraumatic NOSE: Normal external nose present and Normal nasal mucous membranes and turbinates present EXTERNAL EAR: Yes external ears normal OTHER: Positive [place]-Hallpike to the left. Negative hints exam. No nystagmus vertical horizontally or rotational. Eye: COMMON NORMALS: Equal, round and reactive pupils present, EOMs intact bilaterally and conjunctivae normal CONJUNCTIVA: Yes conjunctivae normal PUPIL: Yes Equal, round and reactive pupils present Neck/C-Spine: COMMON NORMALS: no JVD Chest: COMMONS NORMALS: normal inspection of the chest and normal palpation of entire chest wall Cardio: COMMON NORMALS: no JVD, regular rate, regular rhythm, S1 normal heart sound present and No murmurs present (Cardio) RATE: regular rate RHYTHM: regular rhythm HEART SOUNDS: S1 normal heart sound present GI: COMMON NORMALS: Normal to inspection, nondistended, normoactive bowel sounds present INSPECTION: Yes normal to inspection Extremity: COMMON NORMALS: normal to inspection, full ROM and capillary refill normal Neuro: COMMON NORMALS: patient oriented x3, CN's II-XII intact bilaterally, moves all extremities, no focal motor deficits, no sensory deficits noted, deep tendon reflexes 2+ bilaterally and gait normal SENSORIUM/ORIENTATION: Yes alert, Yes oriented to person and Yes oriented to place CRANIAL NERVES: Yes CN normal except as noted, Yes vestibular testing Vestibular testing: Yes Nystagmus not present and Yes [place] Hallpike/Barany maneuver findings (Recreates dizziness symptoms) Thierry Hallpike/Barany maneuver findings: left and Yes HiNTS Head impulse: normal Skew: normal COORDINATION/BALANCE: Normal rapid alternating movements of the distal upper extremity present (Neuro) and Normal rapid alternating movements of the distal lower extremity present (Neuro) GAIT: Yes Normal gait present SENSORY EXAM: Yes extremities and Normal double simultaneous stimulation for sensation; No sensory level loss detected MOTOR EXAM: 5/5 motor strength present throughout COORDINATION: rapid alternating movement UE normal and rapid alternating movement LE normal Psych: COMMON NORMALS: mental status grossly normal and Normal thought process present APPEARANCE: Yes well kempt THOUGHT PROCESS: Normal thought process present Skin: COMMON NORMALS: no rashes or lesions noted and no wounds GENERAL SKIN EXAM: no rashes or lesions noted Course ED course: Performed Katheryn maneuver on the left which resulted in the cessation of his symptoms. Vital Signs: Vital signs: Vital Signs Temperature 98.3 F 06/06/21 13:42 Pulse Rate 62 06/06/21 16:32 Respiratory Rate 15 06/06/21 16:32 Blood Pressure 133/71 06/06/21 16:32 Pulse Oximetry 96 06/06/21 16:32 MDM - Dizziness MDM Narrative: Medical decision making narrative: Patient is a 80-year-old male here with vertigo. Patient symptoms appear to be elicited by movement. He did have a positive Thierry- Hallpike test. Does not have any other neurological symptoms as a no strokelike symptoms. Hints exam is negative as well. I feel this is peripheral vertigo. Will perform a Katheryn maneuver to see that resolved symptoms. Given his increasing tenderness he may have some vestibular neuritis we will give him some steroids as well we will also give him some meclizine. Check head CT chest x- ray labs EKG as well look for other metabolic or more systemic causes Patient still having some mild symptoms when he moves his head and closes his eyes but generally still doing well does not have any vertigo or dizziness when he sits still. Continues not to have any other neurological symptoms. Throughout labs were unremarkable did have his mild elevation baseline troponins will get a 2-hour on him. Second troponin did not have any significant changes. He continues to be much better from symptoms other he does still have some mild positional vertigo. We will send him home on Antivert have him follow-up with his primary care provider Differential Diagnosis: Dizziness Differential Diagnosis: Likely benign paroxysmal positional vertigo, orthostatic hypotension, vertebral basilar insufficiency, cerebrovascular accident and acute vestibular neuronitis Lab Data: Labs: Lab Results 06/06/21 06/06/21 06/06/21 15:09 15:12 15:12 WBC 9.4 10^3/uL 10^3/ uL (4.0-10.0) RBC 4.42 10^6/uL 10^6 /uL (4.1-5.3) Hgb 13.5 g/dL g/dL (11.7-16.6) Hct 41.3 % L % (42.0-52.0) MCV 93.4 fl fl (80-94) MCH 30.5 pg pg (28.0-34.0) MCHC 32.7 g/dL g/dL (30.0-36.0) RDW 12.9 % % (12.1-15.1) Plt Count 207 10^3/cmm 10^3 /cmm (130-400) MPV 10.9 fL H fL (7.4-10.4) Neut % (Auto) 73.1 % % Lymph % (Auto) 16.9 % % Valencia % (Auto) 7.2 % % Eos % (Auto) 2.1 % % Baso % (Auto) 0.5 % % Neut # (Auto) 6.85 10^3/uL 10^3 /uL (1.8-7.7) Lymph # (Auto) 1.6 10^3/uL 10^3/ uL (0.8-4.8) Valencia # (Auto) 0.7 10^3/uL 10^3/ uL (0.2-0.9) Eos # (Auto) 0.2 10^3/uL 10^3/ uL (0.0-0.8) Baso # (Auto) 0.1 10^3/uL 10^3/ uL (0.0-0.1) Nucleated RBC % (a uto) 0 % % Nucleated RBCs # 0.0 /100WBC /100W BC Sodium 137 mmol/L mmol/L (136-145) Potassium 4.4 mmol/L mmol/L (3.5-5.1) Chloride 101 mmol/L mmol/L (98-107) Carbon Dioxide 27 mmol/L mmol/L (22-29) Anion Gap 13.4 (5-19) BUN 22 mg/dL mg/dL (8-23) Creatinine 1.0 mg/dL mg/dL (0.7-1.2) GFR Calculation Not Reportable Glucose 99 mg/dL mg/dL (65-115) POC Glucose 112 mg/dL H mg/dL (70-110) Calculated Osmolal ity 287 mOsm/kg mOsm/ kg (285-295) Calcium 9.2 mg/dL mg/dL (8.5-10.5) Magnesium 2.3 mg/dL mg/dL (1.7-2.3) Total Bilirubin 0.5 mg/dL mg/dL (0.15-1.2) AST 18 U/L U/L (0-40) ALT 14 U/L U/L (0-41) Alkaline Phosphata se 102 IU/L IU/L (40-130) Troponin T Baselin e Troponin T 120 Min aristides Delta Troponin T NT-Pro-B Natriuret Pep 267 pg/mL pg/mL (0-450) Total Protein 7.5 g/dL g/dL (6.6-8.7) Albumin 4.2 g/dL g/dL (3.5-5.2) Globulin 3.3 g/dL g/dL (1.3-4.6) TSH 1.52 uIU/mL uIU/m L (0.27-4.20) 06/06/21 06/06/21 15:12 17:30 WBC RBC Hgb Hct MCV MCH MCHC RDW Plt Count MPV Neut % (Auto) Lymph % (Auto) Valencia % (Auto) Eos % (Auto) Baso % (Auto) Neut # (Auto) Lymph # (Auto) Valencia # (Auto) Eos # (Auto) Baso # (Auto) Nucleated RBC % (a uto) Nucleated RBCs # Sodium Potassium Chloride Carbon Dioxide Anion Gap BUN Creatinine GFR Calculation Glucose POC Glucose Calculated Osmolal ity Calcium Magnesium Total Bilirubin AST ALT Alkaline Phosphata se Troponin T Baselin e 17 ng/L H ng/L (0-15) Troponin T 120 Min aristides 14.92 ng/L ng/L (0-15) Delta Troponin T -2.08 ABS# L ABS# (0-10) NT-Pro-B Natriuret Pep Total Protein Albumin Globulin TSH Discharge Plan Discharge Patient Disposition: Home Clinical Impression: Benign paroxysmal positional vertigo Qualifiers: Laterality: left Qualified Code(s): H81.12 - Benign paroxysmal vertigo, left ear Condition: Stable Prescriptions: New meclizine 25 mg tablet 25 mg PO QID PRN (Reason: dizziness or vertigo) Qty: 60 RF: 0 No Action (DME) ASO See Rx Instructions .ROUTE .MEDSUPPLY Qty: 1 RF: 0 naproxen [Naprosyn] 500 mg tablet 500 mg PO BID Qty: 60 RF: 0 (DME) Custom molded functional foot orthotic See Rx Instructions .Route .MEDSUPPLY Qty: 1 RF: 0 (DME) custom orthotics See Rx Instructions .Route .MEDSUPPLY Qty: 1 RF: 0 ryaiyaswfgeu-eshggeiy-cdwnru Tablet 1 tab PO QDAY RF: 0 aspirin [Adult Low Dose Aspirin] 81 mg tablet,delayed release (DR/EC) 81 mg PO QDAY RF: 0 latanoprost 0.005 % drops 1 drop ophthalmic (eye) DAILY RF: 0 albuterol sulfate 90 mcg/actuation HFA aerosol inhaler 2 puff INHALATION Q6H PRN (Reason: Back Pain) RF: 0 bupivacaine HCl 0.5 % (5 mg/mL) solution 5 mg TENDONSHEA ONCE Qty: 0.25 RF: 0 diclofenac sodium [Voltaren] 1 % gel 4 g topical QID Qty: 100 RF: 2 isosorbide mononitrate 60 mg tablet extended release 24 hr 60 mg PO QAM Qty: 90 RF: 3 atorvastatin 40 mg tablet 40 mg PO DAILY Qty: 90 RF: 3 carvedilol 12.5 mg tablet 12.5 mg PO BID 30 Days Qty: 180 RF: 3 clopidogrel 75 mg tablet 75 mg PO DAILY Qty: 90 RF: 3 irbesartan-hydrochlorothiazide [Avalide] 150-12.5 mg tablet 1 tab PO QDAY Qty: 90 RF: 3 nitroglycerin [Nitrostat] 0.4 mg tablet, sublingual 0.4 mg SUBLINGUAL Q5M PRN (Reason: Chest Pain) Qty: 50 RF: 3 Percocet 5-325 mg tablet 1 tab PO Q4H PRN (Reason: pain) Qty: 10 RF: 0 Discharge Orders: Discharge ED (Routine); Ordered 06/06/21 Ordered By: Eliezer Soto Referrals: Donavan Gupta DO [Primary Care Provider] - Discharge Activity: Resume usual activity Patient Instructions: Benign Paroxysmal Positional Vertigo (ED) Activity Restrictions/Additional Instructions: Follow-up with your primary care provider in 3 to 5 days. Take medication as prescribed. If you have vertigo or dizziness that does not stop when you were sitting still for more than 30 minutes return to the emergency department. Also return with any other neurological symptoms such as severe headache difficulty walking numbness or tingling in your face arms or legs or difficulty speaking is this may be the sign of a stroke Coding Level of Care Code ED Customer Records Division Supervisor for Chg Fwd Exam Comprehensive
[2021-06-06 15:13] LABS: Glucose Point of Care 112 mg/dL (70-110)
[2021-06-06 15:22] LABS: Basophils # 0.1 10^3/uL (0.0-0.1); Basophils % 0.5 %; Eosinophils # 0.2 10^3/uL (0.0-0.8); Eosinophils % 2.1 %; Hematocrit 41.3 % (42.0-52.0); Hemoglobin 13.5 g/dL (11.7-16.6); Lymphocytes # 1.6 10^3/uL (0.8-4.8); Lymphocytes % 16.9 %; Mean Corpuscular HGB Conc 32.7 g/dL (30.0-36.0); Mean Corpuscular Hemoglobin 30.5 pg (28.0-34.0); Mean Corpuscular Volume 93.4 fl (80-94); Mean Platelet Volume 10.9 fL (7.4-10.4); Monocytes # 0.7 10^3/uL (0.2-0.9); Monocytes % 7.2 %; Neutrophils # 6.85 10^3/uL (1.8-7.7); Neutrophils % 73.1 %; Nucleated Red Blood Cells % 0 %; Platelet Count 207 10^3/cmm (130-400); Red Blood Count 4.42 10^6/uL (4.1-5.3); Red Cell Distribution Width 12.9 % (12.1-15.1); White Blood Count 9.4 10^3/uL (4.0-10.0)
[2021-06-06] MEDS: meclizine 25 mg tablet PO (15:35)
[2021-06-06] MEDS: dexamethasone 10 mg/mL INJ 6 MG IVP (15:35)
[2021-06-06 15:45] LABS: Troponin(5th) Baseline 17 ng/L (0-15)
[2021-06-06 15:56] LABS: Alanine Aminotransferase 14 U/L (0-41); Albumin Level 4.2 g/dL (3.5-5.2); Alkaline Phosphatase 102 IU/L (40-130); Anion Gap 13.4 (5-19); Aspartate Amino Transferase 18 U/L (0-40); Blood Urea Nitrogen 22 mg/dL (8-23); Calcium 9.2 mg/dL (8.5-10.5); Carbon Dioxide 27 mmol/L (22-29); Chloride 101 mmol/L (98-107); Globulin 3.3 g/dL (1.3-4.6); Glucose 99 mg/dL (65-115); Magnesium 2.3 mg/dL (1.7-2.3); NT Pro B Type Natriuretic Pept 267 pg/mL (0-450); Osmolality Calculated 287 mOsm/kg (285-295); Potassium 4.4 mmol/L (3.5-5.1); Sodium 137 mmol/L (136-145); Thyroid Stimulating Hormone 1.52 uIU/mL (0.27-4.20); Total Bilirubin 0.5 mg/dL (0.15-1.2); Total Protein 7.5 g/dL (6.6-8.7)
[2021-06-06 16:32] VITALS: BP 133/71; PULSE 62; RESP 15; O2SAT 96
[2021-06-06 18:22] LABS: Troponin 5 2HR 14.92 ng/L (0-15)
[2021-06-06 18:23] LABS: Troponin 5 2HR Delta -2.08 ABS# (0-10)
[2021-06-06 19:24] VITALS: BP 133/71; PULSE 64; RESP 15; O2SAT 97
--- NOTE | 2021-06-06 20:24 | ECG_ITS ---
[facility] Test Date: 2021-06-06 Pat Name: Jordi Esposito Department: Room: Gender: Male Canvas Shrinker: : 1940 Requested By: Eliezer Parsons Order Number: [id number] Kandace MD: Rocio Dolan M.D. Measurements Intervals [place] Rate: 67 P: 177 MO: 178 QRS: -66 QRSD: 217 T: 108 QT: 451 QTc: 477 Interpretive Statements ELECTRONIC ATRIAL PACEMAKER ELECTRONIC VENTRICULAR PACEMAKER ABNORMAL RHYTHM ECG Compared to ECG 02/06/2020 05:08:16 No significant changes Electronically Signed On 06-07-2021 7:05:54 CDT by Rocio Dolan M.D. [id number]
== END 2021-06-06 19:10 | disposition home or self-care (01) ==
PROVIDERS: Emergency Provider Family Medicine; PCP Internal Medicine
DX: H81.12 Benign paroxysmal vertigo, left ear (principal); Z79.82 Long term (current) use of aspirin; Z79.02 Long term (current) use of antithrombotics/antiplatelets; J43.9 Emphysema, unspecified; E78.5 Hyperlipidemia, unspecified; I10 Essential (primary) hypertension; Z95.0 Presence of cardiac pacemaker; Z87.891 Personal history of nicotine dependence
CPT/HCPCS: 36416; 70450; 71045; 80053; 82962; 83735; 83880; 84443; 84484; 85025; 93005; 96374; 99283; J1100; J8597

== ENCOUNTER 2021-07-01 15:27 | Outpatient (CLI) | payer MEDICARE, OTHER, SELFPAY ==
--- NOTE | 2021-07-01 15:45 | USCV_ITS ---
Jordi Esposito Age: 80 Gender: M : 1940 Exam Date: 07/01/2021 15:41 Ordering Phys: Christi Chen MD ([email or web address]) Technologist: Winsome Wyatt Exam Location: [facility] – [place], [place] Indication: DYSPNEA BP: 125 / 75 HR: 73 Rhythm: Sinus Technical Quality: Technically difficult study MEASUREMENTS (Male / Female) Normal Values 2D ECHO LV Diastolic Diameter PLAX 3.1 cm 4.2 - 5.9 / 3.9 - 5.3 cm LV Systolic Diameter PLAX 2.4 cm IVS Diastolic Thickness 1.4 cm 0.6 - 1.0 / 0.6 - 0.9 cm IVS Systolic Thickness 1.8 cm LVPW Diastolic Thickness 1.8 cm 0.6 - 1.0 / 0.6 - 0.9 cm LVPW Systolic Thickness 1.5 cm RV Chamber Size 2.6 cm LVOT Diameter 2.0 cm LV Ejection Fraction 2D Teich 46.5 % LV Ejection Fraction MOD 2C 55.7 % LV Ejection Fraction 2C AL 55.6 % LA Diameter 3.0 cm LA Width 3.3 cm LA Height 4.2 cm RA Width 2.1 cm RA Height 4.1 cm Aorta at Sinotubular Diameter 2.6 cm DOPPLER AV Peak Velocity 150.0 cm/s LVOT Peak Velocity 100.0 cm/s AV Area Cont Eq vti 2.1 cm squared AV Area Cont Eq pk 2.1 cm squared MV Area PHT 3.1 cm squared Mitral E to A Ratio 0.6 MV E' Velocity 27.0 cm/s Mitral E to MV E' Ratio 5.9 Mitral E to LV E' Lateral Ratio 7.0 Mitral E to LV E' Septal Ratio 5.2 TR Peak Velocity 222.7 cm/s TR Peak Gradient 19.8 mmHg Right Atrial Pressure 3.0 mmHg Pulmonary Artery Systolic Pressu 22.8 mmHg PV Peak Velocity 90.0 cm/s RV Acceleration Time 0.1 s RV Ejection Time 0.3 s RV AcT/ET 0.4 FINDINGS Left Ventricle Normal left ventricular size and systolic function, EF 55 %. Abnormal septal motion consistent with pacemaker. Right Ventricle Pacemaker wire in the right ventricle Right Atrium The right atrium is normal in size. Left Atrium Mildly increased left atrial size. Mitral Valve No gross abnormalities noted Aortic Valve Thickened aortic valve. Tricuspid Valve No gross abnormalities noted Pulmonic Valve Pulmonic valve not well visualized. Pericardium Normal pericardium without effusion. Aorta The aortic root is upper limit of normal size CONCLUSIONS Normal left ventricular size and systolic function, EF 55 %. Abnormal septal motion consistent with pacemaker. Mild concentric left ventricular hypertrophy Mildly increased left atrial size. Thickened aortic valve. There is no pericardial effusion. Pacemaker wire in the right atrium and right ventricle Technically difficult study because of the poor ultrasonic window. Dr Christi Chen MD FACC (Electronically Signed) Final Date: 02 July 2021 09:17 S
== END 2021-07-01 15:28 | disposition home or self-care (01) ==
LOC: RAD 15:32
PROVIDERS: PCP Internal Medicine; Visit Provider Internal Medicine Cardiovascular Disease
DX: I25.119 Atherosclerotic heart disease of native coronary artery with unspecified angina pectoris (principal); R06.00 Dyspnea, unspecified; I51.7 Cardiomegaly; Z95.0 Presence of cardiac pacemaker
CPT/HCPCS: 93306

== ENCOUNTER → 2021-07-10 11:57 | Outpatient (BNVA) | payer MEDICARE, OTHER, SELFPAY | PROVIDERS: PCP Internal Medicine; Visit Provider Internal Medicine Cardiovascular Disease | DX: I25.119 Atherosclerotic heart disease of native coronary artery with unspecified angina pectoris (principal); Z20.822 Contact with and (suspected) exposure to COVID-19 | CPT/HCPCS: 80048; 85025; 85610; 86850; 86900; 87635 ==

== ENCOUNTER 2021-07-16 07:07 | Outpatient (CLI) | payer MEDICARE, OTHER, SELFPAY ==
[2021-07-16] VITALS (52 sets, daily range): BP systolic 106–157; BP diastolic 61–94; PULSE 60–87; RESP 0–22; TEMP 36.3; O2SAT 93–98; BMI 4637.8
--- NOTE | 2021-07-16 07:30 | XACV_ITS ---
Exam Room: [facility] Ht: 183 cm Wt: 107 kg BSA: 2.36 m2 Gender: Male : 1940 Any Known Allergies: Morphine Exam Priority: Routine Procedure(s): Procedure Description: Diagnostic procedure Procedure Description: Left Heart Catheterization Procedure Description: Left ventriculography Procedure Description: Coronary Angiography Gustavo CALL; Diagnostic Cath Status: Elective Diagnostic Findings * Left main is a medium to large caliber vessel with minimal intimal irregularities. * The left anterior descending artery is a medium caliber vessel which appears to taper off towards the LV apex. Distal artery appears to have eccentric compression suggestive of myocardial bridge. The artery was found to have mild diffuse intimal irregularities. No significant stenotic lesions were noted. The proximal segment of the artery was found to have moderate diffuse coronary calcification. The diagonal branches also were found to have diffuse intimal irregularities.. * The circumflex artery is a medium caliber nondominant vessel which was found to have mild diffuse disease proximally. The mid segment of the artery was found to have a long stented segment with minimal in-stent narrowing. His first and second obtuse marginal branches were found to have around 40 to 50% ostial narrowing. No other significant stenotic lesions were seen.. * Intermedius artery is a medium caliber vessel with no significant stenotic lesions. * The right coronary artery is a medium to large caliber dominant vessel. Mild diffuse coronary calcification was noted in the proximal and mid segment of the artery. Mild diffuse intimal irregularities are noted throughout the artery. Mild to moderate diffuse disease is noted the PDA and the PLV branch of the artery. No significant stenotic lesions were seen.. Conclusions 1. 80-year-old white male with a history of coronary disease, status post PCI, he is present with complaints of chest pain, shortness of breath and fatigue. He had a myocardial perfusion imaging which revealed some areas of fixed defect with a very small areas of reversible defects. Because of the patient's ongoing worsening of symptoms, in order to further evaluate his coronary status, a cardiac catheterization was recommended. Patient underwent left heart catheterization with left and right coronary angiogram and LV angiogram today. The findings are as follows. 2. Patent stented segment in the mid circumflex artery. Mild diffuse disease in the other vessels. 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 Evidence of left ventricular diastolic dysfunction with an LVEDP of 20 mmHg. Normal LV size ejection fraction 55%. Recommendations * Continue current medical management and risk factor modification. Diagnostic RX Recommendation: medical therapy and/or counseling LV EDP: 20 mmHg Ventriculography Ejection Fraction: 55.0 % Left Ventriculography Findings: * LV gram was performed in the MATUTE projection. The LV cavity was of normal size. LV ejection fraction was around 55%. No filling defects were noted. The LV gram was a suboptimal quality. No severe mitral valve prolapse or mitral regurgitation. Pressures Phase:Rest AO : 128 / 68 ( 91 ) @ 2:54:00 PM 126 / 67 ( 90 ) @ 2:54:00 PM LV : 125 / 2 / 19 @ 2:53:00 PM 120 / 4 / 21 @ 2:54:00 PM 128 / 5 / 21 @ 2:54:00 PM Valves Phase:DefaultPhase AV : 0.0 @ 5:09:56 PM AV Mean Gradient: 0.0 @ 5:09:56 PM Clinical Evaluation EBL: 5mL-10mL Procedural Details Pre-Procedure Time Out. Identified patient by full name and date of as verbalized by the patient/guarantor. Does the consent match the physician's order: Yes. Accurate & Complete Informed Consent: Yes. Inpatient/Outpatient History & Physical on Chart: Yes. If H&P is completed, is and addenduem needed: No; If yes, is the addendum complete: N/A. Visualize and Verify Site with Patient/Guarantor: N/A. Relevant Radiology Images available: N/A. Pre-op teaching completed and patient verbalized understanding. The risks, benefits, and alternatives of sedation and/or procedure were discussed by physician. The patient agrees to continue. Procedure started. [facility] Clinical Fraility Score: 3: Managing Well. 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 Chest Pain Symptom Assessment: Typical Angina Symptoms. Cardiovascular Instability: No. Stable. Correct patient, site and procedure confirmed by cath team. Current diagnosis: Chest Pain. PERRLA. Strong, equal hand stereotype finisher bilaterally. Lungs clear x 5 lobes. IV Site on Arrival: 20 gauge in the left anticubital. IV Fluids: 0.9% NaCl at KVO. 0 mL infused prior to label stamper. Pre Procedural Pulses: bilateral radial was 3+. Pre Procedural Pulses: bilateral dorsalis pedis was 3+. Pre Procedural Pulses: bilateral posterior tibial was 2+. Oxygen started at 2liters/min via nasal canula. right groin was prepped with chloroprep then draped in the usual sterile fashion. right radial was prepped with chloroprep then draped in the usual sterile fashion. Baseline sample Acquired. HR: 49 BPM. Physician arrived. Physician scrubbed in. Immediate Pre-Procedure Time Out. Correct Patient: Yes; Correct Procedure: Yes; Correct Site: Yes; Correct Patient Position: Yes; Correct Supplies: Yes; Dried Flammable Prep: Yes; Blood Products Available: N/A;. Lidocaine 1% infiltrated to the right radial. Arterial access obtained. A 5 vincentian Chauncey catheter in over wire. Multiple views taken of left coronary artery. Catheter redirected to the RCA. Unable to seat the catheter. Removed over the exchange wire. A 5 vincentian JR4 catheter in over wire. Multiple views taken of right coronary artery. Catheter removed over the exchange wire. A 5 vincentian Angled Pig catheter in over wire. EDP Sample taken: LV 125/2,19; HR: 60 BPM; SpO2: 96%. LV gram performed in MATUTE @ 10 mL/second for a total of 30 mL. Patient EF: Normal. EDP Sample taken: LV 120/4,21; HR: 52 BPM; SpO2: 96%. Pullback taken: LV 128/5,21; AO 128/68(91); Mean: 0mmHg, Peak to Peak: 0mmHg, SEP: 5sec/min; HR: 60 BPM; SpO2: 96%. Physician review of films. Admit Source: Out Patient. Current Diagnosis : Chest Pain. Physician scrubbed out. A TR Band was successful obtaining hemostatsis at the Right Radial artery insertion site. TR band placed. Hemostasis obtained. Post Procedure: Pulses reassessed and unchanged. PERRLA. Strong, equal hand stereotype finisher bilaterally. No VTE prophylaxis required. Medication's Wasted: Lidocaine 1% = 18 mL. Medication's Wasted: Heparin = 1000 units. Medication's Wasted: Nitro = 49.8 mg. Medication's Wasted: Versed = 1 mg. Medication's Wasted: Fentanyl = 50 mcg. Total IV fluids: 25 mL. Fluoro: 3:07. Contrast type used: Omnipaque 300 mg/mL, 150 mL bottle. [id number]. Post-op diagnosis: Mild to moderate cad. Estimated blood loss: 5mL-10mL. Complications: none. Procedure completed. Patient transferred by wheelchair to 1st floor. Vital chart was stopped. Access Site Site: Right Radial artery Sheath Size: 6 Fr Hemostasis Method: TR Band Hemostasis Success: Successful Procedure Medications Start: 4:41 PM Stop: 4:41 PM Medication: Versed 1 mg and Fentanyl 25 mcg Amount: 1 Route: I.V. Start: 4:41 PM Stop: 4:41 PM Medication: Fentanyl Amount: 25 mcg Route: I.V. Start: 4:41 PM Stop: 4:41 PM Medication: Verapamil Amount: 5 mg Route: I.A. Start: 4:41 PM Stop: 4:41 PM Medication: Nitrogylcerin Amount: 200 mcg Route: I.A. Start: 4:43 PM Stop: 4:43 PM Medication: Heparin Amount: 5000 units Route: I.V. I, the attending physician, have reviewed and verified all procedure medications. Yes, all medications given per verbal order History/Risk Factors Dyslipidemia: Yes Peripheral Arterial Disease (PAD): No Myocardial Infarction (MA): No Obesity: No Renal Disease: No Tobacco Use: Former Prior Interventions PCI: Yes Valve Surgery: No Date of PCI: 07/26/2019 Report Signatures Finalized by Dr Christi Chen MD [facility] on 07/16/2021 06:12 PM
[2021-07-16] MEDS: diphenhydrAMINE 50 mg Capsule PO (08:11)
[2021-07-16] MEDS: sodium chloride 0.9% 1,000 ML 50 ML IV (08:33)
[2021-07-16] MEDS: dextrose 5%-sod chloride 0.45% 1,000 ML 100 ML IV (10:31)
--- NOTE | 2021-07-16 16:13 | W.PM.OPSUD ---
Surgery/Procedure H&P Update DATE OF PROCEDURE: July 16, 2021 DATE H&P PERFORMED: 07/10/20 H&P UPDATE INFORMATION: I have reviewed H&P completed within last 30 days, I have examined patient prior to procedure and No changes to prior documentation PREOP DIAGNOSIS: ashd PRIMARY INDICATION FOR PROCEDURE: Chest pain and abnormal myocardial perfusion imaging PLANNED PROCEDURE: Operation Date: 07/16/21 08:30 Proposed Procedures p Cardiac Catheterization(Left) - Christi Chen MD PATIENT REASSESSED PRIOR TO SEDATION, WITH NO CHANGE NOTED: Yes PHYSICAL EXAM: alert, oriented x 3, clear to auscultation bilaterally and regular rate & rhythm AIRWAY EVAL/ANESTHESIA PLAN: normal airway, see other exam findings, Monitored Anesthesia, Local Anesthesia, Risks, benefits & alternatives of sedation and/or procedure discussed and Patient agrees to continue as planned
[2021-07-16] MEDS: carvedilol 12.5 mg Tablet PO (20:02)
--- NOTE | 2021-07-16 21:41 | PC.NURSE ---
TR band removed from right wrist at 1999. Began removing air at 1900. Dressing applied to right wrist. Site WNL. Patient given discharge education including post-cath education and care, follow up appointments, and Imdur paper prescription. Patient signed and verbalized understanding. IV removed with catheter intact. VSS.
== END 2021-07-16 21:00 | disposition home or self-care (01) ==
LOC: CCL 07:09 → CSU 18:48
PROVIDERS: PCP Internal Medicine; Visit Provider Internal Medicine Cardiovascular Disease
DX: I25.118 Atherosclerotic heart disease of native coronary artery with other forms of angina pectoris (principal); R07.9 Chest pain, unspecified; R94.39 Abnormal result of other cardiovascular function study; Z95.0 Presence of cardiac pacemaker; I42.9 Cardiomyopathy, unspecified; I10 Essential (primary) hypertension; E78.2 Mixed hyperlipidemia
CPT/HCPCS: 93452; C1769; C1887; C1894; J1644; J2250; J3010; J3490; J7030; J7799; Q0163; Q9967

== ENCOUNTER → 2021-12-04 08:44 | Outpatient (BNVA) | payer MEDICARE, OTHER, SELFPAY | PROVIDERS: PCP Internal Medicine; Visit Provider Internal Medicine Pulmonary Disease | DX: J43.9 Emphysema, unspecified (principal); G47.33 Obstructive sleep apnea (adult) (pediatric); I25.119 Atherosclerotic heart disease of native coronary artery with unspecified angina pectoris; I42.9 Cardiomyopathy, unspecified; R06.02 Shortness of breath; Z87.891 Personal history of nicotine dependence; R07.89 Other chest pain; E78.5 Hyperlipidemia, unspecified; I10 Essential (primary) hypertension | CPT/HCPCS: 71046; 99204 ==

== ENCOUNTER → 2021-12-09 10:45 | Outpatient (BNVA) | payer MEDICARE, OTHER, SELFPAY | PROVIDERS: PCP Internal Medicine; Visit Provider Internal Medicine Cardiovascular Disease | DX: I25.119 Atherosclerotic heart disease of native coronary artery with unspecified angina pectoris (principal); E78.5 Hyperlipidemia, unspecified; I10 Essential (primary) hypertension; Z87.891 Personal history of nicotine dependence | CPT/HCPCS: 99214 ==

== ENCOUNTER 2021-12-11 08:58 | Outpatient (CLI) | payer MEDICARE, OTHER, SELFPAY ==
[2021-12-11 09:52] LABS: Chol HDL Ratio 3.58 mg/dL (1.0-5.00); Cholesterol 161 mg/dL (0-200); HDL Cholesterol 45 mg/dL (60-100); LDL Cholesterol Calculated 86 mg/dL (50-129); LDL HDL Ratio 1.91 RATIO (0.00-3.22); Triglycerides 148 mg/dL (0-150)
== END 2021-12-11 08:59 | disposition home or self-care (01) ==
PROVIDERS: PCP Internal Medicine; Visit Provider Internal Medicine Cardiovascular Disease
DX: E78.2 Mixed hyperlipidemia (principal); E78.5 Hyperlipidemia, unspecified
CPT/HCPCS: 80061

== ENCOUNTER → 2022-01-30 10:19 | Outpatient (BNVA) | payer MEDICARE, OTHER, SELFPAY | PROVIDERS: PCP Internal Medicine; Visit Provider Internal Medicine Pulmonary Disease | DX: J43.9 Emphysema, unspecified (principal); R06.02 Shortness of breath; I25.119 Atherosclerotic heart disease of native coronary artery with unspecified angina pectoris; G47.33 Obstructive sleep apnea (adult) (pediatric); I42.9 Cardiomyopathy, unspecified; Z87.891 Personal history of nicotine dependence; I10 Essential (primary) hypertension; E78.5 Hyperlipidemia, unspecified | CPT/HCPCS: 99214 ==

== ENCOUNTER 2022-02-20 13:09 | Outpatient (CLI) | payer MEDICARE, OTHER, SELFPAY ==
--- NOTE | 2022-02-20 13:34 | PFTS_ITS ---
Date of Study:02/20/22 Date of Dictation: 02/20/2022 MECHANICS: Postbronchodilator forced vital capacity (FVC) is normal Postbronchodilator forced expiratory volume in one second (FEV1) is normal FEV1/FVC is reduced. There is no significant response to bronchodilators. FLOW VOLUME LOOP: Mild scooping of expiratory limb suggestive of mild airflow obstruction. LUNG VOLUMES: Total lung capacity (TLC) is normal. Residual volume ( RV) is increased suggestive of mild air trapping DIFFUSING CAPACITY FOR CARBON MONOXIDE: Normal . INTERPRETATION: The spirometry is suggestive of mild airflow obstruction. There is no significant response to bronchodilators. Lung volumes are increased suggestive of mild air trapping. Gas transfer is normal. Correlate clinically. MTDD
== END 2022-02-20 13:10 | disposition home or self-care (01) ==
LOC: RT 13:11
PROVIDERS: PCP Internal Medicine; Visit Provider Internal Medicine Pulmonary Disease
DX: R06.02 Shortness of breath (principal); F17.210 Nicotine dependence, cigarettes, uncomplicated
CPT/HCPCS: 94060; 94618; 94726; 94729; J7611

== ENCOUNTER → 2022-02-21 09:29 | Outpatient (BNVA) | payer MEDICARE, OTHER, SELFPAY | PROVIDERS: PCP Internal Medicine; Visit Provider Internal Medicine Cardiovascular Disease | DX: Z45.010 Encounter for checking and testing of cardiac pacemaker pulse generator [battery] (principal) | CPT/HCPCS: 93280 ==

== ENCOUNTER → 2022-04-10 08:31 | Outpatient (BNVA) | payer MEDICARE, OTHER, SELFPAY | PROVIDERS: PCP Internal Medicine; Visit Provider Internal Medicine Pulmonary Disease | DX: J43.9 Emphysema, unspecified (principal); I25.119 Atherosclerotic heart disease of native coronary artery with unspecified angina pectoris; I42.9 Cardiomyopathy, unspecified; G47.33 Obstructive sleep apnea (adult) (pediatric); Z87.891 Personal history of nicotine dependence; R06.02 Shortness of breath | CPT/HCPCS: 71046; 99214 ==

== ENCOUNTER → 2022-06-09 10:12 | Outpatient (BNVA) | payer MEDICARE, OTHER, SELFPAY | PROVIDERS: PCP Internal Medicine; Visit Provider Internal Medicine Cardiovascular Disease | DX: I25.118 Atherosclerotic heart disease of native coronary artery with other forms of angina pectoris (principal); Z95.0 Presence of cardiac pacemaker; I42.9 Cardiomyopathy, unspecified; E78.2 Mixed hyperlipidemia; I10 Essential (primary) hypertension; G47.33 Obstructive sleep apnea (adult) (pediatric); Z87.891 Personal history of nicotine dependence | CPT/HCPCS: 99214 ==

== ENCOUNTER 2022-06-16 13:23 | Emergency (ER) | payer MEDICARE, OTHER, SELFPAY ==
[2022-06-16] VITALS (39 sets, daily range): BP systolic 71–110; BP diastolic 46–60; PULSE 62–80; RESP 6–24; TEMP 36.3; O2SAT 90–100
--- NOTE | 2022-06-16 13:43 | CT_ITS ---
WS: [id number] CT HEAD NONCONTRAST HISTORY: Fall TECHNIQUE: Contiguous axial imaging performed through the brain in 2.5 mm imaging. Bone and soft tiss ue windows. Sagittal and coronal reformats reviewed. All CT scans at [facility] use at least one of these dose optimization techniques: automated exposure control; mA and/or kV adjustment per pa tient size (includes targeted exams where dose is matched to clinical indication); or iterative recon struction. DLP: 1518.71 mGy.cm COMPARISON: 06/06/2021 No acute intracranial hemorrhage, midline shift or mass effect. Mild atrophy and moderate small vessel ischemic disease. Small lacunar infarcts anterior internal cap sules. Ventricles: Normal size with no hydrocephalus. Paranasal sinuses: Small air-fluid level RIGHT sphenoid sinus. Mastoid air cells: Well pneumatized. Calvarium and scalp: Skull is intact with no soft tissue edema or swelling. CT/CT head wo con* [id number] IMPRESSION: 1. No acute intracranial hemorrhage or edema. 2. 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 3. No skull fracture.
--- NOTE | 2022-06-16 13:43 | CT_ITS ---
WS: [id number] CT CERVICAL SPINE HISTORY: fall TECHNIQUE: Contiguous 2.5 mm axial imaging performed through the entire cervical spine. Sagittal and coronal reformats also performed. All CT scans at [facility] use at least one of these dose o ptimization techniques: automated exposure control; mA and/or kV adjustment per patient size (include s targeted exams where dose is matched to clinical indication); or iterative reconstruction. DLP: 1518.71 mGy.cm COMPARISON: None available. Posterior cervical alignment is normal. Moderate disc space narrowing at C4-5 and C6-7. Facet joints are normally aligned. Bilateral facet joint arthritis. Craniocervical junction is normal. Lateral mas ses of C1 and C2 are aligned. Odontoid is intact. Slight buckling of the anterior T2 vertebral body. Minimal compression deformity is age indeterminate . No adjacent hematoma is identified. Paraseptal emphysematous changes at the lung apices. C2-C3: Bilateral moderate facet joint arthritis. C3-C4: Bilateral facet joint arthritis. Osteophytic ridging around the vertebral body with moderate L EFT foraminal stenosis. C4-C5: Osteophytic ridging and facet arthritis. Moderate central and foraminal stenosis. C5-C6: Facet joint arthritis. C6-C7: Osteophytic ridging and facet arthritis. Mild central and foraminal stenosis. C7-T1: Normal. Carotid artery calcifications. CT/CT cervical spin wo con* [id number] IMPRESSION: 1. No cervical spine fracture. 2. Mild anterior wedging of T2. Mild buckling of the anterior cortex of T2. Ag e-indeterminate fracture. Correlate with point tenderness to the T2 area. There is no retropulsion of the vertebral body. 3. Multilevel facet joint arthritis and stenosis as above.
--- NOTE | 2022-06-16 13:44 | XRR_ITS ---
PROCEDURE INFORMATION: Exam: XR Chest Exam date and time: 06/16/2022 1:59 PM Age: 81 years old Clinical indication: Other: Syncope; Prior surgery; Surgery type: Pacemaker TECHNIQUE: Imaging protocol: Radiologic exam of the chest. Views: 1 view. COMPARISON: CR XR chest 2V* [id number] 04/10/2022 11:14 AM FINDINGS: Tubes, catheters and devices: Stable left pacemaker. Lungs: Unremarkable. No consolidation. Pleural spaces: Unremarkable. No pleural effusion. No pneumothorax. Heart/Mediastinum: Unremarkable. No cardiomegaly. Vasculature: Calcification of the thoracic aorta and/or great vessels consistent with atherosclerotic vessel disease. Bones/joints: Unremarkable. Soft tissues: Lordotic chest x-ray. XR/XR chest 1V portable [id number] IMPRESSION: No acute findings.
--- NOTE | 2022-06-16 13:45 | ECG_ITS ---
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 Measurements Intervals [place] Rate: 68 P: RI: QRS: 25 QRSD: 147 T: 251 QT: 484 QTc: 515 Interpretive Statements AV paced rhythm with a frequent PVCs ELECTRONIC VENTRICULAR PACEMAKER -- CONTOUR ANALYSIS BASED ON INTRINSIC RHYTHM INTRAVENTRICULAR CONDUCTION DELAY [130+ ms QRS DURATION] INTERPRETATION BASED ON A DEFAULT AGE OF 40 YEARS Compared to ECG 06/06/2021 13:53:43 Intraventricular conduction delay now present Electronically Signed On 06-16-2022 21:24:22 CDT by Christi Chen M.D. [email or web address]
--- NOTE | 2022-06-16 13:55 | ED_ITS ---
HPI - Fall General: Chief Complaint: Fall Stated Complaint: Possible stroke Time Seen by Provider: 06/16/22 13:35 History of Present Illness: 81-year-old male presents following a fall. Patient reports that he has had dizziness for about a month. They saw ENT week ago due to losing hearing in his left ear. That they report that they think he has a abnormal growth causing his symptoms. Patient reports today that he was really dizzy especially when he moves his head gets up or rapid movement. That earlier today he had the dizziness and then also had an episode of diarrhea, so me diaphoresis. That in the process he believes he had a syncopal event or fell from the dizziness and does not remember it. He is on Plavix. At this time patient's only complaint is some dizziness. He has a small abrasion on his forehead. He denies any chest pain, shortness of breath. Patient reports also right before the dizziness he felt like it was really bright white light but that is resolved and his vision is normal now Associated symptoms-after fall: Reports neck pain (Mild diffuse, non vertebral); Denies abdominal pain, chest pain or headache(s) Review of Systems Const: Reports: diaphoresis; Denies: fever(s) or chills Eyes: Reports: photophobia and other (Please see HPI) ENMT: Reports: change in hearing (Please see HPI); Denies: throat pain or mouth pain Card: Reports: syncope; Denies: chest pain or palpitations Resp: Denies: dyspnea, productive cough or wheezing GI: Reports: diarrhea; Denies: abdominal pain, nausea or vomiting : Denies: flank pain or difficulty urinating Musc: Reports: neck pain (Mild diffuse, non vertebral); Denies: back pain Skin/Breast: Reports: other (Please see HPI); Denies: rash Neuro: Denies: headache(s) or dizziness PFS ED PFSH: Medical History Atypical chest pain Cardiomyopathy Emphysema lung Hyperlipidemia Hypertension Obstructive sleep apnea (adult) (pediatric) Pt had the CPAP machine and was not using to the requirement and was taken away from him. Pacemaker Sick sinus syndrome Trimalleolar fracture Surgical History History of arthroplasty of left shoulder Family History Father CAD (coronary artery disease) Family/Other Cancer Grandmother Diabetes Denies family history of Clotting disorder Dementia Chronic kidney disease (CKD) Suicide Anesthesia complication Bleeding disorder Lung disease Stroke Social History Smoking and tobacco status: former smoker Quit status (tobacco): has quit using tobacco Year quit tobacco: 1990 Former quit date comment: 1.5ppd x 30 years Alcohol intake: never Physical Exam Const: COMMON NORMALS: no acute distress, patient oriented x3, no limitations and alert HENMT: COMMON NORMALS: external ears normal HEAD & SCALP: abrasion (Small frontal) EXTERNAL EAR: Yes external ears normal TYMPANIC MEMBRANE: TM normal on the right and TM abnormal TM laterality: left Details: dull and other (Difficult landmark) Resp: COMMON NORMALS: normal respiratory effort, No use of accessory muscles and clear to auscultation bilaterally AUSCULTATION: clear to auscultation bilaterally Cardio: COMMON NORMALS: regular rate RATE: regular rate and Other (Paced) RHYTHM: other (Paced) GI: COMMON NORMALS: Soft to palpation and non-tender PALPATION: Yes Soft to palpation Extremity: COMMON NORMALS: normal to inspection and full ROM Neuro: COMMON NORMALS: patient oriented x3, moves all extremities and no focal motor deficits SENSORIUM/ORIENTATION: Yes alert SPEECH: speech normal Psych: COMMON NORMALS: mental status grossly normal, cooperative, normal affect and speech normal SPEECH: Yes normal speech Skin: NARRATIVE SKIN EXAM: Small abrasion forehead Course Vital Signs: Vital signs: Vital Signs Temperature 97.3 F L 06/16/22 13:39 Pulse Rate 80 06/16/22 14:44 Respiratory Rate 18 06/16/22 14:41 Blood Pressure 96/53 06/16/22 13:39 Pulse Oximetry 94 06/16/22 14:41 Oxygen Delivery Me thod 06/16/22 14:41 MDM - Fall Medical Decision Making Patient is feeling significantly better following 1 L IV fluids. Patient's blood pressure improved. Patient's creatinine was elevated from his baseline 1.0-1.6. I recommended that tonight he hold his blood pressure medication and call Dr. Chen in the morning to make him aware of the findings in the ER. Patient reports that he is ready to go home and feels back to his normal. Patient's troponins were at baseline. Patient's EKG shows no acute findings. That is paced and is consistent with a paced rhythm. Patient is discharged home in stable condition Lab Data : 06/16/22 13:47 06/16/22 13:47 Radiology Impressions Cervical Spine CT 06/16/22 13:43 IMPRESSION: 1. No cervical spine fracture. 2. Mild anterior wedging of T2. Mild buckling of the anterior cortex of T2. Age-indeterminate fracture. Correlate with point tenderness to the T2 area. There is no retropulsion of the vertebral body. 3. Multilevel facet joint arthritis and stenosis as above. Head CT 06/16/22 13:43 IMPRESSION: 1. No acute intracranial hemorrhage or edema. 2. 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 3. No skull fracture. Chest X-Ray 06/16/22 13:44 IMPRESSION: No acute findings. Laboratory Results WBC 9.7 10^3/uL (4.0-10.0) 06/16/22 13:47 RBC 4.16 10^6/uL (4.1-5.3) 06/16/22 13:47 Hgb 13.2 g/dL (11.7-16.6) 06/16/22 13:47 Hct 39.8 % (42.0-52.0) L 06/16/22 13:47 MCV 95.7 fl (80-94) H 06/16/22 13:47 MCH 31.7 pg (28.0-34.0) 06/16/22 13:47 MCHC 33.2 g/dL (30.0-36.0) 06/16/22 13:47 RDW 13.2 % (12.1-15.1) 06/16/22 13:47 Plt Count 180 10^3/cmm (130-400) 06/16/22 13:47 MPV 11.1 fL (7.4-10.4) H 06/16/22 13:47 Neut % (Auto) 69.2 % 06/16/22 13:47 Lymph % (Auto) 18.4 % 06/16/22 13:47 Isabela % (Auto) 9.7 % 06/16/22 13:47 Eos % (Auto) 2.1 % 06/16/22 13:47 Baso % (Auto) 0.3 % 06/16/22 13:47 Neut # (Auto) 6.72 10^3/uL (1.8-7.7) 06/16/22 13:47 Lymph # (Auto) 1.8 10^3/uL (0.8-4.8) 06/16/22 13:47 Isabela # (Auto) 0.9 10^3/uL (0.2-0.9) 06/16/22 13:47 Eos # (Auto) 0.2 10^3/uL (0.0-0.8) 06/16/22 13:47 Baso # (Auto) 0.0 10^3/uL (0.0-0.1) 06/16/22 13:47 Nucleated RBC % (auto) 0 % 06/16/22 13:47 Nucleated RBCs # 0.0 /100WBC 06/16/22 13:47 Sodium 139 mmol/L (136-145) 06/16/22 13:47 Potassium 4.4 mmol/L (3.5-5.1) 06/16/22 13:47 Chloride 101 mmol/L (98-107) 06/16/22 13:47 Carbon Dioxide 30 mmol/L (22-29) H 06/16/22 13:47 Anion Gap 12.4 (5-19) 06/16/22 13:47 BUN 24 mg/dL (8-23) H 06/16/22 13:47 Creatinine 1.6 mg/dL (0.7-1.2) H 06/16/22 13:47 GFR Calculation Not Reportable 06/16/22 13:47 Glucose 82 mg/dL (65-115) 06/16/22 13:47 Calculated Osmolality 291 mOsm/kg (285-295) 06/16/22 13:47 Calcium 9.8 mg/dL (8.5-10.5) 06/16/22 13:47 Magnesium 2.1 mg/dL (1.7-2.3) 06/16/22 13:47 Total Bilirubin 0.5 mg/dL (0.15-1.2) 06/16/22 13:47 AST 22 U/L (0-40) 06/16/22 13:47 ALT 22 U/L (0-41) 06/16/22 13:47 Alkaline Phosphatase 104 U/L (40-130) 06/16/22 13:47 Troponin T Baseline 24 ng/L (0-15) H 06/16/22 13:47 Troponin T 120 Minute 20.38 ng/L (0-15) H 06/16/22 15:25 Delta Troponin T -3.62 ABS# (0-10) L 06/16/22 15:25 Total Protein 6.9 g/dL (6.6-8.7) 06/16/22 13:47 Albumin 4.0 g/dL (3.5-5.2) 06/16/22 13:47 Globulin 2.9 g/dL (1.3-4.6) 06/16/22 13:47 EKG Data EKG 1: I personally reviewed and interpreted this EKG as follows: EKG interpretation date: 06/16/22 EKG interpretation time: 13:44 Interpretation: Paced, ventricular rate 68, QRS 147, QTc 501., Paced rhythm EKG 2: I personally reviewed and interpreted this EKG as follows: EKG interpretation date: 06/16/22 EKG interpretation time: 16:05 Interpretation: Ventricular rate 77, paced rhythm. W[place] 179, QRS 205, QTc 49, no acute changes Discharge Plan Discharge Patient Disposition: Home Clinical Impression: Dizziness, Orthostatic hypotension Condition: Stable Prescriptions: No Action (DME) ASO See Rx Instructions .ROUTE .MEDSUPPLY Qty: 1 0RF Rx Instructions: As directed ([facility]) Custom molded functional foot orthotic See Rx Instructions .Route .MEDSUPPLY Qty: 1 0RF Rx Instructions: As directed by NELLY&O ([facility]) custom orthotics See Rx Instructions .Route .MEDSUPPLY Qty: 1 0RF Rx Instructions: As directed [id number] Tablet 1 tab PO QDAY aspirin [Adult Low Dose Aspirin] 81 mg tablet,delayed release (DR/EC) 81 mg PO BEDTIME budesonide-formoterol [Symbicort] 80-4.5 mcg/actuation HFA aerosol inhaler 1 inh inhalation BID Qty: 10.2 3RF nitroglycerin [Nitrostat] 0.4 mg tablet, sublingual 0.4 mg SUBLINGUAL Q5M PRN (Reason: Chest Pain) Qty: 50 3RF clopidogrel 75 mg tablet 75 mg PO DAILY Qty: 90 3RF isosorbide mononitrate 120 mg tablet extended release 24 hr 120 mg PO DAILY Qty: 90 2RF atorvastatin 80 mg tablet 80 mg PO DAILY Qty: 100 3RF oxycodone-acetaminophen [Percocet] 5-325 mg tablet 1 tab PO Q4H PRN (Reason: pain) Qty: 10 0RF Vitamin B-12 100 mcg Tablet 100 mcg PO DAILY apple cider vinegar 500 mg Tablet 500 mg PO DAILY Tylenol 325 mg Capsule 325 mg PO QID PRN (Reason: PAIN) Carlito Mag Zinc Plus D3 333 mg-133 unit -133 mg-5 mg Tablet 1 tab PO DAILY carvedilol 12.5 mg tablet 12.5 mg PO BID Avalide 150-12.5 mg tablet 1 tab PO DAILY albuterol sulfate 90 mcg/actuation HFA aerosol inhaler 2 puff INHALATION Q6H PRN (Reason: Shortness Of Breath Or Wheezing) Naprosyn 500 mg tablet 500 mg PO BID PRN (Reason: Pain) Discharge Orders: Discharge ED (Routine); Ordered 06/16/22 Ordered By: Jian Walter Referrals: Donavan Gupta DO [Primary Care Provider] - Discharge Diet: Usual diet Discharge Activity: Increase activity as tolerated Patient Instructions: Opioid Safety, Pain Management, Dizziness (ED), Hy potension (DC) Activity Restrictions/Additional Instructions: Please hold your blood pressure medications this evening. Please call your primary care provider and tare weigher in the morning to arrange for a follow-up and make them aware of your visit return to the ER as needed Coding Level of Care Code ED Vice President Client Services for [employer] [facility] Exam Comprehensive
[2022-06-16 14:00] LABS: Basophils % 0.3 %; Eosinophils # 0.2 10^3/uL (0.0-0.8); Eosinophils % 2.1 %; Hematocrit 39.8 % (42.0-52.0); Hemoglobin 13.2 g/dL (11.7-16.6); Lymphocytes # 1.8 10^3/uL (0.8-4.8); Lymphocytes % 18.4 %; Mean Corpuscular HGB Conc 33.2 g/dL (30.0-36.0); Mean Corpuscular Hemoglobin 31.7 pg (28.0-34.0); Mean Corpuscular Volume 95.7 fl (80-94); Mean Platelet Volume 11.1 fL (7.4-10.4); Monocytes # 0.9 10^3/uL (0.2-0.9); Monocytes % 9.7 %; Neutrophils # 6.72 10^3/uL (1.8-7.7); Neutrophils % 69.2 %; Nucleated Red Blood Cells % 0 %; Platelet Count 180 10^3/cmm (130-400); Red Blood Count 4.16 10^6/uL (4.1-5.3); Red Cell Distribution Width 13.2 % (12.1-15.1); White Blood Count 9.7 10^3/uL (4.0-10.0)
[2022-06-16] MEDS: meclizine 25 mg tablet 50 MG PO (14:06)
[2022-06-16 14:27] LABS: Alanine Aminotransferase 22 U/L (0-41); Alkaline Phosphatase 104 U/L (40-130); Anion Gap 12.4 (5-19); Aspartate Amino Transferase 22 U/L (0-40); Blood Urea Nitrogen 24 mg/dL (8-23); Calcium 9.8 mg/dL (8.5-10.5); Carbon Dioxide 30 mmol/L (22-29); Chloride 101 mmol/L (98-107); Globulin 2.9 g/dL (1.3-4.6); Glucose 82 mg/dL (65-115); Magnesium 2.1 mg/dL (1.7-2.3); Osmolality Calculated 291 mOsm/kg (285-295); Potassium 4.4 mmol/L (3.5-5.1); Sodium 139 mmol/L (136-145); Total Bilirubin 0.5 mg/dL (0.15-1.2); Total Protein 6.9 g/dL (6.6-8.7)
[2022-06-16 14:28] LABS: Troponin(5th) Baseline 24 ng/L (0-15)
[2022-06-16] MEDS: ipratropium-albuterol 3 mL Neb INHALATION (14:40)
[2022-06-16] MEDS: sodium chloride 0.9% 500 ML 999 ML IV (15:27)
--- NOTE | 2022-06-16 15:45 | ECG_ITS ---
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 Measurements Intervals [place] Rate: 77 P: 195 OR: 179 QRS: -79 QRSD: 205 T: 94 QT: 458 QTc: 518 Interpretive Statements ELECTRONIC ATRIAL PACEMAKER ELECTRONIC VENTRICULAR PACEMAKER ABNORMAL RHYTHM ECG Compared to ECG 06/06/2021 13:53:43 No significant changes Electronically Signed On 06-16-2022 21:34:35 CDT by Christi Chen M.D. [email or web address]
[2022-06-16 15:48] LABS: Troponin 5 2HR 20.38 ng/L (0-15)
[2022-06-16 15:53] LABS: Troponin 5 2HR Delta -3.62 ABS# (0-10)
== END 2022-06-16 16:31 | disposition home or self-care (01) ==
PROVIDERS: Emergency Provider Student in an Organized Health Care Education/Training Program; PCP Internal Medicine
DX: R42 Dizziness and giddiness (principal); I95.1 Orthostatic hypotension; Z79.02 Long term (current) use of antithrombotics/antiplatelets; Z79.82 Long term (current) use of aspirin; Z87.891 Personal history of nicotine dependence; J43.9 Emphysema, unspecified; E78.5 Hyperlipidemia, unspecified; I10 Essential (primary) hypertension; Z95.0 Presence of cardiac pacemaker
CPT/HCPCS: 36415; 70450; 71045; 72125; 80053; 83735; 84484; 85025; 93005; 94640; 99285; J7040; J8597

== ENCOUNTER 2022-06-23 16:12 | Outpatient (CLI) | payer MEDICARE, OTHER, SELFPAY ==
--- NOTE | 2022-06-23 16:24 | XR_ITS ---
WS: [id number] Lumbar spine with flexion, extension, and neutral lateral, 06/23/2022 Clinical Data: VERTEBROGENIC LOW BACK PAIN;PLS COMMENT ON SPINAL INSTABILITY Comparison: Lumbar spine, 07/14/2018. Findings: The old compression fracture of L4 vertebral body with loss of more than 50% of the vertebral body he ight remains the same. There are anterior bridging osteophytes from T12-L1 through L4-L5. On flexion and extension there is limitation of motion but no subluxation. There is calcification of the abdominal aortic wall without aneurysm. XR/XR lumbar spine f/e only [id number] Impression: 1. No change in L4 compression fracture. 2. Negative for subluxation on flexion or extension but there is limitation of motion. 3. 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
--- NOTE | 2022-06-23 16:24 | CT_ITS ---
WS: [id number] CT LUMBAR SPINE TECHNIQUE: Noncontrast CT of the lumbar spine with coronal and sagittal reformatted images. CLINICAL INFORMATION: VERTEBROGENIC LOW BACK PAIN WITH REFORMATTED IMAGES COMPARISON: CT May 27, 2021 DLP: 1548.[address] scans at [facility] use at least one of these dose optimization techniques: automated e xposure control; mA and/or kV adjustment per patient size (includes targeted exams where dose is matc hed to clinical indication); or iterative reconstruction. FINDINGS: Mild lumbar curve. Chronic biconcave compression L4 vertebral body unchanged. Bony fusion L3-L4. Disc space narrowing worse L5-S1 with vacuum disc phenomenon. Hypertrophic changes lower thoracic spine. Prominent Schmorl's nodes inferior endplate L2 and superior endplate S1. L1-L2: Mild disc osteophytic ridging. Mild facet arthropathy. Spinal canal and foramen are patent. L2-L3: Mild disc osteophyte complex. Narrowing of subarticular recess. Mild LEFT greater than RIGHT f oraminal narrowing. Moderate facet arthropathy. L3-L4: Bony disc space fusion. Moderate facet arthropathy. Spinal canal and foramen are patent. L4-L5: Mild disc bulging and osteophytic ridging. Shallow RIGHT pericentral protrusion. Moderate cent ral canal stenosis. Impingement traversing RIGHT greater than LEFT L5 nerve roots. Moderate facet art hropathy. Small bilateral foraminal protrusions impinges the exiting LEFT greater than RIGHT L4 nerve roots. L5-S1: Mild disc bulging and osteophytic ridging. Slight impingement traversing S1 nerve roots bilate rally. Mild LEFT and no RIGHT foraminal narrowing. Visualized pelvic bony structures: Normal. Paravertebral soft tissues: Normal. Adrenal glands are normal. CT/CT lumbar spine wo con* [id number] IMPRESSION: Overall no significant changes since May 27, 2021 19 1. Chronic biconcave compression L4 with interbody fusion unchanged. 2. Moderate central canal stenosis L4-L5 with slight impingement on the RIGHT greater than LEFT traversing L5 nerve roots. Moderate bilateral L4-L5 foraminal narrowing. 3. Disc bulge L5-S1 with slight contact of the traversing S1 nerve roots bilat erally. Mild LEFT foraminal narrowing. 4. Mild central canal stenosis L2-L3 with mild LEFT foraminal narrowing.
== END 2022-06-23 16:13 | disposition home or self-care (01) ==
LOC: RAD 16:13
PROVIDERS: PCP Internal Medicine; Visit Provider Nurse Practitioner
DX: M47.896 Other spondylosis, lumbar region (principal); S32.040A Wedge compression fracture of fourth lumbar vertebra, initial encounter for closed fracture; X58.XXXA Exposure to other specified factors, initial encounter; M48.061 Spinal stenosis, lumbar region without neurogenic claudication; M51.27 Other intervertebral disc displacement, lumbosacral region
CPT/HCPCS: 72120; 72131

== ENCOUNTER 2022-07-10 08:28 | Outpatient (CLI) | payer MEDICARE, OTHER, SELFPAY ==
--- NOTE | 2022-07-10 | CT_ITS ---
WS: [id number] CT HEAD TECHNIQUE: Noncontrast and contrast-enhanced CT of the head. CLINICAL INFORMATION: TINNITUS, GIDDINESS COMPARISON: June 16, 2022 DLP: 2206.[address] scans at [facility] use at least one of these dose optimization techniques: automated e xposure control; mA and/or kV adjustment per patient size (includes targeted exams where dose is matc hed to clinical indication); or iterative reconstruction. FINDINGS: No evidence of intracranial hemorrhage or mass effect. Moderate small vessel changes with moderate pa renchymal volume loss. No extra-axial fluid collections. No evidence of mass or mass effect. Cavernou s carotid calcification. Small chronic lacunar infarcts in the bilateral basal ganglia. No abnormal intracranial enhancement. Paranasal sinuses are well aerated. Mild mucosal thickening eth moid air cells. Secretions RIGHT sphenoid sinus. Mastoid air cells are well aerated. Normal visualize d posterior nasopharynx. Middle ears appear well aerated. CT/CT head wo/w con [id number] IMPRESSION: 1. No evidence of intracranial hemorrhage or mass effect. 2. Moderate small vessel changes with mild to moderate parenchymal volume loss . 3. Chronic lacunar infarcts in basal ganglia. 4. No abnormal intracranial enhancement. 5. Mastoid air cells and middle ears appear well aerated. 6. Paranasal sinuses are well aerated. Mild mucosal thickening ethmoid air kelvin ls and RIGHT sphenoid sinus.
[2022-07-10] MEDS: iohexol 350 mg/mL 100 mL Btl IV (08:59)
[2022-07-10 09:31] LABS: Alanine Aminotransferase 17 U/L (0-41); Albumin Level 4.1 g/dL (3.5-5.2); Alkaline Phosphatase 117 U/L (40-130); Aspartate Amino Transferase 23 U/L (0-40); Chol HDL Ratio 2.98 mg/dL (1.0-5.00); Cholesterol 128 mg/dL (0-200); Globulin 2.7 g/dL (1.3-4.6); HDL Cholesterol 43 mg/dL (60-100); LDL Cholesterol Calculated 68 mg/dL (50-129); LDL HDL Ratio 1.58 RATIO (0.00-3.22); Total Bilirubin 0.6 mg/dL (0.15-1.2); Total Protein 6.8 g/dL (6.6-8.7); Triglycerides 83 mg/dL (0-150)
== END 2022-07-10 08:29 | disposition home or self-care (01) ==
PROVIDERS: PCP Internal Medicine; Referring Provider Internal Medicine Cardiovascular Disease; Visit Provider Otolaryngology
DX: H93.12 Tinnitus, left ear (principal); R42 Dizziness and giddiness; I63.81 Other cerebral infarction due to occlusion or stenosis of small artery
CPT/HCPCS: 70470; 80061; 80076

== ENCOUNTER 2022-08-28 14:08 | Emergency (ER) | payer MEDICARE, OTHER, SELFPAY ==
[2022-08-28 14:13] VITALS: BP 118/76; PULSE 91; RESP 16; TEMP 36.4; O2SAT 96; BMI 30.2
--- NOTE | 2022-08-28 15:11 | W.ED.GENADLT ---
HPI - General Adult General: Chief complaint: General Medical Stated complaint: Mouth bleeding, Not sure where from Time Seen by Provider: 08/28/22 14:27 History of Present Illness: Patient is in today reporting that he has bleeding from his mouth from an unknown source. He reports that he was eating corn chips and started seeing strings of blood. He denies any pain. He reports that he is on Plavix and he did have a large blood clot in his mouth. Associated symptoms: Deny chest pain, dyspnea, nausea, palpitations or vomiting Review of Systems Const: Denies: fever(s), chills or body aches ENMT: Reports: bleeding gums Card: Denies: chest pain or palpitations Resp: Denies: dyspnea or productive cough GI: Denies: abdominal pain, nausea or vomiting PFSH ED PFSH: Medical History Atypical chest pain Cardiomyopathy Emphysema lung Hyperlipidemia Hypertension Obstructive sleep apnea (adult) (pediatric) Pt had the CPAP machine and was not using to the requirement and was taken away from him. Pacemaker Sick sinus syndrome Trimalleolar fracture Surgical History History of arthroplasty of left shoulder Family History Father CAD (coronary artery disease) Family/Other Cancer Grandmother Diabetes Denies family history of Clotting disorder Dementia Chronic kidney disease (CKD) Suicide Anesthesia complication Bleeding disorder Lung disease Stroke Social History Smoking and tobacco status: former smoker Quit status (tobacco): has quit using tobacco Year quit tobacco: 1990 Former quit date comment: 1.5ppd x 30 years Alcohol intake: never Physical Exam Const: COMMON NORMALS: no acute distress, patient oriented x3 and alert HENMT: OTHER: Patient has what appears to be a laceration approximately 2-1/2 cm midline hard palate that is not bleeding he has a small subcentimeter laceration just behind the front upper tooth that has a steady ooze of blood. Easily controlled with pressure, but even after pressure for 10 minutes this is still bleeding when pressure is not applied. Resp: COMMON NORMALS: normal respiratory effort and No use of accessory muscles Neuro: COMMON NORMALS: patient oriented x3 SENSORIUM/ORIENTATION: Yes alert Course Vital Signs: Vital signs: Vital Signs Temperature 97.6 F 08/28/22 14:13 Pulse Rate 91 08/28/22 14:13 Respiratory Rate 16 08/28/22 14:13 Blood Pressure 118/76 08/28/22 14:13 Pulse Oximetry 96 08/28/22 14:13 Oxygen Delivery Me thod 08/28/22 14:13 MDM - General Adult Medical Decision Making Oral laceration with continuous bleeding due to patient on Plavix. Attempted firm pressure for 5 minutes. Bleeding is controlled when pressure is applied however when pressure is removed bleeding resumes. Made a plan with patient to place a suture to control bleeding. While waiting on viscous lidocaine to use in preparation for absorbable suture placement to control bleeding, pressure applied again with a folded Telfa and patient biting top and bottom jaw together for approximately 10 to 15 minutes. Bleeding stopped. Monitored patient for another 20 to 30 minutes bleeding is still stopped. No suture is placed at this time. Patient states that he does not want any further treatment if the bleeding has not stopped. We discussed aftercare including no vigorous brushing or touching of the area behind the tooth so as not to start bleeding again. Avoid hot liquids and steaming hot food for the next 24 hours. May gargle with warm salt water. We discussed control of bleeding should it resume. Follow-up with PCP. Return to the ER as needed for any new or worsening symptoms Discharge Plan Discharge Patient Disposition: Home Clinical Impression: Laceration of mouth Condition: Stable Prescriptions: No Action (DME) ASO See Rx Instructions .ROUTE .MEDSUPPLY Qty: 1 0RF Rx Instructions: As directed (DME) Custom molded functional foot orthotic See Rx Instructions .Route .MEDSUPPLY Qty: 1 0RF Rx Instructions: As directed by NELLY&O (DME) custom orthotics See Rx Instructions .Route .MEDSUPPLY Qty: 1 0RF Rx Instructions: As directed [id number] Tablet 1 tab PO QDAY aspirin [Adult Low Dose Aspirin] 81 mg tablet,delayed release (DR/EC) 81 mg PO BEDTIME nitroglycerin [Nitrostat] 0.4 mg tablet, sublingual 0.4 mg SUBLINGUAL Q5M PRN (Reason: Chest Pain) Qty: 50 3RF clopidogrel 75 mg tablet 75 mg PO DAILY Qty: 90 3RF atorvastatin 80 mg tablet 80 mg PO DAILY Qty: 100 3RF Avalide 150-12.5 mg tablet 0.5 tab PO DAILY Rx Instructions: dose reduced per Dr Adhikari r/t kidney fx isosorbide mononitrate 120 mg tablet extended release 24 hr 120 mg PO DAILY Qty: 90 3RF fluticasone furoate-vilanterol [Breo Ellipta] 100-25 mcg/dose blister with device 1 inh inhalation DAILY Qty: 60 5RF oxycodone-acetaminophen [Percocet] 5-325 mg tablet 1 tab PO Q4H PRN (Reason: pain) Qty: 10 0RF Vitamin B-12 100 mcg Tablet 100 mcg PO DAILY apple cider vinegar 500 mg Tablet 500 mg PO DAILY Tylenol 325 mg Capsule 325 mg PO QID PRN (Reason: PAIN) Carlito Mag Zinc Plus D3 333 mg-133 unit -133 mg-5 mg Tablet 1 tab PO DAILY carvedilol 12.5 mg tablet 12.5 mg PO BID albuterol sulfate 90 mcg/actuation HFA aerosol inhaler 2 puff INHALATION Q6H PRN (Reason: Shortness Of Breath Or Wheezing) Naprosyn 500 mg tablet 500 mg PO BID PRN (Reason: Pain) Discharge Orders: Discharge ED (Routine); Ordered 08/28/22 Ordered By: Nay Britt Referrals: Donavan Gupta DO [Primary Care Provider] - Discharge Diet: As Directed Discharge Activity: Increase activity as tolerated Patient Instructions: Dental Laceration (ED) Activity Restrictions/Additional Instructions: Avoid hot foods and liquids, strenuous activity, vigorous brushing for the next 24 to 48 hours. You may gargle with warm salt water. Follow-up with primary care provider as needed. Return to the ER for any new or worsening symptoms or bleeding that resumes and is not controlled with direct firm pressure. Coding Level of Care Code ED Reservoir Engineering Consultant for [facility] Exam Expanded Problem Focused
== END 2022-08-28 16:29 | disposition home or self-care (01) ==
PROVIDERS: Emergency Provider Nurse Practitioner Family; PCP Internal Medicine
DX: S01.512A Laceration without foreign body of oral cavity, initial encounter (principal); Z79.82 Long term (current) use of aspirin; Z79.02 Long term (current) use of antithrombotics/antiplatelets; J43.9 Emphysema, unspecified; E78.5 Hyperlipidemia, unspecified; I10 Essential (primary) hypertension; Z95.0 Presence of cardiac pacemaker; Z87.891 Personal history of nicotine dependence; X58.XXXA Exposure to other specified factors, initial encounter
CPT/HCPCS: 99282

== ENCOUNTER → 2022-10-09 09:51 | Outpatient (BNVA) | payer MEDICARE, OTHER, SELFPAY | PROVIDERS: PCP Internal Medicine; Visit Provider Internal Medicine Pulmonary Disease | DX: J43.9 Emphysema, unspecified (principal); R06.02 Shortness of breath; I25.119 Atherosclerotic heart disease of native coronary artery with unspecified angina pectoris; G47.33 Obstructive sleep apnea (adult) (pediatric); I42.9 Cardiomyopathy, unspecified; Z87.891 Personal history of nicotine dependence; Z95.0 Presence of cardiac pacemaker | CPT/HCPCS: 99214 ==

== ENCOUNTER → 2022-10-22 15:09 | Outpatient (BNVA) | payer MEDICARE, OTHER, SELFPAY | PROVIDERS: PCP Internal Medicine; Visit Provider Nurse Practitioner Family | DX: I25.119 Atherosclerotic heart disease of native coronary artery with unspecified angina pectoris (principal); Z95.0 Presence of cardiac pacemaker; I10 Essential (primary) hypertension; Z87.891 Personal history of nicotine dependence | CPT/HCPCS: 99214 ==

== ENCOUNTER 2022-11-19 17:42 | Emergency (ER) | payer MEDICARE, OTHER, SELFPAY ==
[2022-11-19 17:50] VITALS: BP 152/85; PULSE 68; RESP 16; TEMP 36.7; O2SAT 96; BMI 31.1
--- NOTE | 2022-11-19 18:03 | XRR_ITS ---
PROCEDURE INFORMATION: Exam: XR Left Hand Exam date and time: 11/19/2022 6:07 PM Age: 82 years old Clinical indication: Injury or trauma; Other: Cut; Laceration; Finger; Left; Thumb; Additional info: Tip of thumb cut TECHNIQUE: Imaging protocol: Radiologic exam of the left hand. Views: 3 or more views. COMPARISON: No relevant prior studies available. FINDINGS: Bones/joints: Moderate to severe 1st carpometacarpal joint osteoarthritis. Bandage material over the 1st distal phalanx. Mild diffuse interphalangeal joint and metacarpophalangeal joint osteoarthritis. Soft tissues: Normal. XR/XR hand LT min 3V* [id number] IMPRESSION: 1. Negative for traumatic injury to the bony structures of the hand. 2. Moderate to severe 1st carpometacarpal joint osteoarthritis. 3. Bandage material over the 1st distal phalanx. 4. Mild diffuse interphalangeal joint and metacarpophalangeal joint osteoarthritis.
--- NOTE | 2022-11-19 18:36 | W.ED.WOUNDLC ---
HPI - Wound/Laceration General: Chief Complaint: Wound/Laceration Stated Complaint: left finger lac Time Seen by Provider: 11/19/22 18:24 History of Present Illness: Patient is a 82-year-old male comes to the ED with left thumb laceration. Injury occurred just prior to arrival. Patient was using a vegetable slicer and accidentally cut the distal pad of left thumb. He immediately wrapped thumb up in a bandage and came here to the ED. Patient is on Plavix. Patient is not up-to-date on his tetanus. Associated symptoms: Denies chills, fever(s), nausea or vomiting Review of Systems Const: Denies: fever(s), chills or fatigue Eyes: Denies: change in vision or eye discomfort ENMT: Denies: throat pain, odynophagia, nasal discharge or nasal congestion Card: Denies: chest pain, palpitations, edema, swelling of feet/ankles, dyspnea on exertion or orthopnea Resp: Denies: dyspnea, productive cough or non-productive cough GI: Denies: abdominal pain, nausea, vomiting, diarrhea, constipation or hematochezia : Denies: flank pain, difficulty urinating, dysuria or hematuria Musc: Denies: neck pain, back pain or extremity swelling Skin/Breast: Reports: new lesions; Denies: rash Neuro: Denies: headache(s), numbness in extremities or weakness in extremities PFS ED PFSH: Medical History Atypical chest pain Cardiomyopathy Emphysema lung Hyperlipidemia Hypertension Obstructive sleep apnea (adult) (pediatric) Pt had the CPAP machine and was not using to the requirement and was taken away from him. Pacemaker Sick sinus syndrome Trimalleolar fracture Surgical History History of arthroplasty of left shoulder Family History Father CAD (coronary artery disease) Family/Other Cancer Grandmother Diabetes Denies family history of Clotting disorder Dementia Chronic kidney disease (CKD) Suicide Anesthesia complication Bleeding disorder Lung disease Stroke Social History Smoking and tobacco status: former smoker Quit status (tobacco): has quit using tobacco Year quit tobacco: 1990 Former quit date comment: 1.5ppd x 30 years Alcohol intake: never Physical Exam Const: COMMON NORMALS: no acute distress, patient oriented x3 and alert GENERAL APPEARANCE: cooperative HENMT: COMMON NORMALS: normocephalic HEAD & SCALP: normocephalic MOUTH: Normal oral and palatal mucosa present THROAT: posterior oropharynx normal and uvula midline Neck/C-Spine: COMMON NORMALS: supple GENERAL: Yes normal visual inspection Resp: COMMON NORMALS: normal respiratory effort, No retractions, No use of accessory muscles and clear to auscultation bilaterally AUSCULTATION: clear to auscultation bilaterally Cardio: COMMON NORMALS: regular rate, regular rhythm, S1 normal heart sound present, S2 normal heart sound present, No gallops present (Cardio), No clicks present (Cardio), No murmurs present (Cardio) and Peripheral pulses 2+ throughout RATE: regular rate RHYTHM: regular rhythm HEART SOUNDS: S1 normal heart sound present and S2 normal heart sound present PERIPHERAL PULSES: Peripheral pulses 2+ throughout GI: COMMON NORMALS: Normal to inspection, nondistended, normoactive bowel sounds present, Soft to palpation, non-tender and no masses PALPATION: Yes Soft to palpation : COMMON NORMALS: Yes no CVA tenderness BLADDER/KIDNEY EXAM: Yes no CVA tenderness Back/Pelvis: COMMON NORMALS: no CVA tenderness Extremity: NARRATIVE EXTREMITY EXAM: Left hand?thumb?distal pad skin avulsion approximately 0.75 cm in length. Wound appears superficial and no contaminants seen. Minimal active bleeding once bandage was removed. No nailbed or nail damage noted. Neuro: COMMON NORMALS: patient oriented x3 SENSORIUM/ORIENTATION: Yes alert GAIT: Yes Normal gait present Skin: GENERAL SKIN EXAM: dry skin Course Vital Signs: Vital signs: Vital Signs Temperature 98.0 F 11/19/22 17:50 Pulse Rate 66 11/19/22 19:46 Respiratory Rate 18 11/19/22 19:46 Blood Pressure 117/65 11/19/22 19:46 Pulse Oximetry 96 11/19/22 17:50 MDM - Wound/Laceration Medical Decision Making Patient is a 82-year-old male comes to the ED with left foot laceration. Injury occurred just prior to arrival. Patient was using a vegetable slicer and accidentally cut the distal pad of left thumb. He immediately wrapped thumb up in a bandage and came here to the ED. Patient is on Plavix. Patient is not up-to-date on his tetanus. Vitals are stable. Left hand?thumb?distal pad skin avulsion approximately 0.75 cm in length. Wound appears superficial and no contaminants seen. Minimal active bleeding once bandage was removed. No nailbed or nail damage noted. Patient was given updated tetanus here in the ED. Nurse irrigated and cleaned wound with normal saline and iodine wash. Triple antibiotic ointment was applied on wound and then it was bandaged. Patient diagnosed with skin avulsion of finger and was stable for discharge home. He was sent home with a prescription for Keflex. Return to ED precautions given. Patient was instructed on how to care for wound daily. Follow-up with PCP in the next week for reevaluation. Patient understood and agreed with plan. Lab Data Radiology Impressions Hand X-Ray 11/19/22 18:03 IMPRESSION: 1. Negative for traumatic injury to the bony structures of the hand. 2. Moderate to severe 1st carpometacarpal joint osteoarthritis. 3. Bandage material over the 1st distal phalanx. 4. Mild diffuse interphalangeal joint and metacarpophalangeal joint osteoarthritis. Discharge Plan Discharge Patient Disposition: Home Clinical Impression: Avulsion of skin of finger Qualifiers: Encounter type: initial encounter Qualified Code(s): S61.209A - Unspecified open wound of unspecified finger without damage to nail, initial encounter Condition: Stable Prescriptions: New cephalexin 500 mg capsule 500 mg PO Q6H 4 Days Qty: 16 0RF No Action (DME) ASO See Rx Instructions .ROUTE .MEDSUPPLY Qty: 1 0RF Rx Instructions: As directed (DME) Custom molded functional foot orthotic See Rx Instructions .Route .MEDSUPPLY Qty: 1 0RF Rx Instructions: As directed by [facility]O (DME) custom orthotics See Rx Instructions .Route .MEDSUPPLY Qty: 1 0RF Rx Instructions: As directed [id number] Tablet 1 tab PO QDAY aspirin [Adult Low Dose Aspirin] 81 mg tablet,delayed release (DR/EC) 81 mg PO BEDTIME nitroglycerin [Nitrostat] 0.4 mg tablet, sublingual 0.4 mg SUBLINGUAL Q5M PRN (Reason: Chest Pain) Qty: 50 3RF fluticasone furoate-vilanterol [Breo Ellipta] 100-25 mcg/dose blister with device 1 inh inhalation DAILY Qty: 60 5RF atorvastatin 80 mg tablet 80 mg PO DAILY Qty: 100 3RF clopidogrel 75 mg tablet 75 mg PO DAILY Qty: 100 3RF Avalide 150-12.5 mg tablet 0.5 tab PO DAILY Qty: 45 3RF Rx Instructions: dose reduced per Dr Adhikari r/t kidney fx isosorbide mononitrate 120 mg tablet extended release 24 hr 120 mg PO DAILY Qty: 100 3RF metoprolol succinate 25 mg tablet extended release 24 hr 12.5 mg PO DAILY Qty: 45 3RF oxycodone-acetaminophen [Percocet] 5-325 mg tablet 1 tab PO Q4H PRN (Reason: pain) Qty: 10 0RF Vitamin B-12 100 mcg Tablet 100 mcg PO DAILY apple cider vinegar 500 mg Tablet 500 mg PO DAILY Tylenol 325 mg Capsule 325 mg PO QID PRN (Reason: PAIN) Carlito Mag Zinc Plus D3 333 mg-133 unit -133 mg-5 mg Tablet 1 tab PO DAILY albuterol sulfate 90 mcg/actuation HFA aerosol inhaler 2 puff INHALATION Q6H PRN (Reason: Shortness Of Breath Or Wheezing) Naprosyn 500 mg tablet 500 mg PO BID PRN (Reason: Pain) Discharge Orders: Discharge ED (Routine); Ordered 11/19/22 Ordered By: Domingo Sierra Referrals: Donavan Gupta DO [Primary Care Provider] - Discharge Diet: Regular Discharge Activity: Resume usual activity Patient Instructions: Skin Avulsion (ED) Activity Restrictions/Additional Instructions: Follow-up with medical provider as directed in the next 5 to 7 days for reevaluation. Clean wound daily with soap and water dry and apply triple antibiotic ointment on it and cover with bandage. Do not submerge wound in any bodies of water such as lakes or [place] until completely healed. Take medications as prescribed. Return to the ER or your medical provider if condition worsens. Please read and understand discharge instructions. Thank you for choosing [facility] for your healthcare needs today. Please realize this is an emergency room and that we are providing you with a medical screening exam and this may not be complete and all inclusive of all the testing and or work up that you may need to determine your ailment or severity of your illness. It is very important that you follow up as instructed or that you return to the Emergency Department should you have concerns or if your condition changes or worsens in any way. Coding Level of Care Code ED Steward/Stewardess [employer] for Guido Reed
[2022-11-19] MEDS: tetanus-dipt-pertussis 0.5 mL SDV IM (18:59)
[2022-11-19] MEDS: neomycin-poly-bacitracin oint 28 gm 1 APPLIC TOPICAL (19:01)
[2022-11-19 19:46] VITALS: BP 117/65; PULSE 66; RESP 18
== END 2022-11-19 19:45 | disposition home or self-care (01) ==
PROVIDERS: Emergency Provider Physician Assistant; PCP Internal Medicine
DX: S61.012A Laceration without foreign body of left thumb without damage to nail, initial encounter (principal); J43.9 Emphysema, unspecified; I10 Essential (primary) hypertension; E78.5 Hyperlipidemia, unspecified; Z23 Encounter for immunization; Z87.891 Personal history of nicotine dependence; Z95.0 Presence of cardiac pacemaker; W26.8XXA Contact with other sharp object(s), not elsewhere classified, initial encounter; Z79.02 Long term (current) use of antithrombotics/antiplatelets
CPT/HCPCS: 73130; 90471; 90715; 99283

== ENCOUNTER 2022-11-21 15:43 | Emergency (ER) | payer MEDICARE, OTHER, MEDICAID, SELFPAY ==
[2022-11-21 15:56] VITALS: BP 143/73; PULSE 65; RESP 16; TEMP 36.4; O2SAT 98
--- NOTE | 2022-11-21 17:22 | W.ED.NAVMDI ---
HPI - Nausea/Vomiting/Diarrhea General: Chief complaint: Nausea/Vomiting/Diarrhea Stated complaint: n/v Time Seen by Provider: 11/21/22 16:06 History of Present Illness: 82-year-old male patient comes in today for complaints of nausea and vomiting starting last night. Patient reports that he woke during the night with episodes of nausea and vomiting that persisted throughout the day. Patient denies any chest pain or difficulty breathing. Patient appears nontoxic. Patient moves all extremities well. Patient reports some mild dizziness. Associated nausea: Yes Associated symtoms: Reports nausea; Denies chest pain Review of Systems General: Reports: 10 or more systems reviewed and unremarkable except in HPI and below Const: Denies: fever(s) Card: Denies: chest pain Resp: Denies: dyspnea GI: Reports: nausea and vomiting : Denies: difficulty urinating Musc: Denies: back pain Skin/Breast: Reports: rash and new lesions [facility] ED PFSH: Medical History Atypical chest pain Cardiomyopathy Emphysema lung Hyperlipidemia Hypertension Obstructive sleep apnea (adult) (pediatric) Pt had the CPAP machine and was not using to the requirement and was taken away from him. Pacemaker Sick sinus syndrome Trimalleolar fracture Surgical History History of arthroplasty of left shoulder Family History Father CAD (coronary artery disease) Family/Other Cancer Grandmother Diabetes Denies family history of Clotting disorder Dementia Chronic kidney disease (CKD) Suicide Anesthesia complication Bleeding disorder Lung disease Stroke Social History Smoking and tobacco status: former smoker Quit status (tobacco): has quit using tobacco Year quit tobacco: 1990 Former quit date comment: 1.5ppd x 30 years Alcohol intake: never Physical Exam Const: COMMON NORMALS: alert HENMT: COMMON NORMALS: normocephalic HEAD & SCALP: normocephalic Neck/C-Spine: COMMON NORMALS: full ROM and No carotid bruits Chest: COMMONS NORMALS: normal palpation of entire chest wall Resp: COMMON NORMALS: normal respiratory effort and clear to auscultation bilaterally AUSCULTATION: clear to auscultation bilaterally Cardio: COMMON NORMALS: regular rate and regular rhythm RATE: regular rate RHYTHM: regular rhythm GI: COMMON NORMALS: Soft to palpation and non-tender AUSCULTATION: Yes normoactive bowel sounds PALPATION: Yes Soft to palpation : COMMON NORMALS: Yes no CVA tenderness BLADDER/KIDNEY EXAM: Yes no CVA tenderness Back/Pelvis: COMMON NORMALS: no CVA tenderness Extremity: COMMON NORMALS: normal to inspection Neuro: SENSORIUM/ORIENTATION: Yes alert Skin: TRAUMA: laceration (Healing avulsion left thumb) avulsion Course Vital Signs: Vital signs: Vital Signs Temperature 97.5 F L 11/21/22 15:56 Pulse Rate 65 11/21/22 15:56 Respiratory Rate 16 11/21/22 15:56 Blood Pressure 143/73 11/21/22 15:56 Pulse Oximetry 98 11/21/22 15:56 Oxygen Delivery Me thod 11/21/22 15:56 MDM - Nausea/Vomiting/Diarrhea Medical Decision Making 82-year-old male patient comes in today for nausea and vomiting starting last night. On exam patient appears nontoxic. Abdomen soft nontender. Bowel sounds are present. Skin is warm and dry. Patient reports some mild dizziness. Patient reports last episode of emesis was around noon. Patient does have a distal tip avulsion of the left thumb that appears to be healing without any redness or purulent drainage. Vital signs are normal. Differential diagnosis includes but not limited to viral syndrome, nausea and vomiting, wound infection, sepsis. Laboratory values were unremarkable. Patient was treated with 1 L of IV fluids and Zofran which improved his dizziness and nausea. Patient denies any other complaints such as chest pain or shortness of breath. CRP was unremarkable. Feel the patient probably has a viral syndrome that caused his symptoms. Family was concerned about the wound and requested antibiotics which patient was put on a prophylactic dose for the next 4 days. Recommend continued care of the wound as directed by prior provider. Discussed need to return to the ER including fever, uncontrolled pain, blood in vomit or stool. Patient and family both reported understanding. Lab Data 11/21/22 17:39 11/21/22 17:39 Laboratory Results WBC 9.8 10^3/uL (4.0-10.0) 11/21/22 17:39 RBC 4.93 10^6/uL (4.1-5.3) 11/21/22 17:39 Hgb 14.8 g/dL (11.7-16.6) 11/21/22 17:39 Hct 44.9 % (42.0-52.0) 11/21/22 17: MCV 91.1 fl (80-94) 11/21/22 17:39 MCH 30.0 pg (28.0-34.0) 11/21/22 17: MCHC 33.0 g/dL (30.0-36.0) 11/21/22: RDW 13.0 % (12.1-15.1) 11/21/22 17: Plt Count 178 10^3/cmm (130-400) 11/21/22: MPV 11.7 fL (7.4-10.4) H 11/21/22 17:39 Neut % (Auto) 87.1 % 11/21/22 17: Lymph % (Auto) 8.7 % 11/21/22 17: Camas % (Auto) 3.6 % 11/21/22 17: Eos % (Auto) 0.0 % 11/21/22 17: Baso % (Auto) 0.2 % 11/21/22 17:39 Neut # (Auto) 8.56 10^3/uL (1.8-7.7) H 11/21/22 17:39 Lymph # (Auto) 0.9 10^3/uL (0.8-4.8) 11/21/22 17:39 Cam[place] # (Auto) 0.4 10^3/uL (0.2-0.9) 11/21/22: Eos # (Auto) 0.0 10^3/uL (0.0-0.8) 11/21/22 17:39 Baso # (Auto) 0.0 10^3/uL (0.0-0.1) 11/21/22: Nucleated RBC % (auto) 0 % 11/21/22: Nucleated RBCs # 0.0 /100WBC 11/21/22: ESR 3 mm/hr (0-10) 11/21/22 17: Sodium 139 mmol/L (136-145) 11/21/22: Potassium 4.4 mmol/L (3.5-5.1) 11/21/22 17:39 Chloride 102 mmol/L (98-107) 11/21/22 17:39 Carbon Dioxide 25 mmol/L (22-29) 11/21/22 17:39 Anion Gap 16.4 (5-19) 11/21/22 17:39 BUN 22 mg/dL (8-23) 11/21/22 17:39 Creatinine 1.2 mg/dL (0.7-1.2) 11/21/22 17:39 GFR Calculation Not Reportable 11/21/22 17:39 Glucose 135 mg/dL (65-115) H 11/21/22 17:39 Calculated Osmolality 293 mOsm/kg (285-295) 11/21/22 17:39 Lactate 1.2 mmol/L (0.5-2.2) 11/21/22 17:39 Calcium 10.0 mg/dL (8.5-10.5) 11/21/22 17:39 Total Bilirubin 0.9 mg/dL (0.15-1.2) 11/21/22 17:39 AST 26 U/L (0-40) 11/21/22 17:39 ALT 15 U/L (0-41) 11/21/22 17:39 Alkaline Phosphatase 129 U/L (40-130) 11/21/22 17:39 C-Reactive Protein 3.0 mg/L (0.0-4.9) 11/21/22 17:39 Total Protein 7.7 g/dL (6.6-8.7) 11/21/22 17:39 Albumin 4.5 g/dL (3.5-5.2) 11/21/22 17:39 Globulin 3.2 g/dL (1.3-4.6) 11/21/22 17:39 Lipase 28 U/L (13-60) 11/21/22 17:39 Discharge Plan Discharge Patient Disposition: Home Clinical Impression: Dehydration, Viral syndrome Nausea & vomiting Qualifiers: Vomiting type: unspecified Qualified Code(s): R11.2 - Nausea with vomiting, unspecified Condition: Stable Prescriptions: New ondansetron HCl 4 mg tablet 4 mg PO Q8H PRN (Reason: Nausea) 3 Days Qty: 9 0RF Changed cephalexin 500 mg capsule 500 mg PO 3XD 4 Days Qty: 12 0RF No Action (DME) ASO See Rx Instructions .ROUTE .MEDSUPPLY Qty: 1 0RF Rx Instructions: As directed (DME) Custom molded functional foot orthotic See Rx Instructions .Route .MEDSUPPLY Qty: 1 0RF Rx Instructions: As directed by [facility] (DME) custom orthotics See Rx Instructions .Route .MEDSUPPLY Qty: 1 0RF Rx Instructions: As directed [id number] Tablet 1 tab PO QDAY aspirin [Adult Low Dose Aspirin] 81 mg tablet,delayed release (DR/EC) 81 mg PO BEDTIME nitroglycerin [Nitrostat] 0.4 mg tablet, sublingual 0.4 mg SUBLINGUAL Q5M PRN (Reason: Chest Pain) Qty: 50 3RF fluticasone furoate-vilanterol [Breo Ellipta] 100-25 mcg/dose blister with device 1 inh inhalation DAILY Qty: 60 5RF atorvastatin 80 mg tablet 80 mg PO DAILY Qty: 100 3RF clopidogrel 75 mg tablet 75 mg PO DAILY Qty: 100 3RF Avalide 150-12.5 mg tablet 0.5 tab PO DAILY Qty: 45 3RF Rx Instructions: dose reduced per Dr Adhikari r/t kidney fx isosorbide mononitrate 120 mg tablet extended release 24 hr 120 mg PO DAILY Qty: 100 3RF metoprolol succinate 25 mg tablet extended release 24 hr 12.5 mg PO DAILY Qty: 45 3RF oxycodone-acetaminophen [Percocet] 5-325 mg tablet 1 tab PO Q4H PRN (Reason: pain) Qty: 10 0RF Vitamin B-12 100 mcg Tablet 100 mcg PO DAILY apple cider vinegar 500 mg Tablet 500 mg PO DAILY Tylenol 325 mg Capsule 325 mg PO QID PRN (Reason: PAIN) Carlito Mag Zinc Plus D3 333 mg-133 unit -133 mg-5 mg Tablet 1 tab PO DAILY albuterol sulfate 90 mcg/actuation HFA aerosol inhaler 2 puff INHALATION Q6H PRN (Reason: Shortness Of Breath Or Wheezing) Naprosyn 500 mg tablet 500 mg PO BID PRN (Reason: Pain) Discharge Orders: Discharge ED (Routine); Ordered 11/21/22 Ordered By: Jordi Morgan Referrals: Donavan Gupta DO [Primary Care Provider] - Discharge Diet: Advance as tolerated Discharge Activity: Increase activity as tolerated Patient Instructions: Acute Nausea and Vomiting (ED) Activity Restrictions/Additional Instructions: Home and rest. Drink plenty of fluids. Activity as tolerated. Increase diet as tolerated. Follow-up with primary care as needed. Return to ED for worsening symptoms such as fever greater than 100.4, uncontrolled pain, blood in vomit or stool, or new concerns. Coding Level of Care Code ED Application Integration Architect for Guido Reed
[2022-11-21] MEDS: ondansetron 2 mg/ML SDV 2 mL 4 MG IVP (17:47)
[2022-11-21] MEDS: sodium chloride 0.9% 1,000 ML 999 ML IV (17:48)
[2022-11-21 18:08] LABS: Erythrocyte Sedimentation Rate 3 mm/hr (0-10)
[2022-11-21 18:13] LABS: Basophils % 0.2 %; Hematocrit 44.9 % (42.0-52.0); Hemoglobin 14.8 g/dL (11.7-16.6); Lymphocytes # 0.9 10^3/uL (0.8-4.8); Lymphocytes % 8.7 %; Mean Corpuscular Volume 91.1 fl (80-94); Mean Platelet Volume 11.7 fL (7.4-10.4); Monocytes # 0.4 10^3/uL (0.2-0.9); Monocytes % 3.6 %; Neutrophils # 8.56 10^3/uL (1.8-7.7); Neutrophils % 87.1 %; Nucleated Red Blood Cells % 0 %; Platelet Count 178 10^3/cmm (130-400); Red Blood Count 4.93 10^6/uL (4.1-5.3); White Blood Count 9.8 10^3/uL (4.0-10.0)
[2022-11-21 18:22] LABS: Lactate (Lactic Acid level) 1.2 mmol/L (0.5-2.2)
[2022-11-21 18:29] LABS: Alanine Aminotransferase 15 U/L (0-41); Albumin Level 4.5 g/dL (3.5-5.2); Alkaline Phosphatase 129 U/L (40-130); Aspartate Amino Transferase 26 U/L (0-40); Blood Urea Nitrogen 22 mg/dL (8-23); Carbon Dioxide 25 mmol/L (22-29); Chloride 102 mmol/L (98-107); Globulin 3.2 g/dL (1.3-4.6); Glucose 135 mg/dL (65-115); Lipase 28 U/L (13-60); Osmolality Calculated 293 mOsm/kg (285-295); Sodium 139 mmol/L (136-145); Total Bilirubin 0.9 mg/dL (0.15-1.2); Total Protein 7.7 g/dL (6.6-8.7)
[2022-11-21 18:38] LABS: Anion Gap 16.4 (5-19); Potassium 4.4 mmol/L (3.5-5.1)
[2022-11-21] MEDS: bacitracin ointment Pkt 1 EACH TOPICAL (19:27)
[2022-11-21] MEDS: cephALEXin 500 mg Capsule PO (19:27)
[2022-11-21 19:30] VITALS: BP 185/95; PULSE 66; RESP 16; TEMP 36.5; O2SAT 97
== END 2022-11-21 19:33 | disposition home or self-care (01) ==
PROVIDERS: Emergency Provider Nurse Practitioner Family; PCP Internal Medicine
DX: B34.9 Viral infection, unspecified (principal); R11.2 Nausea with vomiting, unspecified; E86.0 Dehydration; Z79.82 Long term (current) use of aspirin; Z79.02 Long term (current) use of antithrombotics/antiplatelets; J43.9 Emphysema, unspecified; E78.5 Hyperlipidemia, unspecified; I10 Essential (primary) hypertension; Z95.0 Presence of cardiac pacemaker; Z87.891 Personal history of nicotine dependence
CPT/HCPCS: 80053; 83605; 83690; 85025; 85651; 86140; 96374; 99284; J2405; J7030

== ENCOUNTER → 2022-12-09 09:56 | Outpatient (BNVA) | payer MEDICARE, OTHER, MEDICAID, SELFPAY | PROVIDERS: PCP Internal Medicine; Visit Provider Internal Medicine Cardiovascular Disease | DX: Z45.010 Encounter for checking and testing of cardiac pacemaker pulse generator [battery] (principal) | CPT/HCPCS: 93296 ==

== ENCOUNTER → 2022-12-15 10:57 | Outpatient (BNVA) | payer MEDICARE, OTHER, MEDICAID, SELFPAY | PROVIDERS: PCP Internal Medicine; Visit Provider Internal Medicine Cardiovascular Disease | DX: I48.91 Unspecified atrial fibrillation (principal); R06.02 Shortness of breath; Z79.01 Long term (current) use of anticoagulants; I25.10 Atherosclerotic heart disease of native coronary artery without angina pectoris; G47.33 Obstructive sleep apnea (adult) (pediatric); I10 Essential (primary) hypertension; Z95.0 Presence of cardiac pacemaker; I49.5 Sick sinus syndrome; J43.9 Emphysema, unspecified; E78.2 Mixed hyperlipidemia | CPT/HCPCS: 80048; 84443; 85025; 85610; 99214 ==

== ENCOUNTER 2022-12-17 11:48 | Emergency (ER) | payer MEDICARE, OTHER, MEDICAID, SELFPAY ==
[2022-12-17 11:54] VITALS: BP 98/56; PULSE 63; RESP 15; O2SAT 97; BMI 30.7
--- NOTE | 2022-12-17 12:27 | XR_ITS ---
WS: [id number] EXAMINATION: XR elbow LT min 3V* [id number] REASON FOR EXAM: injury/pain COMPARISON: None available. ORDER DATE: 12/17/2022 12:28 PM FINDINGS: There is no sign of any acute osseous or articular abnormality. There are no specific soft tissue abn ormalities. No sign of joint effusion. A nutrient canal is seen in the upper radial shaft. XR/XR elbow LT min 3V* [id number] IMPRESSION: No acute change
--- NOTE | 2022-12-17 12:28 | W.ED.UPPEXIN ---
HPI - Extremity Injury (Upper) General: Chief Complaint: Extremity Injury, Upper Stated Complaint: left elbow pain Time Seen by Provider: 12/17/22 11:53 Source: patient Mode of arrival: ambulatory Limitations: no limitations History of Present Illness: Patient is a nice 82-year-old male who presents to ED today with a complaint of left elbow/forearm pain that he sustained approximately 3 days ago after he carrying a very heavy load of pallets when the pallets gave way causing a large axial force downward onto his left forearm. Patient states he never heard a pop or tearing sensation has had pain since. He feels like there might be some minimal swelling present. MD complaint: injury to: left, arm and elbow Other injuries: none Place: home Severity: moderate Relieving factors: immobilization Exacerbating factors: movement of extremity Associated symptoms: Reports no associated symptoms; Denies neck pain or weakness in extremities Review of Systems Card: Denies: chest pain Resp: Denies: dyspnea Musc: Reports: extremity pain (L forearm), joint pain (L elbow/forearm), joint swelling and limited range of motion; Denies: neck pain, back pain, extremity swelling, joint redness, joint warmth or joint stiffness Neuro: Denies: numbness in extremities, weakness in extremities or sensory changes PFSH ED PFSH: Medical History Atypical chest pain Cardiomyopathy Emphysema lung Hyperlipidemia Hypertension Obstructive sleep apnea (adult) (pediatric) Pt had the CPAP machine and was not using to the requirement and was taken away from him. Pacemaker Sick sinus syndrome Trimalleolar fracture Surgical History History of arthroplasty of left shoulder Family History Father CAD (coronary artery disease) Family/Other Cancer Grandmother Diabetes Denies family history of Clotting disorder Dementia Chronic kidney disease (CKD) Suicide Anesthesia complication Bleeding disorder Lung disease Stroke Social History Smoking and tobacco status: former smoker Quit status (tobacco): has quit using tobacco Year quit tobacco: 1990 Former quit date comment: 1.5ppd x 30 years Alcohol intake: never Physical Exam Const: COMMON NORMALS: no acute distress, average body habitus, patient oriented x3, no limitations, healthy appearing, alert and well nourished Extremity: COMMON NORMALS: capillary refill normal and no clubbing, cyanosis or edema GENERAL: Yes normal exam except as noted LEFT UPPER EXTREMITY: Yes elbow joint (pain with movement in all planes ) Left elbow: Yes neurovascular exam (normal) and Yes lower arm EXTREMITY IMAGE (FRONT): 1. patient has pain to volar L elbow and into proximal forearm; possible mild swelling noted; no retraction deformities noted to upper arm bicep musculature; normal pulses, cap refill, and sensation distally Neuro: COMMON NORMALS: patient oriented x3, moves all extremities, no focal motor deficits and no sensory deficits noted SENSORIUM/ORIENTATION: Yes alert Course Vital Signs: Vital signs: Vital Signs Pulse Rate 63 12/17/22 11:54 Respiratory Rate 15 12/17/22 11:54 Blood Pressure 98/56 12/17/22 11:54 Pulse Oximetry 97 12/17/22 11:54 Oxygen Delivery Me thod Room Air 12/17/22 11:54 MDM - Extremity Injury (Upper) Medical Decision Making No fxs noted on XR. Based on history and physical exam I would have suspicion for muscle/tendon strain vs tear. Will place in sling and have him follow up with orthopedics. Discharge Plan Discharge Patient Disposition: Home Clinical Impression: Muscle strain of left forearm Qualifiers: Encounter type: initial encounter Qualified Code(s): S56.912A - Strain of unspecified muscles, fascia and tendons at forearm level, left arm, initial encounter Condition: Stable Prescriptions: No Action (DME) ASO See Rx Instructions .ROUTE .MEDSUPPLY Qty: 1 0RF Rx Instructions: As directed (DME) Custom molded functional foot orthotic See Rx Instructions .Route .MEDSUPPLY Qty: 1 0RF Rx Instructions: As directed by [facility]O (DME) custom orthotics See Rx Instructions .Route .MEDSUPPLY Qty: 1 0RF Rx Instructions: As directed [id number]-uhzeln Tablet 1 tab PO QDAY nitroglycerin [Nitrostat] 0.4 mg tablet, sublingual 0.4 mg SUBLINGUAL Q5M PRN (Reason: Chest Pain) Qty: 50 3RF fluticasone furoate-vilanterol [Breo Ellipta] 100-25 mcg/dose blister with device 1 inh inhalation DAILY Qty: 60 5RF atorvastatin 80 mg tablet 80 mg PO DAILY Qty: 100 3RF clopidogrel 75 mg tablet 75 mg PO DAILY Qty: 100 3RF Avalide 150-12.5 mg tablet 0.5 tab PO DAILY Qty: 45 3RF Rx Instructions: dose reduced per Dr Adhikari r/t kidney fx isosorbide mononitrate 120 mg tablet extended release 24 hr 120 mg PO DAILY Qty: 100 3RF metoprolol succinate 25 mg tablet extended release 24 hr 12.5 mg PO DAILY Qty: 45 3RF apixaban 2.5 mg tablet 2.5 mg PO BID Qty: 180 3RF oxycodone-acetaminophen [Percocet] 5-325 mg tablet 1 tab PO Q4H PRN (Reason: pain) Qty: 10 0RF Vitamin B-12 100 mcg Tablet 100 mcg PO DAILY apple cider vinegar 500 mg Tablet 500 mg PO DAILY Tylenol 325 mg Capsule 325 mg PO QID PRN (Reason: PAIN) Carlito Mag Zinc Plus D3 333 mg-133 unit -133 mg-5 mg Tablet 1 tab PO DAILY albuterol sulfate 90 mcg/actuation HFA aerosol inhaler 2 puff INHALATION Q6H PRN (Reason: Shortness Of Breath Or Wheezing) Naprosyn 500 mg tablet 500 mg PO BID PRN (Reason: Pain) Discharge Orders: Discharge ED (Routine); Ordered 12/17/22 Ordered By: Jeanne Avila Referrals: Donavan Gupta DO [Primary Care Provider] - Activity Restrictions/Additional Instructions: As we discussed we will have case management set you up to see an orthopedic provider for further evaluation. You need to return to the emergency department for worsening or severe pain, significant swelling, numbness, tingling, loss of sensation to your extremity, any color or temperature changes, or any other concerns you may have. Coding Level of Care Code ED Supervisor [employer] for Guido Reed
--- NOTE | 2022-12-18 09:42 | DCPLANNER ---
Addendum entered by Mikki Pinon 12/26/22 08:04: Patient had a follow up appointment scheduled with ortho - patient did attend appointment. Addendum entered by Mikki Pinon 12/19/22 10:48: Patient has a follow up appointment scheduled for Friday, December 23, 2022 at 9:00 with O[facility] at ortho. Original Note: clinical research manager had message to schedule a follow up appointment for patient with ortho. clinical research manager sent patients information to the front office staff at ortho. Patients information will be printed and reviewed. Clinic will call patient with appointment information.
== END 2022-12-17 14:10 | disposition home or self-care (01) ==
PROVIDERS: Emergency Provider Physician Assistant; PCP Internal Medicine
DX: S56.912A Strain of unspecified muscles, fascia and tendons at forearm level, left arm, initial encounter (principal); Z79.02 Long term (current) use of antithrombotics/antiplatelets; J43.9 Emphysema, unspecified; E78.5 Hyperlipidemia, unspecified; I10 Essential (primary) hypertension; Z95.0 Presence of cardiac pacemaker; Z87.891 Personal history of nicotine dependence; X50.0XXA Overexertion from strenuous movement or load, initial encounter
CPT/HCPCS: 73080; 99283

== ENCOUNTER → 2022-12-23 08:41 | Outpatient (BNVA) | payer MEDICARE, OTHER, MEDICAID, SELFPAY | PROVIDERS: PCP Internal Medicine; Visit Provider Nurse Practitioner Family | DX: S56.912D Strain of unspecified muscles, fascia and tendons at forearm level, left arm, subsequent encounter (principal); W23.0XXD Caught, crushed, jammed, or pinched between moving objects, subsequent encounter | CPT/HCPCS: 99214 ==

== ENCOUNTER → 2022-12-30 13:53 | Outpatient (BNVA) | payer MEDICARE, OTHER, MEDICAID, SELFPAY | PROVIDERS: PCP Internal Medicine; Referring Provider Anesthesiology Pain Medicine; Visit Provider Orthopaedic Surgery | DX: M48.062 Spinal stenosis, lumbar region with neurogenic claudication (principal); M47.814 Spondylosis without myelopathy or radiculopathy, thoracic region; M47.816 Spondylosis without myelopathy or radiculopathy, lumbar region | CPT/HCPCS: 72070; 72110; 99204 ==

== ENCOUNTER → 2023-01-06 13:19 | Outpatient (BNVA) | payer MEDICARE, OTHER, MEDICAID, SELFPAY | PROVIDERS: PCP Internal Medicine; Visit Provider Nurse Practitioner Family | DX: S56.912D Strain of unspecified muscles, fascia and tendons at forearm level, left arm, subsequent encounter (principal); X58.XXXD Exposure to other specified factors, subsequent encounter | CPT/HCPCS: 73070; 99213 ==

== ENCOUNTER 2023-02-11 13:18 | Outpatient (CLI) | payer MEDICARE, OTHER, MEDICAID, SELFPAY ==
--- NOTE | 2023-02-11 13:30 | US_ITS ---
WS: [id number] INDICATION: Muscle strain TECHNIQUE: Ultrasound LEFT forearm to elbow FINDINGS: Normal visualized LEFT forearm subcutaneous soft tissues and musculature. No evidence of fl uid collection or edema. Visualized veins appear normal. No thrombus. US/US soft tissue/extremity [id number] IMPRESSION: No suspicious findings in the area of concern.
== END 2023-02-11 13:19 | disposition home or self-care (01) ==
LOC: RAD 13:20
PROVIDERS: PCP Internal Medicine; Visit Provider Nurse Practitioner Family
DX: S56.912D Strain of unspecified muscles, fascia and tendons at forearm level, left arm, subsequent encounter (principal); X58.XXXD Exposure to other specified factors, subsequent encounter
CPT/HCPCS: 76882

== ENCOUNTER → 2023-03-17 11:10 | Outpatient (BNVA) | payer MEDICARE, OTHER, MEDICAID, SELFPAY | PROVIDERS: PCP Internal Medicine; Visit Provider Nurse Practitioner Family | DX: M77.12 Lateral epicondylitis, left elbow (principal); S59.902A Unspecified injury of left elbow, initial encounter; X58.XXXA Exposure to other specified factors, initial encounter | CPT/HCPCS: 99213 ==

== ENCOUNTER → 2023-06-24 08:18 | Outpatient (BNVA) | payer MEDICARE, OTHER, SELFPAY | PROVIDERS: PCP Internal Medicine; Visit Provider Physician Assistant | DX: S32.040A Wedge compression fracture of fourth lumbar vertebra, initial encounter for closed fracture; X58.XXXA Exposure to other specified factors, initial encounter; M54.6 Pain in thoracic spine | CPT/HCPCS: 72070; 72100; 99213 ==

== ENCOUNTER 2023-07-02 09:07 | Outpatient (CLI) | payer MEDICARE, OTHER, SELFPAY ==
--- NOTE | 2023-07-02 09:30 | NM_ITS ---
WS: [id number] NUCLEAR MEDICINE WHOLE BODY BONE SCAN HISTORY: compression fractures COMPARISON: 07/28/2018, 12/30/2012, CT 05/27/2021 TECHNIQUE: The patient was injected with 24.5 mCi of Technetium 99m HDP and serial whole-body scintig jesus alberto have been performed with anterior and posterior images. Normal uptake throughout the thoracic and lumbar spines. No acute fractures are identified. There is no increased uptake within the chronic L4 fracture. 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 Mild bilateral SC joint disease. Normal soft tissue and renal uptake. IMPRESSION: 1. No increased uptake within the thoracic or lumbar vertebral bodies. 2. 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
== END 2023-07-02 09:08 | disposition home or self-care (01) ==
LOC: RAD 09:08
PROVIDERS: PCP Internal Medicine; Visit Provider Physician Assistant
DX: M48.062 Spinal stenosis, lumbar region with neurogenic claudication (principal); S32.040D Wedge compression fracture of fourth lumbar vertebra, subsequent encounter for fracture with routine healing; X58.XXXD Exposure to other specified factors, subsequent encounter; M17.0 Bilateral primary osteoarthritis of knee; M19.072 Primary osteoarthritis, left ankle and foot; M19.071 Primary osteoarthritis, right ankle and foot; M19.012 Primary osteoarthritis, left shoulder; M19.011 Primary osteoarthritis, right shoulder
CPT/HCPCS: 78306; A9561

== ENCOUNTER → 2023-07-07 11:00 | Outpatient (BNVA) | payer MEDICARE, OTHER, SELFPAY | PROVIDERS: PCP Internal Medicine; Visit Provider Physician Assistant | DX: M47.816 Spondylosis without myelopathy or radiculopathy, lumbar region; M54.6 Pain in thoracic spine | CPT/HCPCS: 99213 ==

== ENCOUNTER → 2023-07-13 09:41 | Outpatient (BNVA) | payer MEDICARE, OTHER, SELFPAY | PROVIDERS: PCP Internal Medicine; Visit Provider Internal Medicine Cardiovascular Disease | DX: R07.89 Other chest pain (principal); I25.119 Atherosclerotic heart disease of native coronary artery with unspecified angina pectoris; E78.2 Mixed hyperlipidemia; I42.9 Cardiomyopathy, unspecified; Z95.0 Presence of cardiac pacemaker; G47.33 Obstructive sleep apnea (adult) (pediatric); J43.9 Emphysema, unspecified; Z87.891 Personal history of nicotine dependence; I10 Essential (primary) hypertension | CPT/HCPCS: 99214 ==

== ENCOUNTER → 2023-07-17 11:03 | Outpatient (BNVA) | payer MEDICARE, OTHER, SELFPAY | PROVIDERS: PCP Internal Medicine; Visit Provider Internal Medicine Cardiovascular Disease | DX: Z45.010 Encounter for checking and testing of cardiac pacemaker pulse generator [battery] (principal) | CPT/HCPCS: 93296 ==

== ENCOUNTER → 2023-08-18 13:39 | Outpatient (BNVA) | payer MEDICARE, OTHER, SELFPAY | PROVIDERS: PCP Internal Medicine; Visit Provider Internal Medicine Pulmonary Disease | DX: J43.2 Centrilobular emphysema (principal); I25.119 Atherosclerotic heart disease of native coronary artery with unspecified angina pectoris; G47.33 Obstructive sleep apnea (adult) (pediatric); I42.9 Cardiomyopathy, unspecified; Z95.5 Presence of coronary angioplasty implant and graft; Z95.0 Presence of cardiac pacemaker; Z87.891 Personal history of nicotine dependence | CPT/HCPCS: 99214 ==

== ENCOUNTER → 2023-08-25 10:22 | Outpatient (BNVA) | payer MEDICARE, OTHER, SELFPAY | PROVIDERS: PCP Internal Medicine; Visit Provider Anesthesiology Pain Medicine | DX: M47.816 Spondylosis without myelopathy or radiculopathy, lumbar region (principal); M54.6 Pain in thoracic spine | CPT/HCPCS: 99204 ==

== ENCOUNTER → 2023-09-16 13:51 | Outpatient (BNVA) | payer MEDICARE, OTHER, SELFPAY | PROVIDERS: PCP Internal Medicine; Visit Provider Anesthesiology Pain Medicine | DX: M47.816 Spondylosis without myelopathy or radiculopathy, lumbar region (principal) | CPT/HCPCS: 64493; 64494; 64495; J3490 ==

== ENCOUNTER → 2023-09-29 12:33 | Outpatient (BNVA) | payer MEDICARE, OTHER, SELFPAY | PROVIDERS: PCP Internal Medicine; Visit Provider Anesthesiology Pain Medicine | DX: M54.6 Pain in thoracic spine (principal); M47.816 Spondylosis without myelopathy or radiculopathy, lumbar region | CPT/HCPCS: 99214 ==

== ENCOUNTER → 2023-10-07 16:59 | Outpatient (BNVA) | payer MEDICARE, OTHER, SELFPAY | PROVIDERS: PCP Internal Medicine; Visit Provider Internal Medicine | DX: Z45.010 Encounter for checking and testing of cardiac pacemaker pulse generator [battery] (principal) | CPT/HCPCS: 93296 ==

== ENCOUNTER → 2023-10-13 14:19 | Outpatient (BNVA) | payer MEDICARE, OTHER, SELFPAY | PROVIDERS: PCP Internal Medicine; Visit Provider Anesthesiology Pain Medicine | DX: M47.816 Spondylosis without myelopathy or radiculopathy, lumbar region (principal); M54.6 Pain in thoracic spine | CPT/HCPCS: 64493; 64494; 64495; J3490 ==

== ENCOUNTER → 2023-10-27 09:20 | Outpatient (BNVA) | payer MEDICARE, OTHER, SELFPAY | PROVIDERS: PCP Internal Medicine; Visit Provider Anesthesiology Pain Medicine | DX: M54.6 Pain in thoracic spine (principal); M47.816 Spondylosis without myelopathy or radiculopathy, lumbar region | CPT/HCPCS: 99214 ==

== ENCOUNTER 2023-11-16 05:39 | Emergency (ER) | payer MEDICARE, OTHER, SELFPAY ==
[2023-11-16 05:48] VITALS: BP 142/80; PULSE 68; RESP 16; TEMP 36.5; O2SAT 97
--- NOTE | 2023-11-16 05:58 | XRR_ITS ---
PROCEDURE INFORMATION: Exam: XR Right Foot Exam date and time: 11/16/2023 6:03 AM Age: 83 years old Clinical indication: Injury or trauma; Blunt trauma; Toes; Right lesser toe(s); Patient HX: Patient stubbed 5th digit against dresser this morning TECHNIQUE: Imaging protocol: Radiologic exam of the right foot. Views: 3 or more views. COMPARISON: NM bone scan whole body* [id number] 07/02/2023 9:30 AM FINDINGS: Bones/joints: No acute fractures, subluxation or dislocation. An enthesophyte at the attachment of Achilles tendon to the calcaneus. Soft tissues: Normal. XR/XR foot RT min 3V* [id number] IMPRESSION: No acute findings.
--- NOTE | 2023-11-16 06:06 | ED_ITS ---
HPI - Extremity Problem General: Chief complaint: Extremity Injury, Lower Stated complaint: right toe lac Time Seen by Provider: 11/16/23 05:58 Source: patient Mode of arrival: ambulatory History of Present Illness: 83-year-old male while walking in his ho me barefoot kicked the leg of a piece of furniture laceration on the plantar aspect of the right fifth toe. He is on apixaban and clopidogrel he noticed some moderate bleeding but he could not visualize laceration because of its position. Bleeding is stopped. He has some mild discomfort to the toe. Denies any other injury. MD Complaint: extremity pain Location: right and toe (5th) Associated symptoms: Deny fever(s) or rash Review of Systems Const: Denies: fever(s) or chills Resp: Denies: dyspnea GI: Denies: abdominal pain : Denies: dysuria, urinary frequency or urinary urgency Musc: Denies: neck pain or back pain Skin/Breast: Denies: rash PFSH ED PFSH: Medical History Trimalleolar fracture Obstructive sleep apnea (adult) (pediatric) Pt had the CPAP machine and was not using to the requirement and was taken away from him. Atypical chest pain Pacemaker Cardiomyopathy Sick sinus syndrome Hypertension Hyperlipidemia Emphysema lung Surgical History History of arthroplasty of left shoulder Family History Father CAD (coronary artery disease) Family/Other Cancer Grandmother Diabetes Denies family history of Clotting disorder Dementia Chronic kidney disease (CKD) Suicide Anesthesia complication Bleeding disorder Lung disease Stroke Social History Smoking and tobacco/nicotine status: former use of tobacco/nicotine Quit status (tobacco/nicotine): has quit using Year quit tobacco: 1990 Former quit date comment: 1.5ppd x 30 years Alcohol intake: never Substance/Drug Use: never Physical Exam Const: COMMON NORMALS: no acute distress GENERAL APPEARANCE: cooperative and comfortable ORIENTATION/CONSCIOUSNESS: Yes awake, Yes oriented to person, Yes oriented to place and Yes oriented to time HENMT: COMMON NORMALS: normocephalic, atraumatic and hearing grossly normal bilaterally HEAD & SCALP: normocephalic and atraumatic Resp: COMMON NORMALS: normal respiratory effort, No retractions, No use of accessory muscles and clear to auscultation bilaterally AUSCULTATION: clear to auscultation bilaterally Cardio: COMMON NORMALS: regular rate, regular rhythm and No murmurs present (Cardio) RATE: regular rate RHYTHM: regular rhythm Neuro: SENSORIUM/ORIENTATION: Yes oriented to person, Yes oriented to place and Yes oriented to time Skin: COMMON NORMALS: no rashes or lesions noted GENERAL SKIN EXAM: no rashes or lesions noted Procedures Laceration Laceration 1: Site: lower extremity (Right foot) Side (If applicable): right Size (cm): 1.5 Description: linear Depth: simple, single layer Local Anesthetic: lidocaine 1% Pre-repair: irrigated extensively Skin layer closed with: other (Prolene) Size (cm): 4-0 Number of sutures: 2 Technique: simple, interrupted Course Vital Signs: Vital signs: Vital Signs Temperature 97.7 F 11/16/23 05:48 Pulse Rate 68 11/16/23 05:48 Respiratory Rate 16 11/16/23 05:48 Blood Pressure 142/80 11/16/23 05:48 Pulse Oximetry 97 11/16/23 05:48 MDM - Extremity (Nontraumatic) Medical Decision Making Somewhat delayed presentation after laceration to the right fifth toe. No acute fracture noted on x-ray. Approximately 1 and half centimeter laceration on the flexor crease proximally of the right fifth toe. Wound was approximated with 2 sutures of 4-0 Prolene to allow for drainage since it was delayed closure and difficult location at the sole of the foot. Prophylactic antibiotic Augmentin 875 twice daily for 5 days. Sutures to removed in approximately 10 days Medical Records I reviewed the patient's medical records. XR interpretation done by ED provider, pending radiology final review Discharge Plan Discharge Patient Disposition: Home Clinical Impression: Laceration of toe of right foot Condition: Stable Prescriptions: New amoxicillin-pot clavulanate 875-125 mg tablet 1 tab PO BID Qty: 10 0RF No Action (DME) ASO See Rx Instructions .ROUTE .MEDSUPPLY Qty: 1 0RF Rx Instructions: As directed (DME) Custom molded functional foot orthotic See Rx Instructions .Route .MEDSUPPLY Qty: 1 0RF Rx Instructions: As directed by [facility] (DME) custom orthotics See Rx Instructions .Route .MEDSUPPLY Qty: 1 0RF Rx Instructions: As directed [id number] Tablet 1 tab PO QDAY nitroglycerin [Nitrostat] 0.4 mg tablet, sublingual 0.4 mg SUBLINGUAL Q5M PRN (Reason: Chest Pain) Qty: 50 3RF apixaban 2.5 mg tablet 2.5 mg PO BID Qty: 30 0RF atorvastatin 80 mg tablet 80 mg PO DAILY Qty: 100 3RF carvedilol 12.5 mg tablet 12.5 mg PO BID Qty: 180 3RF clopidogrel 75 mg tablet 75 mg PO DAILY Qty: 100 3RF Avalide 150-12.5 mg tablet 0.5 tab PO DAILY Qty: 45 3RF Rx Instructions: dose reduced per Dr Adhikari r/t kidney fx isosorbide mononitrate 120 mg tablet extended release 24 hr 120 mg PO DAILY Qty: 100 3RF fluticasone furoate-vilanterol [Breo Ellipta] 100-25 mcg/dose blister with device 1 inh inhalation DAILY Qty: 60 5RF oxycodone-acetaminophen [Percocet] 5-325 mg tablet 1 tab PO Q4H PRN (Reason: pain) Qty: 10 0RF Vitamin B-12 100 mcg Tablet 100 mcg PO DAILY apple cider vinegar 500 mg Tablet 500 mg PO DAILY Tylenol 325 mg Capsule 325 mg PO QID PRN (Reason: PAIN) Carlito Mag Zinc Plus D3 333 mg-133 unit -133 mg-5 mg Tablet 1 tab PO DAILY albuterol sulfate 90 mcg/actuation HFA aerosol inhaler 2 puff INHALATION Q6H PRN (Reason: Shortness Of Breath Or Wheezing) Naprosyn 500 mg tablet 500 mg PO BID PRN (Reason: Pain) Discharge Orders: Discharge ED (Routine); Ordered 11/16/23 Ordered By: Yuan Patton Referrals: Donavan Gupta DO [Primary Care Provider] - Discharge Diet: Usual diet Discharge Activity: Increase activity as tolerated Patient Instructions: Opioid Safety, Pain Management Activity Restrictions/Additional Instructions: Thank you for choosing [facility] for your healthcare needs today. Please realize this is an emergency room and that we are providing you with a medical screening exam and this may not be complete and all inclusive of all the testing and or work up that you may need to determine your ailment or severity of your illness. It is very important that you follow up as instructed or that you return to the Emergency Department should you have concerns or if your condition changes or worsens in any way. You were seen today for a toe laceration. The wound edges were loosely approximated to allow for drainage because of the location and late presentation. Recommend you take prophylactic antibiotics 1 pill twice a day for 5 days. Sutures should be removed in 10 days by your primary care doctor. Coding Level of Care Code ED Yacht Master for Guido Reed
[2023-11-16] MEDS: tetanus-diphtheria tox (adult) 0.5 mL SYRINGE IM (06:41)
== END 2023-11-16 06:49 | disposition home or self-care (01) ==
PROVIDERS: Emergency Provider Family Medicine; PCP Internal Medicine
DX: S91.114A Laceration without foreign body of right lesser toe(s) without damage to nail, initial encounter (principal); Z79.02 Long term (current) use of antithrombotics/antiplatelets; Z87.891 Personal history of nicotine dependence; Z95.0 Presence of cardiac pacemaker; I11.9 Hypertensive heart disease without heart failure; I43 Cardiomyopathy in diseases classified elsewhere; E78.5 Hyperlipidemia, unspecified; J43.9 Emphysema, unspecified; Z23 Encounter for immunization; W22.09XA Striking against other stationary object, initial encounter
CPT/HCPCS: 12001; 73630; 90471; 90714; 99283

== ENCOUNTER 2023-12-08 01:50 | Emergency (ER) | payer MEDICARE, OTHER, SELFPAY ==
[2023-12-08 01:52] VITALS: BP 144/93; PULSE 99; RESP 18; TEMP 36.7; O2SAT 97; BMI 29.8
[2023-12-08] MEDS: tranexamic acid 1,000 mg/10mL SDV 1000 MG XX (02:10)
--- NOTE | 2023-12-08 02:11 | ED_ITS ---
HPI - Dental/Oral General: Chief complaint: Dental/Oral Stated complaint: Mouth pain Time Seen by Provider: 12/08/23 01:57 History of Present Illness: Patient presents to the ER with complaints of bleeding from his mouth. Patient stated that he was eating pretzels at about 9:30 PM and noticed bleeding at about 11 PM patient is on 2 blood thinners, patient is on Plavix and Eliquis. Patient could not get the bleeding to stop. Patient thinks he may have jabbed a pretzel into his mouth somewhere. Review of Systems General: Reports: 10 or more systems reviewed and unremarkable except in HPI a nd below [facility] ED PFS: Medical History Trimalleolar fracture Obstructive sleep apnea (adult) (pediatric) Pt had the CPAP machine and was not using to the requirement and was taken away from him. Atypical chest pain Pacemaker Cardiomyopathy Sick sinus syndrome Hypertension Hyperlipidemia Emphysema lung Surgical History History of arthroplasty of left shoulder Family History Father CAD (coronary artery disease) Family/Other Cancer Grandmother Diabetes Denies family history of Clotting disorder Dementia Chronic kidney disease (CKD) Suicide Anesthesia complication Bleeding disorder Lung disease Stroke Social History Smoking and tobacco/nicotine status: former use of tobacco/nicotine Quit status (tobacco/nicotine): has quit using Year quit tobacco: 1990 Former quit date comment: 1.5ppd x 30 years Alcohol intake: never Substance/Drug Use: never Physical Exam Const: COMMON NORMALS: no acute distress, average body habitus, patient oriented x3, no limitations, healthy appearing, alert and well nourished HENMT: COMMON NORMALS: normocephalic, atraumatic, hearing grossly normal bilaterally, external ears normal, Normal external nose present and Normal nasal mucous membranes and turbinates present; oral mucous membranes not moist (Small laceration noted on anterior hard palate region behind the front row ) HEAD & SCALP: normocephalic and atraumatic NOSE: Normal external nose present and Normal nasal mucous membranes and turbinates present EXTERNAL EAR: Yes external ears normal Neck/C-Spine: COMMON NORMALS: full ROM, no lymphadenopathy, supple, no meningeal signs, no JVD and Thyroid normal THYROID: Thyroid normal Chest: COMMONS NORMALS: normal inspection of the chest and normal palpation of entire chest wall Resp: COMMON NORMALS: normal respiratory effort, No retractions, No use of accessory muscles and clear to auscultation bilaterally AUSCULTATION: clear to auscultation bilaterally Cardio: COMMON NORMALS: no JVD, regular rate, regular rhythm, S1 normal heart sound present, S2 normal heart sound present, No gallops present (Cardio), No clicks present (Cardio), No murmurs present (Cardio) and No rub (Cardio) RATE: regular rate RHYTHM: regular rhythm HEART SOUNDS: S1 normal heart sound present and S2 normal heart sound present GI: COMMON NORMALS: Normal to inspection, nondistended, normoactive bowel sounds present, Soft to palpation, non-tender and No hepatosplenomegaly present PALPATION: Yes Soft to palpation and Yes No hepatosplenomegaly present Neuro: COMMON NORMALS: patient oriented x3 SENSORIUM/ORIENTATION: Yes alert MENINGEAL SIGNS: Yes no meningeal signs Course Vital Signs: Vital signs: Vital Signs Temperature 98.0 F 12/08/23 02:38 Pulse Rate 99 12/08/23 02:38 Respiratory Rate 18 12/08/23 02:38 Blood Pressure 144/93 12/08/23 02:38 Pulse Oximetry 97 12/08/23 02:38 Oxygen Delivery Me thod Room Air 12/08/23 01:52 MDM - Dental/Oral Medical Decision Making PSA 7 gauze placed in patient's mouth and pushed up against the bleeder. Bleeding was controlled. Patient was watched on appropriate amount of time and then discharged home. Differential Diagnosis Unlikely gingival abscess, dental caries, toothache, dental abscess, fracture of tooth or aphthous ulcer Medical Records I reviewed the patient's medical records. Lab Data I reviewed the patient's lab results. No radiology studies performed this visit Discharge Plan Discharge Patient Disposition: Home Clinical Impression: Laceration of internal mouth Qualifiers: Encounter type: initial encounter Qualified Code(s): S01.512A - Laceration without foreign body of oral cavity, initial encounter Condition: Stable Prescriptions: No Action (DME) ASO See Rx Instructions .ROUTE .MEDSUPPLY Qty: 1 0RF Rx Instructions: As directed (DME) Custom molded functional foot orthotic See Rx Instructions .Route .MEDSUPPLY Qty: 1 0RF Rx Instructions: As directed by [facility] (DME) custom orthotics See Rx Instructions .Route .MEDSUPPLY Qty: 1 0RF Rx Instructions: As directed [id number] Tablet 1 tab PO QDAY nitroglycerin [Nitrostat] 0.4 mg tablet, sublingual 0.4 mg SUBLINGUAL Q5M PRN (Reason: Chest Pain) Qty: 50 3RF apixaban 2.5 mg tablet 2.5 mg PO BID Qty: 30 0RF atorvastatin 80 mg tablet 80 mg PO DAILY Qty: 100 3RF carvedilol 12.5 mg tablet 12.5 mg PO BID Qty: 180 3RF clopidogrel 75 mg tablet 75 mg PO DAILY Qty: 100 3RF Avalide 150-12.5 mg tablet 0.5 tab PO DAILY Qty: 45 3RF Rx Instructions: dose reduced per Dr Adhikari r/t kidney fx isosorbide mononitrate 120 mg tablet extended release 24 hr 120 mg PO DAILY Qty: 100 3RF fluticasone propion-salmeterol [Advair Diskus] 100-50 mcg/dose blister with device 1 inh inhalation BID 90 Days Qty: 180 3RF oxycodone-acetaminophen [Percocet] 5-325 mg tablet 1 tab PO Q4H PRN (Reason: pain) Qty: 10 0RF Vitamin B-12 100 mcg Tablet 100 mcg PO DAILY apple cider vinegar 500 mg Tablet 500 mg PO DAILY Tylenol 325 mg Capsule 325 mg PO QID PRN (Reason: PAIN) Carltio Mag Zinc Plus D3 333 mg-133 unit -133 mg-5 mg Tablet 1 tab PO DAILY albuterol sulfate 90 mcg/actuation HFA aerosol inhaler 2 puff INHALATION Q6H PRN (Reason: Shortness Of Breath Or Wheezing) Naprosyn 500 mg tablet 500 mg PO BID PRN (Reason: Pain) amoxicillin-pot clavulanate 875-125 mg tablet 1 tab PO BID Qty: 10 0RF Discharge Orders: Discharge ED (Routine); Ordered 12/08/23 Ordered By: Alcides Jones Referrals: Donavan Gupta DO [Primary Care Provider] - 1 week Patient Instructions: Dental Laceration (ED) Activity Restrictions/Additional Instructions: Please apply pressure to laceration as this will help with bleeding. If your bleeding cannot be controlled please return to the ER. You are on 2 blood thinners so this will make the bleeding more pronounced and harder to stop. Coding Level of Care Code ED Quality Liaison for Guido Reed
[2023-12-08 02:38] VITALS: BP 144/93; PULSE 99; RESP 18; TEMP 36.7; O2SAT 97
== END 2023-12-08 02:41 | disposition home or self-care (01) ==
PROVIDERS: Emergency Provider Emergency Medicine; PCP Internal Medicine
DX: S01.512A Laceration without foreign body of oral cavity, initial encounter (principal); Z79.02 Long term (current) use of antithrombotics/antiplatelets; Z87.891 Personal history of nicotine dependence; Z95.0 Presence of cardiac pacemaker; I11.9 Hypertensive heart disease without heart failure; I43 Cardiomyopathy in diseases classified elsewhere; E78.5 Hyperlipidemia, unspecified; J43.9 Emphysema, unspecified; X58.XXXA Exposure to other specified factors, initial encounter
CPT/HCPCS: 99284

== ENCOUNTER → 2023-12-24 13:00 | Outpatient (BNVA) | payer MEDICARE, OTHER, SELFPAY | PROVIDERS: PCP Internal Medicine; Visit Provider Anesthesiology Pain Medicine | DX: M47.816 Spondylosis without myelopathy or radiculopathy, lumbar region (principal); M54.6 Pain in thoracic spine | CPT/HCPCS: 64635; 64636; J1010 ==

== ENCOUNTER → 2024-01-07 16:44 | Outpatient (BNVA) | payer MEDICARE, OTHER, SELFPAY | PROVIDERS: PCP Internal Medicine; Visit Provider Internal Medicine Cardiovascular Disease | DX: Z45.010 Encounter for checking and testing of cardiac pacemaker pulse generator [battery] (principal) | CPT/HCPCS: 93296 ==

== ENCOUNTER → 2024-01-21 08:41 | Outpatient (BNVA) | payer MEDICARE, OTHER, SELFPAY | PROVIDERS: PCP Internal Medicine; Visit Provider Anesthesiology Pain Medicine | DX: M54.6 Pain in thoracic spine (principal); M47.816 Spondylosis without myelopathy or radiculopathy, lumbar region | CPT/HCPCS: 99214 ==

== ENCOUNTER → 2024-05-10 10:15 | Outpatient (BNVA) | payer MEDICARE, OTHER, SELFPAY | PROVIDERS: PCP Internal Medicine; Visit Provider Internal Medicine Critical Care Medicine | DX: R06.09 Other forms of dyspnea (principal); I50.32 Chronic diastolic (congestive) heart failure; R07.89 Other chest pain; G47.33 Obstructive sleep apnea (adult) (pediatric); Z71.89 Other specified counseling; I25.118 Atherosclerotic heart disease of native coronary artery with other forms of angina pectoris; E78.2 Mixed hyperlipidemia; I10 Essential (primary) hypertension; I42.9 Cardiomyopathy, unspecified; Z95.0 Presence of cardiac pacemaker; Z87.891 Personal history of nicotine dependence | CPT/HCPCS: 99213; 99214 ==

== ENCOUNTER 2024-05-28 14:49 | Emergency (ER) | payer MEDICARE, OTHER, SELFPAY ==
[2024-05-28 14:58] VITALS: BP 119/72; PULSE 58; RESP 16; TEMP 36.7; O2SAT 97
--- NOTE | 2024-05-28 15:04 | ECG_ITS ---
[facility] Test Date: 2024-05-28 Pat Name: Jordi Esposito Department: Room: Gender: Male Proposal Lead Writer: : 1940 Requested By: Michael Grossman Order Number: [id number] Kandace MD: Christi Chen M.D. Measurements Intervals [place] Rate: 67 P: 200 WA: 179 QRS: -74 QRSD: 216 T: 91 QT: 455 QTc: 484 Interpretive Statements ELECTRONIC ATRIAL PACEMAKER ELECTRONIC VENTRICULAR PACEMAKER ABNORMAL RHYTHM ECG Compared to ECG 06/16/2022 16:03:19 No significant changes Electronically Signed On 05-28-2024 19:58:45 CDT by Christi Chen M.D. [email or web address]
[2024-05-28 16:04] VITALS: BP 126/73; PULSE 78; O2SAT 98
[2024-05-28 16:34] VITALS: BP 113/72; PULSE 60; O2SAT 97
--- NOTE | 2024-05-28 16:44 | XRR_ITS ---
PROCEDURE INFORMATION: Exam: XR Chest Exam date and time: 05/28/2024 5:04 PM Age: 83 years old Clinical indication: Pain; Chest pressure; Prior surgery; Surgery date: 6+ months; Surgery type: Pacemaker, cardiac stents; Additional info: Cp TECHNIQUE: Imaging protocol: Radiologic exam of the chest. Views: 1 view. COMPARISON: CR XR chest 1V portable [id number] 06/16/2022 1:59 PM FINDINGS: Tubes, catheters and devices: Left chest wall pacemaker with right atrial and ventricular leads. Lungs: Lungs appear clear without consolidation. Pleural spaces: No pleural effusion or pneumothorax. Heart/Mediastinum: Normal size of the cardiac silhouette. Bones/joints: Remote postsurgical or posttraumatic appearance of the distal left clavicle. Scattered spinal degenerative changes. XR/XR chest 1V portable [id number] IMPRESSION: No radiographically apparent acute cardiopulmonary disease.
--- NOTE | 2024-05-28 16:45 | ED_ITS ---
HPI - Chest Pain 2 General: Chief Complaint: Chest Pain Stated Complaint: left side chest pain Time Seen by Provider: 05/28/24 16:00 Source: patient Mode of arrival: ambulatory Limitations: no limitations History of Present Illness: This patient made his way to the emergency department today because he concerned about these bleeding sharp chest pains has been having today. He states they are intermittent in nature and have been coming on predominantly since this morning several times and then throughout the day several times. He states they are in the center of his chest and feels like electrical shocks going across his chest. He sees they are just seconds in duration and not sustained. There is no radiation of pain. There is no sensation of shortness of breath diaphoresis nausea etc. He denies any chest injuries. He denies any fevers chills cough etc. He has a pacemaker in situ that is been present approximately 5 years. He had a previously patient previous pacemaker placed in 2009 and this is his second pacemaker. Pacemaker initially placed for symptomatic bradycardia he is followed by cardiology here and has had increasing pacemaker evaluations which were normal. He denies any syncope or presyncope symptoms. He denies any other concomitant illness. He denies any palpitations associated with his current presentation. Associated symptoms: Deny abdominal pain, dyspnea, fever(s), nausea, palpitations, syncope or vomiting Related Data Home Medications Medication Instructions Recorded Confirmed ozsltctqhokg-kfofocyn-oouwev tablet 1 tab PO QDAY 10/04/19 05/10/24 acetaminophen 325 mg capsule 325 mg PO QID PRN PAIN 06/16/22 05/10/24 (Tylenol) albuterol sulfate 90 mcg/actuation 2 puff inhalation Q6H PRN 06/16/22 05/10/24 aerosol inhaler Shortness Of Breath Or Wheezing apple cider vinegar 500 mg tablet 500 mg PO DAILY 06/16/22 05/10/24 calcium carb 333 mg-vit D3 133 1 tab PO DAILY 06/16/22 05/10/24 unit-mag ox 133 mg-zinc oxide 5 mg tab (Carlito Mag Zinc Plus D3) cyanocobalamin (vitamin B-12) 100 100 mcg PO DAILY 06/16/22 05/10/24 mcg tablet (Vitamin B-12) naproxen 500 mg tablet (Naprosyn) 500 mg PO BID PRN Pain 06/16/22 05/10/24 Previous Rx's Medication Instructions Recorded ASO #1 ea 04/04/20 oxycodone-acetaminophen 5 mg-325 1 tab PO Q4H PRN pain #10 tabs 07/05/20 mg tablet (Percocet) Custom molded functional foot #1 ea 01/31/21 orthotic custom orthotics #1 ea 05/14/21 nitroglycerin 0.4 mg sublingual 0.4 mg sublingual Q5M PRN Chest 05/30/21 tablet (Nitrostat) Pain #50 tabs atorvastatin 80 mg tablet 80 mg PO DAILY #100 tabs 08/19/23 carvedilol 12.5 mg tablet 12.5 mg PO BID #180 tabs 08/19/23 clopidogrel 75 mg tablet 75 mg PO DAILY #100 tabs 08/19/23 irbesartan 150 0.5 tab PO DAILY #45 tabs 08/19/23 mg-hydrochlorothiazide 12.5 mg tablet (Avalide) isosorbide mononitrate 120 mg 120 mg PO DAILY #100 tabs 08/19/23 tablet,extended release 24 hr fluticasone propionate 45 2 puff inhalation BID #12 grams 02/09/24 mcg-salmeterol 21 mcg/actuation HFA inhaler (Advair HFA) apixaban 2.5 mg tablet 2.5 mg PO BID #90 tabs 02/12/24 Allergies Allergy/AdvReac Type Severity Reaction Status Date / Time morphine Allergy ADR-Vomitin Verified 05/28/24 15:04 g Review of Systems 2 Const: Denies: fever(s) or chills ENMT: Denies: throat pain, odynophagia, nasal discharge or nasal congestion Card: Denies: palpitations, syncope or pre-syncope Resp: Denies: dyspnea, productive cough or non-productive cough GI: Denies: abdominal pain, nausea, vomiting or diarrhea : Denies: flank pain, difficulty urinating, dysuria or urinary frequency Musc: Denies: neck pain, back pain, extremity pain or extremity swelling Skin/Breast: Denies: rash or pruritus Neuro: Denies: headache(s), numbness in extremities or weakness in extremities Endo: Denies: polyuria, polydipsia or tired all the time Mundo/Lymph: Denies: easy bruising or easy bleeding PFSH ED 2 PFSH: Medical History Trimalleolar fracture Obstructive sleep apnea (adult) (pediatric) Pt had the CPAP machine and was not using to the requirement and was taken away from him. Atypical chest pain Pacemaker Cardiomyopathy Sick sinus syndrome Hypertension Hyperlipidemia Emphysema lung Surgical History History of arthroplasty of left shoulder Family History Father CAD (coronary artery disease) Family/Other Cancer Grandmother Diabetes Denies family history of Clotting disorder Dementia Chronic kidney disease (CKD) Suicide Anesthesia complication Bleeding disorder Lung disease Stroke Social History Smoking and tobacco/nicotine status: former use of tobacco/nicotine Quit status (tobacco/nicotine): has quit using Year quit tobacco: 1990 Former quit date comment: 1.5ppd x 30 years Alcohol intake: never Substance/Drug Use: never Physical Exam 2 Narrative: EXAM NARRATIVE: Quite healthy appearing makes good eye contact and very engaging in conversation and goal-directed answers to questions Const: COMMON NORMALS: no acute distress, average body habitus, patient oriented x3, healthy appearing and alert GENERAL APPEARANCE: cooperative and comfortable HENMT: COMMON NORMALS: Normal nasal mucous membranes and turbinates present, moist oral mucous membranes and oropharynx normal FACE & SINUS: normal facial exam NOSE: Normal nasal mucous membranes and turbinates present Eye: COMMON NORMALS: Equal, round and reactive pupils present, EOMs intact bilaterally and conjunctivae normal CONJUNCTIVA: Yes conjunctivae normal P UPIL: Yes Equal, round and reactive pupils present Neck/C-Spine: COMMON NORMALS: full ROM, no lymphadenopathy, supple, no JVD and No carotid bruits Chest: COMMONS NORMALS: normal inspection of the chest and normal palpation of entire chest wall OTHER: Implanted medical field representative in his left upper anterior chest which is in its typical location Resp: COMMON NORMALS: normal respiratory effort, No use of accessory muscles and clear to auscultation bilaterally AUSCULTATION: clear to auscultation bilaterally Cardio: COMMON NORMALS: no JVD, regular rate, regular rhythm, No murmurs present (Cardio) and Peripheral pulses 2+ throughout RATE: regular rate R HYTHM: regular rhythm PERIPHERAL PULSES: Peripheral pulses 2+ throughout GI: COMMON NORMALS: Normal to inspection, nondistended, normoactive bowel sounds present and Soft to palpation PALPATION: Yes Soft to palpation Back/Pelvis: COMMON NORMALS: thoracic and lumbar spine normal to inspection, no thoracic nor lumbar tenderness and thoraco-lumbar ROM normal Extremity: COMMON NORMALS: normal to inspection, full ROM, no calf tenderness and no pedal edema Neuro: COMMON NORMALS: patient oriented x3, moves all extremities, no focal motor deficits and no sensory deficits noted SENSORIUM/ORIENTATION: Yes alert Psych: COMMON NORMALS: mental status grossly normal Skin: COMMON NORMALS: no rashes or lesions noted and turgor normal GENERAL SKIN EXAM: no rashes or lesions noted and turgor normal Course 2 Reevaluation(s): Reevaluation #1: Received report from [employer] claims representative which was very reassuring pacer is functioning normally without any evidence of arrhythmias or other concerning findings in terms of his pacer function Time: 17:40 Reevaluation #2: Patient remained stable without symptoms at this time. Normal vital signs and reassuring repeat examination. Discussed current findings and their implications and limitations with the patient. He is troponin is very minimally elevated over the URL. I discussed a repeat troponin will give us more definitive indication that he is not having ACS although I think the risk of that is extremely low at this point given his presentation and other findings. He voiced understanding of this recommendation however he declined at this time and agrees to return if he has any sustained chest pain associated with shortness of breath diaphoresis or other typical angina symptoms. Stable at this time to be discharged at his request Time: 17:54 Vital Signs: Vital signs: Vital Signs Temperature 98.0 F 05/28/24 14:58 Pulse Rate 78 05/28/24 16:04 Respiratory Rate 16 05/28/24 14:58 Blood Pressure 126/73 05/28/24 16:04 Pulse Oximetry 98 05/28/24 16:04 Oxygen Delivery Me thod Room Air 05/28/24 14:58 MDM - Chest Pain Medical Decision Making This patient presented to the Emergency Department as noted in the history of present illness. His presenting symptoms do not sound cardiac in etiology is not clear as to whether he is having pacemaker dysfunction etc. based upon his presenting symptoms. He has had no history of syncope or sustained chest pain shortness of breath etc. Differential included possible dislodgment of pacemaker wires, pacemaker malfunction, occult ACS or other potential etiology of his chest pain. Workup will be geared towards that differential. Pacemaker query revealed a normal functioning pacemaker without any evidence of arrhythmias or other findings per [employer]. Chest x-ray, laboratories were reassuring. He did have a slight troponin elevation as noted in the chart however the patient has decided to feels fine with going home at this time with a single troponin reading despite its limitations. He did acknowledge that there is a small but real potential that that level could be rising for he acknowledges that he will return should he have any return of symptoms. At this point does not appear to be any ongoing emergency medical condition will be discharged in stable condition. Lab Data I reviewed the patient's lab results. 05/28/24 16:55 05/28/24 16:55 Laboratory Results WBC 6.59 10^3/uL (3.29-11.43) 05/28/24 16:55 RBC 4.21 10^6/uL (3.85-5.65) 05/28/24 16:55 Hgb 12.80 g/dL (11.27-16.99) 05/28/24 16:55 Hct 39.5 % (37-53) 05/28/24 16:55 MCV 93.8 fl (82-101) 05/28/24 16:55 MCH 30.4 pg (27-33) 05/28/24 16:55 MCHC 32.4 g/dL (30-55) 05/28/24 16:55 RDW 12.8 % (12.1-15.1) 05/28/24 16:55 Plt Count 175 10^3/cmm (157-399) 05/28/24 16:55 MPV 10.5 fL (7.4-10.4) H 05/28/24 16:55 Neut % (Auto) 62.1 % 05/28/24 16:55 Lymph % (Auto) 27.0 % 05/28/24 16:55 [place] % (Auto) 7.1 % 05/28/24 16:55 Eos % (Auto) 3.0 % 05/28/24 16:55 Baso % (Auto) 0.5 % 05/28/24 16:55 Neut # (Auto) 4.09 10^3/uL (1.8-7.7) 05/28/24 16:55 Lymph # (Auto) 1.8 10^3/uL (0.8-4.8) 05/28/24 16:55 [place] # (Auto) 0.5 10^3/uL (0.2-0.9) 05/28/24 16:55 Eos # (Auto) 0.2 10^3/uL (0.0-0.8) 05/28/24 16:55 Baso # (Auto) 0.0 10^3/uL (0.0-0.1) 05/28/24 16:55 Nucleated RBC % (auto) 0 % 05/28/24 16:55 Nucleated RBCs # 0.0 /100WBC 05/28/24 16:55 Sodium 137 mmol/L (136-145) 05/28/24 16:55 Potassium 4.3 mmol/L (3.5-5.1) 05/28/24 16:55 Chloride 101 mmol/L (98-107) 05/28/24 16:55 Carbon Dioxide 26 mmol/L (22-29) 05/28/24 16:55 Anion Gap 14.3 (5-19) 05/28/24 16:55 BUN 26 mg/dL (8-23) H 05/28/24 16:55 Creatinine 1.2 mg/dL (0.7-1.2) 05/28/24 16:55 GFR Calculation Not Reportable 05/28/24 16:55 Glucose 103 mg/dL (65-115) 05/28/24 16:55 Calculated Osmolality 289 mOsm/kg (285-295) 05/28/24 16:55 Calcium 9.4 mg/dL (8.5-10.5) 05/28/24 16:55 Troponin T Baseline 17 ng/L (0-15) H 05/28/24 16:55 NT-Pro-B Natriuret Pep 285 pg/mL (0-450) 05/28/24 16:55 XR interpretation done by ED provider, pending radiology final review ED provider radiology interpretation(s): Pacemaker appears to be in normal anatomic position with wires in the what appears to be the appropriate cardiac position. No other acute findings EKG Data EKG 1: I personally reviewed and interpreted this EKG as follows: Interpretation: EKG reveals a paced rhythm of 67 bpm with with a left bundle branch block pattern. No concordant or discordant changes that would suggest acute ischemia. Discharge Plan Discharge Patient Disposition: Home Clinical Impression: Chest pain Qualifiers: Chest pain type: other chest pain Qualified Code(s): R07.89 - Other chest pain Condition: Stable Prescriptions: No Action (DME) ASO See Rx Instructions .ROUTE .MEDSUPPLY Qty: 1 0RF Rx Instructions: As directed (DME) Custom molded functional foot orthotic See Rx Instructions .Route .MEDSUPPLY Qty: 1 0RF Rx Instructions: As directed by [facility] (DME) custom orthotics See Rx Instructions .Route .MEDSUPPLY Qty: 1 0RF Rx Instructions: As directed slwcrxdqmkns-wgmrnvpb-ydbqtn Tablet 1 tab PO QDAY nitroglycerin [Nitrostat] 0.4 mg tablet, sublingual 0.4 mg SUBLINGUAL Q5M PRN (Reason: Chest Pain) Qty: 50 3RF atorvastatin 80 mg tablet 80 mg PO DAILY Qty: 100 3RF carvedilol 12.5 mg tablet 12.5 mg PO BID Qty: 180 3RF clopidogrel 75 mg tablet 75 mg PO DAILY Qty: 100 3RF Avalide 150-12.5 mg tablet 0.5 tab PO DAILY Qty: 45 3RF Rx Instructions: dose reduced per Dr Adhikari r/t kidney fx isosorbide mononitrate 120 mg tablet extended release 24 hr 120 mg PO DAILY Qty: 100 3RF fluticasone propion-salmeterol [Advair HFA] 45-21 mcg/actuation HFA aerosol inhaler 2 puff inhalation BID Qty: 12 6RF apixaban 2.5 mg tablet 2.5 mg PO BID Qty: 90 3RF oxycodone-acetaminophen [Percocet] 5-325 mg tablet 1 tab PO Q4H PRN (Reason: pain) Qty: 10 0RF Vitamin B-12 100 mcg Tablet 100 mcg PO DAILY apple cider vinegar 500 mg Tablet 500 mg PO DAILY Tylenol 325 mg Capsule 325 mg PO QID PRN (Reason: PAIN) Carlito Mag Zinc Plus D3 333 mg-133 unit -133 mg-5 mg Tablet 1 tab PO DAILY albuterol sulfate 90 mcg/actuation HFA aerosol inhaler 2 puff INHALATION Q6H PRN (Reason: Shortness Of Breath Or Wheezing) Naprosyn 500 mg tablet 500 mg PO BID PRN (Reason: Pain) Discharge Orders: Discharge ED (Routine); Ordered 05/28/24 Ordered By: Chandu Palafox Referrals: Donavan Gupta DO [Primary Care Provider] - Discharge Diet: Advance as tolerated Discharge Activity: Resume usual activity Patient Instructions: Opioid Safety, Pain Management Activity Restrictions/Additional Instructions: As we discussed while you are in the emergency department your findings in the emergency department indicated that your pacemaker is functioning normally. Your chest x-ray did not reveal any evidence that the pacemaker was out of position and the wires are displaced or otherwise disrupted. Does not appear that you have had any evidence of a heart attack or other serious condition that could be related to any chest pains however your chest pains were very short in duration and nonspecific. As we discussed if you develop recurrent or persistent or worsening symptoms to include palpitations, sustained chest pain associated with shortness of breath sweating nausea etc. or other concerning symptoms return to this or the nearest emergency department otherwise you should follow-up with your it risk and assurance manager in the next 2 weeks. Coding Level of Care Code ED Terminal Superintendent for Guido Reed
[2024-05-28 17:00] LABS: Basophils % 0.5 %; Eosinophils # 0.2 10^3/uL (0.0-0.8); Hematocrit 39.5 % (37-53); Lymphocytes # 1.8 10^3/uL (0.8-4.8); Mean Corpuscular HGB Conc 32.4 g/dL (30-55); Mean Corpuscular Hemoglobin 30.4 pg (27-33); Mean Corpuscular Volume 93.8 fl (82-101); Mean Platelet Volume 10.5 fL (7.4-10.4); Monocytes # 0.5 10^3/uL (0.2-0.9); Monocytes % 7.1 %; Neutrophils # 4.09 10^3/uL (1.8-7.7); Neutrophils % 62.1 %; Nucleated Red Blood Cells % 0 %; Platelet Count 175 10^3/cmm (157-399); Red Blood Count 4.21 10^6/uL (3.85-5.65); Red Cell Distribution Width 12.8 % (12.1-15.1); White Blood Count 6.59 10^3/uL (3.29-11.43)
[2024-05-28 17:19] LABS: Troponin(5th) Baseline 17 ng/L (0-15)
[2024-05-28 17:27] LABS: Anion Gap 14.3 (5-19); Blood Urea Nitrogen 26 mg/dL (8-23); Calcium 9.4 mg/dL (8.5-10.5); Carbon Dioxide 26 mmol/L (22-29); Chloride 101 mmol/L (98-107); Creatinine Clr Calc Pharmacy 59.0519; Glucose 103 mg/dL (65-115); NT Pro B Type Natriuretic Pept 285 pg/mL (0-450); Osmolality Calculated 289 mOsm/kg (285-295); Potassium 4.3 mmol/L (3.5-5.1); Sodium 137 mmol/L (136-145)
[2024-05-28 18:50] VITALS: BP 121/70; PULSE 60; O2SAT 98
== END 2024-05-28 18:51 | disposition home or self-care (01) ==
PROVIDERS: Emergency Provider Emergency Medicine; PCP Internal Medicine
DX: R07.89 Other chest pain (principal); Z79.02 Long term (current) use of antithrombotics/antiplatelets
CPT/HCPCS: 36415; 71045; 80048; 83880; 84484; 85025; 93005; 99285

== ENCOUNTER 2024-06-10 07:03 | Outpatient (CLI) | payer MEDICARE, OTHER, SELFPAY ==
--- NOTE | 2024-06-10 07:15 | USCV_ITS ---
Jordi Esposito Age: 83 Gender: M : 1940 Exam Date: 06/10/2024 07:34 Ordering Phys: Shilpa Taveras MD Technologist: Bill Aranda Exam Location: [facility] – [place] Indication: DEAN BP: 124 / 88 HR: 61 Rhythm: Sinus Technical Quality: Adequate MEASUREMENTS (Male / Female) Normal Values 2D ECHO LV Diastolic Diameter PLAX 2.9 cm 4.2 - 5.9 / 3.9 - 5.3 cm IVS Diastolic Thickness 1.3 cm 0.6 - 1.0 / 0.6 - 0.9 cm IVS Systolic Thickness 1.5 cm LVPW Diastolic Thickness 1.7 cm 0.6 - 1.0 / 0.6 - 0.9 cm LVPW Systolic Thickness 1.9 cm LVOT Diameter 2.3 cm LV Ejection Fraction 2D Teich 57.8 % LV Ejection Fraction MOD 4C 63.4 % LV Ejection Fraction MOD 2C 59.5 % LV Ejection Fraction 2C AL 60.4 % RA Systolic Volume 4C AL 42.0 ml RA Systolic Volume 4C MOD 42.6 ml LA Sys Volume AL 54.9 cm cubed LA Sys Volume Index AL 24.1 cm cubed/m squared Aorta at Sinotubular Diameter 2.7 cm IVC Diameter 1.7 cm M-MODE LA Ao Ratio MM 0.7 AV Cusp Separation MM 2.1 cm DOPPLER AV Peak Velocity 180.0 cm/s LVOT Peak Velocity 95.0 cm/s AV Area Cont Eq vti 2.7 cm squared AV Area Cont Eq pk 2.3 cm squared MV Peak Velocity 85.0 cm/s MV Area PHT 2.7 cm squared Mitral E to A Ratio 0.7 TV Peak Velocity 189.5 cm/s TR Peak Velocity 220.0 cm/s TR Peak Gradient 19.4 mmHg TR Mean Velocity 153.0 cm/s TR Mean Gradient 11.0 mmHg TR Velocity Time Integral 54.1 cm PV Peak Velocity 72.0 cm/s RV Ejection Time 0.2 s FINDINGS Left Ventricle Normal LV size and ejection fraction of 63%. Mild to moderate concentric left trickle hypertrophy. Mild hypokinesia of the basal inferior wall segment.Grade I/IV diastolic dysfunction (abnormal relaxation filling pattern), normal to mildly elevated filling pressures. Right Ventricle Pacemaker/defibrillator wire in the right ventricle Right Atrium Pacemaker/defibrillator wire in the right atrium Left Atrium The left atrium is normal in size. Mitral Valve No gross abnormalities noted Aortic Valve Trace aortic valve regurgitation. Tricuspid Valve Trace tricuspid valve regurgitation. Pulmonic Valve Pulmonic valve not well visualized. Pericardium Normal pericardium without effusion. Aorta Normal aortic annulus size. IVC Normal inferior vena cava. CONCLUSIONS Normal LV size and ejection fraction of 63%. Mild to moderate concentric left trickle hypertrophy. Mild hypokinesia of the basal inferior wall segment.Grade I/IV diastolic dysfunction (abnormal relaxation filling pattern), normal to mildly elevated filling pressures. Trace aortic valve regurgitation. Trace tricuspid valve regurgitation. There is no pericardial effusion. Pacemaker/defibrillator wire in the right atrium right ventricle There is no pericardial effusion. Dr Christi Chen MD [facility] (Electronically Signed) Final Date: 10 June 2024 20:54 S
== END 2024-06-10 07:04 | disposition home or self-care (01) ==
LOC: RAD 07:04
PROVIDERS: PCP Internal Medicine; Visit Provider Internal Medicine Critical Care Medicine
DX: I50.30 Unspecified diastolic (congestive) heart failure (principal); R06.09 Other forms of dyspnea; I50.32 Chronic diastolic (congestive) heart failure; R07.89 Other chest pain; I51.7 Cardiomegaly; Z95.0 Presence of cardiac pacemaker
CPT/HCPCS: 93306

== ENCOUNTER 2024-06-22 08:03 | Outpatient (CLI) | payer MEDICARE, OTHER, SELFPAY ==
[2024-06-22 08:37] VITALS: BMI 29.5
--- NOTE | 2024-06-22 08:37 | ECG_ITS ---
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 Interpretive Statements PROCEDURE: At the baseline, the EKG revealed 100% paced ventricular beats. Possible underlying atrial fibrillation. Rhythm cannot be delineated.. The baseline heart was 61 bpm with a blood pressue of 92/66 mm of Hg Lexiscan was infused over a period of 20 seconds. A total of 0.4 milligrams of Lexiscan was infused. The stress phase was continued for a total of 5 minutes. Heart rate at the end of the stress phase was 69 bpm with a blood pressure 93/53 mm of Hg. The EKG at the peak infusion revealed no significant changes. Sestamibi was injected 20 seconds after the Lexiscan infusion. Heart rate at the end of the recovery phase was 66 bpm with a blood pressure of 90/66 mm of Hg. CONCLUSION: 1. The EKG response to Lexiscan infusion is uninterpretable due to the pacing artifact 2. No LexiScan induced chest pain or cardiac arrhythmia 3. Normal blood pressure and heart rate response 4. Sestamibi/sestamibi perfusion scan pending; see separate report. Lung unchanged pre/post procedure; Intraprocedure shortess of breath; Symptoms resoled by discharge Electronically Signed On 06-26-2024 19:37:49 CDT by Christi Chen M.D. [email or web address]
--- NOTE | 2024-06-22 08:38 | NMCV_ITS ---
NM naa perf SPECT r/s* [id number] Jordi Esposito Age: 83 Gender: M : 1940 Exam Date: 06/22/2024 08:38 Ordering Phys: Christi Chen MD ([email or web address]) Technologist: STACY Loo Exam Location: [facility] Indications: CP STRESS TEST Please see separate stress test report in [facility] for full findings IMAGE PROTOCOL Rest/Stress 1 Exercise Day Radiopharmaceutical Dose (mCi) Administration Site Administered by Rest: Tc-99m 11 IV STAYC Cervantes Sestamibi Stress:Tc-99m 32.7 IV STACY Cervantes Sestamibi Rest: 22-Jun-2024 60 Discovery 630 Stress: 22-Jun-2024 30 Discovery 630 0.4mg Lexiscan. Images obtained in supine and prone position. SPECT RESULTS Technical Quality: Good Raw Data Analysis: Normal Image Corrections: Summed Stress Score: 7 Summed Rest Score: 9 Summed Difference Score: 1 PERFUSION FINDINGS He moderate area of minimal to moderately decreased tracer uptake involving the mid and apical inferior, mid inferolateral, mid inferoseptal, apical stenosis and apical segments. Some reversibility was noted in the apical inferior region. FUNCTIONAL RESULTS (calculated via Gated SPECT) Stress Image LV EF (%): 64 Stress EDV (mL):91 TID: 1.22 Stress ESV (mL):33 FUNCTIONAL FINDINGS: Segmental wall motion analysis revealed mild hypokinesia of the apical region. The transient ischemic dilatation ratio was 1.22 IMPRESSIONS 1. Myocardial perfusion imaging revealing moderate area of minimal to moderately decreased persistent tracer uptake involving the inferior, inferolateral, inferoseptal and apical segments. A very small area of reversibility in the apical inferior region. Features are suggestive myocardial scarring predominantly in the distribution of the right coronary artery with a very small area of todd-infarction ischemia . 2. Normal LV ejection fraction of 64%. 3. LV wall motion analysis revealing mild hypokinesia of the LV apex. Compared to the previous study from 12/14/2020, there is less scarring. Dr Christi Chen MD [facility] (Electronically Signed) Final Date: 23 June 2024 16:24 S
[2024-06-22] MEDS: regadenoson 0.4 Mg/5 ml Syringe IVP (10:32)
[2024-06-22 10:42] VITALS: BP 90/66; PULSE 67
== END 2024-06-22 08:04 | disposition home or self-care (01) ==
PROVIDERS: PCP Internal Medicine; Visit Provider Internal Medicine Cardiovascular Disease
DX: Z98.61 Coronary angioplasty status (principal); R94.39 Abnormal result of other cardiovascular function study; R06.02 Shortness of breath
CPT/HCPCS: 36415; 78452; 93017; 96374; A9500; J2785

== ENCOUNTER 2024-10-10 14:51 | Emergency (ER) | payer MEDICARE, OTHER, SELFPAY ==
[2024-10-10 15:01] VITALS: BP 109/70; PULSE 75; RESP 16; TEMP 36.7; O2SAT 96; BMI 29.8
[2024-10-10 16:42] LABS: Basophils % 0.4 %; Eosinophils # 0.2 10^3/uL (0.0-0.8); Eosinophils % 2.4 %; Hematocrit 39.7 % (37-53); Lymphocytes # 2.2 10^3/uL (0.8-4.8); Lymphocytes % 31.3 %; Mean Corpuscular HGB Conc 31.7 g/dL (30-55); Mean Corpuscular Volume 94.5 fl (82-101); Mean Platelet Volume 11.1 fL (7.4-10.4); Monocytes # 0.5 10^3/uL (0.2-0.9); Monocytes % 7.5 %; Neutrophils # 4.09 10^3/uL (1.8-7.7); Neutrophils % 58.1 %; Nucleated Red Blood Cells % 0 %; Platelet Count 160 10^3/cmm (157-399); Red Cell Distribution Width 13.2 % (12.1-15.1); White Blood Count 7.04 10^3/uL (3.29-11.43)
--- NOTE | 2024-10-10 16:47 | ECG_ITS ---
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 Measurements Intervals [place] Rate: 61 P: 181 VT: 185 QRS: 145 QRSD: 205 T: 115 QT: 474 QTc: 481 Interpretive Statements ELECTRONIC ATRIAL PACEMAKER ELECTRONIC VENTRICULAR PACEMAKER MARKED ST ELEVATION, CONSIDER INFERIOR INJURY [MARKED ST ELEVATION W/O NORMALLY INFLECTED T-WAVE IN II/aVF] Compared to ECG 05/28/2024 14:54:39 ST (T wave) deviation now present Myocardial infarct finding now present Electronically Signed On 10-13-2024 22:05:38 CERAMIC CAPACITOR PROCESSOR by Ulises Dela Cruz M.D. [email or web address]
[2024-10-10 16:49] VITALS: BP 109/61; PULSE 64; RESP 16; O2SAT 96
--- NOTE | 2024-10-10 16:52 | W.ED.GENADLT ---
HPI - General Adult General: Chief complaint: General Medical Stated complaint: high BP Time Seen by Provider: 10/10/24 16:30 Source: patient Mode of arrival: ambulatory Limitations: no limitations History of Present Illness: 84-year-old male states that he has been having some low blood pressures this morning states that it has been running in the 90s he is on multiple blood pressure medicines. He states he had some slight lightheadedness no syncopal events states he started feel little better this afternoon. Associated symptoms: Deny chest pain, dyspnea, headache(s), nausea, rash or vomiting Related Data Home Medications Medication Instructions Recorded Confirmed hcnghrtkbidg-dvgxlfhk-bgyxnm tablet 1 tab PO QDAY 10/04/19 05/10/24 acetaminophen 325 mg capsule 325 mg PO QID PRN PAIN 06/16/22 05/10/24 (Tylenol) albuterol sulfate 90 mcg/actuation 2 puff inhalation Q6H PRN 06/16/22 05/10/24 aerosol inhaler Shortness Of Breath Or Wheezing apple cider vinegar 500 mg tablet 500 mg PO DAILY 06/16/22 05/10/24 calcium 333 mg-vit D3 133 1 tab PO DAILY 06/16/22 05/10/24 unit-magnesium 133 mg-zinc 5 mg tablet (Carlito Mag Zinc Plus D3) cyanocobalamin (vitamin B-12) 100 100 mcg PO DAILY 06/16/22 05/10/24 mcg tablet (Vitamin B-12) naproxen 500 mg tablet (Naprosyn) 500 mg PO BID PRN Pain 06/16/22 05/10/24 Previous Rx's Medication Instructions Recorded ASO #1 ea 04/04/20 oxycodone-acetaminophen 5 mg-325 1 tab PO Q4H PRN pain #10 tabs 07/05/20 mg tablet (Percocet) Custom molded functional foot #1 ea 01/31/21 orthotic custom orthotics #1 ea 05/14/21 fluticasone propionate 45 2 puff inhalation BID #12 grams 02/09/24 mcg-salmeterol 21 mcg/actuation HFA inhaler (Advair HFA) irbesartan 150 0.5 tab PO DAILY #45 tabs 08/08/24 mg-hydrochlorothiazide 12.5 mg tablet (Avalide) apixaban 2.5 mg tablet 2.5 mg PO BID #90 tabs 09/22/24 atorvastatin 80 mg tablet 80 mg PO DAILY #100 tabs 09/22/24 carvedilol 12.5 mg tablet 12.5 mg PO BID #180 tabs 09/22/24 clopidogrel 75 mg tablet 75 mg PO DAILY #100 tabs 09/22/24 isosorbide mononitrate 120 mg 120 mg PO DAILY #100 tabs 09/22/24 tablet,extended release 24 hr nitroglycerin 0.4 mg sublingual 0.4 mg sublingual Q5M PRN Chest 09/22/24 tablet (Nitrostat) Pain #50 tabs Allergies Allergy/AdvReac Type Severity Reaction Status Date / Time morphine Allergy ADR-Vomitin Verified 05/28/24 15:04 g Review of Systems Const: Denies: fever(s), chills, body aches or change in appetite Eyes: Denies: blurry vision or eye discomfort ENMT: Denies: throat pain or dental pain Card: Denies: chest pain Resp: Denies: dyspnea GI: Denies: abdominal pain, nausea, vomiting or diarrhea : Denies: dysuria Musc: Denies: neck pain or back pain Skin/Breast: Denies: rash Neuro: Denies: headache(s) PFSH ED PFSH: Medical History Trimalleolar fracture Obstructive sleep apnea (adult) (pediatric) Pt had the CPAP machine and was not using to the requirement and was taken away from him. Atypical chest pain Pacemaker Cardiomyopathy Sick sinus syndrome Hypertension Hyperlipidemia Emphysema lung Surgical History History of arthroplasty of left shoulder Family History Father CAD (coronary artery disease) Family/Other Cancer Grandmother Diabetes Denies family history of Clotting disorder Dementia Chronic kidney disease (CKD) Suicide Anesthesia complication Bleeding disorder Lung disease Stroke Social History Smoking and tobacco/nicotine status: former use of tobacco/nicotine Quit status (tobacco/nicotine): has quit using Year quit tobacco: 1990 Former quit date comment: 1.5ppd x 30 years Alcohol intake: never Substance/Drug Use: never Physical Exam Const: COMMON NORMALS: patient oriented x3 and healthy appearing HENMT: COMMON NORMALS: normocephalic and atraumatic HEAD & SCALP: normocephalic and atraumatic Neck/C-Spine: COMMON NORMALS: full ROM and supple Chest: COMMONS NORMALS: normal inspection of the chest and normal palpation of entire chest wall Resp: COMMON NORMALS: normal respiratory effort, No retractions, No use of accessory muscles and clear to auscultation bilaterally AUSCULTATION: clear to auscultation bilaterally Cardio: COMMON NORMALS: regular rate, regular rhythm and No murmurs present (Cardio) RATE: regular rate RHYTHM: regular rhythm GI: COMMON NORMALS: Normal to inspection, nondistended, normoactive bowel sounds present, Soft to palpation, non-tender and no masses PALPATION: Yes Soft to palpation Extremity: COMMON NORMALS: normal to inspection and full ROM Neuro: COMMON NORMALS: patient oriented x3, moves all extremities and no focal motor deficits Psych: COMMON NORMALS: mental status grossly normal, Normal thought process present and cooperative THOUGHT PROCESS: Normal thought process present Skin: COMMON NORMALS: no rashes or lesions noted and no wounds GENERAL SKIN EXAM: no rashes or lesions noted Course Vital Signs: Vital signs: Vital Signs Temperature 98.1 F 10/10/24 15:01 Pulse Rate 60 10/10/24 18:08 Respiratory Rate 16 10/10/24 18:08 Blood Pressure 110/67 10/10/24 18:08 Pulse Oximetry 95 10/10/24 18:08 Oxygen Delivery Me thod Room Air 10/10/24 15:01 MDM - General Adult Medical Decision Making 84-year-old male presented here with some hypotension he has no signs of infection no signs of dehydration or kidney injury. Has likely due to overmedication we will have him hold his carvedilol he is to take a log of his blood pressure follow-up with his PCP and return if worsening he understands agrees to plan Medical Records I reviewed the patient's medical records. Lab Data I reviewed the patient's lab results. 10/10/24 16:15 10/10/24 16:15 Laboratory Results WBC 7.04 10^3/uL (3.29-11.43) 10/10/24 16:15 RBC 4.20 10^6/uL (3.85-5.65) 10/10/24 16:15 Hgb 12.60 g/dL (11.27-16.99) 10/10/24 16:15 Hct 39.7 % (37-53) 10/10/24 16:15 MCV 94.5 fl (82-101) 10/10/24 16:15 MCH 30.0 pg (27-33) 10/10/24 16:15 MCHC 31.7 g/dL (30-55) 10/10/24 16:15 RDW 13.2 % (12.1-15.1) 10/10/24 16:15 Plt Count 160 10^3/cmm (157-399) 10/10/24 16:15 MPV 11.1 fL (7.4-10.4) H 10/10/24 16:15 Neut % (Auto) 58.1 % 10/10/24 16:15 Lymph % (Auto) 31.3 % 10/10/24 16:15 Jewell % (Auto) 7.5 % 10/10/24 16:15 Eos % (Auto) 2.4 % 10/10/24 16:15 Baso % (Auto) 0.4 % 10/10/24 16:15 Neut # (Auto) 4.09 10^3/uL (1.8-7.7) 10/10/24 16:15 Lymph # (Auto) 2.2 10^3/uL (0.8-4.8) 10/10/24 16:15 Jewell # (Auto) 0.5 10^3/uL (0.2-0.9) 10/10/24 16:15 Eos # (Auto) 0.2 10^3/uL (0.0-0.8) 10/10/24 16:15 Baso # (Auto) 0.0 10^3/uL (0.0-0.1) 10/10/24 16:15 Nucleated RBC % (auto) 0 % 10/10/24 16:15 Nucleated RBCs # 0.0 /100WBC 10/10/24 16:15 Sodium 135 mmol/L (136-145) L 10/10/24 16:15 Potassium 4.4 mmol/L (3.5-5.1) 10/10/24 16:15 Chloride 100 mmol/L (98-107) 10/10/24 16:15 Carbon Dioxide 27 mmol/L (22-29) 10/10/24 16:15 Anion Gap 12.4 (5-19) 10/10/24 16:15 BUN 21 mg/dL (8-23) 10/10/24 16:15 Creatinine 1.3 mg/dL (0.7-1.2) H 10/10/24 16:15 GFR Calculation Not Reportable 10/10/24 16:15 Glucose 99 mg/dL (65-115) 10/10/24 16:15 Calculated Osmolality 283 mOsm/kg (285-295) L 10/10/24 16:15 Calcium 9.4 mg/dL (8.5-10.5) 10/10/24 16:15 Total Bilirubin 0.9 mg/dL (0.15-1.2) 10/10/24 16:15 AST 24 U/L (0-40) 10/10/24 16:15 ALT 19 U/L (0-41) 10/10/24 16:15 Alkaline Phosphatase 114 U/L (40-130) 10/10/24 16:15 Total Protein 6.8 g/dL (6.6-8.7) 10/10/24 16:15 Albumin 4.1 g/dL (3.5-5.2) 10/10/24 16:15 Globulin 2.7 g/dL (1.3-4.6) 10/10/24 16:15 All radiology interpretation(s) finalized by discharge EKG Data EKG 1: I personally reviewed and interpreted this EKG as follows: EKG interpretation date: 10/10/24 EKG interpretation time: 16:47 Interpretation: paced hr 61no st elevation qrs 205 qtc 478 Discharge Plan Discharge Patient Disposition: Home Clinical Impression: Hypotension Condition: Stable Prescriptions: No Action (DME) ASO See Rx Instructions .ROUTE .MEDSUPPLY Qty: 1 0RF Rx Instructions: As directed (DME) Custom molded functional foot orthotic See Rx Instructions .Route .MEDSUPPLY Qty: 1 0RF Rx Instructions: As directed by NELLY&O (DME) custom orthotics See Rx Instructions .Route .MEDSUPPLY Qty: 1 0RF Rx Instructions: As directed emtcprltneqr-nbqziimf-cckaxw Tablet 1 tab PO QDAY fluticasone propion-salmeterol [Advair HFA] 45-21 mcg/actuation HFA aerosol inhaler 2 puff inhalation BID Qty: 12 6RF Avalide 150-12.5 mg tablet 0.5 tab PO DAILY Qty: 45 3RF Rx Instructions: dose reduced per Dr Adhikari r/t kidney fx apixaban 2.5 mg tablet 2.5 mg PO BID Qty: 90 3RF atorvastatin 80 mg tablet 80 mg PO DAILY Qty: 100 3RF carvedilol 12.5 mg tablet 12.5 mg PO BID Qty: 180 3RF clopidogrel 75 mg tablet 75 mg PO DAILY Qty: 100 3RF isosorbide mononitrate 120 mg tablet extended release 24 hr 120 mg PO DAILY Qty: 100 3RF nitroglycerin [Nitrostat] 0.4 mg tablet, sublingual 0.4 mg SUBLINGUAL Q5M PRN (Reason: Chest Pain) Qty: 50 3RF oxycodone-acetaminophen [Percocet] 5-325 mg tablet 1 tab PO Q4H PRN (Reason: pain) Qty: 10 0RF Vitamin B-12 100 mcg Tablet 100 mcg PO DAILY apple cider vinegar 500 mg Tablet 500 mg PO DAILY Tylenol 325 mg Capsule 325 mg PO QID PRN (Reason: PAIN) Carlito Mag Zinc Plus D3 333 mg-133 unit -133 mg-5 mg Tablet 1 tab PO DAILY albuterol sulfate 90 mcg/actuation HFA aerosol inhaler 2 puff INHALATION Q6H PRN (Reason: Shortness Of Breath Or Wheezing) Naprosyn 500 mg tablet 500 mg PO BID PRN (Reason: Pain) Discharge Orders: Discharge ED (Routine); Ordered 10/10/24 Ordered By: Rosa Azevedo Referrals: Donavan Gupta DO [Primary Care Provider] - 4-7 days Discharge Diet: Advance as tolerated Discharge Activity: Resume usual activity Patient Instructions: Hypotension (ED) Activity Restrictions/Additional Instructions: Hold Carvedilol, monior bp and follow up with pcp Coding Level of Care Code ED Nanotechnology Engineering Technician for Guido Reed
[2024-10-10 17:05] LABS: Alanine Aminotransferase 19 U/L (0-41); Albumin Level 4.1 g/dL (3.5-5.2); Alkaline Phosphatase 114 U/L (40-130); Anion Gap 12.4 (5-19); Aspartate Amino Transferase 24 U/L (0-40); Blood Urea Nitrogen 21 mg/dL (8-23); Calcium 9.4 mg/dL (8.5-10.5); Carbon Dioxide 27 mmol/L (22-29); Chloride 100 mmol/L (98-107); Creatinine Clr Calc Pharmacy 53.5856; Globulin 2.7 g/dL (1.3-4.6); Glucose 99 mg/dL (65-115); Osmolality Calculated 283 mOsm/kg (285-295); Potassium 4.4 mmol/L (3.5-5.1); Sodium 135 mmol/L (136-145); Total Bilirubin 0.9 mg/dL (0.15-1.2); Total Protein 6.8 g/dL (6.6-8.7)
[2024-10-10 17:15] VITALS: BP 100/59; PULSE 68; RESP 16; O2SAT 99
[2024-10-10 18:08] VITALS: BP 110/67; PULSE 60; RESP 16; O2SAT 95
[2024-10-10 18:23] VITALS: BP 103/60; PULSE 88; RESP 16; O2SAT 98
== END 2024-10-10 18:28 | disposition home or self-care (01) ==
PROVIDERS: Emergency Provider Emergency Medicine; PCP Internal Medicine
DX: E16.2 Hypoglycemia, unspecified (principal); Z95.0 Presence of cardiac pacemaker; E78.5 Hyperlipidemia, unspecified; I10 Essential (primary) hypertension; Z87.891 Personal history of nicotine dependence; Z79.02 Long term (current) use of antithrombotics/antiplatelets
CPT/HCPCS: 36415; 80053; 85025; 93005; 99284

== ENCOUNTER → 2024-12-14 11:41 | Outpatient (BNVA) | payer MEDICARE, OTHER, SELFPAY | PROVIDERS: PCP Internal Medicine; Visit Provider Internal Medicine Cardiovascular Disease | DX: I25.119 Atherosclerotic heart disease of native coronary artery with unspecified angina pectoris (principal); I10 Essential (primary) hypertension; E78.2 Mixed hyperlipidemia; I42.9 Cardiomyopathy, unspecified; I48.91 Unspecified atrial fibrillation; I48.92 Unspecified atrial flutter; Z79.01 Long term (current) use of anticoagulants; Z87.891 Personal history of nicotine dependence; Z95.0 Presence of cardiac pacemaker | CPT/HCPCS: 99214 ==

== ENCOUNTER → 2024-12-21 10:57 | Outpatient (BNVA) | payer MEDICARE, OTHER, SELFPAY | PROVIDERS: PCP Internal Medicine; Visit Provider Internal Medicine Cardiovascular Disease | DX: Z45.018 Encounter for adjustment and management of other part of cardiac pacemaker (principal) | CPT/HCPCS: 93296 ==

== ENCOUNTER 2025-03-27 01:31 | Emergency (ER) | payer MEDICARE, OTHER, SELFPAY ==
--- OUTSIDE RECORDS SUMMARY | 2024-12-20 10:30 | XMS_ITS ---
Author Organization [employer] Address [address] [place] [address] Care Team Providers Care Care Technician Name Role Phone Dylan Adhikari MD Primary Care Provider UnavailJONG [place] Unavailable [phone] Donavan Gupta Unavailable Unavailable YVES INIGUEZ Unavailable [phone] REASON FOR VISIT Discuss ED options Encounters Encounter Location Date Provider Diagnosis [facility] [address] [place] [address] 12/20/2024 YVES INIGUEZ ED (erectile dysfunction) N52.9 ; Urinary frequency R35.0 and Microscopic hematuria R31.29 Assessments Encounter Date Diagnosis (ICD Code) Assessment Notes Treatment Notes Treatment Clinical Notes Section Notes 12/20/2024 ED (erectile dysfunction) (ICD-10 - N52.9) 83yoM with a h/o CAD, HTN, HLPD, Afib, and ED. Completed UroGold with no improvement. He is interested in IPP. He is on plavix and Eliquis. Failed UroGold and oral meds. He is interested in IPP Placement and aware that cardiac clearance would need to be obtained prior to hold his Eliquis and Plavix ( health and wellness instructor Dr. Chen in [place] ). How this procedure is performed, what to expect post operatively along with risk and benefits of the procedure were reviewed thoroughly during consult. 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 He will be called and scheduled for next available IPP placement once cardiac clearance is received (Cardiac Clearance in chart). He will return post operatively or sooner with any other concerns. Plan - Schedule for IPP placement at main OR - Obtain Cardiac clearance (see chart note; needs updated) for holding Plavix and Eliquis - RTC post operatively Jaz Elizabeth CNA, am scribing for, and in the presence, of Dr. Taveras. I, Dr. Chon Taveras, personally performed the services prescribed in this documentation, as scribed by Jaz Morris CNA in my presence, and it is both accurate and complete. 12/20/2024 Urinary frequency (ICD-10 - R35.0) 83yoM with a h/o CAD, HTN, HLPD, Afib, and ED. Completed UroGold with no improvement. He is interested in IPP. He is on plavix and Eliquis. Failed UroGold and oral meds. He is interested in IPP Placement and aware that cardiac clearance would need to be obtained prior to hold his Eliquis and Plavix ( health and wellness instructor Dr. Chen in [place] ). How this procedure is performed, what to expect post operatively along with risk and benefits of the procedure were reviewed thoroughly during consult. 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 He will be called and scheduled for next available IPP placement once cardiac clearance is received (Cardiac Clearance in chart). He will return post operatively or sooner with any other concerns. Plan - Schedule for IPP placement at main OR - Obtain Cardiac clearance (see chart note; needs updated) for holding Plavix and Eliquis - RTC post operatively Jaz Elizabeth CNA, am scribing for, and in the presence, of Dr. Taveras. I, Dr. Chon Taveras, personally performed the services prescribed in this documentation, as scribed by Jaz Morris CNA in my presence, and it is both accurate and complete. 12/20/2024 Microscopic hematuria (ICD-10 - R31.29) 83yoM with a h/o CAD, HTN, HLPD, Afib, and ED. Completed UroGold with no improvement. He is interested in IPP. He is on plavix and Eliquis. Failed UroGold and oral meds. He is interested in IPP Placement and aware that cardiac clearance would need to be obtained prior to hold his Eliquis and Plavix ( health and wellness instructor Dr. Chen in [place] ). How this procedure is performed, what to expect post operatively along with risk and benefits of the procedure were reviewed thoroughly during consult. 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 He will be called and scheduled for next available IPP placement once cardiac clearance is received (Cardiac Clearance in chart). He will return post operatively or sooner with any other concerns. Plan - Schedule for IPP placement at main OR - Obtain Cardiac clearance (see chart note; needs updated) for holding Plavix and Eliquis - RTC post operatively IJaz CNA, am scribing for, and in the presence, of Dr. Taveras. I, Dr. Chon Taveras, personally performed the services prescribed in this documentation, as scribed by Jaz Morris CNA in my presence, and it is both accurate and complete. Plan Of Treatment Next Appt Details Provider Name:Yves Chiang, 04/27/2025 11:20:00 AM, [address] [place], [address], Progress Notes * Jordi ESPOSITO HDOB:1939 (84 yo M)Acc No.[id number]:12/20/2024 Progress Notes Patient: Jordi JONES Provider: Idania Iniguez MD :1940 A ge:84 Y S ex:Male Date:12/20/2024 Address:[address] [place], [place] [id number] Pcp:Dylan Adhikari MD Subjective: * Chief Complaints: * 1 . Discuss ED options. * HPI: * : Pt is an 83yoM with a h/o CAD, HTN, HLPD, and Afib that is here for ED consultation. He states he has had ED for greater than 10 years. In the past, he has trialed and failed Viagra and Cialis. He states he tried an online/virtual ED provider but was told he was no longer a candidate for medications because of his long-acting nitrate use. He takes isosorbide once daily. He is also on Plavix and Eliquis. He denies any bothersome LUTS other than occasional frequency and urgency. IPSS of 7 with QOL of zero. Denies any personal or family h/o malignancy. VADIM consult with Candido 02/16/24. No longer a candidate for medications because of his long-acting nitrate use. He completed 6wk course of UroGold and is here today for symptom reassessment with IIEF. Denies improvement with erection function other than girth. He has been using VADIM 2-3wkly. Interested in possible IPP placement. 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 He denies any abdominal surgeries. * Medical History: Objective: * Vitals: Assessment: * Assessment: 1. E D (erectile dysfunction) - N52.9 (Primary) 2 . U rinary frequency - R35.0 3 . M icroscopic hematuria - R31.29 83yoM with a h/o CAD, HTN, H LPD, Afib, and ED. Completed UroGold with no improvement. He is interested in IPP. He is on plavix and Eliquis. Failed UroGold and oral meds. He is interested in IPP Placement and aware that cardiac clearance would need to be obtained prior to hold his Eliquis and Plavix ( health and wellness instructor Dr. Chen in [place] ). How this procedure is performed, what to expect post operatively along with risk and benefits of the procedure were reviewed thoroughly during consult. 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 He will be called and scheduled for next available IPP placement once cardiac clearance is received (Cardiac Clearance in chart). He will return post operatively or sooner with any other concerns. Plan - Schedule for IPP placement at main OR - Obtain Cardiac clearance (see chart note; needs updated) for holding Plavix and Eliquis - RTC post operatively IJaz CNA, am scribing for, and in the presence, of Dr. Taveras. I, Dr. Chon Taveras, personally performed the services prescribed in this documentation, as scribed by Jaz Morris, MODEL AND DYE PERSON in my presence, and it is both accurate and complete. Plan: * Treatment: * Billing Information: * Visit Code: * Procedure Codes: * Electronic signature of LUIS INIGUEZ MD on 03/27/2025 at 01:39 AM CDT Sign off status: Pending * Provider: Idania Iniguez MD Date: 0 12/20/2024 Generated for Macarioi ng/Famarcelog/eTransmitting on: 0 03/27/2025 01:39 AM CDT History and Physical Notes * HPI (History of Present Illness) Category Sub-Category Detail Notes Category Not es Pt is an 83yoM with a h/o CAD, HTN, HLPD, and Afib that is here for ED consultation. He states he has had ED for greater than 10 years. In the past, he has trialed and failed Viagra and Cialis. He states he tried an online/virtual ED provider but was told he was no longer a candidate for medications because of his long-acting nitrate use. He takes isosorbide once daily. He is also on Plavix and Eliquis. He denies any bothersome LUTS other than occasional frequency and urgency. IPSS of 7 with QOL of zero. Denies any personal or family h/o malignancy. VADIM consult with Candido 02/16/24. No longer a candidate for medications because of his long-acting nitrate use. He completed 6wk course of UroGold and is here today for symptom reassessment with IIEF. Denies improvement with erection function other than girth. He has been using VADIM 2-3wkly. Interested in possible IPP placement. 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 He denies any abdominal surgeries.
--- OUTSIDE RECORDS SUMMARY | 2025-01-09 08:30 | XMS_ITS ---
Author Organization [employer] Address [address] [place] [address] Care Team Providers Care Underwriting Manager Name Role Phone Onofre ARRIAGA, Dylan Primary Care Provider UnavailJONG [place] Unavailable [phone] Donavan Gupta Unavailable Unavailable Yves Chiang Unavailable [phone] REASON FOR VISIT w/ Candido, ICI teaching Encounters Encounter Location Date Provider Diagnosis [facility] [address] [facility] [place] [address] 01/09/2025 Yves Chiang Plan Of Treatment Next Appt Details Provider Name:Yves Chiang, 04/27/2025 11:20:00 AM, [address] [facility] [place], [address], Progress Notes * Jodri ESPOSITO HDOB:1939 (84 yo M)Acc No.[id number]:01/09/2025 Progress Note Patient: Jordi JONES Provider: Idania Chiang APRN :1940 A ge:84 Y S ex:Male Date:01/09/2025 Address:[address] [place], [place] [id number] Pcp:Dylan Adhikari MD Subjective: * Chief Complaints: * 1 . w/ Candido, ICI teaching. * Medical History: Objective: * Vitals: Assessment: Plan: * Treatment: * Billing Information: * Visit Code: * Procedure Codes: * Electronic signature of Adam Chiang APRN on 03/27/2025 at 01:39 AM CDT Sign off status: Pending * Provider: Idania Chiang APRN Date: 01/09/2025 Generated for Radha orozco/Bimal/Corina on: 0 03/27/2025 01:39 AM CDT
--- OUTSIDE RECORDS SUMMARY | 2025-03-27 01:38 | XMS_ITS | Continuity of Care Document ---
Author Name [facility] Organization [facility] Care Team Providers Care Harness Puller Name Role Phone [facility] Unavailable Unavailable Social History Combined list of available smoking, tobacco, and other social history from Department of Defense and Veterans Affairs facilities. Social History Type Response Date Comment Sourc e This section is an empty social history section. [facility]
[2025-03-27 01:39] VITALS: BP 134/77; PULSE 73; RESP 17; TEMP 36.7; O2SAT 96; BMI 29.1
--- OUTSIDE RECORDS SUMMARY | 2025-03-27 01:39 | XMS_ITS | Patient Health Record ---
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 Name Role Phone Gupta Donavan ROBLES Primary Care Provider Romelia Duffy MD, Marlon Unavailable [phone] Allergies Allergen (clinical drug ingredient) Drug/Non Drug Allergy documented on EMR Reaction Allergy Type Onset Date Status morphine morphine stomach upset Drug Allergy Act meir Reason For Referral No Information Medications Medication SIG (Take, Route, Frequency, Duration) Notes Start Date End Date Status nitroglycerin 0.4 mg 1 tab(s) sublingual ly as directed Active acetaminophen-oxycodone 325 mg-5 mg 1 tab po orally Q6H prn pain Active acetaminophen-hydrocodone 325 mg-7.5 mg 1 tab po orally Q4H prn pain Active Vitamin B12 2500 mcg 1 tab(s) sublingual ly once a day for 30 day(s) Active Plavix 75 mg 1 tab(s) orally once a day for 30 day(s) Active Centrum Silver Men's Active carvedilol 12.5 mg 1 tab(s) orally 2 ti mes a day for 30 day(s) Active atorvastatin 80 mg 1 tab(s) orally once a day for 30 day(s) Active aspirin 81 mg 1 tab(s) orally once a day for 30 day(s) Active metoprolol 25 mg 1/2 orally daily Active isosorbide mononitrate 120 mg 1 tab(s) orally once a day (in the morning) for 30 day(s) Active Social History Tobacco Use: Social History Observation Description Date Details (start date - stop date) Former Smoker NA - NA alcohol Question Answer Notes Did you have a drink containing alcohol in the p ast year? No Points 0 Interpretation Negative Tobacco use: Question Answer Notes : former smoker When did you stop smoking? 1992 Problems Problem Type SNOMED Code ICD Code Onset Dates Problem Status W/U Status Risk Notes Problem Solitary sacroiliitis (147784071) Sacroiliitis, not elsewhere classified (M46.1) Active confirmed Problem Lumbosacral spondylosis without myelopathy (23029392) Spondylosis without myelopathy or radiculopathy, lumbar region (M47.816) Active confirmed Problem High risk drug monitoring status (368233210) halfway (current) use of opiate analgesic (Z79.891) Active confirmed Problem Anxiety disorder (465657199) Other specified anxiety disorders (F41.8) Active confirmed Problem Obstructive sleep apnea syndrome (99015116) Obstructive sleep apnea (adult) (pediatric) (G47.33) Active confirmed Problem Spinal stenosis of lumbar region (63379425) Spinal stenosis, lumbar region without neurogenic claudication (M48.061) Active confirmed Problem Low back pain (742899724) Low back pain, unspecified (M54.50) Active confirmed Problem Pain in lumbar spine (562433817) Vertebrogenic low back pain (M54.51) Active confirmed Plan Of Treatment No Information Insurance Providers Payer Name Payer Address Payer Phone Subscriber Number Group Number Insured Name Patient Relationship to Insured Coverage Start Date Coverage End Date [employer] Medicare Part B Claims Department [address] [address] [place] [address] [id number] Jordi Esposito Self - patient is the insured [employer] [address] [place] [address] [phone] [id number] Jordi Esposito Self - patient is the insured [place] [employer] [address] [place] [id number] Jordi Esposito Self - patient is the insured Medical (General) History Medical History History ICD Code Chronic pain Low back pain Degenerative disc disease, lumbar Spondylosis of lumbar region without mye lopathy or radiculopathy Spinal stenosis of lumbar region with ne urogenic claudication L4 compression fracture (200 9) [> 50% compression fracture as per prior plain films report; biconcave, chronic as per imaging report] Hypertension Heart disease Abnormality of gait and mobility Coronary artery disease Fracture trimalleolar, closed, left Hyperlipidemia Obstructive sleep apnea, rosemarie tral sleep apnea (complex sleep apnea), nocturnal hypoxemia COVID-19 Hematoma, abdominal Fractured ribs CAD, presumed (history of nitrate medica tion use) Obesity, mild Surgical History Surgery Date(Month/Year) Thumb surgery, left, Shoulder surgery, left, Placement of pacemaker, performed in [place], [place], 2010 Replacement of pacemaker, performed at [facility] by Dr. Chen, 2018 Placement of stent, performed at [facility] by Dr. 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
--- OUTSIDE RECORDS SUMMARY | 2025-03-27 01:39 | XMS_ITS | Data Portability ---
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 Plan of Treatment Reminders Order Date Submit Date Provider Last Modified By Organization Details Last Modified Time Details Appointments RECHECK 15 2024 01:00P Lian Adhikari MD Not available Not available Not available Lab CMP, serum or plasma 2024 025 [facility], [address], [place], [address], 03/22/2025 16:30:49 hemoglobi n A1C/hemog lobin total, QN, blood 2024 025 BO[facility]IA [facility], [address], [address], [place], [address], 03/22/2025 16:10:52 LDL, direct, serum 2024 025 [facility], [address] [facility] [address], [address] [place], [address], 03/23/2025 04:33:32 CMP, serum or plasma 2024 025 BOHEMIA [facility], [address], [address], [place], [address], 09/19/2024 10:57:57 lipid panel, blood 2024 025 [facility], [address], [place], [address], 09/19/2024 10:57:59 CBC 2024 025 [facility], [address], [place], [address], 09/19/2024 10:36:01 Referral otolaryng ologist referral 2024 025 manuela Schulte MD, [address] [facility] , [place], [address], 10/18/2024 12:34:35 Procedures None recorded. Surgeries None recorded. Imaging None recorded. Medication Orders ezetimibe 10 mg tablet 2024 025 [facility], [address] [place] [address], [address], 09/28/2024 14:27:15 nitroglyc amara 0.4 mg sublingua l tablet 2023 024 [id number], [address], [place], [place], [id number], 08/25/2024 12:35:36 clopidogr el 75 mg tablet [address] [id number], [address], [place], [place], [id number], 08/25/2024 12:38:33 Patient TargetsNo targets recorded. Patient InstructionsNo instructions recorded. 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 Referring Physician: Ml Adhikari, Family Medicine, Encounter Date: 09/28/2024 Results Created Date Observation Date Name Description Value Unit Range Abnormal Flag Note LastModifiedBy Organization Detail LastModifiedTime 09/19/1909/19/2024 CBC WBC 6.9 x10 4.5-10 .5 Not Available [facility] [address], [place], [address], 09/19/2024 10:36:01 09/19/19 25 09/19/2024 CBC RBC 4.47 x10 4.30-5 .90 Not Available [facility] [address] [facility] [address], [place], [address], 09/19/2024 10:36:01 09/19/1909/19/2024 CBC HGB 13.5 g/dL 13.5-1 8.0 Not Available [facility] [address] [facility] [address], [place], [address], 09/19/2024 10:36:01 09/19/19 25 09/19/2024 CBC HCT 40.5 % 35.0-6 0.0 Not Available [facility] [address] [facility] [address] [facility] 1, [place], [address], 09/19/2024 10:36:01 09/19/19 25 09/19/2024 CBC MCV 90.6 fL 80.0-9 9.9 Not Available [facility] [address] [facility] [address] [facility] 1, [place], [address], 09/19/2024 10:36:01 09/19/19 25 09/19/2024 CBC MCH 30.2 pg 27.0-3 2.0 Not Available [facility] [address] [facility] [address], [place], [address], 09/19/2024 10:36:01 09/19/19 25 09/19/2024 CBC MCHC 33.3 g/dL 32.0-3 6.0 Not Available [facility] [address] [facility] [address] [facility] 1, [place], [address], 09/19/2024 10:36:01 09/19/19 25 09/19/2024 CBC RDW 14.3 % 11.5-1 4.5 Not Available [facility] [address] [facility], [place], [address], 09/19/2024 10:36:01 09/19/19 25 09/19/2024 CBC plt 156.5 x10 150.0- 451.0 Not Available [facility] [address] [facility] 1, [place], [address], 09/19/2024 10:36:01 09/19/19 25 09/19/2024 CBC lymphocytes % 31.1 % 20.0-5 0.0 Not Available [facility] [address] [address], [place], [address], 09/19/2024 10:36:01 09/19/19 25 09/19/2024 CBC granulcytes % 57.6 % 30.0-7 0.0 Not Available [facility] [address] [facility] 1, [place], [address], 09/19/2024 10:36:01 09/19/19 25 09/19/2024 CBC monocytes % 8.0 % 2.0-16 .0 Not Available [facility] [address] [facility] 1, [place], [address], 09/19/2024 10:36:01 09/19/19 25 09/19/2024 CBC granulcytes# 4.0 x10 Not Yoselin ilable [facility] [address] [address], [place], [address], 09/19/2024 10:36:01 09/19/19 25 09/19/2024 CBC lymphocytes # 2.2 x10 Not Available [facility] [address] [facility] 1, [place], [address], 09/19/2024 10:36:01 09/19/19 25 09/19/2024 CBC monocytes # 0.6 x10 Not [facility] [address] [facility], [place], [address], 09/19/2024 10:36:01 09/19/19 25 09/19/2024 CMP (MALE ) glucose 112.0 mg/dL 60.0-9 9.0 high Not Available [facility] [address] [facility] 1, [place], [address], 09/19/2024 10:57:56 09/19/19 25 09/19/2024 CMP (MALE ) BUN (blood urea nitrogen) 22.0 mg/dL 10.0-2 6.0 Not Available [facility] [address] [facility] 1, [place], [address], 09/19/2024 10:57:56 09/19/19 25 09/19/2024 CMP (MALE ) creatinine (serum) 1.1 mg/dL 0.4-1. 5 Not Available [facility] [address] [facility], [place], [address], 09/19/2024 10:57:56 09/19/19 25 09/19/2024 CMP (MALE ) BUN/creatini ne ratio 20.00 ratio Not Available [facility] [address] [facility] 1, [place], [address], 09/19/2024 10:57:56 09/19/19 25 09/19/2024 CMP (MALE ) eGFR calculated 68.1 Not Available [facility] [address] [facility], [place], [address], 09/19/2024 10:57:56 09/19/19 25 09/19/2024 CMP (MALE ) total protein 7.8 g/dL 6.0-8. 5 Not Available [facility] [address] [facility] 1, [place], [address], 09/19/2024 10:57:56 09/19/19 25 09/19/2024 CMP (MALE ) total bilirubin 0.8 mg/dL 0.2-1. 3 Not Available [facility] [address] [facility] 1, [place], [address], 09/19/2024 10:57:56 09/19/19 25 09/19/2024 CMP (MALE ) albumin 4.5 g/dL 3.5-5. 5 Not Available [facility] [address] [address], [place], [address], 09/19/2024 10:57:56 09/19/19 25 09/19/2024 CMP (MALE ) globulin 3.3 calc Not Available [facility] [address] [address], [place], [address], 09/19/2024 10:57:56 09/19/19 25 09/19/2024 CMP (MALE ) AST (SGOT) 44.0 U/L 0.0-46 .0 Not Available [facility] [address] [address], [place], [address], 09/19/2024 10:57:56 09/19/19 25 09/19/2024 CMP (MALE ) altv (SGPT) 28.0 U/L 13.0-6 9.0 normal Not Available [facility] [address] [address], [place], [address], 09/19/2024 10:57:56 09/19/19 25 09/19/2024 CMP (MALE ) A/G ratio 1.4 ratio Not Available [facility] [address] [address], [place], [address], 09/19/2024 10:57:56 09/19/19 25 09/19/2024 CMP (MALE ) ALP phos 113.0 U/L 30.0-1 40.0 normal Not Available [facility] [address] [facility] 1, [place], [address], 09/19/2024 10:57:56 09/19/19 25 09/19/2024 CMP (MALE ) calcium 9.5 mg/dL 8.4-10 .5 Not Available [facility] [address] [facility] 1, [place], [address], 09/19/2024 10:57:56 09/19/19 25 09/19/2024 CMP (MALE ) sodium 142.0 mmol/ L 136.0- 145.0 Not Available [facility] [address] [facility] 1, [place], [address], 09/19/2024 10:57:56 09/19/19 25 09/19/2024 CMP (MALE ) potassium 4.3 mmol/ L 3.5-5. 1 Not Available [facility] [address] [facility] 1, [place], [address], 09/19/2024 10:57:56 09/19/19 25 09/19/2024 CMP (MALE ) chloride 104.0 mmol/ L 98.0-1 10.0 normal Not Available [facility] [address] [facility] 1, [place], [address], 09/19/2024 10:57:56 09/19/1909/19/2024 CMP (MALE ) C02 32.0 mmol/ L 22.0-3 1.0 high Not Available [facility] [address] [facility] 1, [place], [address], 09/19/2024 10:57:56 01/13/09/19/2024 CMP (MALE ) anion gap 6.0 calc Not Available [facility] [address] [facility] 1, [place], [address], 09/19/2024 10:57:56 09/19/19 25 09/19/2024 CMP (MALE ) osmolality 296.9 calc Not Available [facility] [address] [facility] 1, [place], [address], 09/19/2024 10:57:56 09/19/19 25 09/19/2024 LIPID PROFI LE (MALE ) cholesterol 154.0 mg/dL 0.0-20 0.0 Not Available [facility] [address] [facility] 1, [place], [address], 09/19/2024 10:57:59 09/19/19 25 09/19/2024 LIPID PROFI LE (MALE ) trig 103.0 mg/dL 0.0-15 0.0 Not Available [facility] [address] [facility] 1, [place], [address], 09/19/2024 10:57:59 09/19/19 25 09/19/2024 LIPID PROFI LE (MALE ) HDL - direct 48.0 mg/dL >40.0 Not Available [facility] [address] [facility] 1, [place], [address], 09/19/2024 10:57:59 09/19/19 25 09/19/2024 LIPID PROFI LE (MALE ) VLDL - direct 20.6 mg/dL Not Available [facility] [address] [facility] 1, [place], [address], 09/19/2024 10:57:59 09/19/19 25 09/19/2024 LIPID PROFI LE (MALE ) LDL - direct 85.4 mg/dL 0.0-13 0.0 Not Available [facility] [address] [facility] 1, [place], [address], 09/19/2024 10:57:59 03/22/2003/22/2025 HBA1C hemaglobin A1C 6.1 4.2-6. 5 Not Available [facility] [address] [facility], [place], [address], 03/22/2025 16:10:52 03/22/20 25 03/22/2025 CMP (MALE ) glucose 108.0 mg/dL 60.0-9 9.0 high Not Available [facility] [address] [facility] 1, [place], [address], 03/22/2025 16:30:49 03/22/20 25 03/22/2025 CMP (MALE ) BUN (blood urea nitrogen) 25.0 mg/dL 10.0-2 6.0 Not Available [facility] [address] [facility] 1, [place], [address], 03/22/2025 16:30:49 03/22/20 25 03/22/2025 CMP (MALE ) creatinine (serum) 1.4 mg/dL 0.4-1. 5 Not Available [facility] [address] [facility] 1, [place], [address], 03/22/2025 16:30:49 03/22/20 25 03/22/2025 CMP (MALE ) BUN/creatini ne ratio 17.86 ratio Not Available [facility] [address] [facility] 1, [place], [address], 03/22/2025 16:30:49 03/22/20 25 03/22/2025 CMP (MALE ) eGFR calculated 51.6 Not Available [facility] [address] [facility] 1, [place], [address], 03/22/2025 16:30:49 03/22/20 25 03/22/2025 CMP (MALE ) total protein 7.3 g/dL 6.0-8. 5 Not Available [facility] [address] [facility], [place], [address], 03/22/2025 16:30:49 03/22/20 25 03/22/2025 CMP (MALE ) total bilirubin 0.8 mg/dL 0.2-1. 3 Not Available [facility] [address] [facility], [place], [address], 03/22/2025 16:30:49 03/22/20 25 03/22/2025 CMP (MALE ) albumin 4.4 g/dL 3.5-5. 5 Not Available [facility] [address] [facility] 1, [place], [address], 03/22/2025 16:30:49 03/22/20 25 03/22/2025 CMP (MALE ) globulin 2.9 calc Not Available [facility] [address] [facility] 1, [place], [address], 03/22/2025 16:30:49 03/22/20 25 03/22/2025 CMP (MALE ) AST (SGOT) 47.0 U/L 0.0-46 .0 high Not Available [facility] [address] [facility] 1, [place], [address], 03/22/2025 16:30:49 03/22/20 25 03/22/2025 CMP (MALE ) altv (SGPT) 26.0 U/L 13.0-6 9.0 normal Not Available [facility] [address] [facility] 1, [place], [address], 03/22/2025 16:30:49 03/22/20 25 03/22/2025 CMP (MALE ) A/G ratio 1.5 ratio Not Available [facility] [address] [facility] 1, [place], [address], 03/22/2025 16:30:49 03/22/20 25 03/22/2025 CMP (MALE ) ALP phos 111.0 U/L 30.0-1 40.0 normal Not Available [facility] [address] [facility] [address] 1, [place], [address], 03/22/2025 16:30:49 03/22/20 25 03/22/2025 CMP (MALE ) calcium 9.5 mg/dL 8.4-10 .5 Not Available [facility] [address] [facility], [place], [address], 03/22/2025 16:30:49 03/22/20 25 03/22/2025 CMP (MALE ) sodium 141.0 mmol/ L 136.0- 145.0 Not Available [facility] [address] [facility], [place], [address], 03/22/2025 16:30:49 03/22/20 25 03/22/2025 CMP (MALE ) potassium 4.4 mmol/ L 3.5-5. 1 Not Available [facility] [address] [facility], [place], [address], 03/22/2025 16:30:49 03/22/20 25 03/22/2025 CMP (MALE ) chloride 105.0 mmol/ L 98.0-1 10.0 normal Not Available [facility] [address] [facility] 1, [place], [address], 03/22/2025 16:30:49 03/22/20 25 03/22/2025 CMP (MALE ) C02 28.0 mmol/ L 22.0-3 1.0 Not Available [facility] [address] [facility], [place], [address], 03/22/2025 16:30:49 03/22/20 25 03/22/2025 CMP (MALE ) anion gap 8.0 calc Not Available [facility] [address], [place], [address], 03/22/2025 16:30:49 03/22/20 25 03/22/2025 CMP (MALE ) osmolality 295.7 calc Not Available [facility] [address], [place], [address], 03/22/2025 16:30:49 03/22/20 25 03/23/2025 DIREC T LDL direct LDL 74 mg/dL <100 normal Ron able range <100 mg/dL for prima ry preve ntion ; <70 mg/dL for patie nts with CHD or diabe tic patie nts with > or = 2 CHD risk facto rs. Not Available [address] [address] [place], [address], 03/23/2025 04:33:32 Result Notes None recorded. Problems Name Problem SNOMED Code Status Onset Date Resolution Date Notes Provider Name and Address Organization Details Recorded Time Sick sinus syndrome 14843786 Active 2023 BRANDI leary [facility] 08:48:16 Cardiomyopa thy 65646081 Active 2023 BRANDI leary [facility] 5 08:48:19 Hyperlipide lily 74715510 Active 2024 BRANDI leary [facility] 5 09:02:15 Essential hypertensio n 48293663 Active 2024 BRANDI leary [facility] 5 09:02:24 Chronic obstructive pulmonary disease 89740635 Active 2024 BRANDI leary [facility] 5 14:43:10 Permanent cardiac pacemaker 2765873606434 02 Active 2024 Ml Adhikari MD [address] [place], [address], [facility] 5 14:21:18 History of placement of stent for coronary artery disease 006480932 Active 2024 Ml Adhikari MD [address] [place], [address], [facility] 5 14:23:03 Problem Notes None recorded. Procedures Surgical History Date Name Laterality Status Provider Name and Address Organization Details Recorded Time Colonoscopy completed BRANDI GARVIN [facility] 09/28/2024 14:09:27 Shoulder joint surgery completed KINDRA REYES [facility] 08/25/2024 11:59:29 Imaging Results None recorded. Procedure Notes None recorded. Medical Equipment None Reported. Allergies No known drug allergies Medications Name Sig Start Date Stop Date Status Note LastModified by Organization Details LastModified Time atorvasta tin 40 mg tablet daily 08/25 completed 0; Recorded 11/06/19 1:33PM by Krystyna Rao RN, Office Visit; Not Available Not Available Not Available atorvasta tin 80 mg tablet TAKE 1 TABLET BY MOUTH DAILY active Not Available Not Available No t Available Edex 20 mcg intracave rnosal kit INJECT DIRECTED INTRACAV ERNOSAL NEEDED active Not Available Not Available No t Available carvedilo l 12.5 mg tablet TAKE 1 TABLET BY MOUTH TWICE DAILY active Not Available Not Available No t Available clindamyc in HCl 300 mg capsule TAKE ONE CAPSULE EVERY 6 HOURS UNTIL GONE 08/25 completed Not Available Not Available Not Available irbesarta n 150 mg-hydroc hlorothia zide 12.5 mg tablet active Not Available Not Available No t Available azithromy berlin 250 mg tablet TAKE 2 TABLETS (500 MG) BY ORAL ROUTE ONCE DAILY FOR 1 DAY THEN 1 TABLET (250 MG) BY ORAL ROUTE ONCE DAILY FOR 4 DAYS 08/25 completed Not Available Not Available Not Available ondansetr on HCl 4 mg tablet TAKE 1 TABLET BY MOUTH EVERY 8 HOURS NEEDED FOR NAUSEA 12/01 completed Not Available Not Available Not Available prednison e 20 mg tablet TAKE 1 TABLET BY MOUTH EVERY DAY 08/25 completed Not Available Not Available Not Available isosorbid e mononitra te ER 30 mg tablet,ex tended release 24 hr daily 08/25 completed 0; Recorded 11/06/19 23 1:33PM by Krystyna Rao RN, Office Visit; Not Available Not Available Not Available clopidogr el 75 mg tablet TAKE 1 TABLET BY MOUTH DAILY active Not Available Not Available No t Available tramadol 50 mg tablet TAKE 1 TABLET EVERY 4 HOURS NEEDED FOR PAIN 08/25 completed Not Available Not Available Not Available isosorbid e mononitra te ER 120 mg tablet,ex tended release 24 hr TAKE 1 TABLET BY MOUTH DAILY active Not Available Not Available No t Available hydrocodo ne 7.5 mg-acetam inophen 325 mg tablet TAKE 1 TABLET BY MOUTH EVERY 4 HOURS NEEDED FOR PAIN 09/26 completed Not Available Not Available Not Available cephalexi n 500 mg capsule TAKE ONE CAPSULE BY MOUTH THREE TIMES DAILY 12/01 completed Not Available Not Available Not Available erythromy berlin 5 mg/gram (0.5 %) eye ointment APPLY A SMALL AMOUNT INSIDE LOWER EYELID OF EACH EYE AT BEDTIME. USE WARM WATER EACH MORNING AFTER USE. 08/25 completed Not Available Not Available Not Available nitroglyc amara 0.4 mg sublingua l tablet DISSOLVE 1 TABLET UNDER TONGUE AT THE ONSET OF CHEST DISCOMFO RT. IF NOT RELIEVED , REPEAT AND GO TO ER. 2024 active Not Available Not Available Not Avai lable metoprolo l succinate ER 25 mg tablet,ex tended release 24 hr 08/25 completed Not Available Not Available Not Available amoxicill in 875 mg-potass ium clavulana te 125 mg tablet TAKE 1 TABLET BY MOUTH TWICE DAILY 08/25 completed Not Available Not Available Not Available Ventolin HFA 90 mcg/actua tion aerosol inhaler INHALE 2 PUFFS BY MOUTH EVERY 6 HOURS NEEDED active Not Available Not Available No t Available ezetimibe 10 mg tablet Take 1 tablet every day by oral route for 90 days. 2024 active Not Available Not Available Not Avai lable aspirin daily 08/25 completed 0; Recorded 11/06/19 1:33PM by Krystyna Rao RN, Office Visit; Not Available Not Available Not Available Coreg two times daily 08/25 completed 0; Recorded 11/06/19 1:33PM by Krystyna Rao RN, Office Visit; Not Available Not Available Not Available Plavix daily 08/25 completed 0; Recorded 11/06/19 1:33PM by Krystyna Rao RN, Office Visit; Not Available Not Available Not Available Nitrostat every 5 mins, prn x 3 doses 08/25 completed 0; Recorded 11/06/19 1:33PM by Krystyna Rao RN, Office Visit; Not Available Not Available Not Available Multivita mins daily active 0; Recorded 11/06/19 1:33PM by Krystyna Rao RN, Office Visit; Not Available Not Available Not Available Avalide daily 08/25 completed 0; Recorded 11/06/19 1:33PM by Krystyna Rao RN, Office Visit; Not Available Not Available Not Available Advair HFA 45 mcg-21 mcg/actua tion aerosol inhaler INHALE 2 PUFFS BY MOUTH TWICE DAILY active Not Available Not Available No t Available Symbicort 80 mcg-4.5 mcg/actua tion HFA aerosol inhaler INHALE 1 PUFF BY MOUTH TWICE DAILY active Not Available Not Available No t Available Eliquis 5 mg tablet Take 1 tablet twice a day by oral route. 08/25 completed Not Available Not Available Not Available Eliquis 2.5 mg tablet TAKE 1 TABLET BY MOUTH TWICE DAILY active Not Available Not Available No t Available Breo Ellipta 100 mcg-25 mcg/dose powder for inhalatio n INHALE 1 PUFF BY MOUTH DAILY 08/25 completed Not Available Not Available Not Available Wixela Inhub 100 mcg-50 mcg/dose powder for inhalatio n INHALE 1 PUFF BY MOUTH TWICE DAILY 08/25 completed Not Available Not Available Not Available Vitals Date Recorded Body height Body mass index (BMI) Body weight Body temperature Heart rate Oxygen saturation Oxygen saturation in Arterial blood by Pulse oximetry Systolic And Diastolic Provider Name and Address Organization Details Last Updated DateTime 5 182.88 cm 29.6 kg/m2 57733.1 4 g 97.6 [degF] 65 /min 98 % 98 % 142/70 mm[Hg] Isabel Cartagena [facility] 5 14:47:10 Date Recorded Body height Body mass index (BMI) Body weight Body temperature Heart rate Oxygen saturation Oxygen saturation in Arterial blood by Pulse oximetry Systolic And Diastolic Provider Name and Address Organization Details Last Updated DateTime 5 182.88 cm 29.6 kg/m2 85861.1 4 g 97.8 [degF] 85 /min 96 % 96 % 115/62 mm[Hg] BRANDI BHARATHI [facility] 5 14:06:30 Date Recorded Body height Body mass index (BMI) Body weight Body temperature Oxygen saturation Oxygen saturation in Arterial blood by Pulse oximetry Heart rate Systolic And Diastolic Provider Name and Address Organization Details Last Updated DateTime 4 182.88 cm 30.4 kg/m2 724577. 69 g 97.3 [degF] 97 % 97 % 80 /min 130/70 mm[Hg] KINDRA BHAT REYES [facility] 4 11:52:37 Social History Question Answer Notes LastModified by InteK[employer] Details LastModified Time Tobacco Smoking Status Former Smoker KINDRA REYES [facility] 08/25/2024 11:58:35 When Did You Quit Smoking? 16+yearssinc elastcigaret te [email or web address] Information not available 09/28/2024 What Is Your Current Pack Years? 30ormorepack years [email or web address] Information not available 09/28/2024 Sex: Unknown Functional Status Question Answer Note LastModified by Organizat [employer] Details LastModified Time Do you use any illicit or recreational drugs? No Information not available 09/28/2024 Do you or have you ever used any other forms of tobacco or nicotine? No [email or web address] Information not available 09/28/2024 What is your level of alcohol consumption? None [email or web address] Information not available 09/28/2024 Do you or have you ever used any nicotine-free cigarettes, vape, or chewing tobacco? No Information not available 09/28/2024 Mental Status None recorded. Family History Nothing Reported Notes:Family history unknown Medical History No medical history recorded. Immunizations Vaccine Type Date Status Note Provider Nam e and Address Organization Details Recorded Time Tdap 11/19/2022 completed BRANDI leary [facility] 09/28/2024 14:01:12 Past Encounters Encounter ID Performer Location Encounter Start Date Encounter Closed Date Diagnosis/Indication Diagnosis SNOMED-CT Code Diagnosis ICD10 Code Diagnosis Note [id number] [facility] ([facility]) [address] [place] [id number] 12/01/2022 09:22:49 12/01/2022 19:12:20 Sebaceous cyst of skin 171511033 L72.3 Removed 1 month ago. Healing well. [id number] AIDAN HIRSCH [facility] ([facility]) [address] [place] [phone] 5 12/17/2022 11:22:12 12/26/2022 12:15:43 [id number] Bulmaro Hart MD [facility] ([facility]) [address] [place] [address] [phone] 06/10/2023 15:18:33 06/19/2023 14:27:25 Bronchitis [id number] J40 We will go ahead and treat with antibiotic s and steroids at this point. Arben fluids, rest, and over-the-c ounter medication to help with symptoms. 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 [id number] I25.119 Sick sinus syndrome 3608 3008 I49.5 Cardiomyopathy 43272280 I42.9 [id number] Ml Adhikari MD [facility] ([facility]) [address] [place] [phone] 5 09/19/2024 10:17:23 09/20/2024 10:33:07 Adult health examination [id number] Z00.00 [id number] Ml Adhikari MD [facility] ([facility]) [address] [place] [address] [phone] 09/26/2024 14:29:54 10/21/2024 08:55:50 Cardiomyopathy 93737031 I42.9 Essential hypertension 94390992 I10 Hyperlipidemia 79192413 E78.5 Sick sinus syndrome 3608 3008 I49.5 Chronic ob structive pulmonary disease 34895384 J44.9 [id number] Ml Adhikari MD [facility] ([facility]) [address] [place] [address] [phone] 09/28/2024 13:58:13 09/28/2024 15:59:01 Permanent cardiac pacemaker [id number] 40629 Z95.0 Cardiomyopathy 96865579 I42.9 Sick sinus syndrome 3608 3008 I49.5 Hyperlipidemia 01393377 E78.5 Chronic ob structive pulmonary disease 09160432 J44.9 History of placement of stent for coronary artery disease 046606727 Z95.5 Vertigo 569900643 R42 he gets vertigo off and on and the ER told him once to see an ENT and thus he requests this referral. [id number] Ml Adhikari MD [facility] ([facility]) [address] [place] [phone] 03/22/2025 15:50:39 03/22/2025 17:48:40 Hyperglycemia 18309662 R73.9 Hyperlipidemia 37185690 E78.5 medication addition Health Concerns Section Related Observation LastModified by Organization Detai ls LastModified Time None Recorded Concern Status LastModified by Organization Details LastModified Time None Recorded Advance Directives Directive None Recorded Payers Insurance Date Sequence Insurance Name Policy Number Policy Oswald Covered Member ID Oswald Member ID Guarantor Name 07/22/2023 2 UNSPECIFIED REMIT PAYOR Jordi Esposito 03/22/2025 1 MEDICARE [place]: [place] Jordi Salas Vaibhav [id number] Jordi Salas Vaibhav 03/22/2025 2 FOR LIFE ( - MEDICARE SUPPLEMENT) Jordi Salas Vaibhav [id number] Jordi Salas Vaibhav 03/22/2025 [place] - RHC-FQ[facility] (MEDICARE) Jordi Salas Vaibhav [id number] Jordi Marshegler Notes Date Note Type Note Provider Name and Address Organization Details Recorded Time 08/25 text/ html CONCLUSION:1. The EKG response to Lexisc an infusion is uninterpretable due to thepacing artifact2. No LexiScan induced chest pain or cardiac arrhythmia3. Normal blood pressure and heart rate response4. Sestamibi/sestamibi perfusion scan pending; see separate report. CONCLUSIONSNormal LV size and ejection fraction of 63%. Mild to moderateconcentric left trickle hypertrophy. Mild hypokinesia of thebasal inferior wall segment.Grade I/IV diastolic dysfunction(abnormal relaxation filling pattern), normal to mildly elevatedfilling pressures.Trace aortic valve regurgitation.Trace tricuspid valve regurgitation.There is no pericardial effusion.Pacemaker/defibrillator wire in the right atrium right ventricleThere is no pericardial effusion. IMPRESSIONS1. Myocardial perfusion imaging revealing moderate area of minimal tomoderately decreased persistent tracer uptake involving the inferior,inferolateral, inferoseptal and apical segments. A very small area ofreversibility in the apical inferior region. Features are suggestivemyocardial scarring predominantly in the distribution of the right coronaryartery with a very small area of todd-infarction ischemia .2. Normal LV ejection fraction of 64%.3. LV wall motion analysis revealing mild hypokinesia of the LV apex.Compared to the previous study from 12/14/2020, there is less scarring.Dr Christi Chen MD [facility](Electronically Signed)Final Date: 20230912:24S [facility] ([facility])[address] [place], [place] [address]Cslkqe Visit ReportSigned with AddendaPatient: Jordi Esposito R#: [id number]: 1940cct#:[id number]/Sex: 83 / MADM Date: 05/10/24Loc: PULORoom/Bed:Attending Dr: Shilpa Taveras MDReport Number: [id number] Documentation to PCP and CardiologistAddendum Dictated By:Shilpa Taveras MDAddendum Signed By:Signed Date/Time:05/10/24 1330Addendum Cosigned By:HPIHPI CommentsDetails:05/10/24CC: heaviness in chest with exertion. Only has albuterol. Insurance would not cover Advair.HPI82 year old male with PMH HTN, HLD, CAD s/p PCI intervention at Cx , CHF with pEF Diastolic in etiology with LEVDP of 20 mmh on catheterization in 2020 without recent echo, AF , S/P Pacemaker, questionable radiologic findings of Emphysema with normal PFT , POLINA, who is follow in this office with his current complain of breath on exertion associated with some chest heaviness that resolves with rest.Pt is frustrated as in 2021 he staes that he was able to walk near 2 miles and now he is not able to make his bed without SOB.He states that he have been drinking a lot of fluids because if he doesnt do that he gets dehydrated. He is waking 3-4 times at night to urinate.In addition, pt is claiming dizziness when he stand up quickly/He claims SOB associated to chest tightness combo He denies cough or sputum production.Per EMR his Pulmonary work up included PFT performed on 02/20/22 As per ATS criteria there was NO obstruction - No restriction - Mild Air trapping and no evidence of diffusion capacity abnormality.There is possible small airway mild obstructive defect. There was a possible small airway mild obstructive defect.FEV1/FVC: 70 (Normal) - FEV1: 80%(2.48 L)- FVC: 84%(L)- BTE75-90%: 108%- T% (MILD) - RV: 140%- RV/T%- - DLCOunc: 90%- DL/VA: 91% (Normal)CVC work up included 07/16/21 CARDIAC CATH Cath Patent stented segment in the mid circumflex artery. Mild diffuse disease in the other vessels. Evidence of left ventricular diastolic dysfunction with an LVEDP of 20mmHg.Normal LV size ejection fraction 55%.Last Echo was also in 2020 with evidence of LAE , LVH and EF 55%Allergiesmorphine Allergy (Verified 05/10/24 11:47)ADR-VomitingHome Medications- Last Reconciled 05/10/24 by Melissa Garzon LPNacetaminophen (Tylenol) 325 mg PO QID PRNalbuterol sulfate 90 mcg/actuation 2 puffs inhalation Q6H PRNapixaban 2.5 mg PO BIDapple cider vinegar 500 mg PO DAILY[ASO As directed]atorvastatin 80 mg PO DAILYcalcium carb-D3-mag ox-zinc ox 333 mg-133 unit -133 mg-5 mg (Carlito Mag Zinc Plus D3) 1 tab PO DAILYcarvedilol 12.5 mg PO BIDclopidogrel 75 mg PO DAILY[Custom molded functional foot orthotic As directed by NELLY&O][custom orthotics As directed]cyanocobalamin (vitamin B-12) (Vitamin B-12) 100 mcg PO DAILYfluticasone propion-salmeterol 45-21 mcg/actuation (Advair HFA) 2 puffs inhalation BIDirbesartan-hydrochlorothiazide 150-12.5 mg (Avalide) 0.5 tabs PO DAILYisosorbide mononitrate ER 120 mg PO XMGMShfoovtvzkjth-hhjwekig-jhblyb 1 tab PO QDAYnaproxen (Naprosyn) 500 mg PO BID PRNnitroglycerin (Nitrostat) 0.4 mg sublingual Q5M PRNoxycodone-acetaminophen 5-325 mg (Percocet) 1 tab PO Q4H PRNPFSHPFSH: Medical History Trimalleolar fractureObstructive sleep apnea (adult) (pediatric)Pt had the CPAP machine and was not using to the requirement and was taken away from him.Atypical chest painPacemakerCardiomyopathySick sinus syndromeHypertensionHyperlipidemiaEmphysema lungSurgical History History of arthroplasty of left shoulderFamily History FatherCAD (coronary artery disease)Family/OtherCancerGrandmotherDiabete sDenies family history ofClotting disorderDementiaChronic kidney disease (CKD)SuicideAnesthesia complicationBleeding disorderLung diseaseStrokeSocial History Smoking and tobacco/nicotine status: former use of tobacco/nicotineQuit status (tobacco/nicotine): has quit using Year quit tobacco: 1990 Former quit date comment: 1.5ppd x 30 yearsAlcohol intake: neverSubstance/Drug Use: neverDietary Habits: Caffeine: YesReview of SystemsConst: Reports: daytime sleepiness;Denies: fever(s), chills, body aches, fatigue or night sweatsEyes: Denies: change in visionENMT: Reports: nasal discharge, nasal congestion and post nasal drip;Denies: throat pain, odynophagia, hoarseness or sinus painCard: Reports: dyspnea on exertion;Denies: chest pain, palpitations, irregular heart rhythm, swelling of feet/ankles, lightheadedness, syncope, pre-syncope or orthopneaResp: Reports: dyspnea;Denies: productive cough, non-productive cough, wheezing, stridor, pain on inspiration, change in phlegm color, hemoptysis or chest congestionGI: Reports: dysphagia;Denies: abdominal pain, nausea, vomiting or heartburnMusc: Reports: back painNeuro: Denies: headache(s), numbness in extremities, weakness in extremities, lack of coordination or difficulty walkingPsych: Denies: anxiety, depression, mood swings, panic attacks, hopelessness or loss of interestEndo: Reports: tired all the time and hot flashes;Denies: polyuria, polydipsia or excessive sweatingHema/Lymph: Reports: easy bruising and easy bleedingAll/Imm: Denies: urticaria, throat swelling, tongue swelling, facial swelling, acute wheezing, itchy eyes, seasonal rhinorrhea or food intoleranceVital Signs08/18/2314:3405/:44005/10/2410:32 Height6 ft6 ft6 ftWeight2 lbBMI0.8BE694/75Blood Pressure LocationRt khcfzogdOhgwtwgpNemnnujBfmpxutggll30Krxma96R ulse SourcePulse OximeterPulse Oximetry (%)97Oxygen Delivery MethodRoom AirPhysical ExamNarrative: EXAM NARRATIVE:GENERAL APPEARANCE: Well appearing, well nourished--.No acute distress. Cooperative.NEUROLOGIC: No focal findings. Normal mental status. Normal speech. AO x3. Gait was normal.HEENT: Normocephalic and atraumatic. PERRLA. No nasal external lesion noted.MOUTH: Oral mucosa moist no lesion noted. No thrush. Mallampati score III.PHARYNX: Mucosa non-inflamed, no exudate.NECK: Supple. No JVD. No adenopathy. Thyroid non-enlarged and non-tenderPULMONARY: No significant chest cage abnormality. Corse breath sounds, no ronchies, wheezing or crackles.CARDIOVASCULAR: S1 and S2 seems regular and rhythmic. No murmur, rub or gallop.ABDOMEN: Benign, soft, nontender. No masses. Bowel sounds were positive.RENAL: No costovertebral angle tenderness. No mass.ENDOCRINE: No evidence of thyromegaly, acromegaly or Yas features.SKIN: Good turgor, no rash, unusual bruising or prominent lesions.EXTREMITIES: No evidence of ulnar deviation as well as no significant distal joint deformity. No evidence of cyanosis or clubbing. No edema.Supplemental Info PULMONARY TESTING * Personally Reviewed and independent interpretation performed -----PFT 02/20/22FEV1/FVC: 70- FEV1: 80%(2.48 L)- FVC: 84%(L)- BJS41-84%: 108%- T%- RV: 140%- RV/T%- - DLCOunc: 90%- DL/VA: 91%Test did NOT meet ATS criteria for bronchodilator response however significant response at the small airway levelAs per ATS criteria there is no onstruction - No restriction - Moderate Air trapping and no evidence of diffusion capacity abnormality. --------RADIOLOGY TESTING * Personally Reviewed and independent interpretation performed -----06/16/22 CHEST XRAYLungs: Unremarkable. No consolidation.Pleural spaces: Unremarkable. No pleural effusion. No pneumothorax.Heart/Mediastinum: Unremarkable. No cardiomegaly.Vasculature: Calcification of the thoracic aorta and/or great vesselsconsistent with atherosclerotic vessel disease.Bones/joints: Unremarkable.Soft tissues: Lordotic chest x-ray. 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.Evidence of left ventricular diastolic dysfunction with an LVEDP of 20mmHg.Normal LV size ejection fraction 55%.07/01/21 ECHONormal left ventricular size and systolic function, EF 55 %.Abnormal septal motion consistent with pacemaker.Mild concentric left ventricular hypertrophyMildly increased left atrial size.Thickened aortic valve.There is no pericardial effusion.Pacemaker wire in the right atrium and right ventricle12/14/20 Myocardial Perfusion Scan:Myocardial perfusion imaging revealing areas of persistent decreases uptake in the inferior, inferoseptal ,inferolateral, apical septal and LV apex with a subtle area of inconsistent reversibility, suggesting mostly myocardial scarring in distribution of the right coronary artery with possible todd- infarction ischemia.Normal LV ejection fraction 65%.LV wall motion as revealing moderate hypokinesia of the LV apex.Normal LV volume12/14/20 Sestamibi Stress Test:No significant EKG changes with the LexiScan infusionNo LexiScan induced chest pain or cardiac arrhythmiaNormal blood pressure and heart rate responseSestamibi/sestamibi perfusion scan pending; see separate report. Assess ment & PlanAssessment & Plan(1) DEAN (dyspnea on exertion):(2) Diastolic heart failure:Qualifiers:Heart failure chronicity: chronic Qualified Code(s): I50.32 - Chronic diastolic (congestive) heart failure(3) Atypical chest pain:(4) Obstructive sleep apnea (adult) (pediatric):Plan1. DOEOUT OF PROPORTION OF UNDERLYING LUNG DISEASEPt PFT shows NOT COPD . He has NO Obstructive disease. Radiological testing was unremarkable.His SOB is most likely related to his underlying CVC condition with possible progressive CHF with pEF DIASTOLIC in ETIOLOGY. He has already cardiact cath with evidence of elevated LVEDP of 20 mmhgHis last echo was in 2020. May consider new ECHO?2. DIASTOLIC HEART FAILURE3. ATYPICAL CHEST PAINHe has hx of CAD with prior PCI in LCx however new Cardiac cath showed mild diffuse disease without significant obstructive defect.Again as mention above his Echo showed LAE/LVH and Cardiac cath Elevated LVEDPMay consider re-evaluation of his HF. he is small dose of BBHis SBP is on 100's may consider other type of BB? ARBS combination re-assesment.If cardiology think pt's symptoms are out of proportion of CVC findings we may repeat his PFT?His SBP is on 100's may consider other type of BB? ARBS combination re-assessment ?4. OSAPt with dx of Mild POLINA and he declined therapy returned his device to DME.Pt couseled the risk of untreated POLINA and its benefit of therapy in pts with CHF.Pt declines.He had lisandra with cardiology. He will discuss symptoms at that time. Activity Restrictions/Additional Instructions:As we discussed while you are in the emergency department your findings in the emergency department indicated that your pacemaker is functioning normally. Your chest x-ray did not reveal any evidence that the pacemaker was out of position and the wires are displaced or otherwise disrupted. Does not appear that you have had any evidence of a heart attack or other serious condition that could be related to any chest pains however your chest pains were very short in duration and nonspecific. As we discussed if you develop recurrent or persistent or worsening symptoms to include palpitations, sustained chest pain associated with shortness of breath sweating nausea etc. or other concerning symptoms return to this or the nearest emergency department otherwise you should follow-up with your tooth cutter contact wheel in the next 2 weeks. Ml Adhikari MD [address] [place], [phone] , [facility] 4 12:44:24 09/26 text/ html Pt is here for a 1 month follow up on angina, coronary ateriosclerosis, sick sinus syndrome, and cardiomyopathy. He has been having dizzy spells the last 2-3 days. He states they go away after a nap and happen when his BP gets around 140s/90s. He has chest pain/heaviness 3 times since his last visit, but did not take a nitro because he wasn't sure what would happen if he took it. The sx went away after resting in 4-5 minutes. Notes from last OV are as follows: CONCLUSION:1. The EKG response to Lexiscan infusion is uninterpretable due to thepacing artifact2. No LexiScan induced chest pain or cardiac arrhythmia3. Normal blood pressure and heart rate response4. Sestamibi/sestamibi perfusion scan pending; see separate report. CONCLUSIONSNormal LV size and ejection fraction of 63%. Mild to moderateconcentric left trickle hypertrophy. Mild hypokinesia of thebasal inferior wall segment.Grade I/IV diastolic dysfunction(abnormal relaxation filling pattern), normal to mildly elevatedfilling pressures.Trace aortic valve regurgitation.Trace tricuspid valve regurgitation.There is no pericardial effusion.Pacemaker/defibrillator wire in the right atrium right ventricleThere is no pericardial effusion. IMPRESSIONS1. Myocardial perfusion imaging revealing moderate area of minimal tomoderately decreased persistent tracer uptake involving the inferior,inferolateral, inferoseptal and apical segments. A very small area ofreversibility in the apical inferior region. Features are suggestivemyocardial scarring predominantly in the distribution of the right coronaryartery with a very small area of todd-infarction ischemia .2. Normal LV ejection fraction of 64%.3. LV wall motion analysis revealing mild hypokinesia of the LV apex.Compared to the previous study from 12/14/2020, there is less scarring.Dr Christi Chen MD [facility](Electronically Signed)Final Date: June6:24S [facility] ([facility])[address] [place], [place] [address]Zeovtk Visit ReportSigned with AddendaPatient: Jordi Esposito [facility]#: [id number]: 1940cct#:[id number]/Sex: 83 / MADM Date: 05/10/24Loc: PULORoom/Bed:Attending Dr: Shilpa Taveras MDRort Number: [id number] Documentation to PCP and CardiologistAddendum Dictated By:Shilpa Taveras MDAddendum Signed By:Signed Date/Time:05/10/24 1330Addendum Cosigned By:HPIHPI CommentsDetails:05/10/24CC: heaviness in chest with exertion. Only has albuterol. Insurance would not cover Advair.HPI82 year old male with PMH HTN, HLD, CAD s/p PCI intervention at Cx , CHF with pEF Diastolic in etiology with LEVDP of 20 mmh on catheterization in 2020 without recent echo, AF , S/P Pacemaker, questionable radiologic findings of Emphysema with normal PFT , POLINA, who is follow in this office with his current complain of breath on exertion associated with some chest heaviness that resolves with rest.Pt is frustrated as in 2021 he staes that he was able to walk near 2 miles and now he is not able to make his bed without SOB.He states that he have been drinking a lot of fluids because if he doesnt do that he gets dehydrated. He is waking 3-4 times at night to urinate.In addition, pt is claiming dizziness when he stand up quickly/He claims SOB associated to chest tightness combo He denies cough or sputum production.Per EMR his Pulmonary work up included PFT performed on 02/20/22 As per ATS criteria there was NO obstruction - No restriction - Mild Air trapping and no evidence of diffusion capacity abnormality.There is possible small airway mild obstructive defect. There was a possible small airway mild obstructive defect.FEV1/FVC: 70 (Normal) - FEV1: 80%(2.48 L)- FVC: 84%(L)- YQQ01-43%: 108%- T% (MILD) - RV: 140%- RV/T%- - DLCOunc: 90%- DL/VA: 91% (Normal)CVC work up included 07/16/21 CARDIAC CATH Cath Patent stented segment in the mid circumflex artery. Mild diffuse disease in the other vessels. Evidence of left ventricular diastolic dysfunction with an LVEDP of 20mmHg.Normal LV size ejection fraction 55%.Last Echo was also in 2020 with evidence of LAE , LVH and EF 55%Allergiesmorphine Allergy (Verified 05/10/24 11:47)ADR-VomitingHome Medications- Last Reconciled 05/10/24 by Melissa Garzon LPNacetaminophen (Tylenol) 325 mg PO QID PRNalbuterol sulfate 90 mcg/actuation 2 puffs inhalation Q6H PRNapixaban 2.5 mg PO BIDapple cider vinegar 500 mg PO DAILY[ASO As directed]atorvastatin 80 mg PO DAILYcalcium carb-D3-mag ox-zinc ox 333 mg-133 unit -133 mg-5 mg (Carlito Mag Zinc Plus D3) 1 tab PO DAILYcarvedilol 12.5 mg PO BIDclopidogrel 75 mg PO DAILY[Custom molded functional foot orthotic As directed by NELLY&O][custom orthotics As directed]cyanocobalamin (vitamin B-12) (Vitamin B-12) 100 mcg PO DAILYfluticasone propion-salmeterol 45-21 mcg/actuation (Advair HFA) 2 puffs inhalation BIDirbesartan-hydrochlorothiazide 150-12.5 mg (Avalide) 0.5 tabs PO DAILYisosorbide mononitrate ER 120 mg PO IITDWrhscnvifrjid-uhufwror-kuiouq 1 tab PO QDAYnaproxen (Naprosyn) 500 mg PO BID PRNnitroglycerin (Nitrostat) 0.4 mg sublingual Q5M PRNoxycodone-acetaminophen 5-325 mg (Percocet) 1 tab PO Q4H PRNPFSHPFSH: Medical History Trimalleolar fractureObstructive sleep apnea (adult) (pediatric)Pt had the CPAP machine and was not using to the requirement and was taken away from him.Atypical chest painPacemakerCardiomyopathySick sinus syndromeHypertensionHyperlipidemiaEmphysema lungSurgical History History of arthroplasty of left shoulderFamily History FatherCAD (coronary artery disease)Family/OtherCancerGrandmotherDiabete sDenies family history ofClotting disorderDementiaChronic kidney disease (CKD)SuicideAnesthesia complicationBleeding disorderLung diseaseStrokeSocial History Smoking and tobacco/nicotine status: former use of tobacco/nicotineQuit status (tobacco/nicotine): has quit using Year quit tobacco: 1990 Former quit date comment: 1.5ppd x 30 yearsAlcohol intake: neverSubstance/Drug Use: neverDietary Habits: Caffeine: YesReview of SystemsConst: Reports: daytime sleepiness;Denies: fever(s), chills, body aches, fatigue or night sweatsEyes: Denies: change in visionENMT: Reports: nasal discharge, nasal congestion and post nasal drip;Denies: throat pain, odynophagia, hoarseness or sinus painCard: Reports: dyspnea on exertion;Denies: chest pain, palpitations, irregular heart rhythm, swelling of feet/ankles, lightheadedness, syncope, pre-syncope or orthopneaResp: Reports: dyspnea;Denies: productive cough, non-productive cough, wheezing, stridor, pain on inspiration, change in phlegm color, hemoptysis or chest congestionGI: Reports: dysphagia;Denies: abdominal pain, nausea, vomiting or heartburnMusc: Reports: back painNeuro: Denies: headache(s), numbness in extremities, weakness in extremities, lack of coordination or difficulty walkingPsych: Denies: anxiety, depression, mood swings, panic attacks, hopelessness or loss of interestEndo: Reports: tired all the time and hot flashes;Denies: polyuria, polydipsia or excessive sweatingHema/Lymph: Reports: easy bruising and easy bleedingAll/Imm: Denies: urticaria, throat swelling, tongue swelling, facial swelling, acute wheezing, itchy eyes, seasonal rhinorrhea or food intoleranceVital Signs08/18/2314:3405/:4409/11/2409:32 Height6 ft6 ft6 ftWeight2 lbBMI0.5QK088/75Blood Pressure LocationRt cquevomeMsrokxmrRpiyxwcDxgirmueoxl90Oitjx98L ulse SourcePulse OximeterPulse Oximetry (%)97Oxygen Delivery MethodRoom AirPhysical ExamNarrative: EXAM NARRATIVE:GENERAL APPEARANCE: Well appearing, well nourished--.No acute distress. Cooperative.NEUROLOGIC: No focal findings. Normal mental status. Normal speech. AO x3. Gait was normal.HEENT: Normocephalic and atraumatic. PERRLA. No nasal external lesion noted.MOUTH: Oral mucosa moist no lesion noted. No thrush. Mallampati score III.PHARYNX: Mucosa non-inflamed, no exudate.NECK: Supple. No JVD. No adenopathy. Thyroid non-enlarged and non-tenderPULMONARY: No significant chest cage abnormality. Corse breath sounds, no ronchies, wheezing or crackles.CARDIOVASCULAR: S1 and S2 seems regular and rhythmic. No murmur, rub or gallop.ABDOMEN: Benign, soft, nontender. No masses. Bowel sounds were positive.RENAL: No costovertebral angle tenderness. No mass.ENDOCRINE: No evidence of thyromegaly, acromegaly or [place] features.SKIN: Good turgor, no rash, unusual bruising or prominent lesions.EXTREMITIES: No evidence of ulnar deviation as well as no significant distal joint deformity. No evidence of cyanosis or clubbing. No edema.Supplemental Info PULMONARY TESTING * Personally Reviewed and independent interpretation performed -----PFT 02/20/22FEV1/FVC: 70- FEV1: 80%(2.48 L)- FVC: 84%(L)- CTV81-96%: 108%- T%- RV: 140%- RV/T%- - DLCOunc: 90%- DL/VA: 91%Test did NOT meet ATS criteria for bronchodilator response however significant response at the small airway levelAs per ATS criteria there is no onstruction - No restriction - Moderate Air trapping and no evidence of diffusion capacity abnormality. --------RADIOLOGY TESTING * Personally Reviewed and independent interpretation performed -----06/16/22 CHEST XRAYLungs: Unremarkable. No consolidation.Pleural spaces: Unremarkable. No pleural effusion. No pneumothorax.Heart/Mediastinum: Unremarkable. No cardiomegaly.Vasculature: Calcification of the thoracic aorta and/or great vesselsconsistent with atherosclerotic vessel disease.Bones/joints: Unremarkable.Soft tissues: Lordotic chest x-ray. 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.Evidence of left ventricular diastolic dysfunction with an LVEDP of 20mmHg.Normal LV size ejection fraction 55%.07/01/21 ECHONormal left ventricular size and systolic function, EF 55 %.Abnormal septal motion consistent with pacemaker.Mild concentric left ventricular hypertrophyMildly increased left atrial size.Thickened aortic valve.There is no pericardial effusion.Pacemaker wire in the right atrium and right ventricle12/14/20 Myocardial Perfusion Scan:Myocardial perfusion imaging revealing areas of persistent decreases uptake in the inferior, inferoseptal ,inferolateral, apical septal and LV apex with a subtle area of inconsistent reversibility, suggesting mostly myocardial scarring in distribution of the right coronary artery with possible todd- infarction ischemia.Normal LV ejection fraction 65%.LV wall motion as revealing moderate hypokinesia of the LV apex.Normal LV volume12/14/20 Sestamibi Stress Test:No significant EKG changes with the LexiScan infusionNo LexiScan induced chest pain or cardiac arrhythmiaNormal blood pressure and heart rate responseSestamibi/sestamibi perfusion scan pending; see separate report. Assess ment & PlanAssessment & Plan(1) DEAN (dyspnea on exertion):(2) Diastolic heart failure:Qualifiers:Heart failure chronicity: chronic Qualified Code(s): I50.32 - Chronic diastolic (congestive) heart failure(3) Atypical chest pain:(4) Obstructive sleep apnea (adult) (pediatric):Plan1. DOEOUT OF PROPORTION OF UNDERLYING LUNG DISEASEPt PFT shows NOT COPD . He has NO Obstructive disease. Radiological testing was unremarkable.His SOB is most likely related to his underlying CVC condition with possible progressive CHF with pEF DIASTOLIC in ETIOLOGY. He has already cardiact cath with evidence of elevated LVEDP of 20 mmhgHis last echo was in 2020. May consider new ECHO?2. DIASTOLIC HEART FAILURE3. ATYPICAL CHEST PAINHe has hx of CAD with prior PCI in LCx however new Cardiac cath showed mild diffuse disease without significant obstructive defect.Again as mention above his Echo showed LAE/LVH and Cardiac cath Elevated LVEDPMay consider re-evaluation of his HF. he is small dose of BBHis SBP is on 100's may consider other type of BB? ARBS combination re-assesment.If cardiology think pt's symptoms are out of proportion of CVC findings we may repeat his PFT?His SBP is on 100's may consider other type of BB? ARBS combination re-assessment ?4. OSAPt with dx of Mild POLINA and he declined therapy returned his device to DME.Pt couseled the risk of untreated POLINA and its benefit of therapy in pts with CHF.Pt declines.He had lisandra with cardiology. He will discuss symptoms at that time. Activity Restrictions/Additional Instructions:As we discussed while you are in the emergency department your findings in the emergency department indicated that your pacemaker is functioning normally. Your chest x-ray did not reveal any evidence that the pacemaker was out of position and the wires are displaced or otherwise disrupted. Does not appear that you have had any evidence of a heart attack or other serious condition that could be related to any chest pains however your chest pains were very short in duration and nonspecific. As we discussed if you develop recurrent or persistent or worsening symptoms to include palpitations, sustained chest pain associated with shortness of breath sweating nausea etc. or other concerning symptoms return to this or the nearest emergency department otherwise you should follow-up with your tooth cutter contact wheel in the next 2 weeks. Ml Adhikari MD [address] [place] [address], [phone] [place] [address] 5 08:55:49 09/28 text/ html Pt is here for a 1 month follow up on angina, coronary ateroesclerosis, sick sinus syndrome, and cardiomyopathy. He reports he has very infrequent angina now and that it is stable and alleviated very quickly with rest. walking with a cart gives him a chance to rest. he will see cardiology in November near the beginning of the month. CONCLUSION:1. The EKG response to Lexiscan infusion is uninterpretable due to thepacing artifact2. No LexiScan induced chest pain or cardiac arrhythmia3. Normal blood pressure and heart rate response4. Sestamibi/sestamibi perfusion scan pending; see separate report. CONCLUSIONSNormal LV size and ejection fraction of 63%. Mild to moderateconcentric left trickle hypertrophy. Mild hypokinesia of thebasal inferior wall segment.Grade I/IV diastolic dysfunction(abnormal relaxation filling pattern), normal to mildly elevatedfilling pressures.Trace aortic valve regurgitation.Trace tricuspid valve regurgitation.There is no pericardial effusion.Pacemaker/defibrillator wire in the right atrium right ventricleThere is no pericardial effusion. IMPRESSIONS1. Myocardial perfusion imaging revealing moderate area of minimal tomoderately decreased persistent tracer uptake involving the inferior,inferolateral, inferoseptal and apical segments. A very small area ofreversibility in the apical inferior region. Features are suggestivemyocardial scarring predominantly in the distribution of the right coronaryartery with a very small area of todd-infarction ischemia .2. Normal LV ejection fraction of 64%.3. LV wall motion analysis revealing mild hypokinesia of the LV apex.Compared to the previous study from 12/14/2020, there is less scarring.Dr Christi Chen MD FACC(Electronically Signed)Final Date: June6:24S [facility] ([facility])[address] [place], [place] [address]Cwcitl Visit ReportSigned with AddendaPatient: Jordi Esposito R#: [id number]: 1940cct#:[id number]/Sex: 83 / MADM Date: 05/10/24Loc: PULORoom/Bed:Attending Dr: Shilpa Taveras MDReport Number: [id number] Documentation to PCP and CardiologistAddendum Dictated By:Shilpa Taveras MDAddendum Signed By:Signed Date/Time:05/10/24 1330Addendum Cosigned By:HPIHPI CommentsDetails:05/10/24CC: heaviness in chest with exertion. Only has albuterol. Insurance would not cover Advair.HPI82 year old male with PMH HTN, HLD, CAD s/p PCI intervention at Cx , CHF with pEF Diastolic in etiology with LEVDP of 20 mmh on catheterization in 2020 without recent echo, AF , S/P Pacemaker, questionable radiologic findings of Emphysema with normal PFT , POLINA, who is follow in this office with his current complain of breath on exertion associated with some chest heaviness that resolves with rest.Pt is frustrated as in 2021 he staes that he was able to walk near 2 miles and now he is not able to make his bed without SOB.He states that he have been drinking a lot of fluids because if he doesnt do that he gets dehydrated. He is waking 3-4 times at night to urinate.In addition, pt is claiming dizziness when he stand up quickly/He claims SOB associated to chest tightness combo He denies cough or sputum production.Per EMR his Pulmonary work up included PFT performed on 02/20/22 As per ATS criteria there was NO obstruction - No restriction - Mild Air trapping and no evidence of diffusion capacity abnormality.There is possible small airway mild obstructive defect. There was a possible small airway mild obstructive defect.FEV1/FVC: 70 (Normal) - FEV1: 80%(2.48 L)- FVC: 84%(L)- ISX35-34%: 108%- T% (MILD) - RV: 140%- RV/T%- - DLCOunc: 90%- DL/VA: 91% (Normal)CVC work up included 07/16/21 CARDIAC CATH Cath Patent stented segment in the mid circumflex artery. Mild diffuse disease in the other vessels. Evidence of left ventricular diastolic dysfunction with an LVEDP of 20mmHg.Normal LV size ejection fraction 55%.Last Echo was also in 2020 with evidence of LAE , LVH and EF 55%Allergiesmorphine Allergy (Verified 05/10/24 11:47)ADR-VomitingHome Medications- Last Reconciled 05/10/24 by Melissa Garzon LPNacetaminophen (Tylenol) 325 mg PO QID PRNalbuterol sulfate 90 mcg/actuation 2 puffs inhalation Q6H PRNapixaban 2.5 mg PO BIDapple cider vinegar 500 mg PO DAILY[ASO As directed]atorvastatin 80 mg PO DAILYcalcium carb-D3-mag ox-zinc ox 333 mg-133 unit -133 mg-5 mg (Carlito Mag Zinc Plus D3) 1 tab PO DAILYcarvedilol 12.5 mg PO BIDclopidogrel 75 mg PO DAILY[Custom molded functional foot orthotic As directed by NELLY&O][custom orthotics As directed]cyanocobalamin (vitamin B-12) (Vitamin B-12) 100 mcg PO DAILYfluticasone propion-salmeterol 45-21 mcg/actuation (Advair HFA) 2 puffs inhalation BIDirbesartan-hydrochlorothiazide 150-12.5 mg (Avalide) 0.5 tabs PO DAILYisosorbide mononitrate ER 120 mg PO IXAHKwjhfzvkdeqks-muujrjey-zmvjju 1 tab PO QDAYnaproxen (Naprosyn) 500 mg PO BID PRNnitroglycerin (Nitrostat) 0.4 mg sublingual Q5M PRNoxycodone-acetaminophen 5-325 mg (Percocet) 1 tab PO Q4H PRNPFSHPFSH: Medical History Trimalleolar fractureObstructive sleep apnea (adult) (pediatric)Pt had the CPAP machine and was not using to the requirement and was taken away from him.Atypical chest painPacemakerCardiomyopathySick sinus syndromeHypertensionHyperlipidemiaEmphysema lungSurgical History History of arthroplasty of left shoulderFamily History FatherCAD (coronary artery disease)Family/OtherCancerGrandmotherDiabete sDenies family history ofClotting disorderDementiaChronic kidney disease (CKD)SuicideAnesthesia complicationBleeding disorderLung diseaseStrokeSocial History Smoking and tobacco/nicotine status: former use of tobacco/nicotineQuit status (tobacco/nicotine): has quit using Year quit tobacco: 1990 Former quit date comment: 1.5ppd x 30 yearsAlcohol intake: neverSubstance/Drug Use: neverDietary Habits: Caffeine: YesReview of SystemsConst: Reports: daytime sleepiness;Denies: fever(s), chills, body aches, fatigue or night sweatsEyes: Denies: change in visionENMT: Reports: nasal discharge, nasal congestion and post nasal drip;Denies: throat pain, odynophagia, hoarseness or sinus painCard: Reports: dyspnea on exertion;Denies: chest pain, palpitations, irregular heart rhythm, swelling of feet/ankles, lightheadedness, syncope, pre-syncope or orthopneaResp: Reports: dyspnea;Denies: productive cough, non-productive cough, wheezing, stridor, pain on inspiration, change in phlegm color, hemoptysis or chest congestionGI: Reports: dysphagia;Denies: abdominal pain, nausea, vomiting or heartburnMusc: Reports: back painNeuro: Denies: headache(s), numbness in extremities, weakness in extremities, lack of coordination or difficulty walkingPsych: Denies: anxiety, depression, mood swings, panic attacks, hopelessness or loss of interestEndo: Reports: tired all the time and hot flashes;Denies: polyuria, polydipsia or excessive sweatingHema/Lymph: Reports: easy bruising and easy bleedingAll/Imm: Denies: urticaria, throat swelling, tongue swelling, facial swelling, acute wheezing, itchy eyes, seasonal rhinorrhea or food intoleranceVital Signs08/2314:3405/:4409/11/2409:32 Height6 ft6 ft6 ftWeight2 lbBMI0.3NV110/75Blood Pressure LocationRt lbcowbjoLunmiexeIzjugejAoctywhdryr76Tllbx03N ulse SourcePulse OximeterPulse Oximetry (%)97Oxygen Delivery MethodRoom AirPhysical ExamNarrative: EXAM NARRATIVE:GENERAL APPEARANCE: Well appearing, well nourished--.No acute distress. Cooperative.NEUROLOGIC: No focal findings. Normal mental status. Normal speech. AO x3. Gait was normal.HEENT: Normocephalic and atraumatic. PERRLA. No nasal external lesion noted.MOUTH: Oral mucosa moist no lesion noted. No thrush. Mallampati score III.PHARYNX: Mucosa non-inflamed, no exudate.NECK: Supple. No JVD. No adenopathy. Thyroid non-enlarged and non-tenderPULMONARY: No significant chest cage abnormality. Corse breath sounds, no ronchies, wheezing or crackles.CARDIOVASCULAR: S1 and S2 seems regular and rhythmic. No murmur, rub or gallop.ABDOMEN: Benign, soft, nontender. No masses. Bowel sounds were positive.RENAL: No costovertebral angle tenderness. No mass.ENDOCRINE: No evidence of thyromegaly, acromegaly or [place] features.SKIN: Good turgor, no rash, unusual bruising or prominent lesions.EXTREMITIES: No evidence of ulnar deviation as well as no significant distal joint deformity. No evidence of cyanosis or clubbing. No edema.Supplemental Info PULMONARY TESTING * Personally Reviewed and independent interpretation performed -----PFT 02/20/22FEV1/FVC: 70- FEV1: 80%(2.48 L)- FVC: 84%(L)- SPO58-85%: 108%- T%- RV: 140%- RV/T%- - DLCOunc: 90%- DL/VA: 91%Test did NOT meet ATS criteria for bronchodilator response however significant response at the small airway levelAs per ATS criteria there is no onstruction - No restriction - Moderate Air trapping and no evidence of diffusion capacity abnormality. --------RADIOLOGY TESTING * Personally Reviewed and independent interpretation performed -----06/16/22 CHEST XRAYLungs: Unremarkable. No consolidation.Pleural spaces: Unremarkable. No pleural effusion. No pneumothorax.Heart/Mediastinum: Unremarkable. No cardiomegaly.Vasculature: Calcification of the thoracic aorta and/or great vesselsconsistent with atherosclerotic vessel disease.Bones/joints: Unremarkable.Soft tissues: Lordotic chest x-ray. 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.Evidence of left ventricular diastolic dysfunction with an LVEDP of 20mmHg.Normal LV size ejection fraction 55%.07/01/21 ECHONormal left ventricular size and systolic function, EF 55 %.Abnormal septal motion consistent with pacemaker.Mild concentric left ventricular hypertrophyMildly increased left atrial size.Thickened aortic valve.There is no pericardial effusion.Pacemaker wire in the right atrium and right ventricle12/14/20 Myocardial Perfusion Scan:Myocardial perfusion imaging revealing areas of persistent decreases uptake in the inferior, inferoseptal ,inferolateral, apical septal and LV apex with a subtle area of inconsistent reversibility, suggesting mostly myocardial scarring in distribution of the right coronary artery with possible todd- infarction ischemia.Normal LV ejection fraction 65%.LV wall motion as revealing moderate hypokinesia of the LV apex.Normal LV volume12/14/20 Sestamibi Stress Test:No significant EKG changes with the LexiScan infusionNo LexiScan induced chest pain or cardiac arrhythmiaNormal blood pressure and heart rate responseSestamibi/sestamibi perfusion scan pending; see separate report. Assess ment & PlanAssessment & Plan(1) DEAN (dyspnea on exertion):(2) Diastolic heart failure:Qualifiers:Heart failure chronicity: chronic Qualified Code(s): I50.32 - Chronic diastolic (congestive) heart failure(3) Atypical chest pain:(4) Obstructive sleep apnea (adult) (pediatric):Plan1. DOEOUT OF PROPORTION OF UNDERLYING LUNG DISEASEPt PFT shows NOT COPD . He has NO Obstructive disease. Radiological testing was unremarkable.His SOB is most likely related to his underlying CVC condition with possible progressive CHF with pEF DIASTOLIC in ETIOLOGY. He has already cardiact cath with evidence of elevated LVEDP of 20 mmhgHis last echo was in 2020. May consider new ECHO?2. DIASTOLIC HEART FAILURE3. ATYPICAL CHEST PAINHe has hx of CAD with prior PCI in LCx however new Cardiac cath showed mild diffuse disease without significant obstructive defect.Again as mention above his Echo showed LAE/LVH and Cardiac cath Elevated LVEDPMay consider re-evaluation of his HF. he is small dose of BBHis SBP is on 100's may consider other type of BB? ARBS combination re-assesment.If cardiology think pt's symptoms are out of proportion of CVC findings we may repeat his PFT?His SBP is on 100's may consider other type of BB? ARBS combination re-assessment ?4. OSAPt with dx of Mild POLINA and he declined therapy returned his device to DME.Pt couseled the risk of untreated POLINA and its benefit of therapy in pts with CHF.Pt declines.He had lisandra with cardiology. He will discuss symptoms at that time. Activity Restrictions/Additional Instructions:As we discussed while you are in the emergency department your findings in the emergency department indicated that your pacemaker is functioning normally. Your chest x-ray did not reveal any evidence that the pacemaker was out of position and the wires are displaced or otherwise disrupted. Does not appear that you have had any evidence of a heart attack or other serious condition that could be related to any chest pains however your chest pains were very short in duration and nonspecific. As we discussed if you develop recurrent or persistent or worsening symptoms to include palpitations, sustained chest pain associated with shortness of breath sweating nausea etc. or other concerning symptoms return to this or the nearest emergency department otherwise you should follow-up with your tooth cutter contact wheel in the next 2 weeks. Ml Adhikari MD [address] [place] [address], [phone] , [facility], LJosefinaLLynn 5 14:30:27
--- OUTSIDE RECORDS SUMMARY | 2025-03-27 01:39 | XMS_ITS | Continuity of Care Document ---
Author Organization [facility] [place], [facility] ([facility]) Address [address] [place] [address] Care Team Providers Care Retail Sales Associate Seasonal Name Role Phone DYLAN BREAUX Primary Care Provider Assessment No assessment recorded. Plan of Treatment Reminders Order Date Submit Date Provider Last Modified By Organization Details Last Modified Time Details Appointments RECHECK 15 2024 01:00P Lian Breaux MD Not available Not available Not available Lab CMP, serum or plasma 2024 025 [facility], [address], [facility], [place], [address], 03/22/2025 16:30:49 hemoglobi n A1C/hemog lobin total, QN, blood 2024 025 [facility], [address] [facility] [address], [facility], [place], [address], 03/22/2025 16:10:52 LDL, direct, serum 2024 025 [employer] [facility], [address] [place] [address] [address] [place], [address], 03/23/2025 04:33:32 Referral None recorded. Procedures None recorded. Surgeries None recorded. Imaging None recorded. Medication Orders None recorded. Patient TargetsNo targets recorded. Patient InstructionsNo instructions recorded. Reason for Referral None Reported. Problems Name Problem SNOMED Code Status Onset Date Resolution Date Notes Provider Name and Address Organization Details Recorded Time Sick sinus syndrome 33712119 Active 2023 BRANDI leary [facility] 5 08:48:16 Cardiomyopa thy 36254732 Active 2023 BRANDI leary, [facility] 5 08:48:19 Hyperlipide lily 51840036 Active 2024 BRANDI leary, [facility] 5 09:02:15 Essential hypertensio n 96991561 Active 2024 BRANDI leary [facility] 5 09:02:24 Chronic obstructive pulmonary disease 71981623 Active 2024 BRANDI leary [facility] 5 14:43:10 Permanent cardiac pacemaker 8044454087269 02 Active 2024 Dylan Breaux MD [address] [place] [address], [phone], [facility] 5 14:21:18 History of placement of stent for coronary artery disease 510042826 Active 2024 Dylan Breaux MD [address] [place] [address], [phone], [facility] 5 14:23:03 Problem Notes None recorded. Procedures Surgical History Date Name Laterality Status Provider Name and Address Organization Details Recorded Time 1 Colonoscopy completed BRANDI GARVIN [facility] 09/28/2024 14:09:27 Shoulder joint surgery completed KINDRA REYES [facility] 08/25/2024 11:59:29 Imaging Results None recorded. Procedure Notes None recorded. Medical Equipment None Reported. Allergies No known drug allergies Medications Name Sig Start Date Stop Date Status Note LastModified by Organization Details LastModified Time atorvasta tin 40 mg tablet daily 08/25 completed 0; Recorded 11/06/19 23 [...] completed 0; Recorded 11/06/19 23 1:33PM by Krytsyna Rao, RN, Office Visit; Not Available Not Available [...] Not Available Not Available Not Available Vitals None Recorded Social History Question Answer Notes LastModified by PillGuardizat ion Details LastModified Time Tobacco Smoking Status Former Smoker KINDRA REYES [facility] 08/25/2024 11:58:35 When Did You Quit Smoking? 16+yearssinc elastcigaret te [email or web address] Information not available 09/28/2024 What Is Your Current Pack Years? 30ormorepack years [email or web address] Information not available 09/28/2024 Sex: Unknown Functional Status Question Answer Note LastModified by Organizat ion Details LastModified Time Do you use any illicit or recreational drugs? No [email or web address] Information not available 09/28/2024 Do you or have you ever used any other forms of tobacco or nicotine? No [email or web address] Information not available 09/28/2024 What is your level of alcohol consumption? None [email or web address] Information not available 09/28/2024 Do you or have you ever used any nicotine-free cigarettes, vape, or chewing tobacco? No [email or web address] Information not available 09/28/2024 Mental Status None recorded. Family History Nothing Reported Notes:Family history unknown Medical History No medical history recorded. Immunizations Vaccine Type Date Status Note Provider Nam e and Address Organization Details Recorded Time Tdap 11/19/2022 completed [facility] Reina [facility], .[facility].[place] 09/28/2024 14:01:12 Past Encounters Encounter ID Performer Location Encounter Start Date Encounter Closed Date Diagnosis/Indication Diagnosis SNOMED-CT Code Diagnosis ICD10 Code Diagnosis Note [id number] Dylan Breaux MD [facility] ([facility]) [address] [place] [address] 03/22/2025 15:50:39 03/22/2025 17:48:40 [facility] 94567822 R73.9 Hyperlipidemia 58439399 E78.5 medication addition Health Concerns Section Related Observation LastModified by Organization Detai ls LastModified Time None Recorded Concern Status LastModified by Organization Details LastModified Time None Recorded Payers Encounter Date Sequence Insurance Name Policy Number Policy Oswald Covered Member ID Oswald Member ID Guarantor Name 03/22/2025 1 [place] Jordi Esposito [id number] Jordi Esposito 03/22/2025 2 FOR LIFE ( - MEDICARE SUPPLEMENT) Jordi Esposito [id number] Jordi Esposito
--- OUTSIDE RECORDS SUMMARY | 2025-03-27 01:40 | XMS_ITS | Patient Health Record ---
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 Name Role Phone Dylan Adhikari MD Primary Care Provider UnavailJONG [place] Unavailable [phone] Donavan Gupta Unavailable Unavailable YVES EISENBERG Unavailable [phone] APOLINAR HINTON Unavailable [phone] ERIK TAVERAS Unavailable [phone] Yves Chiang Unavailable [phone] Allergies Allergen (clinical drug ingredient) Drug/Non Drug Allergy documented on EMR Reaction Allergy Type Onset Date Status morphine Morphine nausea and vomiting Drug Allergy Active Reason For Referral No Information Medications Medication SIG (Take, Route, Frequency, Duration) Notes Start Date End Date Status Vitamin B12 3000 MCG as directed Sublingual Active Multivitamin Active Carvedilol 12.5 MG 1 tablet with food O rally Twice a day Active Edex 20 MCG as directed Intracavernosal prn for 30 days 12/23/2024 Active Atorvastatin Calcium 80 MG 1 tablet Orally Once a day Active Isosorbide Mononitrate ER 120 MG 1 tablet in the morning Orally Once a day Active Clopidogrel Bisulfate 75 MG 1 tablet Orally Once a day Active Nitroglycerin 0.4 MG as directed Sublingual Not-Taking Irbesartan-hydroCHLOROt hiazide 150-12.5 MG 1 tablet Orally Once a day Active Eliquis 2.5 MG as directed Orally Active Social History Tobacco Use: Social History Observation Description Date Details (start date - stop date) Former Smoker NA - NA Tobacco Control (Standard) Question Answer Notes Tobacco use: Former smoker How long has it been since you last smoked? Corrinea ter than 10 years Problems Problem Type SNOMED Code ICD Code Onset Dates Problem Status W/U Status Risk Notes Problem 33139696 Essential (primary) hypertension (I10) Active confirmed Problem Benign prostatic hyperplasia (717284359) BPH (benign prostatic hyperplasia) (N40.0) Active confirmed Problem Use of anticoagulation (053375960) Chronic anticoagulation (Z79.01) Active confirmed Problem ED (erectile dysfunction) (N52.9) Active confirmed Problem Urinary frequency (649444058) Urinary frequency (R35.0) Active confirmed Problem Erectile dysfunction (857947829) Erectile dysfunction (N52.9) Active confirmed Problem Microscopic hematuria (R31.29) Active confirmed Vital Signs Heart Rate 89 /min 07/11/2024 Blood pressure diastolic 77 mm Hg 07/11/2024 Height-cm 182.88 cm 12/22/2024 Weight-kg 98.88 kg 12/22/2024 Height 72 in 12/22/2024 Blood pressure systolic 135 mm Hg 07/11/2024 Weight 218 lbs 12/22/2024 BMI 29.56 kg/m2 12/22/2024 Encounters Encounter Location Date Provider Diagnosis [facility] [address] [place] [address] 01/09/2025 Yves Chiang [facility] [address] [place] [address] 04/11/2024 ERIK TAVERAS ED (erectile dysfunction) N52.9 ; Urinary frequency R35.0 and Microscopic hematuria R31.29 [facility] [address] [place] [address] 04/19/2024 JONG NATION Erectile dysfunction N52.9 [facility] [address] [place] [address] 04/26/2024 APOLINAR HINTON Erectile dysfunction N52.9 [facility] [address] [place] [address] 05/03/2024 APOLINAR HINTON Erectile dysfunction N52.9 [facility] [address] [place] [address] 05/10/2024 APOLINAR HINTON Erectile dysfunction N52.9 [facility] [address] [place] [address] 05/17/2024 APOLINAR HINTON Erectile dysfunction N52.9 [facility], [facility] [address] [place] [address] 05/24/2024 APOLINAR HINTON Erectile dysfunction N52.9 [facility] [address] [place] [address] 07/11/2024 ERIK TAVERAS ED (erectile dysfunction) N52.9 ; Urinary frequency R35.0 and Microscopic hematuria R31.29 [facility] [address] [place] [address] 12/22/2024 [facility] ED (erectile dysfunction) N52.9 ; Urinary frequency R35.0 ; Microscopic hematuria R31.29 and Chronic anticoagulation Z79.01 [facility] [address] [place] [address] 08/11/2024 [facility], [facility] [address] [place] [address] 08/11/2024 [facility] Preop testing Z01.81 8 and Essential (primary) hypertension I10 [facility], [facility] [address] [place] [address] 08/12/2024 [facility], [facility] [address] [place] [address], [place] [address] 02/06/2025 JONG NATION Assessments Encounter Date Diagnosis (ICD Code) Assessment Notes Treatment Notes Treatment Clinical Notes Section Notes 08/11/2024 Preop testing (ICD-10 - Z01.818) 07/11/2024 ED (erectile dysfunction) (ICD-10 - N52.9) 83yoM with a h/o CAD, HTN, HLPD, Afib, and ED. Completed UroGold with no improvement. He is interested in IPP. He is on plavix and Eliquis. Failed UroGold and oral meds. He is interested in IPP Placement and aware that cardiac clearance would need to be obtained prior to hold his Eliquis and Plavix ( music video director Dr. Chen in ). How this procedure is performed, what [...] the presence, of Dr. Taveras. I, Dr. Erik Taveras, personally performed the services prescribed in this documentation, as scribed by Jaz Morris CNA in my presence, and it is both accurate and complete. 05/24/2024 Erectile dysfunction (ICD-10 - N52.9) Pt here for UroGold treatment #6 of 6. Recommended that he continue with any other treatment that he has been doing; as he has a VADIM on hand and uses this randomly. He tolerated well and will return as scheduled for symptom reassessment with IIEF. 05/17/2024 Erectile dysfunction (ICD-10 - N52.9) Pt here for UroGold treatment #5 of 6. Recommended that he continue with any other treatment that he has been doing; as he has a VADIM on hand and uses this randomly. He tolerated well and will return in 1wk for treatment #6. 05/10/2024 Erectile dysfunction (ICD-10 - N52.9) Pt here for UroGold treatment #4 of 6. Recommended that he continue with any other treatment that he has been doing; as he has a VADIM on hand and uses this randomly. He tolerated well and will return in 1wk for treatment #5. 05/03/2024 Erectile dysfunction (ICD-10 - N52.9) Pt here for UroGold treatment #3 of 6. Recommended that he continue with any other treatment that he has been doing; as he has a VADIM on hand and uses this randomly. He tolerated well and will return in 1wk for treatment #4. 04/26/2024 Erectile dysfunction (ICD-10 - N52.9) Pt here for UroGold treatment #2 of 6. Recommended that he continue with any other treatment that he has been doing; as he has a VADIM on hand and uses this randomly. He tolerated well and will return in 1wk for treatment #3. 04/19/2024 Erectile dysfunction (ICD-10 - N52.9) Pt here for UroGold treatment #1 of 6. Recommended that he continue with any other treatment that he has been doing; as he has a VADIM on hand and uses this randomly. He tolerated well and will return in 1wk for treatment #2. 04/11/2024 ED (erectile dysfunction) (ICD-10 - N52.9) I discussed injections, VADIM and UroGold. We discussed based on cardiac co-morbidity I do not feel he would be a good elective surgical candidate for IPP. I explained how each are performed along with risks/benefit s/alternative s. Pt elects for UroGold and will be scheduled for Urogold treatments or sooner with any concerns 83yoM with a h/o CAD, HTN, HLPD, Afib, and ED. Discussed treatment options for ED. He can't use PDE5 inhibitors due to nitrate use. He is interested in Urogold treatments. plan: - RTC for next available UroGold treatment -RTC or call sooner with any concerns ILena Scribe, am scribing for, and in the presence of, Dr. Taveras. I, Dr. Erik Taveras, personally performed the services prescribed in this documentation, as scribed by Lena Kim, in my presence, and it is both accurate and complete. 12/22/2024 ED (erectile dysfunction) (ICD-10 - N52.9) 84yoM with a h/o CAD, HTN, HLPD, Afib, and ED. Completed UroGold with no improvement. He is interested in ICI. He is on Plavix and Eliquis. We discussed ICI Edex vs Trimix. Patient will like to proceed with Edex and Rx will be sent today. He will return for [place] for teaching. He will return in 4m with symptom reassessment and see Yves Chiang APRN. Return sooner with any concerns Plan: -RX sent Edex for ICI -RTC for [place] for Teaching RTC in 4m for symptom reassessment and see Yves Chiang APRN I, Stormy Kapelski, Scribe, am scribing for, and in the presence of, Dr. Taveras. I, Dr. Erik Taveras, personally performed the services prescribed in this documentation, as scribed by Lena Kim, in my presence, and it is both accurate and complete. 12/22/2024 Urinary frequency (ICD-10 - R35.0) 84yoM with a h/o CAD, HTN, HLPD, Afib, and ED. Completed UroGold with no improvement. He is interested in ICI. He is on Plavix and Eliquis. We discussed ICI Edex vs Trimix. Patient will like to proceed with Edex and Rx will be sent today. He will return for [place] for teaching. He will return in 4m with symptom reassessment and see Yves Chiang APRN. Return sooner with any concerns Plan: -RX sent Edex for ICI -RTC for [place] for Teaching RTC in 4m for symptom reassessment and see Yves Chiang APRN I, Stormy Kapelski, Scribe, am scribing for, and in the presence of, Dr. Taveras. I, Dr. Erik Taveras, personally performed the services prescribed in this documentation, as scribed by Lena Kim, in my presence, and it is both accurate and complete. 12/22/2024 Microscopic hematuria (ICD-10 - R31.29) 84yoM with a h/o CAD, HTN, HLPD, Afib, and ED. Completed UroGold with no improvement. He is interested in ICI. He is on Plavix and Eliquis. We discussed ICI Edex vs Trimix. Patient will like to proceed with Edex and Rx will be sent today. He will return for [place] for teaching. He will return in 4m with symptom reassessment and see Yves Chiang APRN. Return sooner with any concerns Plan: -RX sent Edex for ICI -RTC for [place] for Teaching RTC in 4m for symptom reassessment and see Yves Chiang APRN I, Stormy Kapelski, Scribe, am scribing for, and in the presence of, Dr. Taveras. I, Dr. Erik Taveras, personally performed the services prescribed in this documentation, as scribed by Lena Kim, in my presence, and it is both accurate and complete. 08/11/2024 Essential (primary) hypertension (ICD-10 - I10) 04/11/2024 Urinary frequency (ICD-10 - R35.0) Denies any complaints 83yoM with a h/o CAD, HTN, HLPD, Afib, and ED. Discussed treatment options for ED. He can't use PDE5 inhibitors due to nitrate use. He is interested in Urogold treatments. plan: - RTC for next available UroGold treatment -RTC or call sooner with any concerns Lena Elizabeth Scribe, am scribing for, and in the presence of, Dr. Taveras. I, Dr. Erik Taveras, personally performed the services prescribed in this documentation, as scribed by Lena Kim, in my presence, and it is both accurate and complete. 07/11/2024 Urinary frequency (ICD-10 - R35.0) 83yoM with a h/o CAD, HTN, HLPD, Afib, and ED. Completed UroGold with no improvement. He is interested in IPP. He is on plavix and Eliquis. Failed UroGold and oral meds. He is interested in IPP Placement and aware that cardiac clearance would need to be obtained prior to hold his Eliquis and Plavix ( music video director Dr. Chen in [place] ). How this [...] the presence, of Dr. Taveras. I, Dr. Erik Taveras, personally performed the services prescribed in this documentation, as scribed by Jaz Morris CNA in my presence, and it is both accurate and complete. 07/11/2024 Microscopic hematuria (ICD-10 - R31.29) 83yoM with a h/o CAD, HTN, HLPD, Afib, and ED. Completed UroGold with no improvement. He is interested in IPP. He is on plavix and Eliquis. Failed UroGold and oral meds. He is interested in IPP Placement and aware that cardiac clearance would need to be obtained prior to hold his Eliquis and Plavix ( music video director Dr. Chen in [place] ). How this [...] the presence, of Dr. Taveras. I, Dr. Erik Taveras, personally performed the services prescribed in this documentation, as scribed by Jaz Morris CNA in my presence, and it is both accurate and complete. 04/11/2024 Microscopic hematuria (ICD-10 - R31.29) 83yoM with a h/o CAD, HTN, HLPD, Afib, and ED. Discussed treatment options for ED. He can't use PDE5 inhibitors due to nitrate use. He is interested in Urogold treatments. plan: - RTC for next available UroGold treatment -RTC or call sooner with any concerns Lena Elizabeth Scribe, sandi scribing for, and in the presence of, Dr. Taveras. I, Dr. Erik Taveras, personally performed the services prescribed in this documentation, as scribed by Lena Kim, in my presence, and it is both accurate and complete. 12/22/2024 Chronic anticoagulation (ICD-10 - Z79.01) 84yoM with a h/o CAD, HTN, HLPD, Afib, and ED. Completed UroGold with no improvement. He is interested in ICI. He is on Plavix and Eliquis. We discussed ICI Edex vs Trimix. Patient will like to proceed with Edex and Rx will be sent today. He will return for [place] for teaching. He will return in 4m with symptom reassessment and see Yves Chiang APRN. Return sooner with any concerns Plan: -RX sent Edex for ICI -RTC for [place] for Teaching RTC in 4m for symptom reassessment and see Yves Chiang APRN ILena Scribe, am scribing for, and in the presence of, Dr. Taveras. I, Dr. Erik Taveras, personally performed the services prescribed in this documentation, as scribed by Lena Kim, in my presence, and it is both accurate and complete. 06/13/2024 83yoM with a h/o CAD, HTN, HLPD, Afib, and ED. plan: - RTC n -RTC or call sooner with any concerns ILena Scribe, am scribing for, and in the presence of, Dr. Taveras. I, Dr. Erik Taveras, personally performed the services prescribed in this documentation, as scribed by Lena Kim, in my presence, and it is both accurate and complete. 12/20/2024 83yoM with a h/o CAD, HTN, HLPD, Afib, and ED. Completed UroGold with no improvement. He is interested in IPP. He is on plavix and Eliquis. Failed UroGold and oral meds. He is interested in IPP Placement and aware that cardiac clearance would need to be obtained prior to hold his Eliquis and Plavix ( music video director Dr. Chen in [place] ). How this [...] Plavix and Eliquis - RTC post operatively I, Jaz Morris CNA, am scribing for, and in the presence, of Dr. Taveras. I, Dr. Erik Taveras, personally performed the services prescribed in this documentation, as scribed by Jaz Morris CNA in my presence, and it is both accurate and complete. Plan Of Treatment Pending Test Test Name Order Date Basic Metabolic Panel 08/11/2024 CBC w/ Auto Diff 08/11/2024 Electrocardiogram, 12 Lead Tracing-[id number] 08/11/2024 Next Appt Details Provider Name:Yves Chiang, 04/27/2025 11:20:00 AM, [address] [place], [address], Insurance Providers Payer Name Payer Address Payer Phone Subscriber Number Group Number Insured Name Patient Relationship to Insured Coverage Start Date Coverage End Date [place] [address] [facility] [place] [id number] Jordi Esposito Self - patient is the insured for Life Secondary to Medicare [address] [place], [place] [id number] [phone] [id number] Jordi Esposito Self - patient is the insured Medical (General) History Medical History History ICD Code hyperlipidemia hypertension Arthritis back pain erectile dysfunction Surgical History Surgery Date(Month/Year) left shoulder repair 1985 left thumb repair 1987 pacemaker insertion 2016
--- NOTE | 2025-03-27 01:54 | XRR_ITS ---
PROCEDURE INFORMATION: Exam: XR Chest Exam date and time: 03/27/2025 2:17 AM Age: 84 years old Clinical indication: Chest pressure; Prior surgery; Surgery date: 6+ months; Surgery type: Pacer; C/O chest pain TECHNIQUE: Imaging protocol: Radiologic exam of the chest. Views: 1 view. COMPARISON: CR XR chest 1V portable [id number] 05/28/2024 5:04 PM FINDINGS: Tubes, catheters and devices: Dual lead pacer device, stable. Lungs: Unremarkable. No consolidation. Pleural spaces: Unremarkable. No pleural effusion. No pneumothorax. Heart/Mediastinum: Unremarkable. No cardiomegaly. Bones/joints: Degenerative change of the visualized osseous structures. Stable distal left clavicle osseous remodeling and shortening. XR/XR chest 1V portable [id number] IMPRESSION: No acute findings.
--- NOTE | 2025-03-27 01:54 | CTR_ITS ---
PROCEDURE INFORMATION: Exam: CT Head Without Contrast Exam date and time: 03/27/2025 2:26 AM Age: 84 years old Clinical indication: Mild confusion with dizziness and nausea TECHNIQUE: Imaging protocol: Computed tomography of the head without contrast. Radiation optimization: All CT scans at this facility use at least one of these dose optimization techniques: automated exposure control; mA and/or kV adjustment per patient size (includes targeted exams where dose is matched to clinical indication); or iterative reconstruction. COMPARISON: CT head wo/w con [id number] 07/10/2022 9:12 AM RADIATION DOSE METRICS: Total DLP (mGy-cm): 1120.88 FINDINGS: Brain: Heavy intracranial calcified atherosclerotic disease. Mild parenchymal atrophy. Diffuse periventricular and subcortical white matter hypoattenuation with confluence appearance bilaterally. This is a nonspecific finding, however likely represents chronic microvascular disease. Cerebral ventricles: Ex vacuo dilation of the ventricles and CSF fluid spaces. Paranasal sinuses: Visualized sinuses are unremarkable. No fluid levels. Mastoid air cells: Visualized mastoid air cells are well aerated. Orbital cavities: Postprocedural changes of the bilateral globes. Bones: No acute osseous abnormality. Soft tissues: Unremarkable. CT/CT head wo con* [id number] IMPRESSION: No acute intracranial findings.
--- NOTE | 2025-03-27 02:02 | ECG_ITS ---
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 Measurements Intervals [place]er Rate: 66 P: 208 NE: 179 QRS: -76 QRSD: 229 T: 91 QT: 487 QTc: 511 Interpretive Statements ELECTRONIC ATRIAL PACEMAKER ELECTRONIC VENTRICULAR PACEMAKER ABNORMAL RHYTHM ECG Compared to ECG 10/10/2024 16:47:31 ST (T wave) deviation no longer present Myocardial infarct finding no longer present Electronically Signed On 03-27-2025 17:01:40 CDT by Christi Chen M.D. [email or web address] [id number]
[2025-03-27 02:18] LABS: Troponin(5th) Baseline 18 ng/L (0-15)
[2025-03-27 02:20] VITALS: BP 144/72; BP 155/76; BP 166/81; PULSE 64; PULSE 66; PULSE 67
[2025-03-27 02:23] LABS: Alanine Aminotransferase 19 U/L (0-41); Albumin Level 4.2 g/dL (3.5-5.2); Alkaline Phosphatase 133 U/L (40-130); Anion Gap 14.8 (5-19); Aspartate Amino Transferase 25 U/L (0-40); Blood Urea Nitrogen 20 mg/dL (8-23); Calcium 9.2 mg/dL (8.5-10.5); Carbon Dioxide 26 mmol/L (22-29); Chloride 101 mmol/L (98-107); Creatinine Clr Calc Pharmacy 53.0234; Globulin 2.4 g/dL (1.3-4.6); Glucose 125 mg/dL (65-115); Hematocrit 36.2 % (37-53); Hemoglobin 12.00 g/dL (11.27-16.99); Mean Corpuscular HGB Conc 33.1 g/dL (30-55); Mean Corpuscular Hemoglobin 30.8 pg (27-33); Mean Corpuscular Volume 92.8 fl (82-101); Nucleated Red Blood Cells % 0 %; Osmolality Calculated 290 mOsm/kg (285-295); Platelet Count 159 10^3/cmm (157-399); Potassium 3.8 mmol/L (3.5-5.1); Red Blood Count 3.90 10^6/uL (3.85-5.65); Sodium 138 mmol/L (136-145); Total Protein 6.6 g/dL (6.6-8.7); White Blood Count 8.96 10^3/uL (3.29-11.43)
[2025-03-27 02:26] LABS: Glucose Urine UA Negative (Normal); Nitrate Urine Negative (Negative); Specific Gravity, Urine 1.009 (1.005-1.030)
[2025-03-27 02:31] LABS: Add Urine Microscopic? YES
[2025-03-27] MEDS: ondansetron 2 mg/ML SDV 2 mL 4 MG IVP (03:52)
[2025-03-27 04:23] LABS: Troponin 5 2HR 16.05 ng/L (0-15)
[2025-03-27 04:24] LABS: Troponin 5 2HR Delta -1.95 ABS# (0-10)
[2025-03-27 04:40] VITALS: BP 125/67; PULSE 93; RESP 16; O2SAT 98
[2025-03-27 04:53] VITALS: BP 125/67; PULSE 60; RESP 16; O2SAT 97
== END 2025-03-27 04:58 | disposition home or self-care (01) ==
PROVIDERS: Emergency Provider Student in an Organized Health Care Education/Training Program; PCP Family Medicine
DX: R07.89 Other chest pain (principal); Z53.21 Procedure and treatment not carried out due to patient leaving prior to being seen by health care provider; R42 Dizziness and giddiness; R11.0 Nausea; R41.0 Disorientation, unspecified; Z95.0 Presence of cardiac pacemaker
CPT/HCPCS: 36415; 70450; 71045; 80053; 81001; 84484; 85025; 93005; 96374; 99285; J2405; J8597

== ENCOUNTER 2025-04-12 11:42 | Outpatient (RCR) | payer MEDICARE, OTHER, SELFPAY | END 2025-05-07 23:59 | disposition home or self-care (01) | LOC: SPT 11:42 | PROVIDERS: Visit Provider Family Medicine | DX: R42 Dizziness and giddiness (principal) | CPT/HCPCS: 95992; 97161 ==

== ENCOUNTER → 2025-05-10 09:28 | Outpatient (BNVA) | payer MEDICARE, OTHER, SELFPAY | PROVIDERS: PCP Family Medicine; Visit Provider Nurse Practitioner Family | DX: M79.18 Myalgia, other site (principal); M48.062 Spinal stenosis, lumbar region with neurogenic claudication; M54.6 Pain in thoracic spine; M54.9 Dorsalgia, unspecified; M47.816 Spondylosis without myelopathy or radiculopathy, lumbar region | CPT/HCPCS: 20553; 99214; J1010; J3490 ==

== ENCOUNTER 2025-05-18 10:04 | Outpatient (RCR) | payer MEDICARE, OTHER, SELFPAY | END 2025-06-06 23:59 | disposition home or self-care (01) | LOC: SPT 10:04 | PROVIDERS: PCP Family Medicine; Visit Provider Nurse Practitioner Family | DX: M54.6 Pain in thoracic spine (principal) | CPT/HCPCS: 97110; 97161 ==

== ENCOUNTER 2025-06-07 05:00 | Outpatient (RCR) | payer MEDICARE, OTHER, SELFPAY | END 2025-07-07 23:59 | disposition home or self-care (01) | LOC: SPT 05:00 | PROVIDERS: PCP Family Medicine; Visit Provider Nurse Practitioner Family | DX: M54.6 Pain in thoracic spine (principal) | CPT/HCPCS: 97110; 97530; 99214 ==

== ENCOUNTER → 2025-06-27 14:07 | Outpatient (BNVA) | payer MEDICARE, OTHER, SELFPAY | PROVIDERS: PCP Family Medicine; Visit Provider Nurse Practitioner Family | DX: I25.119 Atherosclerotic heart disease of native coronary artery with unspecified angina pectoris (principal); Z95.0 Presence of cardiac pacemaker; I10 Essential (primary) hypertension; Z87.891 Personal history of nicotine dependence; J32.9 Chronic sinusitis, unspecified | CPT/HCPCS: 99214 ==

== ENCOUNTER 2025-07-10 09:18 | Outpatient (CLI) | payer MEDICARE, OTHER, SELFPAY ==
--- NOTE | 2025-07-10 09:40 | XR_ITS ---
WS: [id number] Chest 2 views, 07/10/2025 Clinical Data: COPD EXACERBATION Comparison: Portable chest, 03/27/2025 Findings: No nodules, masses or effusions are seen. The heart is normal. The pulmonary vascularity is not increased. No pneumonia or pneumothorax is seen. There is a 2-lead cardiac pacemaker with the generator overlying the left lateral chest. The aortic arch shows mild tortuosity. XR/XR chest 2V* [id number] Impression: Atherosclerosis and cardiac pacemaker.
== END 2025-07-10 09:19 | disposition home or self-care (01) ==
LOC: RADOUTREAD 09:22
PROVIDERS: PCP Family Medicine; Visit Provider Nurse Practitioner Family
DX: J44.1 Chronic obstructive pulmonary disease with (acute) exacerbation (principal); Z95.0 Presence of cardiac pacemaker; R93.89 Abnormal findings on diagnostic imaging of other specified body structures; M48.062 Spinal stenosis, lumbar region with neurogenic claudication; M47.816 Spondylosis without myelopathy or radiculopathy, lumbar region; M54.6 Pain in thoracic spine; G89.29 Other chronic pain
CPT/HCPCS: 99214

== ENCOUNTER → 2025-07-26 13:30 | Outpatient (BNVA) | payer MEDICARE, OTHER, SELFPAY | PROVIDERS: PCP Family Medicine; Visit Provider Internal Medicine Cardiovascular Disease | DX: Z45.018 Encounter for adjustment and management of other part of cardiac pacemaker (principal) | CPT/HCPCS: 93296 ==